=== PATIENT | male | born 1980 | race Caucasian/White ===

== ENCOUNTER 2023-08-03 20:28 | Emergency (ER) | payer BC, SELFPAY ==
[2023-08-03 20:50] VITALS: BP 156/89; PULSE 93; O2SAT 100; BMI 28.9
--- NOTE | 2023-08-03 21:02 | XR_ITS ---
The [address] [address] Patient Name: ALISA SPENCER MRN: [id number] date: 1980 Sex: M Assigned Patient Location: ER Current Patient Location: ER Accession/Order Number: [id number] Exam Date: 08/03/2023 21:54 Report Date: 08/03/2023 22:09 At the request of: CRISTHIAN PRICE Procedure: XR chest 1V EXAM: XR chest 1V HISTORY: Dizzy, palpitations COMPARISON: None. TECHNIQUE: Chest x-ray portable FINDINGS: Clear lungs bilaterally. No acute consolidation. Cardiac shadow within normal. Normal hilar shadows. No pleural effusions. XR/XR chest 1V IMPRESSION: No evidence of acute cardiopulmonary process. Electronically authenticated by: LAURO RESENDIZ Date: 08/03/2023 22:09
--- NOTE | 2023-08-03 21:02 | CT_ITS ---
The [address] [address] Patient Name: ALISA SPENCER MRN: [id number] date: 1980 Sex: M Assigned Patient Location: ER Current Patient Location: ED.MAIN Accession/Order Number: [id number] Exam Date: 08/03/2023 21:55 Report Date: 08/03/2023 22:16 At the request of: CRISTHIAN PRICE Procedure: CT head/brain wo con EXAM: CT head/brain wo con HISTORY: dizzy, headache COMPARISON: None. TECHNIQUE: Unenhanced axial CT of the head was performed with coronal and sagittal reformats provided. FINDINGS: No hydrocephalus, midline shift, extra-axial fluid collection or intracranial hemorrhage. Simpson-white matter differentiation is preserved. Mastoids and middle ears are clear. Paranasal sinuses are clear. Visualized orbits are intact. The calvarium, skull base and osseous structures of the imaged face are intact. Scalp soft tissues are preserved. CT/CT head/brain wo con IMPRESSION: No acute intracranial process. Electronically authenticated by: DIRK LOWERY Date: 08/03/2023 22:16
--- NOTE | 2023-08-03 21:02 | ECG_ITS ---
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
--- NOTE | 2023-08-03 21:02 | ED.GENADUL1 ---
Documented by User: ZARA Aparicio 08/03/23 22:18 HPI HPI - General Adult General Chief complaint: Arrhythmia/Palpitations Stated complaint: thinks he is in a fib Time Seen by Provider: 08/03/23 20:43 Source: patient Mode of arrival: walk-in Limitations: no limitations History of Present Illness HPI narrative: Patient is a 43-year-old male who presents to the emergency department with concern that he is in A-fib. He has never had A-fib previously. He states he has felt off all day and has been dizzy, had headaches without visual changes, some chest tightness without shortness of breath. He has had mild cough. No fevers or vomiting. He has not had any hemoptysis, leg swelling. He had hernia surgery 5 weeks ago without complication. He states earlier today his smart watch told him that he was in A-fib and his felt as though his pulse was irregular. He has no palpitations at this time. He is noted to be in normal sinus rhythm with stable vital signs at initial interview. He takes blood pressure medication and has had a previous fused bicuspid aortic valve that is monitored with [facility], he does not take anticoagulation for this. Related Data Home Medications ?Medication ?Instructions ?Recorded ?Confirmed diltiazem HCl 240 mg capsule,24 240 mg PO Q24H 08/03/23 08/03/23 hr,extended release hydrochlorothiazide 25 mg tablet 25 mg PO QAM 08/03/23 08/03/23 lisinopril 20 mg tablet 20 mg PO QDAY 08/03/23 08/03/23 omeprazole 20 mg capsule,delayed 20 mg PO QDAY 08/03/23 08/03/23 release tadalafil 5 mg tablet 5 mg PO QDAY 08/03/23 08/03/23 Allergies Allergy/AdvReac Type Severity Reaction Status Date / Time levaquin Allergy Rash Uncoded 08/03/23 20:50 Opioid HPI Opioid Management Most Recent Opioid Data: No Data to Display Review of Systems ROS Constitutional Denies: fever or chills Eyes Denies: change in vision Ears, nose, mouth, and throat Denies: throat pain or nasal congestion Cardiovascular Reports: chest pain and palpitations Respiratory Reports: cough; Denies: shortness of breath, change in phlegm color or coughing up blood Gastrointestinal Denies: nausea, vomiting or diarrhea Musculoskeletal Denies: back pain Integumentary/Breast Denies: rash Neurological Reports: headache and dizziness; Denies: numbness in extremities or weakness in extremities Hematologic/Lymphatic Denies: easy bruising or easy bleeding Exam Narrative Exam Narrative: Gen.: Awake, alert, in no distress Head: Normocephalic, atraumatic ENT: Moist mucous membranes Respiratory: No respiratory distress, lungs clear bilaterally Cardio: Regular rate and rhythm Extremities: Moves extremities equally, no pedal edema or leg swelling noted Psych: Normal mood and affect Neuro: No focal neuro deficit Skin: Warm, dry, intact Constitutional Vital Signs, click to edit/add: Last Vital Signs Pulse 85 08/03/23 22:45 Resp 17 08/03/23 20:50 BP 119/83 08/03/23 22:45 Pulse Ox 95 08/03/23 22:45 O2 Del Method Room Air 08/03/23 20:50 Course Vital Signs Vital signs: Vital Signs Pulse Rate 93 H 08/03/23 20:50 Respiratory Rate 17 08/03/23 20:50 Blood Pressure 156/89 H 08/03/23 20:50 Pulse Oximetry 100 08/03/23 20:50 Oxygen Delivery Method Room Air 08/03/23 20:50 Pulse Rate 85 08/03/23 22:45 Respiratory Rate 17 08/03/23 20:50 Blood Pressure 119/83 08/03/23 22:45 Pulse Oximetry 95 08/03/23 22:45 Oxygen Delivery Method Room Air 08/03/23 20:50 Medical Decision Making MDM Narrative Medical decision making narrative: Patient with a PERC score of 0, stable vital signs, no hemoptysis, no history of DVT or PE, surgery greater than 4 weeks ago and no unilateral leg swelling. 2215: Labs show elevated TSH, imaging is pending at this time and case turned over to attending physician. The remainder of the workup is unremarkable at this point. Medical Records Medical records reviewed: Yes I reviewed the patient's medical records Lab Data Lab results reviewed: Yes I reviewed the patient's lab results Labs: Lab Results 08/03/23 08/03/23 08/03/23 Range/Units 21:00 21:07 21:12 WBC 5.7 (4.0-11.0) 10^3/uL RBC 4.80 (4.70-6.10) 10^6/uL Hgb 14.3 (14.0-18.0) g/dL Hct 42.8 (42.0-54.0) % MCV 89.2 (80.0-94.0) fL MCH 29.8 (25.9-34.0) pg MCHC 33.4 (29.9-35.2) g/dL RDW 12.1 (11.0-15.0) % Plt Count 229 (150-450) 10^3/uL MPV 11.0 (9.5-13.5) fL Neut % (Auto) 62.1 (43.0-75.0) % Lymph % (Auto) 18.7 L (20.5-60.0) % [place] % (Auto) 16.4 H (1.7-12.0) % Eos % (Auto) 1.6 (0.9-7.0) % Baso % (Auto) 0.7 (0.2-2.0) % Neut # (Auto) 3.5 (1.4-6.5) 10^3/uL Lymph # (Auto) 1.1 L (1.2-3.8) 10^3/uL [place] # (Auto) 0.9 H (0.3-0.8) 10^3/uL Eos # (Auto) 0.1 (0.0-0.7) 10^3/uL Baso # (Auto) 0.0 (0.0-0.1) 10^3/uL Abs Immat Gran (auto) 0.03 (0.00-0.03) 10^3/uL Imm/Tot Granulo (auto) 0.5 (0.0-0.5) % PT 10.0 (9.0-11.6) sec INR 0.94 APTT 26.7 (22.3-36.2) sec Sodium 138 (136-145) mmol/L Potassium 3.4 L (3.5-5.1) mmol/L Chloride 100 (98-107) mmol/L Carbon Dioxide 27.4 (21.0-32.0) mmol/L Anion Gap 14.0 BUN 6.0 L (7.0-18.0) mg/dL Creatinine 0.92 (0.70-1.30) mg/dL Est GFR ( Amer) >60 (>=60) Est GFR (Non-Af Amer) >60 (>=60) BUN/Creatinine Ratio 6.5 Glucose 88 (74-106) mg/dL Calcium 9.2 (8.5-10.1) mg/dL Total Bilirubin 0.3 (0.2-1.0) mg/dL AST 11 L (15-37) U/L ALT 26 (16-63) U/L Alkaline Phosphatase 67 (46-116) U/L Troponin I High Sens <4.0 L (4.0-76.1) pg/mL NT-Pro-B Natriuret Pep 35.0 (<=450.0) pg/mL Total Protein 7.7 (6.4-8.2) g/dL Albumin 4.1 (3.4-5.0) g/dL Globulin 3.6 g/dL Albumin/Globulin Ratio 1.1 TSH 8.744 H (0.358-3.740) uIU/mL Free T4 0.94 (0.76-1.46) ng/dL Free T3 3.29 (2.18-3.98) pg/mL Influenza Type A Ag Negative Influenza Type B Ag Negative SARS-CoV-2 Ag (CV2AG) Negative (NEGATIVE) Imaging Data Chest x-ray: Attestation: I have reviewed the pertinent imaging results. Radiologist's impression: ITS Impressions Chest X-Ray 08/03/23 21:02 IMPRESSION: No evidence of acute cardiopulmonary process. Electronically authenticated by: LAURO RESENDIZ Date: 08/03/2023 22:[address] 08/03/23 21:02 IMPRESSION: No acute intracranial process. Electronically authenticated by: DIRK LOWERY Date: 08/03/2023 22:16 ECG Data Attestation: I personally reviewed and interpreted this ECG as follows: (Normal sinus rhythm at a rate of 95, no acute ST elevation or ectopy. EKG reviewed by attending physician) Discharge Plan Discharge Stand Alone Forms: Portal Instructions Chief Complaint: Arrhythmia/Palpitations Clinical Impression: Palpitations, Dizziness Patient Disposition: Home, Self-Care Time of Disposition Decision: 23:27 Prescriptions / Home Meds: No Action diltiazem HCl 240 mg capsule,extended release 24 hr 240 mg PO Q24H hydrochlorothiazide 25 mg tablet 25 mg PO QAM lisinopril 20 mg tablet 20 mg PO QDAY omeprazole 20 mg capsule,delayed release(DR/EC) 20 mg PO QDAY tadalafil 5 mg tablet 5 mg PO QDAY Print Language: Martiniquais Instructions: Heart Palpitations (ED), Dizziness (ED) Referrals: Celena Chung MD [Primary Care Provider] - 1 week Documented by User: Abhay Diego 08/03/23 23:27 HPI HPI - General Adult General Chief complaint: Arrhythmia/Palpitations Stated complaint: thinks he is in a fib Time Seen by Provider: 08/03/23 20:43 History of Present Illness HPI narrative: Patient is a 43-year-old male who presents to the emergency department with concern that he is in A-fib. He has never had A-fib previously. He states he has felt off all day and has been dizzy, had headaches without visual changes, some chest tightness without shortness of breath. He has had mild cough. No fevers or vomiting. He has not had any hemoptysis, leg swelling. He had hernia surgery 5 weeks ago without complication. He states earlier today his smart watch told him that he was in A-fib and his felt as though his pulse was irregular. He has no palpitations at this time. He is noted to be in normal sinus rhythm with stable vital signs at initial interview. He takes blood pressure medication and has had a previous fused bicuspid aortic valve that is monitored with [facility], he does not take anticoagulation for this. Related Data Home Medications ?Medication ?Instructions ?Recorded ?Confirmed diltiazem HCl 240 mg capsule,24 240 mg PO Q24H 08/03/23 08/03/23 hr,extended release hydrochlorothiazide 25 mg tablet 25 mg PO QAM 08/03/23 08/03/23 lisinopril 20 mg tablet 20 mg PO QDAY 08/03/23 08/03/23 omeprazole 20 mg capsule,delayed 20 mg PO QDAY 08/03/23 08/03/23 release tadalafil 5 mg tablet 5 mg PO QDAY 08/03/23 08/03/23 Allergies Allergy/AdvReac Type Severity Reaction Status Date / Time levaquin Allergy Rash Uncoded 08/03/23 20:50 Opioid HPI Opioid Management Most Recent Opioid Data: No Data to Display Exam Constitutional Vital Signs, click to edit/add: Last Vital Signs Pulse 85 08/03/23 22:45 Resp 17 08/03/23 20:50 BP 119/83 08/03/23 22:45 Pulse Ox 95 08/03/23 22:45 O2 Del Method Room Air 08/03/23 20:50 Course Vital Signs Vital signs: Vital Signs Pulse Rate 93 H 08/03/23 20:50 Respiratory Rate 17 08/03/23 20:50 Blood Pressure 156/89 H 08/03/23 20:50 Pulse Oximetry 100 08/03/23 20:50 Oxygen Delivery Method Room Air 08/03/23 20:50 Pulse Rate 85 08/03/23 22:45 Respiratory Rate 17 08/03/23 20:50 Blood Pressure 119/83 08/03/23 22:45 Pulse Oximetry 95 08/03/23 22:45 Oxygen Delivery Method Room Air 08/03/23 20:50 Medical Decision Making MDM Narrative Medical decision making narrative: Patient with a PERC score of 0, stable vital signs, no hemoptysis, no history of DVT or PE, surgery greater than 4 weeks ago and no unilateral leg swelling. 2215: Labs show elevated TSH, imaging is pending at this time and case turned over to attending physician. The remainder of the workup is unremarkable at this point. For this patient encounter I reviewed the mid-level provider?s documentation, medical decision-making and treatment plan, and I personally spent time with this patient. Shared APC visit, physician attestation: [id number]: This visit was performed by both a physician and an APC. I personally evaluated and examined the patient. I performed all aspects of MDM as documented. I saw and examined the patient. His Apple Watch told him that he was in atrial fibrillation. He has never had this previously. He did admit to having dizziness along with some chest tightness earlier in the day. As Mari noted above, the patient has history of fused Bicuspid aortic valve that is monitored by [facility]. The workup today was unremarkable. CBC was negative his potassium was minimally decreased at 3.4 but that is not low enough to account for the patient's symptoms. He was also sent for head CT due to the dizziness and that was negative. Troponin and BNP are negative as is the chest x-ray. TSH was elevated at 8.744, but T3 and T4 were negative. This will need additional outpatient evaluation. He was given reassurance and informed of results. He will be discharged home to follow-up with his primary care provider for further evaluation and treatment as well as cardiology as needed. Holter monitor may be necessary to further evaluate this if he continues to have symptoms. - DO Agustín Lab Data Labs: Lab Results 08/03/23 08/03/23 08/03/23 Range/Units 21:00 21:07 21:12 WBC 5.7 (4.0-11.0) 10^3/uL RBC 4.80 (4.70-6.10) 10^6/uL Hgb 14.3 (14.0-18.0) g/dL Hct 42.8 (42.0-54.0) % MCV 89.2 (80.0-94.0) fL MCH 29.8 (25.9-34.0) pg MCHC 33.4 (29.9-35.2) g/dL RDW 12.1 (11.0-15.0) % Plt Count 229 (150-450) 10^3/uL MPV 11.0 (9.5-13.5) fL Neut % (Auto) 62.1 (43.0-75.0) % Lymph % (Auto) 18.7 L (20.5-60.0) % [place] % (Auto) 16.4 H (1.7-12.0) % Eos % (Auto) 1.6 (0.9-7.0) % Baso % (Auto) 0.7 (0.2-2.0) % Neut # (Auto) 3.5 (1.4-6.5) 10^3/uL Lymph # (Auto) 1.1 L (1.2-3.8) 10^3/uL [place] # (Auto) 0.9 H (0.3-0.8) 10^3/uL Eos # (Auto) 0.1 (0.0-0.7) 10^3/uL Baso # (Auto) 0.0 (0.0-0.1) 10^3/uL Abs Immat Gran (auto) 0.03 (0.00-0.03) 10^3/uL Imm/Tot Granulo (auto) 0.5 (0.0-0.5) % PT 10.0 (9.0-11.6) sec INR 0.94 APTT 26.7 (22.3-36.2) sec Sodium 138 (136-145) mmol/L Potassium 3.4 L (3.5-5.1) mmol/L Chloride 100 (98-107) mmol/L Carbon Dioxide 27.4 (21.0-32.0) mmol/L Anion Gap 14.0 BUN 6.0 L (7.0-18.0) mg/dL Creatinine 0.92 (0.70-1.30) mg/dL Est GFR ( Amer) >60 (>=60) Est GFR (Non-Af Amer) >60 (>=60) BUN/Creatinine Ratio 6.5 Glucose 88 (74-106) mg/dL Calcium 9.2 (8.5-10.1) mg/dL Total Bilirubin 0.3 (0.2-1.0) mg/dL AST 11 L (15-37) U/L ALT 26 (16-63) U/L Alkaline Phosphatase 67 (46-116) U/L Troponin I High Sens <4.0 L (4.0-76.1) pg/mL NT-Pro-B Natriuret Pep 35.0 (<=450.0) pg/mL Total Protein 7.7 (6.4-8.2) g/dL Albumin 4.1 (3.4-5.0) g/dL Globulin 3.6 g/dL Albumin/Globulin Ratio 1.1 TSH 8.744 H (0.358-3.740) uIU/mL Free T4 0.94 (0.76-1.46) ng/dL Free T3 3.29 (2.18-3.98) pg/mL Influenza Type A Ag Negative Influenza Type B Ag Negative SARS-CoV-2 Ag (CV2AG) Negative (NEGATIVE) Imaging Data Chest x-ray: Radiologist's impression: ITS Impressions Chest X-Ray 08/03/23 21:02 IMPRESSION: No evidence of acute cardiopulmonary process. Electronically authenticated by: LAURO RESENDIZ Date: 08/03/2023 22:[address] 08/03/23 21:02 IMPRESSION: No acute intracranial process. Electronically authenticated by: DIRK LOWERY Date: 08/03/2023 22:16 Discharge Plan Discharge Stand Alone Forms: Portal Instructions Chief Complaint: Arrhythmia/Palpitations Clinical Impression: Palpitations, Dizziness Patient Disposition: Home, Self-Care Time of Disposition Decision: 23:27 Prescriptions / Home Meds: No Action diltiazem HCl 240 mg capsule,extended release 24 hr 240 mg PO Q24H hydrochlorothiazide 25 mg tablet 25 mg PO QAM lisinopril 20 mg tablet 20 mg PO QDAY omeprazole 20 mg capsule,delayed release(DR/EC) 20 mg PO QDAY tadalafil 5 mg tablet 5 mg PO QDAY Print Language: Martiniquais Instructions: Heart Palpitations (ED), Dizziness (ED) Referrals: Celena Chung MD [Primary Care Provider] - 1 week
[2023-08-03 21:12] LABS: Basophils Percent Auto 0.7 % (0.2-2.0); Eosinophils Absolute Auto 0.1 10^3/uL (0.0-0.7); Eosinophils Percent Auto 1.6 % (0.9-7.0); Hematocrit 42.8 % (42.0-54.0); Hemoglobin 14.3 g/dL (14.0-18.0); Immature Granulocytes Abs Auto 0.03 10^3/uL (0.00-0.03); Immature Granulocytes Pct Auto 0.5 % (0.0-0.5); Lymphocytes Absolute Auto 1.1 10^3/uL (1.2-3.8); Lymphocytes Percent Auto 18.7 % (20.5-60.0); Mean Corpuscular HGB Conc 33.4 g/dL (29.9-35.2); Mean Corpuscular Hemoglobin 29.8 pg (25.9-34.0); Mean Corpuscular Volume 89.2 fL (80.0-94.0); Monocytes Absolute Auto 0.9 10^3/uL (0.3-0.8); Monocytes Percent Auto 16.4 % (1.7-12.0); Neutrophils Absolute Auto 3.5 10^3/uL (1.4-6.5); Neutrophils Percent Auto 62.1 % (43.0-75.0); Platelet Count 229 10^3/uL (150-450); Red Cell Distribution Width 12.1 % (11.0-15.0); White Blood Count 5.7 10^3/uL (4.0-11.0)
[2023-08-03 21:27] LABS: Alanine Aminotransferase 26 U/L (16-63); Albumin Globulin Ratio 1.1; Albumin Level 4.1 g/dL (3.4-5.0); Alkaline Phosphatase 67 U/L (46-116); Aspartate Amino Transferase 11 U/L (15-37); BUN Creatinine Ratio 6.5; Bilirubin Total 0.3 mg/dL (0.2-1.0); Calcium 9.2 mg/dL (8.5-10.1); Carbon Dioxide 27.4 mmol/L (21.0-32.0); Chloride 100 mmol/L (98-107); Estimated GFR (African America >60 (>=60); Estimated GFR (Non-African Ame >60 (>=60); Globulin 3.6 g/dL; Glucose 88 mg/dL (74-106); Potassium 3.4 mmol/L (3.5-5.1); Sodium 138 mmol/L (136-145); Total Protein 7.7 g/dL (6.4-8.2)
[2023-08-03 21:28] LABS: INR 0.94; Partial Thromboplastin Time 26.7 sec (22.3-36.2)
[2023-08-03 21:36] LABS: Thyroid Stimulating Hormone 8.744 uIU/mL (0.358-3.740); Troponin I High Sensitivity <4.0 pg/mL (4.0-76.1)
[2023-08-03 21:47] LABS: Influenza Virus A Antigen Negative; Influenza Virus B Antigen Negative; Internal Control Within Normal Limits; SARS-CoV-2 Ag NEGATIVE (NEGATIVE)
[2023-08-03 22:07] LABS: Free T4 0.94 ng/dL (0.76-1.46)
[2023-08-03 22:13] LABS: Free T3 3.29 pg/mL (2.18-3.98)
[2023-08-03 22:45] VITALS: BP 119/83; PULSE 85; O2SAT 95
[2023-08-03 23:34] VITALS: BP 136/93; PULSE 87; O2SAT 97
== END 2023-08-03 23:39 | disposition home or self-care (01) ==
PROVIDERS: Physician Assistant; Emergency Provider Emergency Medicine; PCP Family Medicine
DX: R42 Dizziness and giddiness (principal); R00.2 Palpitations; Z79.899 Other long term (current) drug therapy; Z98.890 Other specified postprocedural states; R07.89 Other chest pain; R51.9 Headache, unspecified
CPT/HCPCS: 36415; 70450; 71045; 80053; 83880; 84439; 84443; 84481; 84484; 85025; 85610; 85730; 87804; 87811; 93005; 99285

== ENCOUNTER 2023-09-26 07:21 | Outpatient (OUT) | payer BC, SELFPAY ==
--- NOTE | 2023-09-26 07:30 | CA_ITS ---
Patient Name: ALISA SPENCER MR#: [id number] : 1980 Exam Date: 09/26/2023 Ordering Doctor: MAGNO OLIVEIRA CNP ECHOCARDIOGRAM REPORT PROCEDURE: CA ECHO DOPPLER COMPLETE INDICATIONS: Bicuspid aortic valve, aortic insufficiency, hypertension COMPARISON: None. DESCRIPTION: COMPLETE ECHOCARDIOGRAM Real-time transthoracic echocardiography with 2D, M-mode, spectral and color flow Doppler performed. QUALITY: Technical quality was good. 74 , 225#, BP 112/62 LEFT VENTRICLE: Normal chamber size. Normal left ventricular wall thickness. Normal systolic function. LV EF: Normal left ventricular ejection fraction, (>55%). DIASTOLIC: Diastolic function is normal. ATRIAL SEPTUM: Visually appears intact. LEFT ATRIUM: Mild dilatation. RIGHT ATRIUM: Mild dilatation. RIGHT VENTRICLE: Mild dilatation. Normal right ventricular systolic function. TRICUSPID VALVE: Normal mobility and thickness. No stenosis with trivial regurgitation. MITRAL VALVE: Mildly thickened with normal mobility. Mild mitral annular calcification. Trivial mitral regurgitation. AORTIC VALVE: The aortic valve is bicuspid, Eliu type I [fusion of right and left cusps]. No evidence of aortic valve stenosis. Mild to moderate aortic regurgitation. AORTIC ROOT: The aortic root is at the upper limits of normal in size, measuring 3.7 cm. Ascending aorta is normal in size. PULMONIC VALVE: Normal thickness and mobility. No stenosis. No regurgitation. PERICARDIUM: No evidence of pericardial effusion. IVC: Collapses with inspirations. IVC is normal in size. PLEURA: CONCLUSION: 1. Normal left ventricular size and systolic function. Estimated LVEF is 55 to 60%. 2. Normal diastolic function. 3. Mildly dilated right ventricle with normal systolic function. 4. Mild biatrial dilatation. 5. Bicuspid aortic valve with mild to moderate regurgitation and no stenosis. Adult Echocardiography Procedure Report Left Ventricle LVEDD (3.7 - 5.6 cm): 5.75 cm LVESD (2.2 - 4.0 cm): 4.16 cm LVIVS thickness (0.6 - 1.2 cm): 1.04 cm LVPW thickness (0.5 - 1.0 cm): 0.91 cm e': 0.16 m/s E - e': 5.62 LVOT Max Gradient: 6.24 mm[Hg] LVOT Area (cm2): 1.25 m/s Peak Velocity (LVOT): 1.25 m/s Mean Velocity (LVOT): 0.86 m/s LVOT Diameter 2.64 cm Left Atrium LA Volume Index (2D A2C): 36.88 ml/m2 Left Atrium Systolic Dimension: 3.72 cm Mitral Valve MV E to A Ratio: 1.55 Mitral Valve A-Wave Peak Velocity: 0.58 m/s Mitral Valve E-Wave Peak Velocity: 0.90 m/s Right Ventricle Aorta AO Root Diam: 3.66 cm Ascending Ao Diam: 3.04 cm Aortic Valve AoV Area ([place]): 3.98 cm2, 3.98 cm2 AoV Area (VTI): 3.77 cm2, 3.77 cm2 Deceleration [place]: 1.78 m/s2, 2.85 m/s2 Pressure Half-Time: 740.70 ms, 449.54 ms Peak Velocity(Antegrade Flow): 1.72 m/s, 1.68 m/s Peak Gradient(Antegrade Flow): 11.79 mm[Hg], 11.25 mm[Hg] Mean Velocity(Antegrade Flow): 1.21 m/s, 1.20 m/s Mean Gradient(Antegrade Flow): 6.73 mm[Hg], 6.50 mm[Hg] Velocity Time Integral: 41.10 cm, 40.32 cm Tricuspid Valve Pulmonic Valve Peak Gradient: 5.92 mm[Hg], 5.27 mm[Hg] Right Atrium Right Atrium Systolic Pressure: 79.25 ml, 79.25 ml Dictated by: Sheldon Mcguire M.D. on 09/26/2023 at 18:57 Approved by: Sheldon Mcguire M.D. on 09/26/2023 at 19:03
== END 2023-09-26 07:22 | disposition home or self-care (01) ==
LOC: CARD 07:22
PROVIDERS: PCP Family Medicine; Visit Provider Nurse Practitioner Family
DX: Q23.1 Congenital insufficiency of aortic valve (principal)
CPT/HCPCS: 93306

== ENCOUNTER 2024-02-02 07:03 | Outpatient (OUT) | payer BC, SELFPAY ==
--- OUTSIDE RECORDS SUMMARY | 2024-02-02 07:07 | XMS_ITS | CCD ---
Author Organization [facility] Care Team Providers Care Emergency Medicine Medical Director Name Role Phone ROSE MARY TIMMONS Primary Care Unavailable PELON TIM Admitting Unavailable PELON TIM Attending Unavailable Rose Mary Timmons Primary Care Provider [phone] ROSE MARY TIMMONS Referring Unavailable ROSE MARY TIMMONS Primary Care Unavailable UNKNOWN, PROVIDER Attending Unavailable UNKNOWN, PROVIDER Admitting Unavailable Guanaco Wolf Unavailable Mando Forde Unavailable Lanie Robledo Unavailable Woodrow Rashid Unavailable Leyla Bolanos Unavailable MD Rose Mary Timmons Primary Care Provider [phone] MD Woodrow Rashid Attending Provider Rose Mary Timmons Unavailable MD Rose Mary Timmons Primary Care Provider MD Guanaco Wolf Attending Provider MD Rose Mary Timmons Primary Care Provider MD Guanaco Wolf Attending Provider [phone] MD Woodrow Rashid Attending Provider [phone] MAGNO OLIVEIRA Consulting Unavailable MAGNO OLIVEIRA Attending Unavailable MAGNO OLIVEIRA Admitting Unavailable DR ROSE MARY TIMMONS Primary Care Unavailable MAGNO OLIVEIRA Admitting Unavailable MAGNO OLIVEIRA Consulting Unavailable MAGNO OLIVEIRA Attending Unavailable DR ROSE MARY TIMMONS Primary Care Unavailable DR ROSE MARY TIMMONS Attending Unavailable DR ROSE MARY TIMMONS Admitting Unavailable DR ROSE MARY TIMMONS Primary Care Unavailable DR ROSE MARY TIMMONS Consulting Unavailable MAGNO OLIVEIRA Admitting Unavailable MAGNO OLIVEIRA Attending Unavailable DR ROSE MARY TIMMONS Primary Care Unavailable MD Rose Mary Timmons Primary Care Provider MD Guanaco Wolf Attending Provider [phone] Rose Mary Timmons MD Primary Care Provider [phone] MD Rose Mary Timmons Primary Care Provider DO Jonathan Shipman Attending Provider [phone] MD Rose Mary Timmons Primary Care Provider DO Jonathan Shipman Attending Provider [phone] Rose Mary Timmons Primary Care Unavailable Woodrow Rashid Admitting Unavailable Woodrow Rashid Attending Unavailable Rose Mary Timmons Primary Care Unavailable Guanaco Wolf Admitting Unavailable Guanaco Wolf Attending Unavailable Jonathan Shipman Attending Unavailable Rose Mary Timmons Primary Care Unavailable Jonathan Shipman Admitting Unavailable Rose Mary Timmons Primary Care Unavailable Woodrow Rashid Admitting Unavailable Woodrow Rashid Attending Unavailable Rose Mary Timmons Primary Care Unavailable Jonathan Shipman Admitting Unavailable Jonathan Shipman Attending Unavailable JONATHAN SHIPMAN Attending Unavailable ROSE MARY TIMMONS Unavailable JONATHAN SHIPMAN Attending Unavailable JONATHAN SHIPMAN Attending Unavailable ZACHARY WILLIAM Attending Unavailable JONATHAN SHIPMAN Attending Unavailable TAVO MENDOZA Attending Unavailable Allergies Allergy Classification Reported Allergen(s) Allergy Type Date of Onset Reaction(s) Facility (9 sources) levoFLOXacin; Translations: [LEVOFLOXACIN] Drug Allergy 8 [facility], [place] (20 sources) levoFLOXacin Drug Allergy TSB Other (1 source) levoFLOXacin Drug Allergy 4 [facility] Repository Medications Current Medications Medication Drug Class(es) Dates Sig (Normalized) Sig (Original) acetaminophen 325 mg oral tablet (1 source) Start: 05-17-2020 650 mg, Oral, EVERY 4 HOURS PRN, Pain Mild (1-3), Pain Mild (1-3) or Fever greater than 100.5 F (38 C), Starting 05/17/20 at 2251 Maximum dose of acetaminophen is 4000 mg from all sources in 24 hours. acetaminophen 325 mg / oxyCODONE hydrochloride 5 mg oral tablet (1 source) Opioid Agonist Start: 05-18-2020 End: 06-01-2020 take 1 tablet by mouth every six hours as needed for pain, then take 1 tablet by mouth as needed for pain oxyCODONE-acetamin ophen (PERCOCET) 5-325 MG per tablet Indications: Postoperative pain Take 1 tablet by mouth every 6 hours as needed for Pain for up to 14 days. Intended supply: 7 days. Take lowest dose possible to manage pain 40 tablet 0 05/18/2020 06/01/2020 Active calcium chloride 0.0014 meq/ml / potassium chloride 0.004 meq/ml / sodium chloride 0.103 meq/ml / sodium lactate 0.028 meq/ml injectable solution (1 source) Start: 05-18-2020 lactated ringers infusion cephalexin 500 mg oral capsule (1 source) Cephalosporin Antibacterial Start: 05-18-2020 End: 05-25-2020 take 1 capsule by mouth three times daily cephALEXin (KEFLEX) 500 MG capsule Take 1 capsule by mouth 3 times daily for 7 days 21 capsule 0 05/18/2020 05/25/2020 Active Compression stockings, 30-40mmHg, thigh 30-40mmHg (6 sources) Start: 09-19-2022 Compression stockings, 30-40mmHg, thigh 30-40mmHg externally daily as directed for 90 days August, Active dilTIAZem malate 240 mg oral tablet (20 sources) Calcium Channel Edie Start: 08-02-2023 take 240 mg by mouth once daily Diltiazem Hcl Active 240 MG PO Daily August 02, 2023 12:00am Start: 01-04-2023 End: 08-01-2023 take 240 mg by mouth once daily in the morning Diltiazem Hcl Discontinued 240 MG PO Every morning January 04, 2023 12:00am August 01, 2023 9:54am take 1 capsule by [facility] every twenty-four hours in the morning dilTIAZem ER (Tiazac) 240 MG 24 hr capsule Take 240 mg by mouth in the morning. 0 Active gabapentin 300 mg oral capsule (1 source) Anti-epileptic Agent Start: 05-08-2020 End: 06-07-2020 take 1 capsule by mouth three times daily gabapentin (NEURONTIN) 300 MG capsule Take 1 capsule by mouth 3 times daily for 30 days. 90 capsule 0 05/08/2020 06/07/2020 Active hydroCHLOROthiazide 25 mg oral tablet (20 sources) Thiazide Diuretic Start: 01-04-2023 End: 04-11-2024 take 25 mg by mouth once daily Hydrochlorothiazide Active 25 MG PO Daily August 02, 2023 12:00am HYDROmorphone (DILAUDID) injection 0.25 mg (1 source) Start: 05-17-2020 HYDROmorphone (DILAUDID) injection 0.25 mg lisinopril 20 mg oral tablet (20 sources) Angiotensin Converting Enzyme Inhibitor Start: 01-04-2023 End: 08-01-2023 take 20 mg by mouth once daily Lisinopril Active 20 MG PO Daily August 02, 2023 12:00am lisinopril (PRIN IVIL;ZESTRIL) 20 MG tablet Take 30 mg by mouth daily 0 Active methylPREDNISolone 4 mg oral tablet (20 sources) Corticosteroid Start: 05-15-2020 End: 05-21-2020 methylPREDNISolone (MEDROL DOSEPACK) 4 MG tablet Take by mouth. 1 kit 0 05/15/2020 05/21/2020 Active Start: 04-12-2020 Depo-Medrol 40 mg Mar, 40 mg 24 hr metoprolol succinate 50 mg extended release oral tablet (1 source) beta-Adrenergic Edie Start: 06-19-2017 take 50 mg by mouth once daily Metoprolol Succinate Active 50 MG PO Daily June 19, 2017 1:00am Multivitamin (Daily Multi-Vitamin) tablet (2 sources) Start: 06-16-2023 take 1 tablet by mouth once daily in the morning Multivitamin (Daily Multi-Vitamin) tablet Active 1 TAB PO Every morning June 16, 2023 1:00am Start: 06-16-2023 take 1 tablet by frances th once daily in the morning Multivitamin (Daily Multi-Vitamin) tablet Active 1 TAB PO Every morning June 16, 2023 12:00am olmesartan medoxomil 20 mg oral tablet (1 source) Angiotensin 2 Receptor Edie take 1 tablet by mouth once daily olmesartan (BENICAR) 20 MG tablet Take 20 mg by mouth daily 0 Active omeprazole 20 mg delayed release oral capsule (20 sources) Proton Pump Inhibitor Start: take 1 capsule by mouth once daily Omeprazole Active 0 .ROUTE .COMPLEX 90 July 03, 2023 1:13pm TAKE 1 CAPSULE BY MOUTH ONCE DAILY Start: 01-04-2023 End: 07-03-2023 take 20 mg by mouth once daily in the morning Omeprazole Discontinued 20 MG PO Every morning January 04, 2023 12:00am July 03, 2023 1:13pm take 1 capsule by [facility] once daily Omeprazole 10 MG 1 capsule 30 minutes before morning meal Orally Once a day Active predniSONE 20 mg oral tablet (15 sources) Start: 09-27-2022 take 2 tablets by mouth every twenty-four hours predniSONE 20 MG 2 tablets Orally Once a day for 5 days August, Active Start: 03-23-2021 predniSONE 10 MG 3 tablets a day for 3 days, 2 tablets a day for 3 days, 1 tablets a day for 3 days Orally Once a day for 9 day(s) Mar, Not-Taking sennosides, nursing home 8.6 mg oral tablet (1 source) Start: 05-18-2020 End: 06-01-2020 take 2 tablets by mouth twice daily senna (SENOKOT) 8.6 MG tablet Take 2 tablets by mouth 2 times daily for 14 days 56 tablet 0 05/18/2020 06/01/2020 Active 3 ml sodium chloride 9 mg/ml injection (3 sources) Start: 05-17-2020 10 mL, Intrave nous, EVERY 12 HOURS SCHEDULED (2 times per day), First dose on 05/17/20 at 2315 Start: 05-17-2020 take 10 mL intraveno us route once as needed 10 mL, Intravenous, PRN, Line Care, After every IV line use, Starting 05/17/20 at 2251 Start: 05-17-2020 End: 05-17-2020 0.9 % sodium chloride bolus tadalafil 5 mg oral tablet (20 sources) Phosphodiesterase 5 Inhibitor Start: 01-04-2023 take 5 mg by mouth once daily Tadalafil Active 5 MG PO Daily January 04, 2023 12:00am Completed/Discontinued Medications Medication Drug Class(es) Dates Sig (Normalized) Sig (Original) acetaminophen 325 mg / HYDROcodone bitartrate 5 mg oral tablet (7 sources) Opioid Agonist Start: 01-12-2022 End: 01-04-2023 take 1 tablet by mouth every eight hours Hydrocodone-Acetami nophen Discontinued 1 TAB PO Q8H 11 09January 12, 2022 January 04, 2023 6:34am Start: 06-19-2017 take 1 tablet by frances th every six hours Hydrocodone-Acetaminophen ([place]) 5-325 mg tablet Active 1 TAB PO Q6H June 19, 2017 cefTRIAXone (ROCEPHIN) 1 g IVPB in 50 mL D5W minibag (1 source) Start: 05-17-2020 End: 05-17-2020 cefTRIAXone (ROCEPHIN) 1 g IVPB in 50 mL D5W minibag diclofenac sodium 75 mg delayed release oral tablet (20 sources) Nonsteroidal Anti-inflammatory Drug Start: 04-19-2021 take 1 tablet by mouth every twelve hours Diclofenac Sodium 75 MG 1 tablet as needed Orally Twice a day for 30 day(s) Mar, Not-Taking gadoteridol (PROHANCE) injection 15 mL (1 source) Start: 05-17-2020 End: 05-17-2020 gadoteridol (PROHANCE) injection 15 mL 1 ml HYDROmorphone hydrochloride 1 mg/ml cartridge (3 sources) Opioid Agonist Start: 05-17-2020 End: 05-17-2020 HYDROmorphone (DILAUDID) injection 1 mg Start: 05-17-2020 End: 05-18-2020 HYDROmorphone (DILAUDID) inj ection 0.5 mg ketamine 10 mg/ml injectable solution (1 source) General Anesthetic Start: 05-17-2020 End: 05-17-2020 ketamine (KETALAR) injection 53.3 mg Ketorolac (20 sources) Nonsteroidal Anti-inflammatory Drug, Cyclooxygenase Inhibitor Start: 04-12-2020 Toradol per 15 mg Mar, 30 mg Start: 11-14-2015 Toradol per 15 mg Oct, 60 mg 1 ml meperidine hydrochloride 25 mg/ml cartridge (1 source) Opioid Agonist Start: 05-18-2020 End: 05-18-2020 meperidine (DEMEROL) injection 12.5 mg 2 ml ondansetron 2 mg/ml injection (1 source) Serotonin-3 Receptor Antagonist Start: 05-17-2020 End: 05-17-2020 ondansetron (ZOFRAN) injection 4 mg traMADol hydrochloride 50 mg oral tablet (1 source) Opioid Agonist Start: 06-26-2023 End: 08-02-2023 take 50 mg by mouth every six hours Tramadol Discontinued 50 MG PO Q6H 30 7 June 26, 2023 1:00am August 02, 2023 11:08am zolpidem tartrate 12.5 mg extended release oral tablet (14 sources) gamma-Aminobutyri c Acid-ergic Agonist Start: 03-08-2023 take 1 tablet by mouth at bedtime as needed Zolpidem Tartrate ER 12.5 mg TAKE 1 TABLET BY MOUTH AT BEDTIME NEEDED for 30 Mar, Not-Taking/PRN Start: 09-30-2022 take 1 tablet by frances th at bedtime as needed Zolpidem Tartrate ER 12.5 mg TAKE 1 TABLET BY MOUTH AT BEDTIME NEEDED for 30 Last name is Johanna. Sep, Active Start: 06-23-2022 take 1 tablet by frances th every twenty-four hours Ambien CR 12.5 MG 1 tablet at bedtime as needed Orally Once a day for 30 days Jun, Active Problems Active Problems Problem Classification Problem Date Documented Da te Episodic/Chronic Abdominal hernia (4 sources) Left inguinal hernia ; Translations: [Unilateral inguinal hernia, without obstruction or gangrene, not specified as recurrent] Onset: 06-13-2023 06-13-2023 Episodic Abdominal pain (3 sources) Left lower quadrant pain; Translations: [Left lower quadrant pain] Onset: 06-13-2023 Episodic Anxiety disorders (5 sources) Anxiety disorder; Translations: [Other specified anxiety disorders] Chronic Cardiac and circulatory congenital anomalies (2 sources) Congenital insufficiency of aortic valve; Translations: [Congenital insufficiency of aortic valve] Onset: 09-14-2022 Chronic Cardiac dysrhythmias (7 sources) Tachycardia; Translations: [Tachycardia, unspecified] Onset: 11-21-2017 Episodic Esophageal disorders (3 sources) Gastro-esophageal reflux disease with esophagitis; Translations: [Gastro-esophageal reflux disease with esophagitis, without bleeding] Chronic Esophageal disorders (2 sources) Esophageal disorders; Translations: [Gastro-esophageal reflux disease with esophagitis, without bleeding] Essential hypertension (9 sources) Essential hypertension; Translations: [Essential (primary) hypertension] Onset: 09-14-2022 08-01-2023 Chronic Heart valve disorders (6 sources) Nonrheumatic aortic (valve) insufficiency; Translations: [NONRHEUMATIC AORTIC INSUFFICIENCY] Onset: 08-22-2022 Chronic Other bone disease and musculoskeletal deformities (5 sources) Other specified disorders of bone, shoulder; Translations: [Other specified disorders of bone, shoulder] Episodic Other connective tissue disease (20 sources) Supraspinatus syndrome; Translations: [Unspecified rotator cuff tear or rupture of left shoulder, not specified as traumatic] Episodic Other diseases of veins and lymphatics (20 sources) Peripheral venous insufficiency; Translations: [Venous insufficiency (chronic) (peripheral)] 08-01-2023 Episodic Other diseases of veins and lymphatics (9 sources) Vascular insufficiency; Translations: [Venous insufficiency (chronic) (peripheral)] 08-01-2023 Episodic Other ear and sense organ disorders (1 source) Bilateral tinnitus; Translations: [Tinnitus, bilateral] 08-02-2023 Episodic Other ear and sense organ disorders (1 source) Tinnitus, bilateral; Translations: [Tinnitus, unspecified] 08-02-2023 Episodic Other male genital disorders (2 sources) Impotence of organic origin; Translations: [Male erectile dysfunction, unspecified] Chronic Other male genital disorders (4 sources) Male erectile dysfunction, unspecified; Translations: [Erectile dysfunction (disorder)] 08-01-2023 Chronic Other nervous system disorders (20 sources) Chronic pain; Translations: [Other chronic pain] 08-01-2023 Chronic Other nervous system disorders (7 sources) Other chronic pain Onset: 04-19-2021 Resolved: 07-12-2021 Chronic Other nervous system disorders (1 source) Postoperative pain ; Translations: [Postoperative pain] Episodic Other non-traumatic joint disorders (20 sources) Derangement of left shoulder joint; Translations: [Other specific joint derangements of left shoulder, not elsewhere classified] Chronic Other non-traumatic joint disorders (1 source) Other specific joint derangements of left shoulder, not elsewhere classified Onset: 06-01-2021 Resolved: 06-01-2021 Chronic Other non-traumatic joint disorders (3 sources) Pain in left shoulder; Translations: [Left shoulder pain] Onset: 06-10-2021 Resolved: 07-01-2021 Episodic Other non-traumatic joint disorders (5 sources) Shoulder joint pain; Translations: [Pain in left shoulder] Episodic Other upper respiratory disease (20 sources) Seasonal allergic rhinitis; Translations: [Other seasonal allergic rhinitis] Chronic Residual codes; unclassified (14 sources) Insomnia; Translations: [Other insomnia] Chronic Residual codes; unclassified (2 sources) Other insomnia Chronic Residual codes; unclassified (6 sources) Patient encounter status; Translations: [Encounter for procedure for purposes other than remedying health state, unspecified] 01-12-2022 Episodic Spondylosis; intervertebral disc disorders; other back problems (20 sources) Prolapsed lumbar intervertebral disc; Translations: [Degeneration of lumbar intervertebral disc] Onset: 05-17-2020 Resolved: 08-27-2021 05-17-2020 Chronic Sprains and strains (20 sources) Supraspinatus tear; Translations: [Unspecified rotator cuff tear or rupture of left shoulder, not specified as traumatic] Episodic Unclassified (1 source) Encounter for preprocedural laboratory examination; Translations: [Encounter for preprocedural laboratory examination] Onset: 06-16-2023 Unclassified (1 source) Varicose veins of bilateral lower extremities with pain; Translations: [Varicose veins of bilateral lower extremities with pain] Onset: 01-04-2023 Unclassified (1 source) Varicose veins of left lower extremity with pain; Translations: [Varicose veins of left lower extremity with pain] Onset: 09-01-2022 Varicose veins of lower extremity (20 sources) Varicose veins of lower extremity; Translations: [Varicose veins of bilateral lower extremities with other complications] Onset: 09-21-2021 Resolved: 12-21-2021 Episodic Past or Other Problems Problem Classification Problem Date Documented Date Episodic/Chronic Other connective tissue disease (1 source) Unspecified rotator cuff tear or rupture of left shoulder, not specified as traumatic Onset: 07-01-2021 Resolved: 07-01-2021 Episodic Other diseases of veins and lymphatics (1 source) Venous insufficiency (chronic) (peripheral) Onset: 08-23-2022 Resolved: 12-21-2021 Episodic Other upper respiratory infections (2 sources) Acute pharyngitis, unspecified Onset: 09-06-2021 Resolved: 09-06-2021 Episodic Residual codes; unclassified (1 source) Other specified postprocedural states Onset: 06-01-2021 Resolved: 06-01-2021 Episodic Spondylosis; intervertebral disc disorders; other back problems (20 sources) Sciatica; Translations: [Sciatica, left side] Onset: 01-12-2018 Resolved: 07-12-2021 Episodic Sprains and strains (1 source) Strain of other muscles, fascia and tendons at shoulder and upper arm level, left arm, initial encounter Onset: 06-10-2021 Resolved: 06-10-2021 Episodic Superficial injury; contusion (3 sources) Contusion of left shoulder, subsequent encounter; Translations: [Contusion of left shoulder, initial encounter] Onset: 06-01-2021 Resolved: 07-01-2021 Episodic Results Test Name Value Interpretation Reference Range Facility Office Visiton 12-22-2023 Follow-up visit [id number] ANSHUL Spencer 1980 M Date Provider Department Center 12/22/2023 TAVO TERRY CARD [facility] Family History Problem Relation Age of Onset Hypertension Father Hypertension Maternal Grandfather Family Status - Relation Status Age at Father Maternal Grandfather Level of Service:56785 [place] OFFICE/OUTPATIENT ESTABLISHED MOD MDM 30 MIN Normal [facility] Amphetamine Screen Ql (U)Ord ered By: Sai Conway on 06-26-2023 Amphetamines Ql (U) Negative Negative [facility] Barbiturates [Presence] in U rine by Screen methodOrdered By: Sai Conway on 06-26-2023 Barbiturates Screen Ql (U) Negative Negative [facility] Benzodiazepines Screen Ql (U )Ordered By: Sai Conway on 06-26-2023 Benzodiazepines Ql (U) Negative Negative [facility] Benzoylecgonine [Presence] i n Urine by Screen methodOrdered By: Sai Conway on 06-26-2023 Benzoylecgonine Screen Ql (U) Negative Negative [facility] Cannabinoids [Presence] in U rine by Screen methodOrdered By: Sai Conway on 06-26-2023 Cannabinoids Screen Ql (U) Positive Negative [facility] Comment on above: These are unconfirme d results and should not be used for legal purposes. Drug Cut-Off Concentration: AMPH 1000 ng/mL MEE 200 ng/mL ROC 200 ng/mL COCM 300 ng/mL OP 300 ng/mL PCP 25 ng/mL THC 20 ng/mL Drug Screen,Urineon 06-26-19 Amphetamine Screen,Urine Negative Normal Negative [facility] Comment on above: Performed By: #### U RDS #### [address] Barbiturate Screen,Urine Negative Normal Negative [facility] Comment on above: Performed By: #### U RDS #### [address] Benzodiazepines Screen,Urine Negative Normal Negative [facility] Comment on above: Performed By: #### U RDS #### [address] Cannabinoid Screen,Urine Positive High Negative [facility] Comment on above: Result Comment: Thes e are unconfirmed results and should not be used for legal purposes. Drug Cut-Off Concentration: AMPH 1000 ng/mL MEE 200 ng/mL ROC 200 ng/mL COCM 300 ng/mL OP 300 ng/mL PCP 25 ng/mL THC 20 ng/mL PERFORMED BY: [place] [address] PATHOLOGIST ESCAPEMENT MAKER LUCIO DENT M.D. Performed By: #### U RDS #### [place] [address] [place] Cocaine Screen,Urine Negative Normal Negative [facility] Comment on above: Performed By: #### U RDS #### [place] [address] [place] Opiate Screen,Urine Negative Normal Negative [facility] Comment on above: Performed By: #### U RDS #### [place] [address] [place] Phencyclidine Screen,Urine Negative Normal Negative [facility] Comment on above: Performed By: #### U RDS #### [facility] [address] Hair 06-26-2023 L Specimen: [id number] Received: 06/27/23 Status: LAURENCE Padilla Num: [id number] Spec Type: Surgical Subm Dr: Jonathan Shipman DO Tissues: A Hernia Sac (HERNIA SAC/CORD LIPOMA) Procedures: HE, Gross/Micro L2 Age/ Patient Sex Location Account Attending Physician Anshul Spencer S 43/M [place] [id number] Jonathan Shipman DO SPEC NUM: [id number] RECD: 06/27/23 STATUS: LAURENCE APDILLA NUM: [id number] REBECCA: 06/26/[address] [facility] [address]: Jonathan Shipman DO ENTERED: 06/27/23 [facility] DR: SPEC TYPE: Surgical DEPT: S ORDERED: HE, Gross/Micro L2 ORDERED: HE, Gross/Micro L2 Pathological Diagnosis Hernia Sac, Left Inguinal, Resection: Features Consistent With Hernia Sac (and Contents). Clinical Information Left inguinal hernia Gross Description Received in formalin labeled with the patient's name, date of and hernia sac, cord lipoma with the requisition further specifying left inguinal are 2 fragments of soft yellow lobulated adipose tissue each approximately 5.2 x 2.7 x 1.8 cm. Both fragments demonstrate overlying membranous pink-chapa tissue, potentially representing hernia sac wall. Sectioning demonstrates soft yellow lobules of adipose tissue with no firm or suspicious foci. A bilingual inside sales representative section of each fragment with overlying membranous tissue is submitted. Clothes Ironer sections are submitted in one cassette labeled A1. CPT Codes 03456 Specimen: [id number] Received: 06/27/23 Status: LAURENCE Pdailla Num: [id number] Spec Type: Surgical Subm Dr: Jonathan Shipman DO Tissues: A Hernia Sac (HERNIA SAC/CORD LIPOMA) Procedures: KEIRA, Yefri/Kendra L2 Patient: Anshul Spencer [id number] (Continued) Signed (signatur e on file) Estephania Womack MD 07/01/23 1104 Normal [facility] Opiates [Presence] in Urine by Screen methodOrdered By: Sai Conway on 06-26-2023 Opiates Screen Ql (U) Negative Negative [facility] Phencyclidine Screen Ql (U)O rdered By: aSi Conway on 06-26-2023 Phencyclidine Ql (U) Negative Negative [facility] Basic Metabolic Panelon 06-01 Anion gap [Moles/Vol] 10.6 mmol/L Normal 6.0-15.0 e [facility] Comment on above: Performed By: #### B MP #### [address] Calcium [Mass/Vol] 9.3 mg/dL Normal 8.6-10.3 [facility] Comment on above: Result Comment: PERF ORMED BY: [place] [address] PATHOLOGIST ESCAPEMENT MAKER LUCIO DENT M.D. Performed By: #### B MP #### [place] [address] [place] Chloride [Moles/Vol] 102 mmol/L Normal 98-107 [facility] Comment on above: Performed By: #### B MP #### [place] [address] [place] CO2 [Moles/Vol] 29.7 mmol/L Normal 21.0-31.0 [facility] Comment on above: Performed By: #### B MP #### [address] Creatinine [Mass/Vol] 0.87 mg/dL Normal 0.70-1.30 [facility] Comment on above: Performed By: #### B MP #### [place] [address] [place] GFR/1.73 sq M.predicted MDRD (S/P/Bld) [Vol rate/Area] mL/min/{1.73_m2} Normal [facility] Comment on above: Performed By: #### B MP #### [place] [address] [place] Glucose [Mass/Vol] 81 mg/dL Normal 70-100 The [facility] Comment on above: Result Comment: [place] Glucose Reference Range is dependent on time and content of last meal. Glucose of more than 200 mg/dL in a nonstressed, ambulatory subject supports the diagnosis of Diabetes Mellitus. ADA recommended reference range Performed By: #### B MP #### [place] [address] [place] Potassium [Moles/Vol] 4.3 mmol/L Normal 3.5-5.1 [facility] Comment on above: Performed By: #### B MP #### [facility] [address] Sodium [Moles/Vol] 138 mmol/L Normal 136-145 [facility] Comment on above: Performed By: #### B MP #### [facility] [address] Urea nitrogen [Mass/Vol] 12 mg/dL Normal 7-25 [facility] Comment on above: Performed By: #### B MP #### [facility] [address] Basophils Auto (Bld) [#/Vol] Ordered By: Jonathan Shipman on 06-16-2023 Basophils (Bld) [#/Vol] 0.0 10*3/uL 0.0-0.2 [facility] Basophils/100 WBC Auto (Bld) Ordered By: Jonathan Shipman on 06-16-2023 Basophils/100 WBC (Bld) 0.9 % . F [facility] Calcium [Mass/volume] in Ser um or PlasmaOrdered By: Jonathan Shipman on 06-16-2023 Calcium [Mass/Vol] 9.3 mg/dL 8.6-10.3 [facility] Carbon dioxide, total [Moles /volume] in Serum or PlasmaOrdered By: Jonathan Shipman on 06-16-2023 CO2 [Moles/Vol] 29.7 mmol/L 21.0-31.0 [facility] Chloride [Moles/volume] in S annemarie or PlasmaOrdered By: Jonathan Shipman on 06-16-2023 Chloride [Moles/Vol] 102 mmol/L 98-107 [facility] Complete Blood Count Auto Di ffon 06-16-2023 Basophils (Bld) [#/Vol] 0.0 10*3/uL Normal 0.0-0.2 [facility] Comment on above: Result Comment: PERF ORMED BY: [address] [place] [address] PATHOLOGIST ESCAPEMENT MAKER LUCIO DENT M.D. Performed By: #### C BC #### [place] [address] [place] Basophils/100 WBC (Bld) 0.9 % Normal . T he [facility] Comment on above: Performed By: #### C BC #### [address] Eosinophils (Bld) [#/Vol] 0.1 10*3/uL Normal 0.0-0.45 [facility] Comment on above: Performed By: #### C BC #### [address] Eosinophils/100 WBC (Bld) 2.8 % Normal . [facility] Comment on above: Performed By: #### C BC #### [address] Erythrocyte distribution width (RBC) [Ratio] 13.0 % Normal 12.0-14.8 [facility] Comment on above: Performed By: #### C BC #### [address] Hematocrit (Bld) [Volume fraction] 41.5 % Normal 38.8-50.0 [facility] Comment on above: Performed By: #### C BC #### [address] Hemoglobin (Bld) [Mass/Vol] 14.2 g/dL Normal 13.0-17.0 [facility] Comment on above: Performed By: #### C BC #### [place] [address] [place] Lymphocytes (Bld) [#/Vol] 1.4 10*3/uL Normal 1.00-4.8 [facility] Comment on above: Performed By: #### C BC #### [place] [address] [place] Lymphocytes/100 WBC (Bld) 33.7 % Normal . [facility] Comment on above: Performed By: #### C BC #### [address] [place] [address] [place] MCH (RBC) [Entitic mass] 30.6 pg Normal 27.5-35.2 [facility] Comment on above: Performed By: #### C BC #### [address] MCV (RBC) [Entitic vol] 89.4 fL Normal 83.5-101 [facility] Comment on above: Performed By: #### C BC #### [address] Mean Corpuscular HGB Conc 34.2 g/dL Normal 32.5-35.6 [facility] Comment on above: Performed By: #### C BC #### [address] Monocytes (Bld) [#/Vol] 0.5 10*3/uL Normal 0.0-0.8 [facility] Comment on above: Performed By: #### C BC #### [address] Monocytes/100 WBC (Bld) 10.6 % Normal . [facility] Comment on above: Performed By: #### C BC #### [address] Neutrophils (Bld) [#/Vol] 2.2 10*3/uL Normal 1.8-7.7 [facility] Comment on above: Performed By: #### C BC #### [address] Neutrophils/100 WBC (Bld) 52.0 % Normal . [facility] Comment on above: Performed By: #### C BC #### [address] NRBC% 0.0 /100{WBC} Normal 0-0.5 [facility] Comment on above: Performed By: #### C BC #### [address] Platelet mean volume (Bld) [Entitic vol] 9.1 fL Normal 6.6-10.1 The [facility] Comment on above: Performed By: #### C BC #### [facility] [address] [place] [id number] [place] Platelets (Bld) [#/Vol] 232 10*3/uL Normal 150-450 [facility] Comment on above: Performed By: #### C BC #### [facility] [address] [place] [id number] [place] RBC (Bld) [#/Vol] 4.64 10*6/uL Normal 3.90-5.60 The [facility] Comment on above: Performed By: #### C BC #### [facility] [address] [place] [id number] [facility] WBC (Bld) [#/Vol] 4.3 10*3/uL Normal 4.1-10.5 [facility] Comment on above: Performed By: #### C BC #### [facility] [address] [place] [id number] [facility] Creatinine [Mass/volume] in Serum or PlasmaOrdered By: Jonathan Shipman on 06-16-2023 Creatinine [Mass/Vol] 0.87 mg/dL 0.70-1.30 [facility] Eosinophils Auto (Bld) [#/Vo l]Ordered By: Jonathan Shipman on 06-16-2023 Eosinophils (Bld) [#/Vol] 0.1 10*3/uL 0.0-0.45 [facility] Eosinophils/100 WBC Auto (Bl d)Ordered By: Jonathan Shipman on 06-16-2023 Eosinophils/100 WBC (Bld) 2.8 % . [facility] Erythrocyte distribution wid th Auto (RBC) [Ratio]Ordered By: Jonathan Shipman on 06-16-2023 Erythrocyte distribution width (RBC) [Ratio] 13.0 % 12.0-14.8 [facility] Glucose [Mass/volume] in Ser um or PlasmaOrdered By: Jonathan Shipman on 06-16-2023 Glucose [Mass/Vol] 81 mg/dL 70-100 [facility] Comment on above: ADA recommended refe rence rangeRandom Glucose Reference Range is dependent on time and content of last meal. Glucose of more than 200 mg/dL in a nonstressed, ambulatory subject supports the diagnosis of Diabetes Mellitus. Hematocrit Auto (Bld) [Volum e fraction]Ordered By: Jonathan Shipman on 06-16-2023 Hematocrit (Bld) [Volume fraction] 41.5 % 38.8-50.0 [facility] Hemoglobin [Mass/volume] in BloodOrdered By: Jonathan Shipman on 06-16-2023 Hemoglobin (Bld) [Mass/Vol] 14.2 g/dL 13.0-17.0 [facility] Leukocytes [#/volume] correc julio for nucleated erythrocytes in Blood by Automated counOrdered By: Jonathan Shipman on 06-16-2023 WBC corrected for nucl RBC Auto (Bld) [#/Vol] 4.3 10*3/uL 4.1-10.5 [facility] Lymphocytes Auto (Bld) [#/Vo l]Ordered By: Jonathan Shipman on 06-16-2023 Lymphocytes (Bld) [#/Vol] 1.4 10*3/uL 1.00-4.8 [facility] Lymphocytes/100 WBC Auto (Bl d)Ordered By: Jonathan Shipman on 06-16-2023 Lymphocytes/100 WBC (Bld) 33.7 % . [facility] MCH Auto (RBC) [Entitic mass ]Ordered By: Jonathan Shipman on 06-16-2023 MCH (RBC) [Entitic mass] 30.6 pg 27.5-35.2 [facility] MCHC Auto (RBC) [Mass/Vol]Or dered By: Jonathan Shipman on 06-16-2023 MCHC (RBC) [Mass/Vol] 34.2 g/dL 32.5-35.6 [facility] MCV Auto (RBC) [Entitic vol] Ordered By: Jonathan Shipman on 06-16-2023 MCV (RBC) [Entitic vol] 89.4 fL 83.5-101 F [facility] Monocytes Auto (Bld) [#/Vol] Ordered By: Jonathan Shipman on 06-16-2023 Monocytes (Bld) [#/Vol] 0.5 10*3/uL 0.0-0.8 [facility] Monocytes/100 WBC Auto (Bld) Ordered By: Jonathan Shipman on 06-16-2023 Monocytes/100 WBC (Bld) 10.6 % . F [facility] Neutrophils Auto (Bld) [#/Vo l]Ordered By: Jonathan Shipman on 06-16-2023 Neutrophils (Bld) [#/Vol] 2.2 10*3/uL 1.8-7.7 [facility] Neutrophils/100 WBC Auto (Bl d)Ordered By: Jonathan Shipman on 06-16-2023 Neutrophils/100 WBC (Bld) 52.0 % . [facility] No Panel InformationOrdered By: Jonathan Shipman on 06-16-2023 Estimated GFR (CKD-EPI) > 60.0 mL/Min [facility] Creatinine Clearance (Chem N/A [facility] Nucleated erythrocytes [Pres ence] in Blood by Automated countOrdered By: Jonathan Shipman on 06-16-2023 Nucleated RBC Auto Ql (Bld) 0.0 /100{WBC} 0-0.5 [facility] Platelet mean volume Auto (B ld) [Entitic vol]Ordered By: Jonathan Shipman on 06-16-2023 Platelet mean volume (Bld) [Entitic vol] 9.1 fL 6.6-10.1 [facility] Platelets Auto (Bld) [#/Vol] Ordered By: Jonathan Shipman on 06-16-2023 Platelets (Bld) [#/Vol] 232 10*3/uL 150-450 [facility] Potassium [Moles/volume] in Serum or PlasmaOrdered By: Jonathan Shipman on 06-16-2023 Potassium [Moles/Vol] 4.3 mmol/L 3.5-5.1 [facility] RBC Auto (Bld) [#/Vol]Ordere d By: Jonathan Shipman on 06-16-2023 RBC (Bld) [#/Vol] 4.64 10*6/uL 3.90-5.60 [facility] Serum or plasma anion gap de terminationOrdered By: Jonathan Shipman on 06-16-2023 Anion gap [Moles/Vol] 10.6 mmol/L 6.0-15.0 [facility] Sodium [Moles/volume] in Ser um or PlasmaOrdered By: Jonathan Shipman on 06-16-2023 Sodium [Moles/Vol] 138 mmol/L 136-145 [facility] Urea nitrogen [Mass/volume] in Serum or PlasmaOrdered By: Jonathan Shipman on 06-16-2023 Urea nitrogen [Mass/Vol] 12 mg/dL 7-25 [facility] WBC Auto (Bld) [#/Vol]Ordere d By: Jonathan Shipman on 06-16-2023 WBC (Bld) [#/Vol] 4.3 10*3/uL 4.1-10.5 [facility] Basic Metabolic Panelon 09-0 Anion gap [Moles/Vol] Not performed Normal 6.0-15.0 [facility] Comment on above: Performed By: #### B MP #### [facility] [address] Calcium [Mass/Vol] 9.0 mg/dL Normal 8.6-10.3 [facility] Comment on above: Performed By: #### B MP #### [facility] [address] Chloride [Moles/Vol] 102 mmol/L Normal 98-107 [facility] Comment on above: Performed By: #### B MP #### [facility] [address] CO2 [Moles/Vol] 27.3 mmol/L Normal 21.0-31.0 [facility] Comment on above: Performed By: #### B MP #### [facility] [address] [place] [address] [place] Creatinine [Mass/Vol] 0.77 mg/dL Normal 0.70-1.30 [facility] Comment on above: Performed By: #### B MP #### [facility] [address] [place] [address] [place] Creatinine Clr Calc Pharmacy 160.97 Normal [facility] Comment on above: Result Comment: PERF ORMED BY: [place] [address] PATHOLOGIST ESCAPEMENT MAKER LUCIO DENT M.D. Performed By: #### B MP #### [place] [address] [place] GFR/1.73 sq M.predicted MDRD (S/P/Bld) [Vol rate/Area] mL/min/{1.73_m2} Normal [facility] Comment on above: Performed By: #### B MP #### [address] Glucose [Mass/Vol] 96 mg/dL Normal 70-100 [facility] Comment on above: Result Comment: [facility] Glucose Reference Range is dependent on time and content of last meal. Glucose of more than 200 mg/dL in a nonstressed, ambulatory subject supports the diagnosis of Diabetes Mellitus. ADA recommended reference range Performed By: #### B MP #### [address] Potassium Normal 3.5-5.1 [facility] Comment on above: Result Comment: Spec imen hemolyzed, redraw requested Performed By: #### B MP #### [place] [address] [place] Sodium [Moles/Vol] 140 mmol/L Normal 136-145 [facility] Comment on above: Performed By: #### B MP #### [address] Urea nitrogen [Mass/Vol] 11 mg/dL Normal 7-25 [facility] Comment on above: Performed By: #### B MP #### [address] ECG 12 lead ECGon 01-04-2023 ECG 12 lead ECG [facility] [place] [address] [place] [address] Electrocardiograph Report Signed Patient: Anshul Spencer MR#: [id number] : 1980 Acct:[id number] Age/Sex: 42 / M ADM Date: 01/04/23 Loc: [place] Room: Type: [facility] Attending Dr: Woodrow Rashid MD Ordering Provider: Tito Boss MD Date of Service: 01/04/2310/21/621 ECG/ECG 12 lead ECG: pre op Copies to: Test Reason : Blood Pressure : / mmHG Vent. Rate : 067 BPM Atrial Rate : 067 BPM P-R Int : 146 ms QRS Dur : 096 ms QT Int : 406 ms P-R-T Axes : 035 -04 013 degrees QTc Int : 429 ms Normal sinus rhythm Minimal voltage criteria for LVH, may be normal variant Borderline ECG When compared with ECG of 12-JAN-2022 07:02, No significant change was found Confirmed by DILLAN PEDRAZA MD ([id number]) on 01/04/2023 10:50:17 AM Referred By: Electronically Signed By:DILLAN PEDRAZA MD Transcribed By: MUS Signed By Dillan Pedraza MD 0 01/04/23 1050 Normal [facility] Hair 01-04-2023 L Specimen: [id number] Received: 01/04/23 Status: TANAKhang Valerie Num: [id number] Spec Type: Surgical Subm Dr: Woodrow Rashid MD Tissues: A Varicose Vein (VARICOSE VEIN PRINCE LEGS) Procedures: KEIRA, Yefri/Kendra L3 Age/ Patient Sex Location Account Attending Physician Anshul Spencer 42/M [place] [id number] Woodrow Rashid MD SPEC NUM: [id number] RECD: 01/04/23 STATUS: LAURENCE OBREGONNabor NUM: [id number] REBECCA: 01/04/[address] [facility] [address]: Woodrow Rashid MD ENTERED: 01/04/23 [facility] DR: NATASHA TYPE: Surgical DEPT: S ORDERED: HE, Gross/Micro L3 ORDERED: HE, Gross/Micro L3 Pathological Diagnosis Varicose veins, bilateral legs, microphlebectomy: - Multiple segments of elongated vascular structures, often demonstrating irregular thickening of the vascular huang, and irregular dilatations of the vascular lumens, compatible with high-grade engorged and likely dysfunctional and symptomatic varicose veins of both legs Clinical Information Symptomatic varicose vein Gross Description Received in formalin labeled with the patient's name, date of and varicose vein is a 5.0 x 3.5 x 2.0 cm aggregate of a chapa-pink tubular tissues with patent lumen on cut section. Clothes Ironer sections are submitted in one cassette labeled A1. Microscopic Description One H E slide reviewed. The microscopic examination confirms the diagnosis. Specimen: [id number] Received: 01/04/23 Status: LAURENCE Padilla Num: [id number] Spec Type: Surgical Subm Dr: Woodrow Rashid MD Tissues: A Varicose Vein (VARICOSE VEIN PRINCE LEGS) Procedures: Yefri CROCKETT/Kendra L3 Patient: Anshul Spencer [id number] (Continued) Specimen: [id number] Received: 01/04/23 (Continued) Signed (signatur e on file) Deep Mckeon MD 01/06/23 1640 Specimen: [id number] Received: 01/04/23 Status: LAURENCE Padilla Num: [id number] Spec Type: Surgical Subm Dr: Woodrow Rashid MD Tissues: A Varicose Vein (VARICOSE VEIN PRINCE LEGS) Procedures: Yefri CROCKETT/Kendra L3 Patient: Anshul Spencer [id number] (Continued) Specimen: [id number] Received: 01/04/23 (Continued) CPT Codes 82813 Specimen: [id number] Received: 01/04/23 Status: LAURENCE Padilla Num: [id number] Spec Type: Surgical Subm Dr: Woodrow Rashid MD Tissues: A Varicose Vein (VARICOSE VEIN PRINCE LEGS) Procedures: HE, Gross/Micro L3 Patient: Anshul Spencer [id number] (Continued) Signed (signatur e on file) Issa-Dameon Mckeon MD 01/06/23 1640 Normal [facility] Redraw Potassiumon 3 Potassium [Moles/Vol] 4.2 mmol/L Normal 3.5-5.1 [facility] Comment on above: Result Comment: PERF ORMED BY: [place] [address] PATHOLOGIST ESCAPEMENT MAKER LUCIO DENT M.D. Performed By: #### R ANA Jacobs #### [address] MR lumbar spine wo/w conon 0 01-03-2023 MR lumbar spine wo/w con [facility] [place] [address] [place] [address] MRI Report Signed Patient: Anshul Spencer MR#: [id number] : 1980 Acct:[id number] Age/Sex: 42 / M ADM Date: 01/03/23 Loc: MR Room: Type: [facility] Attending Dr: Guanaco Wolf MD Copies to: Guanaco Wolf MD Ordering Provider: Guanaco Wolf MD Date of Service: 01/03/23 MR/MR lumbar spine wo/w con: Lumbar radiculopathy MRI Lumbar Spine with and withoutcontrast TECHNIQUE: Multiplanar T1 and T2-weighted imaging of lumbar spine obtained without contrast.20 cc of ProHance HISTORY: History of lumbar spine surgery in May 2020. Numbness and tingling in the legs. COMPARISON: 06/14/2021 The last fully segmented vertebral pair is operationally defined as L5/S1. POST SURGERY CHANGES: L4-5 left hemilaminectomy. BONE MARROW INFILTRATION: None BONE MARROW EDEMA: None BONY ALIGNMENT: Adequate bony alignment identified. SPINAL CANAL: No significant central canal narrowing. LUMBAR FRACTURE: None BONY LESIONS: None KIDNEYS: No hydronephrosis is identified. AORTA: No aortic aneurysm is seen. CONUS MEDULLARIS : The distal spinal cord is in adequate position without abnormality. Additional findings CONJOINED NERVE ROOT: None Lower thoracic level: Unremarkable L1-2 :Unremarkable L2-3: Unremarkable L3-4: Unremarkable L4-5: Moderate spondylosis. Left hemilaminectomy defect. Similar epidural fibrotic changes identified. Continued mild disc bulge. Mild to moderate neural foraminal narrowing greater on the right redemonstrated. This unchanged. L5-S1: MR/MR lumbar spine wo/w con IMPRESSION: Stable findings of left L4-5 paracentral disc protrusion resection. Continued residual discovertebral degenerative changes at the L4-5 level with similar foraminal encroachment. Pre-MRI plain film assessment: None Impression dictated by: Woodrow Colunga M.D.01/03/2023 12:38 PM Dictation Location: [place] [address] Transcribed By: [facility] 01/03/23 1238 Dictated By: Woodrow Colunga DO 01/03/23 1228 Signed By: 01/03/23 1238 Normal [facility] US venous duplex [facility] US venous duplex [place] [address] Ultrasound Report Signed Patient: Anshul Spencer MR#: [id number] : 1980 Acct:[id number] Age/Sex: 42 / M ADM Date: 09/01/22 Loc: [facility] Room: Type: [facility] Attending Dr: Woodrow Rashid MD Ordering Provider: Woodrow Rashid MD Date of Service: 09/01/22 US/US venous duplex LE LT: FULL FUNCTION S/P VARITHENA Copies to: Woodrow Rashid MD LEFT LOWER EXTREMITY VENOUS DUPLEX INDICATION: Surveillance after venous intervention. Unilateral left lower extremity venous duplex Doppler study was obtained utilizing B-mode, color- flow and spectral Doppler. FINDINGS: The left common femoral, femoral, and popliteal veins showed adequate compressibility, color-flow and augmentation. The left posterior tibial and peroneal veins were compressible. US/US venous duplex LE LT IMPRESSION: NO EVIDENCE OF DEEP VENOUS THROMBOSIS IN THE LEFT LOWER EXTREMITY. Impression dictated by: Santiago Mantilla MD10/06/2022 10:41 AM Dictation Location: [place] [address] Tech: Lucia Lockwood Transcribed By: [facility] 10/06/22 1041 Dictated By: Santiago Mantilla MD 10/06/22 1040 Signed By: 10/06/22 1041 Normal [facility] LIPID PROFILEon 09-14-2022 CHOL-HDL RATIO NORM SEE BELOW Normal [facility] Comment on above: Result Comment: 3.3 - 4.4 LOW RISK 4.4 - 7.1 AVERAGE RISK 7.1 - 11.0 MODERATE RISK >11.0 HIGH RISK Performed By: #### L IPID, CMP #### [facility] [address] [place] [address] [address] Owen Mckeon Cholesterol [Mass/Vol] 192 mg/dL Normal <=200 Th [facility] Comment on above: Performed By: #### L IPID, CMP #### [facility] [address] [place] [address] [address] Owen Mckeon Cholesterol in HDL [Mass/Vol] 47 mg/dL Normal 40-60 [facility] Comment on above: Performed By: #### L IPID, CMP #### [facility] [address] [place] [address] [address] Owen Mckeon Cholesterol in LDL [Mass/Vol] 120.4 mg/dL Normal [facility] Comment on above: Performed By: #### L IPID, CMP #### [facility] [address] [address] [address] Owen Mckeon Cholesterol.total/Courtney sterol in HDL [Mass ratio] 4.1 {ratio} Normal [facility] Comment on above: Performed By: #### L IPID, CMP #### [facility] [address] [address] [address] Owen Mckeon HDL NORMAL > or = 60 mg/dl - LOW CARDIOVASCULAR RISK <40 mg/dl - HIGH CARDIOVASCULAR RISK Normal [facility] Comment on above: Performed By: #### L IPID, CMP #### [facility] [address] [address] [address] Owen Mckeon LDL CALC NORMAL SEE BELOW Normal [facility] Comment on above: Result Comment: <100 mg/dl OPTIMAL 100 - 129 mg/dl NEAR OR ABOVE OPTIMAL 130 - 159 mg/dl BORDERLINE HIGH 160 - 189 mg/dl HIGH >190 mg/dl VERY HIGH Performed By: #### L IPID, CMP #### [facility] [address] [address] [address] Owen Mckeon Triglyceride [Mass/Vol] 123 mg/dL Normal <=[address] [facility] Comment on above: Performed By: #### L IPID, CMP #### [facility] [address] [address] [address] Owen Mckeon VLDL CALC 24.6 mg/dL Normal [facility] Comment on above: Performed By: #### L IPID, CMP #### [facility] [address] [address] [address] Owen Mckeon PROF 14(COMP METB)on 023 Albumin [Mass/Vol] 4.2 g/dL Normal 3.4-5.0 [facility] Comment on above: Performed By: #### L IPID, CMP #### [facility] [address] [address] [address] Owen Mckeno Albumin/Globulin [Mass ratio] 1.0 {ratio} Normal [facility] Comment on above: Performed By: #### L IPID, CMP #### [facility] [address] [place] [address] [address] Owen Mckeon ALP [Catalytic activity/Vol] 59 U/L Normal 46-116 [facility] Comment on above: Performed By: #### L IPID, CMP #### [facility] [address] [address] [address] Owen Mckeon ALT [Catalytic activity/Vol] 36 U/L Normal 16-63 [facility] Comment on above: Performed By: #### L IPID, CMP #### [facility] [address] [address] [address] Owen Mckeon Anion gap [Moles/Vol] 12.0 mmol/L Normal [facility] Comment on above: Performed By: #### L IPID, CMP #### [facility] [address] [address] [address] Owen Mckeon AST [Catalytic activity/Vol] 12 U/L Critically low 15-37 [facility] Comment on above: Performed By: #### L IPID, CMP #### [facility] [address] [address] [address] Owen Mckeon Bilirubin [Mass/Vol] 0.6 mg/dL Normal 0.2-1.0 [facility] Comment on above: Performed By: #### L IPID, CMP #### [facility] [address] [address] [address] Owen Mckeon Calcium [Mass/Vol] 9.2 mg/dL Normal 8.5-10.1 [facility] Comment on above: Performed By: #### L IPID, CMP #### [facility] [address] [address] [address] Owen Mckeon Chloride [Moles/Vol] 102 mmol/L Normal 98-107 [facility] Comment on above: Performed By: #### L IPID, CMP #### [facility] [address] [address] [address] Owen Mckeon CO2 [Moles/Vol] 30.0 mmol/L Normal 21.0-32.0 [facility] Comment on above: Performed By: #### L IPID, CMP #### [facility] [address] [address] [address] Owen Mckeon Creatinine [Mass/Vol] 0.97 mg/dL Normal 0.70-1.30 [facility] Comment on above: Performed By: #### L IPID, CMP #### [facility] [address] [address] [address] Owen Mckeon EGFR-AF MONEGASQUE >60 Normal >=60 [facility] Comment on above: Performed By: #### L IPID, CMP #### [facility] [address] [address] [address] Owen Mckeon EGFR-NON AF MONEGASQUE >60 Normal >=60 [facility] Comment on above: Performed By: #### L IPID, CMP #### [facility] [address] [place] [address] Dr. Owen Mckeon Globulin (S) [Mass/Vol] 4.0 g/dL Normal [facility] Comment on above: Performed By: #### L IPID, CMP #### [facility] [address] [address] [address] Owen Mckeon Glucose [Mass/Vol] 102 mg/dL Normal 74-106 [facility] Comment on above: Performed By: #### L IPID, CMP #### [facility] [address] [address] [address] Owen Mckeon Potassium [Moles/Vol] 4.0 mmol/L Normal 3.5-5.1 [facility] Comment on above: Performed By: #### L IPID, CMP #### [facility] [address] [address] [address] Owen Mckeon Protein [Mass/Vol] 8.2 g/dL Normal 6.4-8.2 [facility] Comment on above: Performed By: #### L IPID, CMP #### [facility] [address] [address] [address] Owen Mckeon Sodium [Moles/Vol] 140 mmol/L Normal 136-145 [facility] Comment on above: Performed By: #### L IPID, CMP #### [facility] [address] [address] [address] Owen Mckeon Urea nitrogen [Mass/Vol] 6.0 mg/dL Critically low 7.0-18.0 [facility] Comment on above: Performed By: #### L IPID, CMP #### [facility] [id number] Owen Mckeon Urea nitrogen/Creatinine [Mass ratio] 6.2 mg/mg Normal [facility] Comment on above: Performed By: #### L IPID, CMP #### [facility] [address] [place] [address] Dr. Owen Mckeon ECHOCARDIO M/2D COMPLETEon 0 09-02-2022 ECHOCARDIO M/2D COMPLETE Patient: ANSHUL SPENCER Exam Date: 09/02/2022 : 1980 Gender:M [facility]ing : [facility] Admission #: [id number] Family : DR ROSE MARY TIMMONS M.D. Order #: [id number] CLICK HERE TO VIEW EXAM ECHOCARDIOGRAM REPORT PROCEDURE: CARDIO PULMONARY ECHOCARDIO M/2D COMP INDICATIONS: Aortic valve regurgitation, hypertension COMPARISON: None. DESCRIPTION: COMPLETE ECHOCARDIOGRAM Real-time transthoracic echocardiography with 2D, M-mode, spectral and color flow Doppler performed. QUALITY: Technical quality was good. LEFT VENTRICLE: Normal chamber size. Borderline left ventricular hypertrophy. LV EF: Normal left ventricular ejection fraction, (>55%). DIASTOLIC: Normal diastolic function. ATRIAL SEPTUM: Visually appears intact. LEFT ATRIUM: Normal chamber size. RIGHT ATRIUM: Normal chamber size. RIGHT VENTRICLE: Normal chamber size. Normal right ventricular systolic function. TRICUSPID VALVE: Normal mobility and thickness. No stenosis with trivial regurgitation. MITRAL VALVE: Normal mobility and thickness. No evidence of mitral valve stenosis. There is no mitral annular calcification. Trivial mitral regurgitation. AORTIC VALVE: A bicuspid valve cannot be excluded. Mild to moderate aortic regurgitation. AORTIC ROOT: Normal diameter and appearance. PULMONIC VALVE: Normal thickness and mobility. No stenosis. Trivial regurgitation. PERICARDIUM: No evidence of pericardial effusion. IVC: Collapses with inspirations. CONCLUSION: Global left ventricular systolic function is normal; visually estimated ejection fraction is 55 to 60%. No wall motion abnormalities. Borderline left ventricular hypertrophy. Mild to moderate aortic regurgitation. A bicuspid valve cannot be excluded. Adult Echocardiography Procedure Report Left Ventricle LVEDD (3.7 - 5.6 cm): 5.35 cm LVESD (2.2 - 4.0 cm): 3.59 cm LVIVS thickness (0.6 - 1.2 cm): 1.15 cm LVPW thickness (0.5 - 1.0 cm): 1.18 cm e': 0.19 m/s E - e': 4.02 LVOT Max Gradient: 5.28 mm[Hg] Peak Velocity (LVOT): 1.15 m/s Mean Velocity (LVOT): 0.82 m/s LVOT Diameter 2.59 cm Left Ventricular Ejection Fraction: 60.79 %, 60.79 % Left Atrium LA Volume Index (2D A2C): 65.26 ml, 65.26 ml Left Atrium Systolic Dimension: 3.80 cm Mitral Valve MV E to A Ratio: 1.23 Mitral Valve A-Wave Peak Velocity: 0.61 m/s Mitral Valve E-Wave Peak Velocity: 0.75 m/s Right Ventricle Aorta AO Root Diam: 3.30 cm Ascending Ao Diam: 3.50 cm Aortic Valve AoV Area (Peak Lawrence): 3.81 cm2, 3.81 cm2 AoV Area (VTI): 4.08 cm2, 4.08 cm2 Peak Velocity(Antegrade Flow): 1.59 m/s Peak Gradient(Antegrade Flow): 10.15 mm[Hg] Mean Velocity(Antegrade Flow): 1.03 m/s Mean Gradient(Antegrade Flow): 5.04 mm[Hg] Velocity Time Integral: 32.88 cm Tricuspid Valve Peak Velocity (Regurgitant Flow): 4.16 m/s, 2.63 m/s Peak Velocity: 0.61 m/s Pulmonic Valve Peak Velocity: 1.15 m/s, 1.11 m/s Peak Gradient: 5.31 mm[Hg], 4.92 mm[Hg] Right Atrium Right Atrium Systolic Pressure: 49.02 ml, 49.02 ml Dictated by: Neyda Romo M.D. on 09/02/2022 at 09:42 Approved by: Neyda Romo M.D. on 09/02/2022 at 09:47 Normal [facility] Creatinine and Glomerular fi ltration rate.predicted panel (S/P/Bld)Ordered By: John Padron on 01-12-2022 Creatinine [Mass/Vol] 0.92 mg/dL 0.64-1.27 [facility] Estimated glomerular filtrat ion rate (GFR) non- AmericanOrdered By: John Padron on 01-12-2022 GFR/1.73 sq M.predicted among non-blacks MDRD (S/P/Bld) [Vol rate/Area] > 60 mL/Min [facility] No Panel InformationOrdered By: John Padron on 01-12-2022 Estimated GFR () > 60 mL/Min [facility] Comment on above: GFR estimated refere nce range: According to KDOQI guidelines, <60 ml/min/1.73m2 is sufficient to diagnose a patient with chronic kidney disease. Pharmacy Creatinine Clearance (Chem 136.09 [facility] Serum or plasma anion gap de terminationOrdered By: John Padron on 01-12-2022 Anion gap [Moles/Vol] 14.1 mmol/L 6.0-15.0 [facility] Serum or plasma calcium ben urement (mass/volume)Ordered By: John Padron on 01-12-2022 Calcium [Mass/Vol] 9.3 mg/dL 8.2-10.2 [facility] Serum or plasma chloride emi surement (moles/volume)Ordered By: John Padron on 01-12-2022 Chloride [Moles/Vol] 98 mmol/L 95-114 [facility] Serum or plasma glucose ben urement (mass/volume)Ordered By: John Padron on 01-12-2022 Glucose [Mass/Vol] 100 mg/dL 70-100 [facility] Comment on above: ADA recommended refe rence range Random Glucose Reference Range is dependent on time and content of last meal. Glucose of more than 200 mg/dL in a nonstressed, ambulatory subject supports the diagnosis of Diabetes Mellitus. Serum or plasma potassium me asurement (moles/volume)Ordered By: John Padron on 01-12-2022 Potassium [Moles/Vol] 3.9 mmol/L 3.5-5.1 [facility] Serum or plasma sodium measu rement (moles/volume)Ordered By: John Padron on 01-12-2022 Sodium [Moles/Vol] 136 mmol/L 136-146 [facility] Serum or plasma total carbon dioxide measurement (moles/volume)Ordered By: John Padron on 01-12-2022 CO2 [Moles/Vol] 27.8 mmol/L 22.0-30.0 [facility] Serum or plasma urea nitroge n measurement (mass/volume)Ordered By: John Padron on 01-12-2022 Urea nitrogen [Mass/Vol] 10 mg/dL 9- [facility] COVID-19 Positive/NegativeOr dered By: Woodrow Rashid on 01-10-2022 SARS-CoV-2 (COVID-19) N gene GAYE+probe Ql (Resp) Negative Negative [facility] Comment on above: Testing for SARS-CoV -2 by RT-PCR This test was developed and its performance characteristics determined by [employer] and validated at the [facility]. This test has not been FDA cleared or approved. This test has been authorized by FDA under an Emergency Use Authorization (EUA). This test has been validated in accordance with the FDA's Guidance Document (Policy for Diagnostics Testing in Laboratories Certified to Perform High Complexity Testing under CLIA prior to Emergency Use Authorization for Coronavirus Disease-2019 during the Public Health Emergency) issued on August 01, 2019. This test is only authorized for the duration of time the declaration that circumstances exist justifying the authorization of the emergency use of in vitro diagnostic tests for detection of SARS-CoV-2 virus and/or diagnosis of COVID-19 infection under section 564(b)(1) of the Act, 21 U.S.C. 360bbb-3(b)(1), unless the authorization is terminated or revoked sooner. LIPID PROFILEon 01-10-2022 CHOL-HDL RATIO NORM SEE BELOW Normal [facility] Comment on above: Result Comment: 3.3 - 4.4 LOW RISK 4.4 - 7.1 AVERAGE RISK 7.1 - 11.0 MODERATE RISK >11.0 HIGH RISK Performed By: #### L IPID, BMP #### [facility] [address] [place] [address] Dr. Owen Mckeon Cholesterol [Mass/Vol] 202 mg/dL Critically high <=200 [facility] Comment on above: Performed By: #### L IPID, BMP #### [facility] [address] [place] [address] Dr. Owen Mckeon Cholesterol in HDL [Mass/Vol] 41 mg/dL Normal 40-60 [facility] Comment on above: Performed By: #### L IPID, BMP #### [facility] [address] [place] [address] Dr. Owen Mckeon Cholesterol in LDL [Mass/Vol] 136.8 mg/dL Normal [facility] Comment on above: Performed By: #### L IPID, BMP #### [facility] [address] [place] [address] Dr. Owen Mckeon Cholesterol.total/Courtney sterol in HDL [Mass ratio] 4.9 {ratio} Normal [facility] Comment on above: Performed By: #### L IPID, BMP #### [facility] [address] [place] [address] Dr. Owen Mckeon HDL NORMAL > or = 60 mg/dl - LOW CARDIOVASCULAR RISK <40 mg/dl - HIGH CARDIOVASCULAR RISK Normal [facility] Comment on above: Performed By: #### L IPID, BMP #### [facility] [address] [place] [address] Dr. Owen Mckeon LDL CALC NORMAL SEE BELOW Normal [facility] Comment on above: Result Comment: <100 mg/dl OPTIMAL 100 - 129 mg/dl NEAR OR ABOVE OPTIMAL 130 - 159 mg/dl BORDERLINE HIGH 160 - 189 mg/dl HIGH >190 mg/dl VERY HIGH Performed By: #### L IPID, BMP #### [facility] [address] [place] [address] Dr. Owen Mckeon Triglyceride [Mass/Vol] 121 mg/dL Normal <=150 [facility] Comment on above: Performed By: #### L IPID, BMP #### [facility] [address] [place] [address] Dr. Owen Mckeon VLDL CALC 24.2 mg/dL Normal [facility] Comment on above: Performed By: #### L IPID, BMP #### [facility] [address] [place] [address] Dr. Owen Mckeon PROF CHEM 8 (BAS METB)on Anion gap [Moles/Vol] 14.5 mmol/L Normal [facility] Comment on above: Performed By: #### L IPID, BMP #### [facility] [address] [place] [address] Dr. Owen Mckeon Calcium [Mass/Vol] 8.8 mg/dL Normal 8.5-10.1 [facility] Comment on above: Performed By: #### L IPID, BMP #### [facility] [address] [place] [address] Dr. Owen Mckeon Chloride [Moles/Vol] 99 mmol/L Normal 98-107 [facility] Comment on above: Performed By: #### L IPID, BMP #### [facility] [address] [place] [address] Dr. Owen Mckeon CO2 [Moles/Vol] 28.9 mmol/L Normal 21.0-32.0 [facility] Comment on above: Performed By: #### L IPID, BMP #### [facility] [address] [place] [address] Dr. Owen Mckeon Creatinine [Mass/Vol] 0.85 mg/dL Normal 0.70-1.30 [facility] Comment on above: Performed By: #### L IPID, BMP #### [facility] [address] [place] [address] Dr. Owen Mckeon EGFR-AF MONEGASQUE >60 Normal >=60 [facility] Comment on above: Performed By: #### L IPID, BMP #### [facility] [address] [place] [address] Dr. Owen Mckeon EGFR-NON AF MONEGASQUE >60 Normal >=60 [facility] Comment on above: Performed By: #### L IPID, BMP #### [facility] [address] [address] [address] Owen Mckeon Glucose [Mass/Vol] 87 mg/dL Normal 74-106 [facility] Comment on above: Performed By: #### L IPID, BMP #### [facility] [address] [address] [address] Owen Mckeon Potassium [Moles/Vol] 3.4 mmol/L Critically low 3.5-5.1 [facility] Comment on above: Performed By: #### L IPID, BMP #### [facility] [address] [address] [address] Owen Mckeon Sodium [Moles/Vol] 139 mmol/L Normal 136-145 [facility] Comment on above: Performed By: #### L IPID, BMP #### [facility] [address] [address] [address] Owen Mckeon Urea nitrogen [Mass/Vol] 10.0 mg/dL Normal 7.0-18.0 [facility] Comment on above: Performed By: #### L IPID, BMP #### [facility] [address] [address] [address] Owen Mckeon Urea nitrogen/Creatinine [Mass ratio] 11.8 mg/mg Normal [facility] Comment on above: Performed By: #### L IPID, BMP #### [facility] [address] [address] [address] Owen Mckeon Quick Strepon 09-06-2021 S. pyogenes Org specific cx Ql (Throat) Negative [employer] Other Quick Strep Q-Layer Other CREATININE BLOODon 1 Creatinine [Mass/Vol] 0.91 mg/dL Normal 0.70-1.30 [facility] Comment on above: Performed By: #### 2 [id number] #### [facility] [address] [place] [address], [facility] GFR/1.73 sq M.predicted among blacks MDRD (S/P/Bld) [Vol rate/Area] mL/min/{1.73_m2} Normal >60 [facility] Comment on above: Performed By: #### 2 5656 #### [facility] [address] GFR/1.73 sq M.predicted among non-blacks MDRD (S/P/Bld) [Vol rate/Area] mL/min/{1.73_m2} Normal >60 [facility] Comment on above: Performed By: #### 2 5656 #### [facility] [address] CTA CHESTon 10-22-2020 CTA CHEST [facility] Department of Radiology [address] [place], [place] [id number] Patient Name: JENNA SPENCER : 1980 Sex: M Age: Race: White Pt. Location: Patient Status: D Ordered Date: 09/21/2020 4:55:00 PM Completed Date: 10/22/2020 05:49 PM Requesting Provider: TAVO MENDOZA V Attending Provider: TAVO MENDOZA V Report Copy To: ROSE MARY TIMMONS Signs & Symptoms: I35.1 Nonrheumatic aortic (valve) insufficiency I10 History: [place] patient will need labs anthem auth [id number] valid 09/23/2020-10/22/2020 per aim [id number] *kw med nec passed Comments: with contrast , (NOT a tavr per office) Exam: CTA CHEST CTA CHEST 10/22/2020 5:49 PM CLINICAL INDICATIONS: I35.1 Nonrheumatic aortic (valve) insufficiency I10 TECHNOLOGIST COMMENTS: Nonrheumatic aortic (valve) insufficiency Bicuspid aortic valve with abnormal ECHO QUESTION FOR THE RADIOLOGIST: with contrast , (NOT a tavr per office) PROTOCOL: Axial CT angiography images were obtained with IV contrast. CONTRAST: Contrast: OMNIPAQUE 350 (LOCM), 100 milliliter, Intravenous TECHNIQUE: Multidetector CT angiography axial slices of the chest were obtained with IV contrast. Multiplanar reformats, MIP, and volume rendered 3-D images were generated on a separate workstation and reviewed to further define anatomy and possible pathology. COMPARISON: None. FINDINGS: The thyroid and thoracic inlet appear unremarkable. The central airways are patent. Left coronary, right coronary and noncoronary cusps to the aortic valve are identified. The ascending aorta appears prominent measuring 3.9 cm in diameter. Normal origins to the great vessels are noted. No aortic dissection. Minimal atherosclerotic calcification near the arch and descending aorta junction. No mediastinal adenopathy. No coronary artery calcification, cardiomegaly or pericardial effusion. No pneumothorax or pleural effusion. No pulmonary nodularity or consolidation. The chest wall appears unremarkable. The study continued into the upper abdomen appears unremarkable. The study viewed at bone window is unremarkable. IMPRESSION: Three aortic valve cusps identified. Prominent ascending aorta measuring 3.[address] scans at this facility use dose modulation, iterative reconstruction, and/or weight based dosing when appropriate to reduce radiation dose to as low as reasonably achievable Electronically signed: Bo Damico. Transcribed by: [email or web address], User Resident: Electronically Signed by: BO DAMICO @ 10/23/2020 12:41 PM Normal [facility] Comment on above: Order Comment: wit h contrast , (NOT a tavr per office) EKG 12 Leadon 05-18-2020 Atrial Rate 79 BPM [place], [place] P [place] 44 degrees [facility] [place] P-R Interval 146 ms [place], [place] Q-T Interval 380 ms [facility], [place] QRS Duration 94 ms [place], [place] QTc Calculation (Bazett) 435 ms [place], [place] R [place] -[address] [facility], [place] T [place] 4 degrees [place], [place] Ventricular Rate 79 BPM [place], [place], [place] Incoming Results From [facility] - 05/18/2020 9:08 AM EST Normal sinus rhythm Minimal voltage criteria for LVH, may be normal variant Borderline ECG No previous ECGs available Confirmed by Salty Reyes ([id number]) on 05/18/2020 9:08:09 AM [place] Normal sinus rhythm Minimal voltage criteria for LVH, may be normal variant Borderline ECG No previous ECGs available Confirmed by Salty Reyes () on 05/18/2020 9:08:09 AM [place] FLUORO FOR SURGICAL PROCEDUR ESon 05-18-2020 FLUORO FOR SURGICAL PROCEDURES Exam: FLUORO FOR SURGICAL PROCEDURES History:M51.26 Herniation of left side of L4-L5 intervertebral disc ICD10 pain Findings: Fluoroscopy exposure was 0.64 mGy. A total of 1 fluoroscopic images were obtained by Dr. Tim during the Operative procedure. IMPRESSION: Impression: Post-operative appearance as shown. Interpreted by: Rom Cunningham MD Signed by: Rom Cunningham MD 05/19/20 Final result Normal [facility] MRI LUMBAR SPINE W WO CONTRA STon 05-18-2020 [place], [place] Incoming Radiant Results From [facility] - 05/18/2020 8:48 AM EST Examination: MRI LUMBAR SPINE W WO CONTRAST History: Back pain. Leg pain. Technique: Multiplanar multisequence MRI of the lumbar spine was obtained without and with intravenous contrast. Comparison: None available Findings: The conus medullaris ends normally. The alignment of the lumbar spine is anatomic. The vertebral body heights are well maintained. There is no aggressive bone marrow signal abnormality. No enhancing bone lesion. No abnormal epidural fluid collection. Disc desiccation at L4-L5, where there is mild intervertebral disc height loss. L1-L2: No significant disc bulge, spinal canal or neuroforaminal stenosis. L2-L3: No significant disc bulge, spinal canal or neuroforaminal stenosis. L3-L4: No significant disc bulge, spinal canal or neuroforaminal stenosis. L4-L5: Small disc bulge with superimposed moderate left paracentral disc protrusion. Mild edema/enhancement adjacent to the disc protrusion. The disc protrusion compresses the the left L5 nerve against the anterior aspect of the left facet joint prior to its entry into the neural foramen. Abutment and posterior displacement of the left S1 nerve within the spinal canal. Mild facet arthropathy. Mild bilateral neuroforaminal stenosis. Moderate spinal canal stenosis. L5-S1: No significant disc bulge. Mild facet arthropathy. No neuroforaminal or spinal canal stenosis. Visualized paravertebral soft tissues are grossly unremarkable. IMPRESSION: Left paracentral disc protrusion results in compression of the left L5 nerve against the anterior aspect of the left facet joint and posterior displacement of the left S1 nerve within the spinal canal. Moderate spinal canal stenosis at the L4-[address] [facility], [place] Examination: MRI LUMBAR SPINE W WO CONTRAST History: Back pain. Leg pain. Technique: Multiplanar multisequence MRI of the lumbar spine was obtained without and with intravenous contrast. Comparison: None available Findings: The conus medullaris ends normally. The alignment of the lumbar spine is anatomic. The vertebral body heights are well maintained. There is no aggressive bone marrow signal abnormality. No enhancing bone lesion. No abnormal epidural fluid collection. Disc desiccation at L4-L5, where there is mild intervertebral disc height loss. L1-L2: No significant disc bulge, spinal canal or neuroforaminal stenosis. L2-L3: No significant disc bulge, spinal canal or neuroforaminal stenosis. L3-L4: No significant disc bulge, spinal canal or neuroforaminal stenosis. L4-L5: Small disc bulge with superimposed moderate left paracentral disc protrusion. Mild edema/enhancement adjacent to the disc protrusion. The disc protrusion compresses the the left L5 nerve against the anterior aspect of the left facet joint prior to its entry into the neural foramen. Abutment and posterior displacement of the left S1 nerve within the spinal canal. Mild facet arthropathy. Mild bilateral neuroforaminal stenosis. Moderate spinal canal stenosis. L5-S1: No significant disc bulge. Mild facet arthropathy. No neuroforaminal or spinal canal stenosis. Visualized paravertebral soft tissues are grossly unremarkable. [facility], [place] Left paracentral disc protrusion results in compression of the left L5 nerve against the anterior aspect of the left facet joint and posterior displacement of the left S1 nerve within the spinal canal. Moderate spinal canal stenosis at the L4-5 level. [place], [place] Surgical Specimenon 05-18-19 Surgical Specimen [facility] [address] [place] [address] [id number] FINAL SURGICAL PATHOLOGY REPORT Patient Name: ANSHUL SPENCER Accession No: [id number] Age Sex: 1980 Location: DIS [id number] Account No: [id number] Collected: 05/18/2020 Med Rec No: [id number] Received: 05/19/2020 Attend Phys: PELON TIM Completed: 05/21/2020 Perform Phys: PELON TIM FINAL DIAGNOSIS: DISC, BETWEEN L4 AND L5: FIBROCARTILAGE AND DEGENERATING INTERVERTEBRAL DISC MATERIAL. PSW/PSW CLINICAL INFORMATION: Procedure: L4-5 left discectomy. Preop diagnosis: Herniated disc between L4 and L5. SPECIMEN: Disc GROSS DESCRIPTION: Received is one container labeled with the patient's name and designated spine . The specimen consists of three portions of rubbery white tissue and possible bone, 1.5 x 2 x 0.5 cm in aggregate. The specimen is submitted in toto in one cassette following decalcification. MINA/MINA CPT: 83548 X1 92130 X1 CORTEZ VENEGAS M.D. 05/21/2020 Electronically signed out by Page 1 of 1 [facility] Comment on above: Performed By: #### S UR #### [place] [id number] TYPE AND SCREENon 05-18-2020 ABO/Rh Positive [place] Type and Screen Capture 3 sc rn cellon 05-18-2020 Type and Screen Capture 3 scrn cell PATIENT: JOHANNA Sanchez LOC: LC2W,, BILL# : [id number] : 1980 SEX: M ORDERED BY: GLENROY SANDHU ORDERED : 05/17/2020 23:05 COLLECTED: 05/17/2020 23:23 ORDER : [id number] RECEIVED : 05/17/2020 23:26 -- TEST NAME RESULT UNITS RANGES ABN FL ST ABORH Capture A POS F Antibody 3 Cell Scrn Captu NEG F - Normal [facility] Comment on above: Performed By: #### T S3C #### [facility] [address] [place] [address] XR CHEST (SINGLE VIEW FRONTA L)on 05-18-2020 INR Coag (Bld) [Relative time] GANESH [place] EXAMINATION: Portable Chest INDICATIONS: Preop back surgery. Dyspnea COMPARISONS: None available. FINDINGS: Heart and mediastinum within normal limits. Pulmonary vasculature unremarkable. Lung villareal clear. Bones and soft tissues intact. [place] Wiliam, Chpo Incoming Radiant Results From [employer] - 05/18/2020 8:01 AM EST EXAMINATION: Portable Chest INDICATIONS: Preop back surgery. Dyspnea COMPARISONS: None available. FINDINGS: Heart and mediastinum within normal limits. Pulmonary vasculature unremarkable. Lung villareal clear. Bones and soft tissues intact. IMPRESSION: NAD [place] C-Reactive Proteinon 021 CRP [Mass/Vol] 4.0 mg/L Normal 0.0-5.0 [facility] Comment on above: Performed By: #### C RP #### [facility] [address] [place] [address] CRP [Mass/Vol] 4 mg/L 0 - 5 mg/L [place], [place] CBC Auto Differentialon 05-01 Basophils (Bld) [#/Vol] 0.1 10*3/uL 0 - 0.2 K/u L [place] Basophils/100 WBC (Bld) 0.7 % [place] Eosinophils (Bld) [#/Vol] 0.1 10*3/uL 0 - 0.7 K/uL [place] Eosinophils/100 WBC (Bld) 1.8 % [place] Erythrocyte distribution width (RBC) [Ratio] 13.7 % 11.5 - 14.5 % [place] Hematocrit (Bld) [Volume fraction] 44.8 % 42 - 52 % [place] Hemoglobin (Bld) [Mass/Vol] 15.0 g/dL 14 - 18 g/dL [place] Lymphocytes (Bld) [#/Vol] 2.3 10*3/uL 1 - 4.8 K/uL [place] Lymphocytes/100 WBC (Bld) 34.1 % [place] MCH (RBC) [Entitic mass] 30.2 pg 27 - 31.3 pg [place] MCHC (RBC) [Mass/Vol] 33.6 % 33 - 37 % [place] MCV (RBC) [Entitic vol] 90.1 fL 80 - 100 fL [place] Monocytes (Bld) [#/Vol] 0.5 10*3/uL 0.2 - 0.8 K/uL [place] Monocytes/100 WBC (Bld) 7.8 % [place] Neutrophils Absolute 3.8 K/uL 1.4 - 6 .5 K/uL [place] Neutrophils/100 WBC (Bld) 55.6 % [place] Platelets (Bld) [#/Vol] 243 10*3/uL 130 - 400 K/uL [place] RBC (Bld) [#/Vol] 4.97 10*6/uL [place] WBC (Bld) [#/Vol] 6.8 10*3/uL 4.8 - 10.8 K/uL [facility] [place], [place] CBC With Platelet and Differ entialon 05-17-2020 Basophils (Bld) [#/Vol] 0.1 10*3/uL Normal 0.0-0.2 [facility] Comment on above: Performed By: #### C BCWD #### [facility] [address] [place] [address] Basophils/100 WBC (Bld) 0.7 % Normal [facility] Comment on above: Performed By: #### C BCWD #### [facility] [address] [place] [address] Eosinophils (Bld) [#/Vol] 0.1 10*3/uL Normal 0.0-0.7 [facility] Comment on above: Performed By: #### C BCWD #### [facility] [address] [place] [address] Eosinophils/100 WBC (Bld) 1.8 % Normal [facility] Comment on above: Performed By: #### C BCWD #### [facility] [address] [place] [address] Erythrocyte distribution width (RBC) [Ratio] 13.7 % Normal 11.5-14.5 [facility] Comment on above: Performed By: #### C BCWD #### [facility] [address] [place] [address] Hematocrit (Bld) [Volume fraction] 44.8 % Normal 42.0-52.0 [facility] Comment on above: Performed By: #### C BCWD #### [facility] [address] [place] [address] Hemoglobin (Bld) [Mass/Vol] 15.0 g/dL Normal 14.0-18.0 [facility] Comment on above: Performed By: #### C BCWD #### [facility] [address] [place] [address] Lymphocytes (Bld) [#/Vol] 2.3 10*3/uL Normal 1.0-4.8 [facility] Comment on above: Performed By: #### C BCWD #### [facility] [address] [place] [address] Lymphocytes/100 WBC (Bld) 34.1 % Normal [facility] Comment on above: Performed By: #### C BCWD #### [facility] [address] [place] [address] MCH (RBC) [Entitic mass] 30.2 pg Normal 27.0-31.3 [facility] Comment on above: Performed By: #### C BCWD #### [facility] [address] [place] [address] MCHC (RBC) [Mass/Vol] 33.6 % Normal 33.0-37.0 [facility] Comment on above: Performed By: #### C BCWD #### [facility] [address] [place] [address] MCV (RBC) [Entitic vol] 90.1 fL Normal 80.0-100.0 [facility] Comment on above: Performed By: #### C BCWD #### [facility] [address] [place] [address] Monocytes (Bld) [#/Vol] 0.5 10*3/uL Normal 0.2-0.8 [facility] Comment on above: Performed By: #### C BCWD #### [facility] [address] [place] [address] Monocytes/100 WBC (Bld) 7.8 % Normal [facility] Comment on above: Performed By: #### C BCWD #### [facility] [address] [place] [address] Neutrophils (Bld) [#/Vol] 3.8 10*3/uL Normal 1.4-6.5 [facility] Comment on above: Performed By: #### C BCWD #### [facility] [address] [place] [address] Neutrophils/100 WBC (Bld) 55.6 % Normal [facility] Comment on above: Performed By: #### C BCWD #### [facility] [address] [facility] [address] Platelets (Bld) [#/Vol] 243 10*3/uL Normal 130-400 [facility] Comment on above: Performed By: #### C BCWD #### [facility] [address] [facility] [address] RBC (Bld) [#/Vol] 4.97 10*6/uL Normal 4.70-6.10 [facility] Comment on above: Performed By: #### C BCWD #### [facility] [address] [facility] [address] WBC (Bld) [#/Vol] 6.8 10*3/uL Normal 4.8-10.8 [facility] Comment on above: Performed By: #### C BCWD #### [facility] [address] [facility] [place] [address] COVID-19on 05-17-2020 COVID-19, NAAT Not Detected Normal Not Detect [facility] Comment on above: Result Comment: Kareni dominic NAAT: Negative results should be treated as presumptive and, if inconsistent with clinical signs and symptoms or necessary for patient management, should be tested with an alternative molecular assay. Negative results do not preclude SARS-CoV-2 infection and should not be used as the sole basis for patient management decisions. This test has been authorized by the FDA under an Emergency Use Authorization (EUA) for use by authorized laboratories. Fact sheet for Healthcare Providers: https://www.fda.gov/media/518752/download Fact sheet for Patients: https://www.fda.gov/media/858449/download METHODOLOGY: Isothermal Nucleic Acid Amplification Performed By: #### C OVPC #### [facility] [address] [facility] [place] [address] SARS-CoV-2, NAAT Not Detected Not Detected [place], [place] Comment on above: Rapid NAAT: Negative results should be treated as presumptive and, if inconsistent with clinical signs and symptoms or necessary for patient management, should be tested with an alternative molecular assay. Negative results do not preclude SARS-CoV-2 infection and should not be used as the sole basis for patient management decisions. This test has been authorized by the FDA under an Emergency Use Authorization (EUA) for use by authorized laboratories. Fact sheet for Healthcare Providers: https://www.fda.gov/media/393676/download Fact sheet for Patients: https://www.fda.gov/media/285026/download METHODOLOGY: Isothermal Nucleic Acid Amplification Comprehensive Metabolic Pane hair 05-17-2020 Albumin [Mass/Vol] 4.7 g/dL Critically high 3.5-4.6 [facility] Comment on above: Performed By: #### C MP #### [facility] [address] [place] [address] ALP [Catalytic activity/Vol] 60 U/L Normal 35-104 [facility] Comment on above: Performed By: #### C MP #### [facility] [address] [place] [address] ALT [Catalytic activity/Vol] 32 U/L Normal 0-41 [facility] Comment on above: Performed By: #### C MP #### [facility] [address] [place] [address] Anion gap [Moles/Vol] 12 mmol/L Normal 9-15 [facility] Comment on above: Performed By: #### C MP #### [facility] [address] [place] [address] AST [Catalytic activity/Vol] 21 U/L Normal 0-40 [facility] Comment on above: Performed By: #### C MP #### [facility] [address] [place] [address] Bilirubin [Mass/Vol] mg/dL Normal 0.2-0.7 [facility] Comment on above: Performed By: #### C MP #### [facility] [address] [place] [address] Calcium [Mass/Vol] 9.3 mg/dL Normal 8.5-9.9 [facility] Comment on above: Performed By: #### C MP #### [facility] [address] [place] [address] Chloride [Moles/Vol] 99 mmol/L Normal 95-107 [facility] Comment on above: Performed By: #### C MP #### [facility] [address] [place] [address] CO2 [Moles/Vol] 26 mmol/L Normal 20-31 [facility] Comment on above: Performed By: #### C MP #### [facility] [address] [place] [address] Creatinine [Mass/Vol] 0.80 mg/dL Normal 0.70-1.20 [facility] Comment on above: Performed By: #### C MP #### [facility] [address] [place] [address] GFR/1.73 sq M predicted among blacks MDRD (S/P/Bld) [Vol rate/Area] mL/min/{1.73_m2} Normal >60 [facility] Comment on above: Result Comment: >60 mL/min/1.73m2 EGFR, calc. for ages 18 and older using the MDRD formula (not corrected for weight), is valid for stable renal function. Performed By: #### C MP #### [facility] [address] [place] [address] GFR/1.73 sq M.predicted MDRD (S/P/Bld) [Vol rate/Area] mL/min/{1.73_m2} Normal >60 [facility] Comment on above: Result Comment: >60 mL/min/1.73m2 EGFR, calc. for ages 18 and older using the MDRD formula (not corrected for weight), is valid for stable renal function. Performed By: #### C MP #### [facility] [address] [place] [address] Globulin (S) [Mass/Vol] 2.9 g/dL Normal 2.3-3.5 M [facility] Comment on above: Performed By: #### C MP #### [facility] [address] [place] [address] Glucose [Mass/Vol] 96 mg/dL Normal 70-99 [facility] Comment on above: Performed By: #### C MP #### [facility] [address] [place] [address] Potassium [Moles/Vol] 4.0 mmol/L Normal 3.4-4.9 [facility] Comment on above: Performed By: #### C MP #### [facility] [address] [place] [address] Protein [Mass/Vol] 7.6 g/dL Normal 6.3-8.0 [facility] Comment on above: Performed By: #### C MP #### [facility] [address] [place] [address] Sodium [Moles/Vol] 137 mmol/L Normal 135-144 [facility] Comment on above: Performed By: #### C MP #### [facility] [address] [place] [address] Urea nitrogen [Mass/Vol] 11 mg/dL Normal 6-20 [facility] Comment on above: Performed By: #### C MP #### [facility] [address] [place] [address] Albumin [Mass/Vol] 4.7 g/dL High 3.5 - 4.6 g/dL [place] ALP [Catalytic activity/Vol] 60 U/L 35 - 104 U/L [place] ALT [Catalytic activity/Vol] 32 U/L 0 - 41 U/L [place] Anion gap [Moles/Vol] 12 mmol/L [place] AST [Catalytic activity/Vol] 21 U/L 0 - 40 U/L [place] Bilirubin Ql (U) <0.2 0.2 - 0.7 mg/dL [place] Calcium [Mass/Vol] 9.3 mg/dL 8.5 - 9.9 mg/dL [place] Chloride [Moles/Vol] 99 mmol/L [place] CO2 [Moles/Vol] 26 mmol/L [facility] [place] Creatinine [Mass/Vol] 0.8 mg/dL 0.7 - 1.2 mg/dL [place] GFR >60.0 >60 [place] Comment on above: >60 mL/min/1.73m2 EG FR, calc. for ages 18 and older using the MDRD formula (not corrected for weight), is valid for stable renal function. GFR Non- >60.0 >60 [place] Comment on above: >60 mL/min/1.73m2 EG FR, calc. for ages 18 and older using the MDRD formula (not corrected for weight), is valid for stable renal function. Globulin (S) [Mass/Vol] 2.9 g/dL 2.3 - 3.5 g/dL [place] Glucose [Mass/Vol] 96 mg/dL 70 - 99 mg/dL [place] Interpretation and review of laboratory results Abnormal [place] Potassium [Moles/Vol] 4.0 mmol/L [place] Protein [Mass/Vol] 7.6 g/dL 6.3 - 8 g/dL [place] Sodium [Moles/Vol] 137 mmol/L [place] Urea nitrogen [Mass/Vol] 11 mg/dL 6 - 20 mg/dL [place] MRI LUMBAR SPINE W WO CONTRA STon 05-17-2020 MRI LUMBAR SPINE W WO CONTRAST Examination: MRI LUMBAR SPINE W WO CONTRAST History: Back pain. Leg pain. Technique: Multiplanar multisequence MRI of the lumbar spine was obtained without and with intravenous contrast. Comparison: None available Findings: The conus medullaris ends normally. The alignment of the lumbar spine is anatomic. The vertebral body heights are well maintained. There is no aggressive bone marrow signal abnormality. No enhancing bone lesion. No abnormal epidural fluid collection. Disc desiccation at L4-L5, where there is mild intervertebral disc height loss. L1-L2: No significant disc bulge, spinal canal or neuroforaminal stenosis. L2-L3: No significant disc bulge, spinal canal or neuroforaminal stenosis. L3-L4: No significant disc bulge, spinal canal or neuroforaminal stenosis. L4-L5: Small disc bulge with superimposed moderate left paracentral disc protrusion. Mild edema/enhancement adjacent to the disc protrusion. The disc protrusion compresses the the left L5 nerve against the anterior aspect of the left facet joint prior to its entry into the neural foramen. Abutment and posterior displacement of the left S1 nerve within the spinal canal. Mild facet arthropathy. Mild bilateral neuroforaminal stenosis. Moderate spinal canal stenosis. L5-S1: No significant disc bulge. Mild facet arthropathy. No neuroforaminal or spinal canal stenosis. Visualized paravertebral soft tissues are grossly unremarkable. IMPRESSION: Left paracentral disc protrusion results in compression of the left L5 nerve against the anterior aspect of the left facet joint and posterior displacement of the left S1 nerve within the spinal canal. Moderate spinal canal stenosis at the L4-5 level. Interpreted by: Bo Kendrick DO Signed by: Bo Kendrick DO 05/18/20 Final result Normal [facility] Microscopic Urinalysison Bacteria, UA MANY Abnormal Negative /HPF [place] Epithelial Cells, UA 20-50 [place] Hyaline Casts, UA 5-10 [place] Interpretation and review of laboratory results Abnormal [place] RBC (U) [#/Vol] 0-2 [place] WBC, UA >100 High [place] Sedimentation Rateon 021 Sedimentation Rate 9 mm Normal 0-10 [facility] Comment on above: Performed By: #### E SR #### [facility] [address] [place] [address] Sed Rate 9 mm 0 - 10 mm [place] Urinalysison 05-17-2020 Bilirubin Urine Negative Negative [place] Blood, Urine LARGE Abnormal Negative [place], [place] Clarity, UA TURBID Abnormal Clear [place] Color, UA Yellow Straw/Yellow [place] Glucose, Ur Negative Negative mg/dL [place] Interpretation and review of laboratory results Abnormal [place] Ketones Ql (U) TRACE Abnormal Negative mg/dL [place] Leukocyte esterase Test strip Ql (U) LARGE Abnormal Negative [place] Nitrite, Urine Positive Abnormal Negative [place], [place] pH, UA 5.5 [place] Protein (U) [Mass/Vol] 100 mg/dL Abnormal Negative [place], [place] Specific [place], UA 1.023 [place] Urobilinogen, Urine 0.2 <2.0 E.U./dL [place] Urinalysis, reflex to micros copicon 05-17-2020 Bilirubin Ql (U) Negative Normal Negative [facility] Comment on above: Performed By: #### T S3C #### [facility] [address] [place] [address] Clarity (U) TURBID Abnormal Clear [facility] Comment on above: Performed By: #### T S3C #### [facility] [address] [place] [address] Color (U) Yellow Normal Straw/[place] [facility] Comment on above: Performed By: #### T S3C #### [facility] [address] [place] [address] Glucose Ql (U) Negative Normal Negative [facility] Comment on above: Performed By: #### T S3C #### [facility] [address] [place] [address] Hemoglobin Ql (U) LARGE Abnormal Negative [facility] Comment on above: Performed By: #### T S3C #### [facility] [address] [place] [address] Ketones Ql (U) TRACE Abnormal Negative [facility] Comment on above: Performed By: #### T S3C #### [facility] [address] [place] [address] Leukocyte esterase Test strip Ql (U) LARGE Abnormal Negative [facility] Comment on above: Performed By: #### T S3C #### [facility] [address] [place] [address] Nitrite Ql (U) Positive Abnormal Negative [facility] Comment on above: Performed By: #### T S3C #### [facility] [address] [place] [address] pH (U) 5.5 [pH] Normal 5.0-9.0 [facility] Comment on above: Performed By: #### T S3C #### [facility] [address] [place] [address] Protein Ql (U) 100 mg/dL Abnormal Negative [facility] Comment on above: Performed By: #### T S3C #### [facility] [address] [place] [address] Specific gravity (U) [Rel density] 1.023 Normal 1.005-1.03 [facility] Comment on above: Performed By: #### T S3C #### [facility] [address] [place] [address] Urobilinogen Qn (U) 0.2 {Justine'U}/dL Normal < 2.0 [facility] Comment on above: Performed By: #### T S3C #### [facility] [address] [place] [address] Urine Microscopicon 05-17-19 21 RBC (U) [#/Vol] 0-2 Normal 0-2 [facility] Comment on above: Performed By: #### U DEVANG #### [facility] [address] [place] [address] Bacteria LM.HPF (Urine sed) [#/Area] MANY Abnormal Negative [facility] Comment on above: Performed By: #### U DEVANG #### [facility] [address] [place] [address] Urine Epithelial Cells Auto 20-50 Normal 0-5 [facility] Comment on above: Performed By: #### U DEVANG #### [facility] [address] [place] [address] Urine Hyaline Casts Auto 5-10 Normal 0-5 [facility] Comment on above: Performed By: #### U DEVANG #### [facility] [address] [place] [address] Urine WBC Auto >100 Critically high 0-5 [facility] Comment on above: Performed By: #### U DEVANG #### [facility] [address] [place] [address] XR CHEST (SINGLE VIEW FRONTA L)on 05-17-2020 XR CHEST (SINGLE VIEW FRONTAL) EXAMINATION: Portable Chest INDICATIONS: Preop back surgery. Dyspnea COMPARISONS: None available. FINDINGS: Heart and mediastinum within normal limits. Pulmonary vasculature unremarkable. Lung villareal clear. Bones and soft tissues intact. IMPRESSION: NAD Interpreted by: Levar Melvin MD Signed by: Levar Melvin MD 05/18/20 Final result Normal [facility] Dermatopathologyon 0 Dermatopathology [facility] D[facility]at[facility] [address] [place] [id number] DERMATOPATHOLOGY REPORT Name:ANSHUL SPENCER [facility]. Rec #. [id number] Location: [facility] Date of Procedure: 02/27/2020 Race: Date Received: 03/02/2020 /Sex: 1980 (Age: 39) / M Date Reported: 03/03/2020 Other: Submitting Physician:DALY DOHERTY MD FINAL DIAGNOSIS SKIN, L FOREARM, BIOPSY: ACUTE SPONGIOTIC DERMATITIS, SEE NOTE. Note: Microscopic examination reveals a specimen that extends into the deep reticular dermis. There is orthokeratosis with focal spongiosis and a mild superficial perivascular lymphocytic infiltrate. These findings represent acute spongiotic dermatitis. The differential diagnosis includes atopic dermatitis, nummular dermatitis, allergic contact dermatitis, id reaction, and eczematous drug reaction. Electronically Signed Out by JASMIN BROUSSARD M.D. Electronically Signed Out By JASMIN BROUSSARD MD/BRANDON By the signature on this report, the individual or group listed as making the Final Interpretation/Diag nosis certifies that they have reviewed this case. Clinical History: Atopic dermatitis vs. drug eruption 2/2 HCTZ. Biopsy. Specimens Submitted As: A: SKIN, L FOREARM Gross Description: Received in formalin is a chapa, cylindrical piece of skin measuring [id number]. The specimen is inked and embedded in toto. ink/03/02/2020 Normal [facility] Comment on above: Performed By: #### D #### Dermatopathology Vital Signs Date Time Vital Sign Value Performing Clinician Facility 08-02-2023 11:01-0400 Body height 187.96 cm MD Rose Mary Timmons Work Phone: [facility] 08-02-2023 11:01-0400 Body mass index (BMI) [Ratio] 30.2 kg/m2 MD Rose Mary Timmons Work Phone: [facility] 08-02-2023 11:01-0400 Body weight 106.65 kg MD Rose Mary Timmons Work Phone: [facility] 08-02-2023 11:01-0400 Diastolic blood pressure 80 mm[Hg] MD Rose Mary Timmons Work Phone: [facility] 08-02-2023 11:01-0400 Heart rate 93 /min MD Rose Mary Timmons Work Phone: [facility] 08-02-2023 11:01-0400 Systolic blood pressure 120 mm[Hg] MD Rose Mary Timmons Work Phone: [facility] 06-26-2023 16:37-0500 Diastolic blood pressure 80 mm[Hg] MD Rose Mary Timmons Work Phone: [facility] 06-26-2023 16:37-0500 Heart rate 71 /min MD Rose Mary Timmons Work Phone: [facility] 06-26-2023 16:37-0500 Respiratory rate 16 /min MD Rose Mary Timmons Work Phone: [facility] 06-26-2023 16:37-0500 SaO2% (BldA) [Mass fraction] 96 % MD Rose Mary Timmons Work Phone: [facility] 06-26-2023 16:37-0500 Systolic blood pressure 125 mm[Hg] MD Rose Mary Timmons Work Phone: [facility] 06-26-2023 15:28-0500 Body temperature 98.4 [degF] MD Rose Mary Timmons Work Phone: [facility] 06-26-2023 14:12-0500 Body mass index (BMI) [Ratio] 28.8 kg/m2 MD Rose Mary Timmons Work Phone: [facility] 06-26-2023 13:49-0500 Body height 187.96 cm MD Rose Mary Timmons Work Phone: [facility] 06-26-2023 13:49-0500 Body weight 102.05 kg MD Rose Mary Timmons Work Phone: [facility] 06-13-2023 14:51-0500 Body height 188 cm Jonathan Shipman DO Work Phone: [facility] 06-13-2023 14:51-0500 Body mass index (BMI) [Ratio] 30.56 kg/m2 Jonathan Shipman DO Work Phone: [facility] 06-13-2023 14:51-0500 Body weight 107.96 kg Jonathan Shipman DO Work Phone: [facility] 06-07-2023 09:00-0500 Body height 185.42 cm Rose Mary Timmons Other [employer] Other 06-07-2023 09:00-0500 Body mass index (BMI) [Ratio] 30.72 kg/m2 Rose Mary Timmons Other [employer] Other 06-07-2023 09:00-0500 Body weight 105.64 kg Rose Mary Timmons Other [employer] Other 06-07-2023 09:00-0500 Diastolic blood pressure 76 mm[Hg] Rose Mary Timmons Other [employer] Other 06-07-2023 09:00-0500 Systolic blood pressure 110 mm[Hg] Rose Mary Timmons Other [employer] Other 01-30-2023 09:45-0400 Body height 185.42 cm Woodrow Rashid Other [employer] Other 01-30-2023 09:45-0400 Body mass index (BMI) [Ratio] 29.68 kg/m2 Woodrow Melgarrelinda Other [employer] Other 01-30-2023 09:45-0400 Body temperature 97.8 [degF] Woodrow Rashid Other [employer] Other 01-30-2023 09:45-0400 Body weight 102.06 kg Woodrow Melgarrelinda Other [employer] Other 01-30-2023 09:45-0400 Diastolic blood pressure 62 mm[Hg] Woodrow Melgarrer Other [employer] Other 01-30-2023 09:45-0400 SaO2% (BldA) [Mass fraction] 98 % Woodrow Melgarrer Other [employer] Other 01-30-2023 09:45-0400 Systolic blood pressure 114 mm[Hg] Woodrow Pisanoehrer Other [employer] Other 01-17-2023 08:45-0400 Body height 185.42 cm Guanaco Wolf Other [employer] Other 01-17-2023 08:45-0400 Body mass index (BMI) [Ratio] 30.9 kg/m2 Guanaco Wolf Other [employer] Other 01-17-2023 08:45-0400 Body weight 106.23 kg Guanaco Wolf Other [employer] Other 01-17-2023 08:45-0400 Diastolic blood pressure 72 mm[Hg] Guanaco Wolf Other [employer] Other 01-17-2023 08:45-0400 SaO2% (BldA) [Mass fraction] 98 % Guanaco Wolf Other [employer] Other 01-17-2023 08:45-0400 Systolic blood pressure 118 mm[Hg] Guanaco Wolf Other [employer] Other 01-03-2023 08:30-0400 Body height 185.42 cm Rose Mary Timmons Other [employer] Other 01-03-2023 08:30-0400 Body mass index (BMI) [Ratio] 30.76 kg/m2 Rose Mary Timmons Other [employer] Other 01-03-2023 08:30-0400 Body weight 105.78 kg Rose Mary Timmons Other [employer] Other 01-03-2023 08:30-0400 Diastolic blood pressure 74 mm[Hg] Rose Mary Timmons Other [employer] Other 01-03-2023 08:30-0400 Systolic blood pressure 113 mm[Hg] Rose Mary Timmons Other [employer] Other 01-03-2023 06:57-0400 Body height 187.96 cm MD Rose Mary Timmons Work Phone: [facility] 01-03-2023 06:57-0400 Body weight 102.05 kg MD Rose Mary Timmons Work Phone: [facility] 10-24-2022 09:15-0400 Body height 185.42 cm Guanaco Maryann Other [employer] Other 10-24-2022 09:15-0400 Diastolic blood pressure 70 mm[Hg] Guanacoaida Wolf Other [employer] Other 10-24-2022 09:15-0400 SaO2% (BldA) [Mass fraction] 98 % Guanacoaida Wolf Other [employer] Other 10-24-2022 09:15-0400 Systolic blood pressure 110 mm[Hg] Guanaco Maryann Other [employer] Other 07-15-2022 10:45-0400 Body height 185.42 cm Guanacoaida Wolf Other [employer] Other 07-15-2022 10:45-0400 Body mass index (BMI) [Ratio] 30.61 kg/m2 Guanacoaida Wolf Other [employer] Other 07-15-2022 10:45-0400 Body weight 105.24 kg Guanaco Wolf Other [employer] Other 07-15-2022 10:45-0400 Diastolic blood pressure 78 mm[Hg] Guanaco Wolf Other [employer] Other 07-15-2022 10:45-0400 SaO2% (BldA) [Mass fraction] 97 % Guanaco Wolf Other [employer] Other 07-15-2022 10:45-0400 Systolic blood pressure 120 mm[Hg] Guanaco Wolf Other [employer] Other 06-24-2022 09:30-0500 Body height 185.42 cm Guanaco Wolf Other [employer] Other 06-24-2022 09:30-0500 Body mass index (BMI) [Ratio] 30.84 kg/m2 Guanaco Wolf Other [employer] Other 06-24-2022 09:30-0500 Body weight 106.05 kg Guanaco Wolf Other [employer] Other 06-24-2022 09:30-0500 Diastolic blood pressure 86 mm[Hg] Guanaco Wolf Other [employer] Other 06-24-2022 09:30-0500 SaO2% (BldA) [Mass fraction] 97 % Guanaco Wolf Other [employer] Other 06-24-2022 09:30-0500 Systolic blood pressure 124 mm[Hg] Guanaco Wolf Other [employer] Other 06-23-2022 08:30-0500 Body height 185.42 cm Rose Mary Timmons Other [employer] Other 06-23-2022 08:30-0500 Body mass index (BMI) [Ratio] 31 kg/m2 Rose Mary Timmons Other [employer] Other 06-23-2022 08:30-0500 Body weight 106.6 kg Rose Mary Timmons Other [employer] Other 06-23-2022 08:30-0500 Diastolic blood pressure 74 mm[Hg] Rose Mary Timmons Other [employer] Other 06-23-2022 08:30-0500 SaO2% (BldA) [Mass fraction] 97 % Rose Mary Timmons Other [employer] Other 06-23-2022 08:30-0500 Systolic blood pressure 112 mm[Hg] Rose Mary Timmons Other [employer] Other 05-12-2022 09:30-0500 Body height 185.42 cm Rose Mary Timmons Other [employer] Other 05-12-2022 09:30-0500 Body mass index (BMI) [Ratio] 30.74 kg/m2 Rose Mary Timmons Other [employer] Other 05-12-2022 09:30-0500 Body weight 105.69 kg Rose Mary Timmons Other [employer] Other 05-12-2022 09:30-0500 Diastolic blood pressure 80 mm[Hg] Rose Mary Timmons Other [employer] Other 05-12-2022 09:30-0500 SaO2% (BldA) [Mass fraction] 97 % Rose Mary Timmons Other [employer] Other 05-12-2022 09:30-0500 Systolic blood pressure 110 mm[Hg] Rose Mary Timmons Other [employer] Other 01-31-2022 10:30-0400 Body height 187.96 cm Leyla Bolanos Other [employer] Other 01-31-2022 10:30-0400 Body mass index (BMI) [Ratio] 28.89 kg/m2 Leyla Bolanos Other [employer] Other 01-31-2022 10:30-0400 Body temperature 97 [degF] Leyla Bolanos Other [employer] Other 01-31-2022 10:30-0400 Body weight 102.06 kg Leyla Bolanos Other [employer] Other 01-31-2022 10:30-0400 Diastolic blood pressure 78 mm[Hg] Leyla Bolanos Other [employer] Other 01-31-2022 10:30-0400 SaO2% (BldA) [Mass fraction] 98 % Leyla Bolanos Other [employer] Other 01-31-2022 10:30-0400 Systolic blood pressure 118 mm[Hg] Leyla Bolanos Other [employer] Other 01-12-2022 11:01-0400 Diastolic blood pressure 79 mm[Hg] MD Rose Mary Timmons Work Phone: [facility] 01-12-2022 11:01-0400 Heart rate 80 /min MD Rose Mary Timmons Work Phone: [facility] 01-12-2022 11:01-0400 Respiratory rate 16 /min MD Rose Mary Timmons Work Phone: [facility] 01-12-2022 11:01-0400 SaO2% (BldA) [Mass fraction] 96 % MD Rose Mary Timmons Work Phone: [facility] 01-12-2022 11:01-0400 Systolic blood pressure 125 mm[Hg] MD Rose Mary Timmons Work Phone: [facility] 01-12-2022 07:41-0400 Body height 187.96 cm MD Rose Mary Timmons Work Phone: [facility] 01-12-2022 07:41-0400 Body mass index (BMI) [Ratio] 28.8 kg/m2 MD Rose Mary Timmons Work Phone: [facility] 01-12-2022 07:41-0400 Body weight 102.05 kg MD Rose Mary Timmons Work Phone: [facility] 01-12-2022 07:22-0400 Body temperature 97.9 [degF] MD Rose Mary Timmons Work Phone: [facility] 12-21-2021 11:00-0400 Body height 187.96 cm Leyla Cici Other [facility] [employer] Other 12-21-2021 11:00-0400 Body mass index (BMI) [Ratio] 28.89 kg/m2 Leyla Bournemary carmen Other [employer] Other 12-21-2021 11:00-0400 Body temperature 98.3 [degF] Leyla Rutmary carmen Other [employer] Other 12-21-2021 11:00-0400 Body weight 102.06 kg Leyla Bournemary carmen Other [employer] Other 12-21-2021 11:00-0400 Diastolic blood pressure 68 mm[Hg] Leyla Cici Other [employer] Other 12-21-2021 11:00-0400 SaO2% (BldA) [Mass fraction] 97 % Leyla Bolanos Other [employer] Other 12-21-2021 11:00-0400 Systolic blood pressure 110 mm[Hg] Leyla Bolanos Other [employer] Other 09-21-2021 11:15-0400 Body height 187.96 cm Woodrow Buehrer Other [employer] Other 09-21-2021 11:15-0400 Body mass index (BMI) [Ratio] 28.89 kg/m2 Woodrow Buehrer Other [employer] Other 09-21-2021 11:15-0400 Body temperature 97.9 [degF] Woodrow Pisanoehrer Other [employer] Other 09-21-2021 11:15-0400 Body weight 102.06 kg Woodrow Buehrer Other [employer] Other 09-21-2021 11:15-0400 Diastolic blood pressure 74 mm[Hg] Woodrow Buehrer Other [employer] Other 09-21-2021 11:15-0400 SaO2% (BldA) [Mass fraction] 98 % Woodrow Buehrer Other [employer] Other 09-21-2021 11:15-0400 Systolic blood pressure 116 mm[Hg] Woodrow Buehrer Other [employer] Other 09-06-2021 17:00-0400 Body height 187.96 cm Lanie Robledo Other [employer] Other 09-06-2021 17:00-0400 Body mass index (BMI) [Ratio] 28.89 kg/m2 Lanie Robledo Other [employer] Other 09-06-2021 17:00-0400 Body temperature 97.7 [degF] Lanie Robledo Other [employer] Other 09-06-2021 17:00-0400 Body weight 102.06 kg Lanie Robledo Other [employer] Other 09-06-2021 17:00-0400 SaO2% (BldA) [Mass fraction] 95 % Lanie Robledo Other [employer] Other 07-12-2021 10:30-0400 Body height 187.96 cm Guanaco Gironky Other [employer] Other 07-12-2021 10:30-0400 Body mass index (BMI) [Ratio] 29.71 kg/m2 Guanacoaida Wolf Other [employer] Other 07-12-2021 10:30-0400 Body weight 104.96 kg Guanaco Wolf Other [employer] Other 07-12-2021 10:30-0400 Diastolic blood pressure 70 mm[Hg] Guanaco Wolf Other [employer] Other 07-12-2021 10:30-0400 SaO2% (BldA) [Mass fraction] 98 % Guanaco Wolf Other [employer] Other 07-12-2021 10:30-0400 Systolic blood pressure 110 mm[Hg] Guanaco Wolf Other [employer] Other 06-10-2021 10:45-0500 Body height 187.96 cm Mando Olexa Other [employer] Other 06-10-2021 10:45-0500 Body mass index (BMI) [Ratio] 29.4 kg/m2 Mando Olexa Other [employer] Other 06-10-2021 10:45-0500 Body weight 103.87 kg Mando Olexa Other [employer] Other 06-01-2021 14:45-0500 Body height 187.96 cm Mando Olexa Other [employer] Other 06-01-2021 14:45-0500 Body mass index (BMI) [Ratio] 29.48 kg/m2 Mando Olexa Other [employer] Other 06-01-2021 14:45-0500 Body weight 104.15 kg Mando Olexa Other [employer] Other 06-01-2021 09:30-0500 Body height 187.96 cm Guanaco Wolf Other [employer] Other 06-01-2021 09:30-0500 Body mass index (BMI) [Ratio] 29.42 kg/m2 Guanaco Wolf Other [employer] Other 06-01-2021 09:30-0500 Body weight 103.97 kg Guanaco Wolf Other [employer] Other 06-01-2021 09:30-0500 Diastolic blood pressure 66 mm[Hg] Guanaco Wolf Other [employer] Other 06-01-2021 09:30-0500 Respiratory rate 18 /min Guanaco Wolf Other [employer] Other 06-01-2021 09:30-0500 SaO2% (BldA) [Mass fraction] 96 % Guanaco Wolf Other [employer] Other 06-01-2021 09:30-0500 Systolic blood pressure 118 mm[Hg] Guanaco Wolf Other [employer] Other 04-19-2021 10:00-0500 Body height 187.96 cm Guanaco Wolf Other [employer] Other 04-19-2021 10:00-0500 Body mass index (BMI) [Ratio] 28.91 kg/m2 Guanaco Wolf Other [employer] Other 04-19-2021 10:00-0500 Body weight 102.15 kg Guanaco Wolf Other [employer] Other 04-19-2021 10:00-0500 Diastolic blood pressure 76 mm[Hg] Guanaco Wolf Other [employer] Other 04-19-2021 10:00-0500 SaO2% (BldA) [Mass fraction] 95 % Guanaco Wolf Other [employer] Other 04-19-2021 10:00-0500 Systolic blood pressure 122 mm[Hg] Guanaco Wolf Other [employer] Other 05-18-2020 14:00-0500 BP Diastolic 73 mm[Hg] Tamika [facility] , [place] 05-18-2020 14:00-0500 BP Systolic 122 mm[Hg] Tamika [facility] [place] 05-18-2020 14:00-0500 Pulse (Heart Rate) 89 /min [facility] [place] 05-18-2020 14:00-0500 Pulse Oximetry 92 % Tamika [facility] , [place] 05-18-2020 14:00-0500 Respiratory Rate 17 /min [facility], [place] 05-18-2020 13:25-0500 Body Temperature 99 [degF] Tamika [facility], [place] 05-17-2020 15:01-0500 BMI (Body Mass Index) 30.17 kg/m2 Tamika [facility], [place] 05-17-2020 15:01-0500 Body weight 106.59 kg Tamika [facility] [place] 05-17-2020 15:01-0500 Height 188 cm [place], [place] Encounters Encounter Date Encounter Type Care Provider Facility Start: 12-22-2023 End: 12-22-2023 ambulatory [facility] Start: 08-08-2023 End: 08-08-2023 ambulatory JONATHAN SHIPMAN Not Available Start: 08-02-2023 End: 08-02-2023 ambulatory ZACHARY WILLIAM Not Available Start: 08-02-2023 End: 08-02-2023 ambulatory MD Rose Mary Timmons Work Phone: [facility] Work Phone: Start: 08-02-2023 End: 08-02-2023 Patient encounter procedure MD Rose Mary Timmons Work Phone: [facility] Work Phone: Start: 07-27-2023 End: 07-27-2023 ambulatory JONATHAN SHIPMAN Not Available Start: 07-04-2023 End: 07-04-2023 ambulatory JONATHAN SHIPMAN Not Available Start: 06-26-2023 End: 06-26-2023 ambulatory Rose Mary Timmons Facility:[facility] Start: 06-26-2023 End: 06-26-2023 Admission to same day surgery center MD Rose Mary Timmons Work Phone: [facility] [place] Start: 06-16-2023 End: 06-16-2023 ambulatory Jonathan Shipman Facility:[facility] Start: 06-16-2023 End: 06-16-2023 ambulatory MD Rose Mary Timmons Work Phone: [facility] Work Phone: Start: 06-16-2023 End: 06-16-2023 Patient encounter procedure MD Rose Mary Timmons Work Phone: [facility]-Pre-Surgical Testing Work Phone: Start: 06-13-2023 End: 06-13-2023 ambulatory JONATHAN SHIPMAN Not Available Start: 06-13-2023 End: 06-13-2023 Office outpatient new 45 minutes Jonathan Shipman DO Work Phone: [employer] Comment on above: Left inguinal hernia (Primary Dx); Left lower quadrant pain Start: 06-13-2023 Telephone encounter Jonathan smith DO Work Phone: [facility] Start: 06-12-2023 End: 06-12-2023 ambulatory Rose Mary Timmons Other [employer] Other Start: 06-12-2023 Telephone encounter Rose Mary Timmons [facility] Start: 06-07-2023 End: 06-07-2023 ambulatory Rose Mary Timmons Other [employer] Other Start: 06-07-2023 Office outpatient vi sit 15 minutes Rose Mary Timmons [facility] Start: 01-30-2023 End: 01-30-2023 ambulatory Woodrow Rashid Other [employer] Other Start: 01-30-2023 Postop follow up vis it related to original px Woodrow Pisanomarita [facility] V[facility] Surgery Start: 01-17-2023 End: 01-17-2023 ambulatory Guanaco Wolf Other [employer] Other Start: 01-17-2023 Office outpatient vi sit 15 minutes Guanaco Wolf [facility] Pain Management Start: 01-04-2023 End: 01-04-2023 ambulatory Rose Mary Timmons Facility:[facility] Start: 01-03-2023 Encounter for genera l adult medical examination without abnormal findings Rose Mary Timmons [facility] Start: 01-03-2023 Periodic preventive med est patient 40-64yrs Rose Mary Timmons [facility] Start: 01-03-2023 End: 01-03-2023 ambulatory MD Rose Mary Timmons Work Phone: [employer] Other Start: 01-03-2023 End: 01-03-2023 Patient encounter procedure MD Rose Mary Timmons Work Phone: [facility]MRI [facility] [place] Work Phone: Start: 10-24-2022 End: 10-24-2022 ambulatory Guanaco Wolf Other [employer] Other Start: 10-24-2022 Office outpatient vi sit 25 minutes Guanaco Wolf [facility] Start: 09-27-2022 End: 09-27-2022 ambulatory Rose Mary Timmons Other [employer] Other Start: 09-27-2022 Telephone encounter Rose Mary Timmons [facility] Start: 09-14-2022 End: 09-15-2022 ambulatory MAGNO OLIVEIRA Facility:[facility] Start: 09-02-2022 End: 09-03-2022 ambulatory MAGNO OLIVEIRA Facility:[facility] Start: 09-01-2022 End: 09-01-2022 ambulatory Rose Mary Timmons Facility:[facility] Start: 09-01-2022 End: 09-01-2022 ambulatory MD Rose Mary Timmons Work Phone: [facility] Work Phone: Start: 09-01-2022 End: 09-01-2022 Patient encounter procedure MD Rose Mary Timmons Work Phone: [facility]Ul[facility] Start: 08-26-2022 (Varithena1) Varithena Woodrow Pisanojose alejandro er [facility] Start: 08-26-2022 End: 08-26-2022 ambulatory Woodrow Rashid Other [employer] Other Start: 07-15-2022 End: 07-15-2022 ambulatory Rose Mary Timmons Other [employer] Other Start: 07-15-2022 Office outpatient vi sit 15 minutes Guanaco Wolf [facility] Start: 07-15-2022 Telephone encounter Rose Mary Timmons [facility] Start: 07-01-2022 End: 07-01-2022 ambulatory MD Rose Mary Timmons Work Phone: [facility] Work Phone: Start: 07-01-2022 End: 07-01-2022 Patient encounter procedure MD Rose Mary Timmons Work Phone: [facility] Work Phone: Start: 06-24-2022 End: 06-24-2022 ambulatory Guanaco Wolf Other [employer] Other Start: 06-24-2022 Office outpatient vi sit 25 minutes Guanaco Wolf [facility] [place] Start: 06-23-2022 End: 06-23-2022 ambulatory Rose Mary Timmons Other [employer] Other Start: 06-23-2022 Office outpatient vi sit 15 minutes Rose Mary Timmons [facility] Start: 05-12-2022 End: 05-12-2022 ambulatory Rose Mary Timmons Other [employer] Other Start: 05-12-2022 Office outpatient vi sit 15 minutes Rose Mary Timmons [facility] Start: 05-10-2022 End: 05-10-2022 ambulatory Woodrow Melgarnikunj Other [employer] Other Start: 05-10-2022 Telephone encounter Woodrow Pisanomarita [facility] Vascular Surgery Start: 03-07-2022 End: 03-07-2022 ambulatory Woodrow Melgarjvlinda Other [employer] Other Start: 03-07-2022 Telephone encounter Woodrow Melgarnikunj [facility] Vascular Surgery Start: 01-31-2022 End: 01-31-2022 ambulatory Leyla Cici Other [employer] Other Start: 01-31-2022 Follow-up encounter Leyla Carcamo [facility] Start: 01-15-2022 Encounter for genera l adult medical examination without abnormal findings DR ROSE MARY TIMMONS [facility] Start: 01-12-2022 End: 01-12-2022 Admission to same day surgery center MD Rose Mary Timmons Work Phone: [facility] [place] Start: 01-10-2022 End: 01-11-[address] ROSE MARY TIMMONS Facility:[facility] Start: 01-10-2022 End: 01-11-2022 Encounter for general adult medical examination without abnormal findings DR ROSE MARY TIMMONS Facility:[facility] Start: 01-10-2022 End: 01-10-2022 Patient encounter procedure MD Rose Mary Timmons Work Phone: [facility]-Pre-Surgical Testing Start: 12-21-2021 End: 12-21-2021 ambulatory Leyla Bolanos Other [employer] Other Start: 12-21-2021 Encounter for other preprocedural examination Leyla Bolanos [facility] Vascular Surgery Start: 12-21-2021 Follow-up encounter Leyla Carcamo [facility] Start: 12-21-2021 End: 12-21-2021 Patient encounter procedure MD Rose Mary Timmons Work Phone: [facility] Start: 09-23-2021 ambulatory MAGNO OLIVEIRA Facility :[facility] Start: 09-21-2021 End: 09-21-2021 ambulatory Woodrow Rachid Other [employer] Other Start: 09-21-2021 Office outpatient vi sit 15 minutes Woodrow Rashid [facility] Start: 09-06-2021 End: 09-06-2021 ambulatory Lanie Robledo Other [employer] Other Start: 09-06-2021 Office outpatient vi sit 15 minutes Lanie Meena [facility] Start: 08-27-2021 End: 08-27-2021 ambulatory Guanaco Wolf Other [employer] Other Start: 08-27-2021 Telephone encounter Guanaco Wolf [facility] Start: 07-12-2021 End: 07-12-2021 ambulatory Guanaco Wolf Other [employer] Other Start: 07-12-2021 Office outpatient vi sit 15 minutes Guanaco Wolf [facility] Start: 07-01-2021 (Procedure) Short Guanaco Wolf [facility] Start: 07-01-2021 End: 07-01-2021 ambulatory Mando Olexa Other [employer] Other Start: 07-01-2021 Office outpatient vi sit 15 minutes Mando Olexa [facility] Start: 06-10-2021 End: 06-10-2021 ambulatory Mando Olexa Other [employer] Other Start: 06-10-2021 Office outpatient vi sit 25 minutes Mando Olexa [facility] Start: 06-01-2021 End: 06-01-2021 ambulatory Guanaco Wolf Other [employer] Other Start: 06-01-2021 Office outpatient ne w 45 minutes Mando Olexa [facility] Start: 06-01-2021 Office outpatient vi sit 25 minutes Guanaco Wolf [facility] Start: 04-20-2021 End: 04-20-2021 ambulatory Guanaco Wolf Other [employer] Other Start: 04-20-2021 Telephone encounter Guanaco Wolf [facility] [employer] Start: 04-19-2021 End: 04-19-2021 ambulatory Guanaco Wolf Other [employer] Other Start: 04-19-2021 Office outpatient vi sit 25 minutes Guanaco Wolf [facility] Start: 10-22-2020 End: 10-23-2020 ambulatory ROSE MARY TIMMONS Facility:[facility] Start: 05-17-2020 End: 05-18-2020 Evaluation and management of inpatient ROSE MARY TIMMONS [facility] Start: 05-17-2020 End: 05-18-2020 Evaluation and management of inpatient Tamika Matthews Work Phone: [facility] Comment on above: Herniation of interv ertebral disc between L4 and L5 (Primary Dx); Postoperative pain Procedures Date Procedure Procedure Detail Performing Clinician Start: 06-26-2023 Laparoscopic repair of inguinal hernia MD Rose Mary Timmons Work Phone: Start: 01-03-2023 MRI of lumbar spine with contrast MD Rose Mary Timmons Work Phone: Start: 07-01-2022 X-ray of lumbar spin e, four views MD Rose Mary Timmons Work Phone: Start: 01-12-2022 Ligation and strippi ng of varicose vein of lower limb MD Rose Mary Timmons Work Phone: Start: 12-21-2021 Duplex scan of lower limb veins MD Rose Mary Timmons Work Phone: Start: 05-18-2020 Antibody screen Tamika Matthews Start: 05-17-2020 Blood typing serologic abo Pelon [facility]. [facility] Work Phone: Start: 05-17-2020 COVID-19 Tamika Quiñonez [facility] Work Phone: Start: 05-17-2020 Radiologic exam ches t single view Tamika Matthews Work Phone: Start: 05-17-2020 Ecg routine ecg w/le ast 12 lds w/i&r Tamika Matthews Work Phone: Start: 05-17-2020 Mri spinal canal lum bar w/o & w/contr matrl Tamika Matthews Work Phone: Start: 05-17-2020 Sedimentation rate r bc automated Tamika Matthews Work Phone: Start: 05-17-2020 Blood count complete auto&auto difrntl wbc Tamika Matthews Work Phone: Start: 05-17-2020 C-reactive protein Ryan rivera Matthews Work Phone: Start: 05-17-2020 Comprehensive metabo lic panel Tamika Matthews Work Phone: Start: 05-17-2020 Urinalysis microscopic only Tamika Matthews Work Phone: Start: 05-17-2020 Urnls dip stick/tabl et rgnt auto w/o microscopy Tamika Matthews Work Phone: Plan of Treatment Date Care Activity Detail Author Start: 08-02-2023 Patient referral [facility] Work Phone: Start: 07-04-2023 End: 07-04-2023 Patient encounter procedure 07/04/2023 11:15 AM EST Office Visit [facility] [address] [place] [address] Jonathan Shipman DO [address] [place] [address] [facility] [address] [facility] Start: 06-26-2023 End: 06-26-2023 [facility] [facility] Start: 06-26-2023 End: 06-26-2023 Patient encounter procedure 06/26/2023 1:30 PM EST Procedure Visit [facility] Jonathan Shipman, DO [address] [place] [address] [facility] Start: 09-01-2022 Duplex scan of lower limb veins US venous duplex LE LT [facility] Start: 09-01-2022 US Lower extremity v ein - left [facility] Start: 01-12-2022 [facility] Work Phone: Start: 01-12-2022 [facility] Work Phone: Start: 05-17-2021 Creatinine measurement Creatinine mo nitoring [place] Start: 05-17-2021 Potassium monitoring Potassium monit [place]ing [place] Start: 06-12-2020 End: 06-12-2020 Office Visit 06/12/2020 Office Visit Neurosurgery Pelon Tim MD [address] [facility], [address] [place] [address] [employer] Start: 12-31-2019 Influenza vaccination Flu vaccine (# 1) [place] Start: 2000 DTaP/Tdap/Td vaccine (1 - Tdap) DTaP/Tdap/Td vaccine (1 - Tdap) [place] Start: 1996 HIV screening HIV screen [facility] [place], [place] Start: 1982 Varicella vaccine (1 of 2 - 2-dose childhood series) Varicella vaccine (1 of 2 - 2-dose childhood series) [place] Start: 1981 Hepatitis C screening Hepatitis C sc reen [place] End: 05-18-2020 Fluoroscopy during operation FLUORO FOR SURGICAL PROCEDURES Imaging Routine Once for 1 Occurrences starting 05/18/2020 until 05/18/2020 [place] Comment on above: Once for 1 Occurrenc es starting 05/18/2020 until 05/18/2020 Fluoroscopy during operation FLUORO FOR SURGICAL PROCEDURES Imaging Routine 05/18/2020 12:44 PM EST [place] Patient Education Varicose Veins (DC) [facility] Work Phone: Patient referral [facility] Work Phone: Surgical Pathology Surgical Path ology Lab Routine Release Upon Ordering for 1 Occurrences starting 05/18/2020 [place] Comment on above: Release Upon Orderin g for 1 Occurrences starting 05/18/2020 Immunizations Immunization Date Immunization Notes Care Provider Fa [facility] 03-01-2023 influenza, injectabl e, quadrivalent, preservative free Jonathan Laffay DO Work Phone: [facility] 02-08-2022 Seasonal, quadrivalent, recombinant, injectable influenza vaccine, preservative free Jonathan Laffay DO Work Phone: [facility] 02-10-2021 influenza, injectabl e, quadrivalent, preservative free Jonathan Laffay DO Work Phone: [facility] 08-07-2020 COVID-19 mRNA Comirnaty (Pfizer) MD Rose Mary Timmons Work Phone: [facility] 07-19-2020 COVID-19 mRNA Comirnatbriana (Pfizer) MD Rose Mary Timmons Work Phone: [facility] 01-14-2020 influenza virus vaccine, split virus (incl. purified surface antigen) Rose Mary Timmons Other [employer] Other 01-14-2020 influenza virus vaccine, unspecified formulation MD Rose Mary Timmons Work Phone: [facility] 01-14-2020 influenza, injectabl e, quadrivalent, preservative free Jonathan Laffay DO Work Phone: [facility] 12-31-2019 influenza, seasonal, injectable Jonathan Shipman DO Work Phone: [facility] 02-12-2019 influenza, injectabl e, quadrivalent, preservative free Jonathan Shipman DO Work Phone: [facility] 12-12-2018 tetanus and diphther ia toxoids, adsorbed, preservative free, for adult use (2 Lf of tetanus toxoid and 2 Lf of diphtheria toxoid) Jonathan Shipman DO Work Phone: [facility] 12-12-2018 tetanus and diphther ia toxoids, adsorbed, preservative free, for adult use (5 Lf of tetanus toxoid and 2 Lf of diphtheria toxoid) MD Rose Mary Timmons Work Phone: [facility] 12-12-2018 tetanus toxoid, reduced diphtheria toxoid, and acellular pertussis vaccine, adsorbed Rose Mary Timmons Other [employer] Other Payers Date Payer Category Payer Self-pay [id number] 2021 Unknown BCBS BCBS [id number] 2021-Present [phone] [address] [place] [address] [id number] 2009 Unknown [id number] 1981 Unknown [id number] [id number] 82 1981 Unknown [id number] [id number] 47 1981 Unknown [id number] [id number] 93 1981 Unknown [id number] 2.16.840.1.544374.3.579.2.5 93 1981 Unknown [id number] 2.16.840.1.315468.3.579.2.5 93 1981 Unknown [id number] 2.16.840.1.172515.3.579.2.5 93 1981 Unknown [id number] 2.16.840.1.869905.3.579.2.1 259 1981 Unknown [id number] 2.16.840.1.505460.3.579.2.1 259 1981 Unknown [id number] 2.16.840.1.496705.3.579.2.1 259 1981 Unknown [id number] 2.16.840.1.249622.3.579.2.1 259 1981 Unknown [id number] 2.16.840.1.544266.3.579.2.1 259 1959 [facility] Blue Shield [id number] [id number] 1959 Self-pay [id number] Unknown [id number] 2.16.840.1.148667.3.579.2.5 31 Unknown [id number] 2.16.840.1.635047.3.579.2.5 31 Unknown [id number] 2.16.840.1.015744.3.579.2.5 31 Unknown [id number] 2.16.840.1.994965.3.579.2.5 31 Unknown [id number] 31 Social History Date Type Detail Facility Start: 05-18-2020 Tobacco smoking status NHIS Unknown if ever smoked [place] Start: 05-18-2020 Tobacco use and exposure Never used [place] Start: 1980 Sex Assigned At Not on file [place] Exposure to SARS-CoV-2 (event) Not sure [place] Start: 06-13-2023 Sex Assigned At [facility] [employer] Other Start: 1980 Sex Assigned At Male F [facility] Start: 06-13-2023 End: 06-26-2023 Tobacco smoking status NHIS Never smoked tobacco [facility] Start: 06-13-2023 Tobacco use and exposure Former smokeless tobacco user [facility] End: 05-01-2011 History of tobacco use Snuff User [facility] Start: 06-13-2023 Alcohol intake Ex-drinker (finding) [facility] Start: 06-13-2023 History of Social function [facility] Medical Equipment Procedure Code Equipment Code Equipment Origin al Text Equipment Identifier Dates Repair, hernia, inguinal, laparoscopic Abdominal hernia surgical mesh, synthetic polymer, non-bioabsorbable ([id number] FDA Start: 06-26-2023 Goals Date Patient Goal Desired Activity /State Clinical Notes 06-27-2020 to 12-22-2023 Telephone Encounter - Sarah Allred - 06/13/2023 3:26 PM ESTTelephone Encounter - Sarah Allred - 06/13/2023 3:26 PM Whit Shipman, DO - 06/13/2023 3:00 PM EST Note Date & Type Note Facility 12-22-2023 Note [place] [facility] Subjective ANSHUL Spencer is a 43 y.o. year old male patient being seen for 1 year follow up aortic valve disorder, hypertension, and hyperlipidemia. Had routine echo in August 2023. He was seen in the ED in July for palpitations because he thought he was in afib. Denies chest pain, SOB, and recurrent palpitations. C/o lightheadedness, which he states is not new. Denies syncope. Patient Active Problem List Diagnosis Aortic valve regurgitation Primary hypertension Mixed hyperlipidemia Bicuspid aortic valve Herniation of left side of L4-L5 intervertebral disc Left inguinal hernia Left lower quadrant pain Family History Problem Relation Name Age of Onset Hypertension Father Hypertension Maternal Grandfather Social History Tobacco Use Smoking status: Never Smokeless tobacco: Never Substance Use Topics Alcohol use: Yes HPI He is seen in follow-up. He is a 43-year-old man with history of bicuspid aortic valve and aortic regurgitation and hypertension. He reports that he has been doing well except in July 2023 when he presented to the emergency room after his Apple Watch said he was having irregular heartbeats and he was feeling palpitations. His EKG in the emergency room and evaluation was negative. He was discharged home. Today he reports that he has been doing reasonably well. He denies symptoms of angina and heart failure. He has not felt palpitations as before. He has good exercise tolerance. Review of Systems HENT: Positive for tinnitus. Cardiovascular: Positive for leg swelling. Left leg Respiratory: Positive for sleep disturbances due to breathing. Musculoskeletal: Positive for arthritis and back pain. Neurological: Positive for dizziness. All other systems reviewed and are negative. Objective Visit Vitals BP 116/80 (BP Location: Left arm, Patient Position: Sitting) Pulse 82 Ht 1.88 m (6' 2 ) Wt 106 kg (233 lb) SpO2 98% BMI 29.92 kg/m??? Smoking Status Never BSA 2.35 m??? Physical Exam Constitutional: Appearance: He is well-developed. He is not ill-appearing. HENT: Head: Normocephalic and atraumatic. Nose: Nose normal. Eyes: General: No scleral icterus. Pupils: Pupils are equal, round, and reactive to light. Neck: Thyroid: No thyromegaly. Vascular: No JVD. Cardiovascular: Rate and Rhythm: Normal rate and regular rhythm. Pulses: Radial pulses are 2+ on the right side and 2+ on the left side. Heart sounds: Normal heart sounds. No murmur heard. No friction rub. No gallop. Pulmonary: Effort: Pulmonary effort is normal. No respiratory distress. Breath sounds: Normal breath sounds. No wheezing or rales. Chest: Chest wall: No tenderness. Abdominal: General: Bowel sounds are normal. There is no distension. Palpations: Abdomen is soft. Tenderness: There is no abdominal tenderness. Musculoskeletal: General: No swelling. Cervical back: Neck supple. Skin: General: Skin is warm and dry. Neurological: General: No focal deficit present. Mental Status: He is alert and oriented to person, place, and time. Psychiatric: Mood and Affect: Mood normal. Behavior: Behavior is cooperative. Judgment: Judgment normal. Allergies Allergies Allergen Reactions Levofloxacin Medications Current Outpatient Medications: dilTIAZem ER (Tiazac) 240 mg 24 hr capsule, Take 1 capsule (240 mg) by mouth once daily as directed., Disp: 90 capsule, Rfl: 3 hydroCHLOROthiazide (HYDRODiuril) 25 mg tablet, Take 1 tablet (25 mg) by mouth in the morning., Disp: 90 tablet, Rfl: 3 lisinopril 20 mg tablet, Take 1 tablet (20 mg) by mouth once daily as directed., Disp: 90 tablet, Rfl: 3 omeprazole (PriLOSEC) [address] capsule, Take 1 capsule every day by oral route for 90 days., Disp: , Rfl: Recent Labs No visits with results within 6 Month(s) from this visit. Latest known visit with results is: [facility] Encounter on 10/22/2020 Component Date Value Creatinine 10/22/2020 0.91 eGFR - Non- Ameri* 10/22/2020 >60 eGFR - 10/22/2020 >60 Blood for cortisol, epi and norepinephrine, and dopamine on 06/04/2018 were normal. Blood testing 06/22/2020: Normal BMP and TSH. Blood testing 09/14/2022: Triglycerides 123, LDL 120, HDL 47, cholesterol 192. Blood testing 08/03/2023: Hemoglobin 14.3, hematocrit 43, platelets 229, potassium 3.4, BUN 6, creatinine 0.92, LFTs normal. NT proBNP 35. Troponin negative. Imaging and other tests ECG 08/03/2023: Sinus rhythm, minimal voltage criteria for LVH may be normal variant. Echocardiogram 09/26/2023: CONCLUSION: 1. Normal left ventricular size and systolic function. Estimated LVEF is 55 to 60%. 2. Normal diastolic function. 3. Mildly dilated right ventricle with normal systolic function. 4. Mild biatrial dilatation. 5. Bicuspid aortic valve with mild to moderate regurgitation and no stenosis. Prior testing: EKG 05/29/2020: No (more content not included)... [facility] 06-13-2023 Telephone encounter Note excuse [facility] 06-13-2023 Miscellaneous Notes excuse documented in this encounter [facility] 06-13-2023 History of Presen t illness Narrative Images from the original note were not included. Anshul Spencer 1980 Anshul Spencer is a 43 y.o. male presents with chief complaint of Consult (Inguinal hernia, Left) HPI: HPI Patient is self referred thinking that he may have an inguinal hernia on the left side. He noticed a small bulge that was firm at his left groin. He said he gets a feeling in his groin and in his abdomen as if he was kicked in the nuts he says when this acts up. He has not having pain in the testicle he more gets that sick uncomfortable feeling in his abdomen and groin. He has not having any pain or issues on the right side. He does not get pain or issues if he is lifting, he feels this more if he is bending or sitting. He is on his feet a lot at work and possibly it feels worse at the end of the day. Does not bother him if he coughs. The right side is okay. 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 SUBJECTIVE: MEDICATIONS: ALLERGIES Current Outpatient Medications Medication Instructions dilTIAZem ER (TIAZAC) 240 mg, Oral, Daily hydroCHLOROthiazide (HYDRODIURIL) 25 mg, Oral, Daily RT lisinopril 20 mg, Oral, Daily omeprazole (PRILOSEC) 20 mg, Oral, Daily tadalafil (CIALIS) 5 mg, Oral, Daily Allergies Allergen Reactions Levofloxacin Rash PAST MEDICAL HISTORY: SOCIAL HISTORY SURGICAL HISTORY: Past Medical History: Diagnosis Date Appendicitis COVID-19 History of chicken pox Hypertension ([facility]) Social History Tobacco Use Smoking status: Never Smokeless tobacco: Former Types: Snuff Quit date: 05/01/2011 Substance Use Topics Alcohol use: Not Currently Drug use: Yes Types: Marijuana Past Surgical History: Procedure Laterality Date APPENDECTOMY BACK SURGERY CT ANGIOGRAM HEART CORONARY 10/23/2020 CT ANGIOGRAM TAVR PROSTATE SURGERY 1998 VASECTOMY VEIN SURGERY REVIEW OF SYMPTOMS: Review of Systems Constitutional: Negative for appetite change and fatigue. HENT: Negative for trouble swallowing. Respiratory: Negative for cough and shortness of breath. Cardiovascular: Negative for chest pain. Gastrointestinal: Positive for abdominal pain. Genitourinary: Negative for hematuria. Musculoskeletal: Negative for arthralgias. Neurological: Negative for seizures. Hematological: Negative for adenopathy. OBJECTIVE: Visit Vitals Ht 6' 2 Wt 238 lb BMI 30.56 kg/m Smoking Status Never BSA 2.37 m Physical Exam Constitutional: Appearance: Normal appearance. He is not ill-appearing. HENT: Head: Atraumatic. Eyes: General: No scleral icterus. Cardiovascular: Rate and Rhythm: Regular rhythm. Heart sounds: Normal heart sounds. Pulmonary: Breath sounds: No wheezing. Abdominal: General: There is no distension. Tenderness: There is no abdominal tenderness. Genitourinary: Comments: Slightly increased protrusion on left groin compared to right. Normal testicles bilaterally. There is no right inguinal hernia. There is a reducible obvious left-sided inguinal hernia on exam. That is reproducing his discomfort. Musculoskeletal: Right lower leg: No edema. Left lower leg: No edema. Neurological: Mental Status: He is alert. ASSESSMENT AND PLAN: Assessment/Plan Diagnoses and all orders for this visit: Left inguinal hernia Left lower quadrant pain - Ambulatory referral to General Surgery I discussed with patient inguinal hernia. We discussed his diagnosis and options, surgical repair with open versus laparoscopic repair. After considering options and the risks and benefits he would like to proceed with laparoscopic repair. We discussed laparoscopic inguinal hernia repair with mesh, possible open. We discussed the surgery, the risks and the benefits and the potential complications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 (101F) 12) If you have any concerns or questions, please call OFFICE. The 24- hour phone is [phone] 13) If you are unable to contact your surgeon, in an emergency situation, go to the nearest hospital emergency room. 14) shower on Monday 15) no driving documented in this encounter History of Present Illness * Joana Rangel RN - 05/18/2020 4:23 AM EST Assumed care of pt at 0400. Pain controlled at this time. Ice pack given. Currently in bed resting.No signs of distress noted. Per previous RN plan for possible surgery in the AM. Remains NPO. No concerns at this time. Will continue to monitor. documented in this encounter Assessments Diagnosis Herniation of intervertebral disc between L4 and L5- Primary Displacement of lumbar intervertebral disc without myelopathy Postoperative pain Other acute postoperative pain Herniation of left side of L4-L5 intervertebral disc Chief Complaint and Reason for Visit Chief Complaint I83.813 Varicose Veins Chief Complaint I83.813 Varicose Veins Varicose Veins Chief Complaint m54.16 g89.29 m47.81 7 m51.36 Chief Complaint m54.16 g89.29 m47.81 7 m51.36 I83.812 s/p varithena Chief Complaint M54.16 Chief Complaint Hernia Reason for Referral Reason * 06/14 [facility] - likely inguinal hernia (L) Diagnosis 1 Left inguinal pain ( R10.32) Referral Organization [facility] elan Referring Provider First Name Rose Mary Referring Provider Last Name Juliet Referring Provider Specialty [facility] Referred Organization [facility] Referred Provider Jonathan Shipman Referred Address ,[place], [place],[address] Referred Provider Specialty Surgery Referral Priority Routine General Notes Loli Stovall 06:18:29 PM >received today, notes locked, ins attached, referral faxed Additional Source Comments (unrecognized sect ion and content) No Status Records FoundNo Status Records FoundNo Status Records FoundNo Status Records FoundNo Status Records FoundNo Status Records FoundNo Status Records FoundNo Status Records Found INFORMATION SOURCE (unrecogn ized section and content) DATE CREATED AUTHOR 03/03/2020 [facility] [place] DATE CREATED AUTHOR AUTHOR'S ORGANIZ ATION 05/22/2020 [facility] DATE CREATED AUTHOR AUTHOR'S ORGANIZ ATION 12/18/2020 [facility] DATE CREATED AUTHOR AUTHOR'S ORGANIZ ATION 06/08/2021 [facility] DATE CREATED AUTHOR AUTHOR'S ORGANIZ ATION 09/15/2022 [facility] DATE CREATED AUTHOR AUTHOR'S ORGANIZ ATION 08/09/2023 [facility] DATE CREATED AUTHOR AUTHOR'S ORGANIZ ATION 08/09/2023 [facility] DATE CREATED AUTHOR AUTHOR'S ORGANIZ ATION 12/24/2023 [facility] Reason for Visit (unrecogniz ed section and content) Reason Comments Back Pain Seen by Dr Tim 05/08, told to come to the ER if pain gets worse Status Reason Specialty Diagnoses / Procedures Re ferred By Contact Referred To Contact Diagnoses Herniation of left side of L4-L5 intervertebral disc Pelon Tim MD [address] [place] [address] [facility] Reason Comments Consult Inguinal hernia, Lef t Specialty Diagnoses / Procedures Referred By Contac t Referred To Contact General Surgery Diagnoses Left lower quadrant pain Procedures [place] OFFICE/OUTPATIENT [facility] 60 MINUTES Rose Mary Timmons MD [address] [place] [address] [facility] [address] [place] [address] Referral ID Status Reason Start Date Expiration Date V isits Requested Visits Authorized [id number] Closed Specialty Services Required 06/08/2023 12/05/2023 1 1 Ordered Prescriptions (unrec ognized section and content) Prescription Sig Dispensed Refills Start Date End Da te senna (SENOKOT) 8.6 MG tablet Take 2 tablets by mouth 2 times daily for 14 days 56 tablet 0 05/18/2020 06/01/2020 cephALEXin (KEFLEX) 500 MG capsule Take 1 capsule by mouth 3 times daily for 7 days 21 capsule 0 05/18/2020 05/25/2020 oxyCODONE-acetaminophen (PERCOCET) 5-325 MG per tabletIndications:Posto perative pain Take 1 tablet by mouth every 6 hours as needed for Pain for up to 14 days. Intended supply: 7 days. Take lowest dose possible to manage pain 40 tablet 0 05/18/2020 06/01/2020 Care Teams (unrecognized sec tion and content) Team Status: Inactive Member Role Status Dates Rose Mary Timmons MD Primary Care Provider Active Woodrow Rashid MD Attending Provider Active Team Status: Active Member Role Status Dates Rose Mary Timmons MD Primary Care Provider Active Team Status: Inactive Member Role Status Dates Rose Mary Timmons MD Primary Care Provider Active Guanaco Wolf MD Attending Provider Active Emergency Medicine Medical Director Relationship Specialty Start Date End Date Rose Mary Timmons MD [address] [place] [address] PCP - [facility] 06/12/23 Emergency Medicine Medical Director Relationship Specialty Start Date End Date Rose Mary Timmons MD [address] [place] [address] PCP - [facility] 06/12/23 Team Status: Inactive Member Role Status Dates Rose Mary Timmons MD Primary Care Provider Active Start: June 16, 2023 End: June 16, 2023 Jonathan Shipman DO Attending Provider Active Start : June 16, 2023 End: June 16, 2023 Team Status: Inactive Member Role Status Dates Rose Mary Timmons MD Primary Care Provider Active Start: June 26, 2023 End: June 26, 2023 Jonathan Shipman DO Attending Provider Active Start : June 26, 2023 End: June 26, 2023 Team Status: Inactive Member Role Status Dates Rose Mary Timmons MD Primary Care Provide r, Attending Provider Active Start: August 02, 2023 End: August 02, 2023 Goals (unrecognized section and content) Goals may be documented in a n alternate section FOR RECORDS PERTAINING TO PATIENTS WHO ARE OR HAVE BEEN ENROLLED IN A CHEMICAL DEPENDENCY/SUBSTANCEABUSE PROGRAM, SOME INFORMATION MAY BE OMITTED. This clinical summary was aggregated from multiple sources. Caution should be exercised in using it in the provision of clinical care. This summary normalizes information from multiple sources, and as a consequence, information in this document may materially change the coding, format and clinical context of patient data. In addition, data may be omitted in some cases. CLINICAL DECISIONS SHOULD BE BASED ON THE PRIMARY CLINICAL RECORDS. [facility]. provides no warranty or guarantee of the accuracy or completeness of information in this document.
[2024-02-02 07:14] LABS: Basophils Percent Auto 0.7 % (0.2-2.0); Eosinophils Absolute Auto 0.3 10^3/uL (0.0-0.7); Eosinophils Percent Auto 4.7 % (0.9-7.0); Hematocrit 40.1 % (42.0-54.0); Hemoglobin 13.7 g/dL (14.0-18.0); Immature Granulocytes Abs Auto 0.03 10^3/uL (0.00-0.03); Immature Granulocytes Pct Auto 0.5 % (0.0-0.5); Lymphocytes Absolute Auto 1.8 10^3/uL (1.2-3.8); Lymphocytes Percent Auto 33.5 % (20.5-60.0); Mean Corpuscular HGB Conc 34.2 g/dL (29.9-35.2); Mean Corpuscular Hemoglobin 30.9 pg (25.9-34.0); Mean Corpuscular Volume 90.5 fL (80.0-94.0); Mean Platelet Volume 10.6 fL (9.5-13.5); Monocytes Absolute Auto 0.5 10^3/uL (0.3-0.8); Monocytes Percent Auto 9.5 % (1.7-12.0); Neutrophils Absolute Auto 2.8 10^3/uL (1.4-6.5); Neutrophils Percent Auto 51.1 % (43.0-75.0); Platelet Count 226 10^3/uL (150-450); Red Blood Count 4.43 10^6/uL (4.70-6.10); Red Cell Distribution Width 12.9 % (11.0-15.0); White Blood Count 5.5 10^3/uL (4.0-11.0)
[2024-02-02 07:48] LABS: Alanine Aminotransferase 43 U/L (16-63); Albumin Globulin Ratio 1.1; Albumin Level 3.6 g/dL (3.4-5.0); Alkaline Phosphatase 51 U/L (46-116); Aspartate Amino Transferase 21 U/L (15-37); BUN Creatinine Ratio 7.5; Bilirubin Total 0.7 mg/dL (0.2-1.0); Calcium 8.7 mg/dL (8.5-10.1); Chloride 101 mmol/L (98-107); Chol HDL Ratio 3.5; Cholesterol 183 mg/dL (<=200); Estimated GFR (African America >60 (>=60 mL/min/1.73m^2); Estimated GFR (Non-African Ame >60 (>=60 mL/min/1.73m^2); Globulin 3.2 g/dL; Glucose 96 mg/dL (74-106); HDL Cholesterol 52 mg/dL (40-60); LDL Cholesterol Calculated 106.8 mg/dL; Potassium 3.9 mmol/L (3.5-5.1); Sodium 137 mmol/L (136-145); Thyroid Stimulating Hormone 2.881 uIU/mL (0.358-3.740); Total Protein 6.8 g/dL (6.4-8.2); Triglycerides 121 mg/dL (<=150); VLDL CHOLESTEROL 24.2 mg/dL
[2024-02-02 08:07] LABS: Anion Gap 10.3; Carbon Dioxide 29.6 mmol/L (21.0-32.0)
[2024-02-03 08:13] LABS: Testosterone 334 ng/dL (264-916)
== END 2024-02-02 07:04 | disposition home or self-care (01) ==
LOC: LAB 07:03
PROVIDERS: PCP Family Medicine; Visit Provider Family Medicine
DX: Z00.00 Encounter for general adult medical examination without abnormal findings (principal); R53.83 Other fatigue
CPT/HCPCS: 36415; 80053; 80061; 84403; 84443; 85025

== ENCOUNTER 2024-04-16 07:28 | Outpatient (OUT) | payer BC, SELFPAY ==
--- OUTSIDE RECORDS SUMMARY | 2024-04-16 07:32 | XMS_ITS | CCD ---
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 Name Role Phone ROSE MARY TIMMONS Primary Care Unavailable PELON ITM Admitting Unavailable PELON TIM HCindi Attending Unavailable Rose Mary Timmons Primary Care Provider [phone] ROSE MARY TIMMONS Referring Unavailable ROSE MARY TIMMONS Primary Care Unavailable UNKNOWN, PROVIDER Attending Unavailable UNKNOWN, PROVIDER Admitting Unavailable Guanaco Wolf Unavailable Mando Forde Unavailable Lanie Robledo Unavailable Woodrow Rashid Unavailable Leyla Bolanos Unavailable MD Rose Mary iTmmons Primary Care Provider MD Woodrow Rashid Attending Provider Rose Mary Timmons Unavailable MD Rose Mary Timmons Primary Care Provider MD Guanaco Wolf Attending Provider [phone] MD Rose Mary Timmons Primary Care Provider MD Guanaco Wolf Attending Provider [phone] MD Woodrow Rashid Attending Provider MAGNO OLIVEIRA Consulting Unavailable MAGNO OLIVEIRA Attending [...] Care Provider MD Guanaco Wolf Attending Provider Rose Mary Timmons MD Primary Care Provider MD Rose Mary Timmons Primary Care Provider DO Jonathan Shipman Attending Provider [phone] MD Rose Mary Timmons Primary Care Provider DO Jonathan Shipman Attending Provider [phone] Rose Mary Timmons Primary Care Unavailable Woodrow Rashid Admitting Unavailable Woodrow Rashid Attending Unavailable Rose Mary Timmons Primary Care Unavailable Guanaco Wolf Admitting Unavailable Guanaoc Wolf Attending Unavailable Jonathan Shipman Attending Unavailable Rose Mary Timmons Primary Care Unavailable Jonathan Shipman Admitting Unavailable Rose Mary Timmons Primary Care Unavailable Woodrow Rashid Admitting Unavailable Woodrow Rashid Attending Unavailable Rose Mary Timmons Primary Care Unavailable Jonathan Shipman Admitting Unavailable Jonathan Shipman Attending Unavailable TAVO MENDOZA Attending Unavailable JONATHAN SHIPMAN Attending Unavailable ROSE MARY TIMMONS Unavailable JONATHAN SHIPMAN Attending Unavailable JONATHAN SHIPMAN Attending Unavailable ZACHARY WILLIAM Attending Unavailable JONATHAN SHIPMAN Attending Unavailable JONATHAN SHIPMAN Attending Unavailable Allergies Allergy Classification Reported Allergen(s) Allergy Type Date of Onset Reaction(s) Facility (11 sources) levoFLOXacin; Translations: [LEVOFLOXACIN] Drug Allergy 8 [place], [place] (20 sources) levoFLOXacin Drug Allergy rash [facility] Other (1 source) levoFLOXacin Drug Allergy 4 [facility] Repository Medications Current Medications Medication Drug Class(es) [...] 01, 2023 9:54am take 1 capsule by [facility] every twenty-four hours in the morning dilTIAZem ER (Tiazac) 240 MG 24 hr capsule Take 240 mg by mouth in the morning. Active [id number] 0.3 ml EPINEPHrine 1 mg/ml auto-injector (3 sources) alpha-Adrenergic Agonist, beta-Adrenergic Agonist, Catecholamine Start: 02-01-2024 EPINEPHrine (Epipen) 0.3 MG/0.3ML injection syringe Once 02/01/2024 Active Start: 02-01-2024 inject 1 mL by intra muscular injection once Epinephrine Active 0.3 ML IM Once February 01, 2024 12:00am gabapentin 300 mg oral capsule (1 source) Anti-epileptic Agent Start: 05-08-2020 End: 06-07-2020 take 1 capsule by mouth three times daily gabapentin (NEURONTIN) 300 MG capsule Take 1 capsule by mouth 3 times daily for 30 days. 90 capsule 0 05/08/2020 06/07/2020 Active hydroCHLOROthiazide 25 mg oral tablet (20 sources) Thiazide Diuretic Start: 01-04-2023 End: 04-11-2024 take 1 tablet by mouth in the morning hydroCHLOROthiazide (HYDRODiuril) 25 MG tablet Take 25 mg by mouth in the morning. 01/04/2023 04/11/2024 Active HYDROmorphone (DILAUDID) injection 0.25 mg (1 source) [...] 19, 2017 1:00am Multivitamin (Daily Multi-Vitamin) tablet (3 sources) Start: 06-16-2023 take 1 tablet by mouth once daily in the morning Multivitamin (Daily Multi-Vitamin) tablet Active 1 TAB PO Every morning June 16, 2023 1:00am Start: 06-16-2023 take 1 tablet by frances th once daily in the morning Multivitamin (Daily Multi-Vitamin) tablet Active 1 TAB PO Every morning June 16, 2023 12:00am multivitamin with minerals (Centrum) 9-200 mg-mcg tablet split tablet (2 sources) Start: 06-16-2023 multivitamin w ith minerals (Centrum) 9-200 mg-mcg tablet split tablet 1 tablet 06/16/2023 Active olmesartan medoxomil 20 mg oral tablet (1 source) Angiotensin 2 Receptor Edie take 1 tablet by mouth once daily olmesartan (BENICAR) 20 MG tablet Take 20 mg by mouth daily 0 Active omeprazole 20 mg delayed release oral capsule (20 sources) Proton Pump Inhibitor Start: 07-03-2023 take 1 capsule by mouth once daily Omeprazole Active 0 .ROUTE .COMPLEX 90 July 03, 2023 1:13pm TAKE 1 CAPSULE BY MOUTH ONCE DAILY Start: 01-04-2023 End: 07-03-2023 take 20 mg by mouth once daily in the morning Omeprazole Discontinued 20 MG PO Every morning January 04, 2023 12:00am July 03, 2023 1:13pm take 1 capsule by mo [facility] once daily Omeprazole 10 MG 1 capsule 30 minutes before morning meal Orally Once a day Active sennosides, mcfp 8.6 mg oral tablet (1 source) Start: [...] (20 sources) Phosphodiesterase 5 Inhibitor Start: 01-04-2023 End: 01-18-2024 take 5 mg by mouth once daily Tadalafil Active 5 MG PO Daily January 18, 2024 1:28pm triamcinolone acetonide 5 mg/ml topical cream (1 source) Corticosteroid Start: 02-01-2024 Triamcinolone Acetonide Active 1 APPLIC TOPICAL Twice daily February 01, 2024 12:00am Completed/Discontinued Medications Medication Drug Class(es) Dates Sig (Normalized) Sig (Original) acetaminophen 325 mg / HYDROcodone bitartrate 5 mg oral tablet (8 sources) Opioid Agonist Start: 01-12-2022 End: 01-04-2023 take 1 tablet by mouth every eight hours Hydrocodone-Acetami nophen Discontinued 1 TAB PO Q8H 11 09January 12, 2022 January 04, 2023 6:34am Start: 06-19-2017 take 1 tablet by frances th every six hours Hydrocodone-Acetaminophen ([place]) 5-325 mg tablet Active 1 TAB PO Q6H June 19, 2017 amoxicillin 500 mg oral tablet (1 source) Penicillin-class Antibacterial Start: 01-16-2024 End: 02-01-2024 take 500 mg by mouth three times daily Amoxicillin Discontinued 500 MG PO Three times daily January 16, 2024 12:00am February 01, 2024 2:41pm cefTRIAXone (ROCEPHIN) 1 g IVPB in 50 [...] End: 05-17-2020 ondansetron (ZOFRAN) injection 4 mg predniSONE 10 mg oral tablet (16 sources) Start: 12-13-2023 End: 02-01-2024 Prednisone Discontinued 10 MG PO As Directed December 13, 2023 12:00am February 01, 2024 2:41pm see taper instructions: 4 x 3 days, 2 x 3 days, 1 x 3 days. Start: 09-27-2022 take 2 tablets by mo [facility] every twenty-four hours predniSONE 20 MG 2 tablets Orally Once a day for 5 days August, Active Start: 03-23-2021 predniSONE 10 MG 3 tablets a day for 3 days, 2 tablets a day for 3 days, 1 tablets a day for 3 days Orally Once a day for 9 day(s) Mar, Not-Taking traMADol hydrochloride 50 mg oral tablet (2 sources) Opioid Agonist Start: 06-26-2023 End: 08-02-2023 take 50 mg by mouth every six hours Tramadol Discontinued 50 MG PO Q6H 30 June 26, 2023 1:00am August 02, 2023 11:08am zolpidem tartrate 12.5 mg extended release oral tablet (14 sources) gamma-Aminobut yric Acid-ergic Agonist Start: 03-08-2023 take 1 tablet by mouth at bedtime as needed Zolpidem Tartrate ER 12.5 mg TAKE 1 TABLET BY MOUTH AT BEDTIME NEEDED for 30 Mar, Not-Taking/PRN Start: 09-30-2022 take 1 tablet by frances th at bedtime as needed Zolpidem Tartrate ER 12.5 mg TAKE 1 TABLET BY MOUTH AT BEDTIME NEEDED for 30 Last name is Sep, Active Start: 06-23-2022 take 1 tablet by frances th every twenty-four hours Ambien CR 12.5 MG 1 tablet at bedtime as needed Orally Once a day for 30 days Jun, Active Problems Active Problems Problem Classification Problem Date Documented Da te Episodic/Chronic Abdominal pain (7 sources) Left lower quadrant pain; Translations: [Left [...] disease with esophagitis, without bleeding] Essential hypertension (11 sources) Essential hypertension; Translations: [Essential (primary) hypertension] Onset: 09-14-2022 08-01-2023 Chronic Heart valve disorders (6 sources) Nonrheumatic aortic (valve) insufficiency; Translations: [NONRHEUMATIC AORTIC INSUFFICIENCY] Onset: 08-22-2022 Chronic Malaise and fatigue (2 sources) Fatigue; Translations: [Other fatigue] 02-01-2024 Episodic Other bone disease and musculoskeletal deformities (5 [...] Episodic Other diseases of veins and lymphatics (10 sources) Vascular insufficiency; Translations: [Venous insufficiency (chronic) (peripheral)] 08-01-2023 Episodic Other ear and sense organ disorders (2 sources) Bilateral tinnitus; Translations: [Tinnitus, bilateral] 08-02-2023 Episodic Other ear and sense organ disorders (1 source) Tinnitus, bilateral; Translations: [Tinnitus, unspecified] 08-02-2023 Episodic Other male genital disorders (2 sources) Impotence of organic origin; Translations: [Male erectile dysfunction, unspecified] Chronic Other male genital disorders (5 sources) Male erectile dysfunction, unspecified; Translations: [Erectile [...] Resolved: 06-01-2021 Chronic Other non-traumatic joint disorders (4 sources) Pain in left shoulder; Translations: [Left [...] sources) Other insomnia Chronic Residual codes; unclassified (7 sources) Patient encounter status; Translations: [Encounter for procedure for purposes other than remedying health state, unspecified] 01-12-2022 Episodic Spondylosis; intervertebral disc disorders; other back problems (20 sources) Prolapsed lumbar intervertebral disc; Translations: [Degeneration of lumbar intervertebral disc] Onset: 05-17-2020 Resolved: 08-27-2021 05-17-2020 Chronic Spondylosis; intervertebral disc disorders; other back problems (20 sources) Sciatica; Translations: [Sciatica, left side] Onset: 01-12-2018 Resolved: 07-12-2021 Episodic Sprains and strains (20 sources) Supraspinatus tear; [...] Problem Classification Problem Date Documented Date Episodic/Chronic Abdominal hernia (7 sources) Left inguinal hernia ; Translations: [Unilateral inguinal hernia, without obstruction or gangrene, not specified as recurrent] Onset: 06-13-2023 06-13-2023 Episodic Other connective tissue disease (1 source) Unspecified rotator cuff tear or rupture of left shoulder, not specified as traumatic Onset: 07-01-2021 Resolved: 07-01-2021 Episodic Other diseases of veins and lymphatics (1 source) Venous insufficiency (chronic) (peripheral) Onset: 12-21-2021 Resolved: 12-21-2021 Episodic Other upper respiratory infections (2 sources) Acute pharyngitis, unspecified Onset: 09-06-2021 Resolved: 09-06-2021 Episodic Residual codes; unclassified (1 source) Other specified postprocedural states Onset: 06-01-2021 Resolved: 06-01-2021 Episodic Sprains and strains (1 source) Strain [...] Range Facility Office Visiton 12-22-2023 Follow-up visit [id number] JohannaTEJASANJUM Sanchez 1980 M Date Provider Department Center 12/22/2023 TAVO TERRY CARD [facility] Family History Problem Relation Age of Onset Hypertension Father Hypertension Maternal Grandfather Family Status - Relation Status Age at Father Maternal Grandfather Level of Service:12946 [place] OFFICE/OUTPATIENT ESTABLISHED MOD MDM 30 MIN Normal [facility] Amphetamine Screen Ql (U)Ord ered By: Sai Conway on 06-26-2023 Amphetamines Ql (U) Negative Negative [facility] Barbiturates [Presence] in U rine by Screen methodOrdered By: Sai Conway on 06-26-2023 Barbiturates Screen Ql (U) Negative Negative [facility] Benzodiazepines Screen Ql (U )Ordered By: Sai Conway on 06-26-2023 Benzodiazepines Ql (U) Negative Negative [facility] Benzoylecgonine [Presence] i n Urine by Screen methodOrdered By: Sai Conway on 06-26-2023 Benzoylecgonine Screen Ql (U) Negative Negative [facility] Cannabinoids [Presence] in U rine by Screen methodOrdered By: Sai Conway on 06-26-2023 Cannabinoids Screen Ql (U) Positive Negative [facility] Comment on above: These are unconfirme d results and should not be used for legal purposes. Drug Cut-Off Concentration: AMPH 1000 ng/mL MEE 200 ng/mL RCO 200 ng/mL COCM 300 ng/mL OP 300 ng/mL PCP 25 ng/mL THC 20 ng/mL Drug Screen,Urineon 06-26-19 24 Amphetamine Screen,Urine Negative Normal Negative [facility] Comment on above: Performed By: #### U RDS #### [address] Barbiturate Screen,Urine Negative Normal Negative [facility] Comment on above: Performed By: #### U RDS #### [address] Benzodiazepines Screen,Urine Negative Normal Negative [facility] Comment on above: Performed By: #### U RDS #### [address] Cannabinoid Screen,Urine Positive High Negative [facility] Comment on above: Result Comment: Thes e are unconfirmed results and should not be used for legal purposes. Drug Cut-Off Concentration: AMPH 1000 ng/mL MEE 200 ng/mL ROC 200 ng/mL COCM 300 ng/mL OP 300 ng/mL PCP 25 ng/mL THC 20 ng/mL PERFORMED BY: [place] [address] PATHOLOGIST [employer] SORTER LUCIO DENT M.D. Performed By: #### U RDS #### [address] Cocaine Screen,Urine Negative Normal Negative [facility] Comment on above: Performed By: #### U RDS #### [address] Opiate Screen,Urine Negative Normal Negative [facility] Comment on above: Performed By: #### U RDS #### [address] Phencyclidine Screen,Urine Negative Normal Negative [facility] Comment on above: Performed By: #### U RDS #### [address] Hair 06-26-2023 L Specimen: [id number] Received: 06/27/23 Status: LAURENCE Padilla Num: [id number] Spec Type: Surgical Subm Dr: Jonathan Shipman,DO Tissues: A Hernia Sac (HERNIA SAC/CORD LIPOMA) Procedures: HE, Gross/Micro L2 Age/ Patient Sex Location Account Attending Physician Anshul Spencer 43/M [place] [id number] Jonathan Shipman DO SPEC NUM: [id number] RECD: 06/27/23 STATUS: LAURENCE SILVIO NUM: [id number] REBECCA: 06/26/[address]: Jonathan Shipman DO ENTERED: 06/27/[address] [facility] [address]: SPEC TYPE: Surgical DEPT: S ORDERED: [...] with no firm or suspicious foci. A in home sales representative section of each fragment with overlying membranous tissue is submitted. Oncology Rep Specialist sections are submitted in one cassette labeled A1. CPT Codes 99858 Specimen: [id number] Received: 06/27/23 Status: TANAKhang Padilla Num: [id number] Spec Type: Surgical Subm Dr: Jonathan Shipman DO Tissues: A Hernia Sac (HERNIA SAC/CORD LIPOMA) Procedures: HE, Gross/Micro L2 Patient: Anshul Spencer [id number] (Continued) Signed (signatur e on file) Estephania Womack MD 07/01/23 1104 Normal [facility] Opiates [Presence] in Urine by Screen methodOrdered By: Sai Conway on 06-26-2023 Opiates Screen Ql (U) Negative Negative [facility] Phencyclidine Screen Ql (U)O rdered By: Sai Conway on 06-26-2023 Phencyclidine Ql (U) Negative Negative [facility] Basic Metabolic Panelon 06-01 Anion gap [Moles/Vol] 10.6 mmol/L Normal 6.0-15.0 e [facility] Comment on above: Performed By: #### B MP #### [address] Calcium [Mass/Vol] 9.3 mg/dL Normal 8.6-10.3 [facility] Comment on above: Result Comment: PERF ORMED BY: [facility] [address] [place] [address] PATHOLOGIST [employer] SORTER LUCIO DENT M.D. Performed By: #### B MP #### [address] Chloride [Moles/Vol] 102 mmol/L Normal 98-107 [facility] Comment on above: Performed By: #### B MP #### [place] [address] [place] CO2 [Moles/Vol] 29.7 mmol/L Normal 21.0-31.0 [facility] Comment on above: Performed By: #### B MP #### [address] Creatinine [Mass/Vol] 0.87 mg/dL Normal 0.70-1.30 [facility] Comment on above: Performed By: #### B MP #### [place] [address] [place] GFR/1.73 sq M.predicted MDRD (S/P/Bld) [Vol rate/Area] mL/min/{1.73_m2} Normal [facility] Comment on above: Performed By: #### B MP #### [address] Glucose [Mass/Vol] 81 mg/dL Normal 70-100 [facility] Comment on above: Result Comment: [place] Glucose Reference Range is dependent on time and content of last meal. Glucose of more than 200 mg/dL in a nonstressed, ambulatory subject supports the diagnosis of Diabetes Mellitus. ADA recommended reference range Performed By: #### B MP #### [address] Potassium [Moles/Vol] 4.3 mmol/L Normal 3.5-5.1 [facility] Comment on above: Performed By: #### B MP #### [place] [address] [place] Sodium [Moles/Vol] 138 mmol/L Normal 136-145 [facility] Comment on above: Performed By: #### B MP #### [address] Urea nitrogen [Mass/Vol] 12 mg/dL Normal 7-25 [facility] Comment on above: Performed By: #### B MP #### [facility] [address] [place] [address] [place] Basophils Auto (Bld) [#/Vol] Ordered By: Jonathan Shipman on 06-16-2023 Basophils (Bld) [#/Vol] 0.0 10*3/uL 0.0-0.2 [facility] Basophils/100 WBC Auto (Bld) Ordered By: Jonathan Shipman on 06-16-2023 Basophils/100 WBC (Bld) 0.9 % . [facility] Calcium [Mass/volume] in Ser um or PlasmaOrdered By: Jonathan Shipmna on 06-16-2023 Calcium [Mass/Vol] 9.3 mg/dL 8.6-10.3 [facility] Carbon dioxide, total [Moles /volume] in Serum or PlasmaOrdered By: Jonathan Shipman on 06-16-2023 CO2 [Moles/Vol] 29.7 mmol/L 21.0-31.0 [facility] Chloride [Moles/volume] in S annemarie or PlasmaOrdered By: Jonathan Shipman on 06-16-2023 Chloride [Moles/Vol] 102 mmol/L 98-107 [facility] Complete Blood Count Auto Di ffon 06-16-2023 Basophils (Bld) [#/Vol] 0.0 10*3/uL Normal 0.0-0.2 [facility] Comment on above: Result Comment: PERF ORMED BY: [place] [address] PATHOLOGIST [employer] SORTER LUCIO DENT M.D. Performed By: #### C BC #### [facility] [address] [place] [address] [place] Basophils/100 WBC (Bld) 0.9 % Normal . T [facility] Comment on above: Performed By: #### C BC #### [facility] [address] [place] [address] [place] Eosinophils (Bld) [#/Vol] 0.1 10*3/uL Normal 0.0-0.45 [facility] Comment on above: Performed By: #### C BC #### [address] Eosinophils/100 WBC (Bld) 2.8 % Normal . [facility] Comment on above: Performed By: #### C BC #### [address] Erythrocyte distribution width (RBC) [Ratio] 13.0 % Normal 12.0-14.8 [facility] Comment on above: Performed By: #### C BC #### [address] Hematocrit (Bld) [Volume fraction] 41.5 % Normal 38.8-50.0 [facility] Comment on above: Performed By: #### C BC #### [address] Hemoglobin (Bld) [Mass/Vol] 14.2 g/dL Normal 13.0-17.0 [facility] Comment on above: Performed By: #### C BC #### [address] Lymphocytes (Bld) [#/Vol] 1.4 10*3/uL Normal 1.00-4.8 [facility] Comment on above: Performed By: #### C BC #### [address] Lymphocytes/100 WBC (Bld) 33.7 % Normal . [facility] Comment on above: Performed By: #### C BC #### [address] MCH (RBC) [Entitic mass] 30.6 pg Normal 27.5-35.2 [facility] Comment on above: Performed By: #### C BC #### [address] MCV (RBC) [Entitic vol] 89.4 fL Normal 83.5-101 T [facility] Comment on above: Performed By: #### C BC #### [address] Mean Corpuscular HGB Conc 34.2 g/dL Normal 32.5-35.6 [facility] Comment on above: Performed By: #### C BC #### [address] Monocytes (Bld) [#/Vol] 0.5 10*3/uL Normal 0.0-0.8 [facility] Comment on above: Performed By: #### C BC #### [address] Monocytes/100 WBC (Bld) 10.6 % Normal . [facility] Comment on above: Performed By: #### C BC #### [address] Neutrophils (Bld) [#/Vol] 2.2 10*3/uL Normal 1.8-7.7 [facility] Comment on above: Performed By: #### C BC #### [address] Neutrophils/100 WBC (Bld) 52.0 % Normal . [facility] Comment on above: Performed By: #### C BC #### [address] NRBC% 0.0 /100{WBC} Normal 0-0.5 [facility] Comment on above: Performed By: #### C BC #### [address] Platelet mean volume (Bld) [Entitic vol] 9.1 fL Normal 6.6-10.1 [facility] Comment on above: Performed By: #### C BC #### [place] [address] [place] Platelets (Bld) [#/Vol] 232 10*3/uL Normal 150-450 [facility] Comment on above: Performed By: #### C BC #### [place] [address] [place] RBC (Bld) [#/Vol] 4.64 10*6/uL Normal 3.90-5.60 [facility] Comment on above: Performed By: #### C BC #### [facility] [address] WBC (Bld) [#/Vol] 4.3 10*3/uL Normal 4.1-10.5 [facility] Comment on above: Performed By: #### C BC #### [facility] [address] Creatinine [Mass/volume] in Serum or PlasmaOrdered By: Jonathan Shipman on 06-16-2023 Creatinine [Mass/Vol] 0.87 mg/dL 0.70-1.30 [facility] Eosinophils Auto (Bld) [#/Vo l]Ordered By: Jonathan Shipman on 06-16-2023 Eosinophils (Bld) [#/Vol] 0.1 10*3/uL 0.0-0.45 [facility] Eosinophils/100 WBC Auto (Bl d)Ordered By: Jonathan Shipman on 06-16-2023 Eosinophils/100 WBC (Bld) 2.8 % . [facility] Erythrocyte distribution wid th Auto (RBC) [Ratio]Ordered By: Jonathan Shipman on 06-16-2023 Erythrocyte distribution width (RBC) [Ratio] 13.0 % 12.0-14.8 [facility] Glucose [Mass/volume] in Ser um or PlasmaOrdered By: Jonathan Shipman on 06-16-2023 Glucose [Mass/Vol] 81 mg/dL 70-100 [facility] Comment on above: ADA recommended refe rence rangeRandom Glucose Reference Range is dependent on time and content of last meal. Glucose of more than 200 mg/dL in a nonstressed, ambulatory subject supports the diagnosis of Diabetes Mellitus. Hematocrit Auto (Bld) [Volum e fraction]Ordered By: Jonathan Shipman on 06-16-2023 Hematocrit (Bld) [Volume fraction] 41.5 % 38.8-50.0 [facility] Hemoglobin [Mass/volume] in BloodOrdered By: Jonathan Shipman on 06-16-2023 Hemoglobin (Bld) [Mass/Vol] 14.2 g/dL 13.0-17.0 [facility] Leukocytes [#/volume] correc julio for nucleated erythrocytes in Blood by Automated counOrdered By: Jonathan Shipman on 06-16-2023 WBC corrected for nucl RBC Auto (Bld) [#/Vol] 4.3 10*3/uL 4.1-10.5 [facility] Lymphocytes Auto (Bld) [#/Vo l]Ordered By: Jonathan Shipman on 06-16-2023 Lymphocytes (Bld) [#/Vol] 1.4 10*3/uL 1.00-4.8 [facility] Lymphocytes/100 WBC Auto (Bl d)Ordered By: Jonathan Shipman on 06-16-2023 Lymphocytes/100 WBC (Bld) 33.7 % . [facility] MCH Auto (RBC) [Entitic mass ]Ordered By: Jonathan Shipman on 06-16-2023 MCH (RBC) [Entitic mass] 30.6 pg 27.5-35.2 [facility] MCHC Auto (RBC) [Mass/Vol]Or dered By: Jonathan Shipman on 06-16-2023 MCHC (RBC) [Mass/Vol] 34.2 g/dL 32.5-35.[address] [facility] MCV Auto (RBC) [Entitic vol] Ordered By: Jonathan Shipman on 06-16-2023 MCV (RBC) [Entitic vol] 89.4 fL 83.5-101 [facility] Monocytes Auto (Bld) [#/Vol] Ordered By: Jonathan Shipman on 06-16-2023 Monocytes (Bld) [#/Vol] 0.5 10*3/uL 0.0-0.8 [facility] Monocytes/100 WBC Auto (Bld) Ordered By: Jonathan Shipman on 06-16-2023 Monocytes/100 WBC (Bld) 10.6 % . [facility] Neutrophils Auto (Bld) [#/Vo l]Ordered By: Jonathan Shipman on 06-16-2023 Neutrophils (Bld) [#/Vol] 2.2 10*3/uL 1.8-7.7 [facility] Neutrophils/100 WBC Auto (Bl d)Ordered By: Jonathan Shipman on 06-16-2023 Neutrophils/100 WBC (Bld) 52.0 % . [facility] No Panel InformationOrdered By: Jonathan Shipman on 06-16-2023 Estimated GFR (CKD-EPI) > 60.0 mL/Min [facility] Creatinine Clearance (Chem N/A [facility] Nucleated erythrocytes [Pres ence] in Blood by Automated countOrdered By: Jonathan Shipman on 06-16-2023 Nucleated RBC Auto Ql (Bld) 0.0 /100{WBC} 0-0.5 [facility] Platelet mean volume Auto (B ld) [Entitic vol]Ordered By: Jonathan Shipman on 06-16-2023 Platelet mean volume (Bld) [Entitic vol] 9.1 fL 6.6-10.1 [facility] Platelets Auto (Bld) [#/Vol] Ordered By: Jonathan Shipman on 06-16-2023 Platelets (Bld) [#/Vol] 232 10*3/uL 150-450 [facility] Potassium [Moles/volume] in Serum or PlasmaOrdered By: Jonathan Shipman on 06-16-2023 Potassium [Moles/Vol] 4.3 mmol/L 3.5-5.1 [facility] RBC Auto (Bld) [#/Vol]Ordere d By: Jonathan Shipman on 06-16-2023 RBC (Bld) [#/Vol] 4.64 10*6/uL 3.90-5.60 [facility] Serum or plasma anion gap de terminationOrdered By: Jonathan Shipman on 06-16-2023 Anion gap [Moles/Vol] 10.6 mmol/L 6.0-15.0 [facility] Sodium [Moles/volume] in Ser um or PlasmaOrdered By: Jonathan Shipman on 06-16-2023 Sodium [Moles/Vol] 138 mmol/L 136-145 [facility] Urea nitrogen [Mass/volume] in Serum or PlasmaOrdered By: Jonathan Shipman on 06-16-2023 Urea nitrogen [Mass/Vol] 12 mg/dL 7-25 [facility] WBC Auto (Bld) [#/Vol]Ordere d By: Jonathan Shipman on 06-16-2023 WBC (Bld) [#/Vol] 4.3 10*3/uL 4.1-10.5 [facility] Basic Metabolic Panelon 09-0 Anion gap [Moles/Vol] Not performed Normal 6.0-15.0 [facility] Comment on above: Performed By: #### B MP #### [address] Calcium [Mass/Vol] 9.0 mg/dL Normal 8.6-10.3 [facility] Comment on above: Performed By: #### B MP #### [address] Chloride [Moles/Vol] 102 mmol/L Normal 98-107 [facility] Comment on above: Performed By: #### B MP #### [address] CO2 [Moles/Vol] 27.3 mmol/L Normal 21.0-31.0 [facility] Comment on above: Performed By: #### B MP #### [address] Creatinine [Mass/Vol] 0.77 mg/dL Normal 0.70-1.30 [facility] Comment on above: Performed By: #### B MP #### [address] Creatinine Clr Calc Pharmacy 160.97 Normal [facility] Comment on above: Result Comment: PERF ORMED BY: [place] [address] PATHOLOGIST [employer] S[employer]TER LUCIO DENT M.D. Performed By: #### B MP #### [place] [address] [place] GFR/1.73 sq M.predicted MDRD (S/P/Bld) [Vol rate/Area] mL/min/{1.73_m2} Normal [facility] Comment on above: Performed By: #### B MP #### [facility] [address] Glucose [Mass/Vol] 96 mg/dL Normal 70-100 [facility] Comment on above: Result Comment: [place] Glucose Reference Range is dependent on time and content of last meal. Glucose of more than 200 mg/dL in a nonstressed, ambulatory subject supports the diagnosis of Diabetes Mellitus. ADA recommended reference range Performed By: #### B MP #### [facility] [address] Potassium Normal 3.5-5.1 [facility] Comment on above: Result Comment: Spec imen hemolyzed, redraw requested Performed By: #### B MP #### [facility] [address] Sodium [Moles/Vol] 140 mmol/L Normal 136-145 [facility] Comment on above: Performed By: #### B MP #### [address] Urea nitrogen [Mass/Vol] 11 mg/dL Normal 7-25 [facility] Comment on above: Performed By: #### B MP #### [address] ECG 12 lead ECGon 01-04-2023 ECG 12 lead ECG [facility] Main [place] [address] [place] [address] Electrocardiograph Report Signed Patient: Anshul Spencer MR#: [id number] : 1980 Acct:[id number] Age/Sex: 42 / M ADM Date: 01/04/23 Loc: [place] Room: Type: [facility] Attending Dr: Woodrow Rashid MD Ordering Provider: [...] Dillan Pedraza MD 0 01/04/23 1050 Normal [facility] Hair 01-04-2023 L Specimen: [id number] Received: 01/04/23 Status: LAURENCE Silvio Num: [id number] Spec Type: Surgical Subm Dr: Woodrow Rashid MD Tissues: A Varicose Vein (VARICOSE VEIN PRINCE LEGS) Procedures: Yefri CROCKETT/Kendra L3 Age/ Patient Sex Location Account Attending Physician Anshul Spencer 42/M [place] [id number] Woodrow Rashid MD SPEC NUM: [id number] RECD: 01/04/23 STATUS: LAURENCE SILVIO NUM: [id number] REBECCA: 01/04/[address] [facility] DR: Woodrow Rashid MD ENTERED: 01/04/[address] [facility] [address]: SPEC TYPE: Surgical DEPT: S ORDERED: KEIRA, Gross/Micro L3 ORDERED: KEIRA, Gross/Micro L3 Pathological Diagnosis Varicose veins, bilateral [...] tissues with patent lumen on cut section. Oncology Rep Specialist sections are submitted in one cassette labeled A1. Microscopic Description One H E slide reviewed. The microscopic examination confirms the diagnosis. Specimen: [id number] Received: 01/04/23 Status: LAURENCE Padilla Num: [id number] Spec Type: Surgical Subm Dr: Woodrow Rashid MD Tissues: A Varicose Vein (VARICOSE VEIN PRINCE LEGS) Procedures: KEIRA, Gross/Micro L3 Patient: HollistravisAnshul Daniel [id number] (Continued) Specimen: [id number] Received: 01/04/23 (Continued) Signed (signatur e on file) Deep Mckeon MD 01/06/23 1640 Specimen: [id number] Received: 01/04/23 Status: LAURENCE Padilla Num: [id number] Spec Type: Surgical Subm Dr: Woodrow Rashid MD Tissues: A Varicose Vein (VARICOSE VEIN PRINCE LEGS) Procedures: Yefri CROCKETT/Kendra L3 Patient: JohannaAnshul [id number] (Continued) Specimen: [id number] Received: 01/04/23 (Continued) CPT Codes 30515 Specimen: [id number] Received: 01/04/23 Status: LAURENCE Padilla Num: [id number] Spec Type: Surgical Subm Dr: Woodrow Rashid MD Tissues: A Varicose Vein (VARICOSE VEIN PRINCE LEGS) Procedures: KEIRA, Gross/Kendra L3 Patient: Anshul Spencer [id number] (Continued) Signed (signatur e on file) Deep Mckeon MD 01/06/23 1640 Normal [facility] Redraw Potassiumon 3 Potassium [Moles/Vol] 4.2 mmol/L Normal 3.5-5.1 [facility] Comment on above: Result Comment: PERF ORMED BY: [place] [address] PATHOLOGIST [employer] LUCIO DENT M.D. Performed By: #### R EDRAW K #### [address] MR lumbar spine wo/w conon 0 01-03-2023 MR lumbar spine wo/w con [facility] [address] MRI Report Signed Patient: Anshul Spencer MR#: [id number] : 1980 Acct:[id number] Age/Sex: 42 / M ADM Date: 01/03/23 Loc: Room: Type: [facility] Attending Dr: Guanaco Wolf MD Copies to: [...] Woodrow Colunga M.D.01/03/2023 12:38 PM Dictation Location: [place] [address] Transcribed By: [facility] 01/03/23 1238 Dictated By: Woodrow Colunga DO 01/03/23 1228 Signed By: 01/03/23 1238 Normal [facility] US venous duplex [facility] US venous duplex [facility] [place] [address] Ultrasound Report Signed Patient: Anshul Spencer MR#: [id number] : 1980 Acct:[id number] Age/Sex: 42 / M ADM Date: 09/01/22 Loc: [facility] Room: Type: [facility] Attending Dr: Woodrow Rashid MD Ordering Provider: Woodrow Rashid MD Date of Service: 09/01/22 US/US venous duplex [facility]: FULL FUNCTION S/P VARITHENA Copies to: Woodrow [...] Santiago Mantilla MD10/06/2022 10:41 AM Dictation Location: [place] [address] Tech: Lucia Lockwood Transcribed By: [facility] 10/06/22 1041 Dictated By: Santiago Mantilla MD 10/06/22 1040 Signed By: 10/06/22 104 Normal [facility] LIPID PROFILEon 09-14-2022 CHOL-HDL RATIO NORM SEE BELOW Normal [facility] Comment on above: Result Comment: 3.3 - 4.4 LOW RISK 4.4 - 7.1 AVERAGE RISK 7.1 - 11.0 MODERATE RISK >11.0 HIGH RISK Performed By: #### L IPID, CMP #### [facility] [address] [address] [address] Owen Mckeon Cholesterol [Mass/Vol] 192 mg/dL Normal <=200 [facility] Comment on above: Performed By: #### L IPID, CMP #### [facility] [address] [address] [address] Owen Mckeon Cholesterol in HDL [Mass/Vol] 47 mg/dL Normal 40-60 [facility] Comment on above: Performed By: #### L IPID, CMP #### [facility] [address] [place] [address] [address] Owen Mckeon Cholesterol in LDL [Mass/Vol] 120.4 mg/dL Normal [facility] Comment on above: Performed By: #### L IPID, CMP #### [facility] [address] [address] [address] Owen Mckeon Cholesterol.total/Courtney sterol in HDL [Mass ratio] 4.1 {ratio} Normal [facility] Comment on above: Performed By: #### L IPID, CMP #### [facility] [address] [place] [address] [address] Owen Mckeon HDL NORMAL > or = 60 mg/dl - LOW CARDIOVASCULAR RISK <40 mg/dl - HIGH CARDIOVASCULAR RISK Normal [facility] Comment on above: Performed By: #### L IPID, CMP #### [facility] [address] [place] [address] [address] Owen Mckeon LDL CALC NORMAL SEE BELOW Normal [facility] Comment on above: Result Comment: <100 mg/dl OPTIMAL 100 - 129 mg/dl NEAR OR ABOVE OPTIMAL 130 - 159 mg/dl BORDERLINE HIGH 160 - 189 mg/dl HIGH >190 mg/dl VERY HIGH Performed By: #### L IPID, CMP #### [facility] [address] [place] [address] Dr. Owen Mckeon Triglyceride [Mass/Vol] 123 mg/dL Normal <=150 T [facility] Comment on above: Performed By: #### L IPID, CMP #### [facility] [address] [place] [address] Dr. Owen Mckeon VLDL CALC 24.6 mg/dL Normal [facility] Comment on above: Performed By: #### L IPID, CMP #### [facility] [address] [place] [address] Dr. Owen Mckeon PROF 14(COMP METB)on 023 Albumin [Mass/Vol] 4.2 g/dL Normal 3.4-5.0 [facility] Comment on above: Performed By: #### L IPID, CMP #### [facility] [address] [place] [address] Dr. Owen Mckeon Albumin/Globulin [Mass ratio] 1.0 {ratio} Normal [facility] Comment on above: Performed By: #### L IPID, CMP #### [facility] [address] [place] [address] Dr. Owen Mckeon ALP [Catalytic activity/Vol] 59 U/L Normal 46-116 [facility] Comment on above: Performed By: #### L IPID, CMP #### [facility] [address] [place] [address] Dr. Owen Mckeon ALT [Catalytic activity/Vol] 36 U/L Normal 16-63 [facility] Comment on above: Performed By: #### L IPID, CMP #### [facility] [address] [place] [address] Dr. Owen Mckeon Anion gap [Moles/Vol] 12.0 mmol/L Normal Th [facility] Comment on above: Performed By: #### L IPID, CMP #### [facility] [address] [place] [address] Dr. Owen Mckeon AST [Catalytic activity/Vol] 12 U/L Critically low 15-37 [facility] Comment on above: Performed By: #### L IPID, CMP #### [facility] [address] [place] [address] Dr. Owen Mckeon Bilirubin [Mass/Vol] 0.6 mg/dL Normal 0.2-1.0 [facility] Comment on above: Performed By: #### L IPID, CMP #### [facility] [address] [place] [address] Dr. Owen Mckeon Calcium [Mass/Vol] 9.2 mg/dL Normal 8.5-10.1 [facility] Comment on above: Performed By: #### L IPID, CMP #### [facility] [address] [place] [address] Dr. Owen Mckeon Chloride [Moles/Vol] 102 mmol/L Normal 98-107 [facility] Comment on above: Performed By: #### L IPID, CMP #### [facility] [address] [place] [address] Dr. Owen Mckeon CO2 [Moles/Vol] 30.0 mmol/L Normal 21.0-32.0 [facility] Comment on above: Performed By: #### L IPID, CMP #### [facility] [address] [place] [address] Dr. Owen Mckeon Creatinine [Mass/Vol] 0.97 mg/dL Normal 0.70-1.30 [facility] Comment on above: Performed By: #### L IPID, CMP #### [facility] [address] [place] [address] Dr. Owen Mckeon EGFR-AF GUYANESE >60 Normal >=60 [facility] Comment on above: Performed By: #### L IPID, CMP #### [facility] [address] [place] [address] Dr. Owen Mckeon EGFR-NON AF GUYANESE >60 Normal >=60 [facility] Comment on above: Performed By: #### L IPID, CMP #### [facility] [address] [address] [address] Owen Mckeon Globulin (S) [Mass/Vol] 4.0 g/dL Normal T [facility] Comment on above: Performed By: #### L IPID, CMP #### [facility] [address] [place] [address] Dr. Owen Mckeon Glucose [Mass/Vol] 102 mg/dL Normal 74-106 [facility] Comment on above: Performed By: #### L IPID, CMP #### [facility] [address] [place] [address] Dr. Owen Mckeon Potassium [Moles/Vol] 4.0 mmol/L Normal 3.5-5.1 [facility] Comment on above: Performed By: #### L IPID, CMP #### [facility] [address] [place] [address] Dr. Owen Mckeon Protein [Mass/Vol] 8.2 g/dL Normal 6.4-8.2 [facility] Comment on above: Performed By: #### L IPID, CMP #### [facility] [address] [address] [address] Owen Mckeon Sodium [Moles/Vol] 140 mmol/L Normal 136-145 [facility] Comment on above: Performed By: #### L IPID, CMP #### [facility] [address] [address] [address] Owen Mckeon Urea nitrogen [Mass/Vol] 6.0 mg/dL Critically low 7.0-18.0 [facility] Comment on above: Performed By: #### L IPID, CMP #### [facility] [address] [place] [address] Dr. Owen Mckeon Urea nitrogen/Creatinine [Mass ratio] 6.2 mg/mg Normal [facility] Comment on above: Performed By: #### L IPID, CMP #### [facility] [address] [address] [address] Owen Mckeon ECHOCARDIO M/2D COMPLETEon 0 09-02-2022 ECHOCARDIO M/2D COMPLETE Patient: ANSHUL SPENCER Exam Date: 09/02/2022 : 1980 Gender:M Ordering : MAG[facility]IRA [facility] Admission #: [id number] Family : DR ROSE MARY TIMMONS M.D. Order #: [id number] CLICK HERE TO VIEW EXAM ECHOCARDIOGRAM REPORT [...] Romo M.D. on 09/02/2022 at 09:47 Normal [facility] Creatinine and Glomerular fi ltration rate.predicted panel (S/P/Bld)Ordered By: John Padron on 01-12-2022 Creatinine [Mass/Vol] 0.92 mg/dL 0.64-1.27 [facility] Estimated glomerular filtrat ion rate (GFR) non- AmericanOrdered By: John Padron on 01-12-2022 GFR/1.73 sq M.predicted among non-blacks MDRD (S/P/Bld) [Vol rate/Area] > 60 mL/Min [facility] No Panel InformationOrdered By: John Padron on 01-12-2022 Estimated GFR () > 60 mL/Min [facility] Comment on above: GFR estimated refere nce range: According to KDOQI guidelines, <60 ml/min/1.73m2 is sufficient to diagnose a patient with chronic kidney disease. Pharmacy Creatinine Clearance (Chem 136.09 [facility] Serum or plasma anion gap de terminationOrdered By: John Padron on 01-12-2022 Anion gap [Moles/Vol] 14.1 mmol/L 6.0-15.0 [facility] Serum or plasma calcium ben urement (mass/volume)Ordered By: John Padron on 01-12-2022 Calcium [Mass/Vol] 9.3 mg/dL 8.2-10.2 [facility] Serum or plasma chloride emi surement (moles/volume)Ordered By: John Padron on 01-12-2022 Chloride [Moles/Vol] 98 mmol/L 95-114 [facility] Serum or plasma glucose ben urement (mass/volume)Ordered By: John Padron on 01-12-2022 Glucose [Mass/Vol] 100 mg/dL 70-100 [facility] Comment on above: ADA recommended refe rence range Random Glucose Reference Range is dependent on time and content of last meal. Glucose of more than 200 mg/dL in a nonstressed, ambulatory subject supports the diagnosis of Diabetes Mellitus. Serum or plasma potassium me asurement (moles/volume)Ordered By: John Padron on 01-12-2022 Potassium [Moles/Vol] 3.9 mmol/L 3.5-5.1 [facility] Serum or plasma sodium measu rement (moles/volume)Ordered By: John Padron on 01-12-2022 Sodium [Moles/Vol] 136 mmol/L 136-146 [facility] Serum or plasma total carbon dioxide measurement (moles/volume)Ordered By: John Padron on 01-12-2022 CO2 [Moles/Vol] 27.8 mmol/L 22.0-30.0 [facility] Serum or plasma urea nitroge n measurement (mass/volume)Ordered By: John Padron on 01-12-2022 Urea nitrogen [Mass/Vol] 10 mg/dL 9- [facility] COVID-19 Positive/NegativeOr dered By: Woodrow Rashid on 01-10-2022 SARS-CoV-2 (COVID-19) N gene GAYE+probe Ql (Resp) Negative Negative [facility] Comment on above: Testing for SARS-CoV -2 by RT-PCR This test was developed and its performance characteristics determined by [employer] and validated at the [facility]. This test has not been FDA cleared [...] CHOL-HDL RATIO NORM SEE BELOW Normal [facility] Comment on above: Result Comment: 3.3 - 4.4 LOW RISK 4.4 - 7.1 AVERAGE RISK 7.1 - 11.0 MODERATE RISK >11.0 HIGH RISK Performed By: #### L WILBUR MARINO #### [facility] [address] [place] [address] Dr. Owen Mckeon Cholesterol [Mass/Vol] 202 mg/dL Critically high <=200 [facility] Comment on above: Performed By: #### L NED BMP #### [facility] [address] [address] [address] Owen Mckeon Cholesterol in HDL [Mass/Vol] 41 mg/dL Normal 40-60 [facility] Comment on above: Performed By: #### L IPID, BMP #### [facility] [address] [place] [address] Dr. Owen Mckeon Cholesterol in LDL [Mass/Vol] 136.8 mg/dL Normal [facility] Comment on above: Performed By: #### L IPID, BMP #### [facility] [address] [place] [address] Dr. Owen Mckeon Cholesterol.total/Courtney sterol in HDL [Mass ratio] 4.9 {ratio} Normal [facility] Comment on above: Performed By: #### L IPID, BMP #### [facility] [address] [place] [address] Dr. Owen Mckeon HDL NORMAL > or = 60 mg/dl - LOW CARDIOVASCULAR RISK <40 mg/dl - HIGH CARDIOVASCULAR RISK Normal [facility] Comment on above: Performed By: #### L IPID, BMP #### [facility] [address] [place] [address] Dr. Owen Mckeon LDL CALC NORMAL SEE BELOW Normal [facility] Comment on above: Result Comment: <100 mg/dl OPTIMAL 100 - 129 mg/dl NEAR OR ABOVE OPTIMAL 130 - 159 mg/dl BORDERLINE HIGH 160 - 189 mg/dl HIGH >190 mg/dl VERY HIGH Performed By: #### L IPID, BMP #### [facility] [address] [place] [address] Dr. Owen Mckeon Triglyceride [Mass/Vol] 121 mg/dL Normal <=150 T [facility] Comment on above: Performed By: #### L IPID, BMP #### [facility] [address] [place] [address] Dr. Owen Mckeon VLDL CALC 24.2 mg/dL Normal [facility] Comment on above: Performed By: #### L IPID, BMP #### [facility] [address] [place] [address] Dr. Owen Mckeon PROF CHEM 8 (BAS METB)on Anion gap [Moles/Vol] 14.5 mmol/L Normal e [facility] Comment on above: Performed By: #### L IPID, BMP #### [facility] [address] [address] [address] Owen Mckeon Calcium [Mass/Vol] 8.8 mg/dL Normal 8.5-10.1 [facility] Comment on above: Performed By: #### L IPID, BMP #### [facility] [address] [place] [address] Dr. Owen Mckeon Chloride [Moles/Vol] 99 mmol/L Normal 98-107 [facility] Comment on above: Performed By: #### L IPID, BMP #### [facility] [address] [place] [address] Dr. Owen Mckeon CO2 [Moles/Vol] 28.9 mmol/L Normal 21.0-32.0 [facility] Comment on above: Performed By: #### L IPID, BMP #### [facility] [address] [place] [address] Dr. Owen Mckeon Creatinine [Mass/Vol] 0.85 mg/dL Normal 0.70-1.30 [facility] Comment on above: Performed By: #### L IPID, BMP #### [facility] [address] [place] [address] Dr. Owen Mckeon EGFR-AF GUYANESE >60 Normal >=60 [facility] Comment on above: Performed By: #### L IPID, BMP #### [facility] [address] [place] [address] Dr. Owen Mckeon EGFR-NON AF GUYANESE >60 Normal >=60 [facility] Comment on above: Performed By: #### L IPID, BMP #### [facility] [address] [place] [address] Dr. Owen Mckeon Glucose [Mass/Vol] 87 mg/dL Normal 74-106 [facility] Comment on above: Performed By: #### L IPID, BMP #### [facility] [address] [place] [address] Dr. Owen Mckeon Potassium [Moles/Vol] 3.4 mmol/L Critically low 3.5-5.1 [facility] Comment on above: Performed By: #### L IPID, BMP #### [facility] [address] [address] [address] Owen Mckeon Sodium [Moles/Vol] 139 mmol/L Normal 136-145 [facility] Comment on above: Performed By: #### L IPID, BMP #### [facility] [address] [place] [address] Dr. Owen Mckeon Urea nitrogen [Mass/Vol] 10.0 mg/dL Normal 7.0-18.0 [facility] Comment on above: Performed By: #### L IPID, BMP #### [facility] [address] [place] [address] Dr. Owen Mckeon Urea nitrogen/Creatinine [Mass ratio] 11.8 mg/mg Normal [facility] Comment on above: Performed By: #### L IPID, BMP #### [facility] [address] [place] [address] Dr. Owen Mckeon Quick Strepon 09-06-2021 S. pyogenes Org specific cx Ql (Throat) Negative [employer] Other Quick Strep [employer] Other CREATININE BLOODon 1 Creatinine [Mass/Vol] 0.91 mg/dL Normal 0.70-1.30 [facility] Comment on above: Performed By: #### 2 5656 #### [facility] [address] [place] [address], [facility] GFR/1.73 sq M.predicted among blacks MDRD (S/P/Bld) [Vol rate/Area] mL/min/{1.73_m2} Normal >60 [facility] Comment on above: Performed By: #### 2 5656 #### [facility] [address] [place] [address], [facility] GFR/1.73 sq M.predicted among non-blacks MDRD (S/P/Bld) [Vol rate/Area] mL/min/{1.73_m2} Normal >60 [facility] Comment on above: Performed By: #### 2 5656 #### [address] CTA CHESTon 10-22-2020 CTA CHEST [facility] Department of Radiology [address] [place] [id number] Patient Name: JENNA SPENCER : 1980 Sex: M Age: Race: White Pt. Location: 30 Patient Status: D Ordered Date: 09/21/2020 4:55:00 PM Completed Date: 10/22/2020 05:49 PM Requesting Provider: TAVO MENDOZA V Attending Provider: TAVO MENDOZA V Report Copy To: ROSE MARY TIMMONS Signs & Symptoms: I35.1 Nonrheumatic aortic (valve) insufficiency I10 History: Kaycee patient will need labs anthem auth [id number] valid 09/23/2020-10/22/2020 per aim [id number] *kw med nec passed Comments: with contrast [...] achievable Electronically signed: Bo Damico. Transcribed by: [email or web address], User Resident: Electronically Signed by: BO DAMICO @ 10/23/2020 12:41 PM Normal [facility] Comment on above: Order Comment: wit h contrast , (NOT a tavr per office) EKG 12 Leadon 05-18-2020 Atrial Rate [address] [facility] [place] P [place] [address] [facility] [place] P-R Interval [address] [facility] [place] Q-T Interval [address] [facility] [place] QRS Duration [address] [facility] [place] QTc Calculation (Bazett) [address] [facility] [place] R [place] -[address] [facility] [place] T [place] [address] [facility] [place] Ventricular Rate 79 BPM [facility] [place] W[place], Chpo Incoming Results From [place] 05/18/2020 9:08 AM EST Normal sinus rhythm Minimal voltage criteria for LVH, may be normal variant Borderline ECG No previous ECGs available Confirmed by Salty Reyes () on 05/18/2020 9:08:09 AM [place] Normal sinus rhythm Minimal voltage criteria for LVH, may be normal variant Borderline ECG No previous ECGs available Confirmed by Amy, Salty () on 05/18/2020 9:08:09 AM [place] FLUORO FOR SURGICAL PROCEDUR ESon 05-18-2020 [...] Rom Cunningham MD 05/19/20 Final result Normal [facility] MRI LUMBAR SPINE W WO CONTRA STon 05-18-2020 Wiliam, Chpo Incoming Radiant Results From [facility] - 05/18/2020 8:48 AM EST Examination: MRI [...] spinal canal stenosis at the L4-5 level. [place] Examination: MRI LUMBAR SPINE W WO CONTRAST [...] Visualized paravertebral soft tissues are grossly unremarkable. [place] Left paracentral disc protrusion results in compression of the left L5 nerve against the anterior aspect of the left facet joint and posterior displacement of the left S1 nerve within the spinal canal. Moderate spinal canal stenosis at the L4-5 level. [place] Surgical Specimenon 05-18-19 Surgical Specimen [facility] [address] [place], [place] [id number] FINAL SURGICAL PATHOLOGY REPORT Patient Name: ANSHUL SPENCER Accession No: [id number] Age Sex: 1980 Location: DIS [id number] Account No: [id number] Collected: 05/18/2020 [facility] Rec No: [id number] Received: 05/19/2020 Attend Phys: PELON TIM Completed: [...] in toto in one cassette following decalcification. JACMO/JACMO CPT: 63132 X1 [id number] X1 CORTEZ VENEGAS M.D. 05/21/2020 Electronically signed out by Page 1 of 1 [facility] Comment on above: Performed By: #### S UR #### [facility] [address] [facility] [address] TYPE AND SCREENon 05-18-2020 ABO/Rh Positive [facility] [place], [place] Type and Screen Capture 3 sc rn cellon 05-18-2020 Type and Screen Capture 3 scrn cell PATIENT: JOHANNA Sanchez LOC: [id number] BILL# : [id number] : 1980 SEX: M ORDERED BY: GLENROY SANDHU ORDERED : 05/17/2020 23:05 COLLECTED: 05/17/2020 23:23 ORDER : [id number] RECEIVED : 05/17/2020 23:26 -- TEST NAME RESULT UNITS RANGES ABN FL ST ABORH Capture A POS F Antibody 3 Cell Scrn Captu NEG F - Normal [facility] Comment on above: Performed By: #### T S3C #### [facility] [address] [place] [address] XR CHEST (SINGLE VIEW FRONTA L)on 05-18-2020 INR Coag (Bld) [Relative time] NAD [place] EXAMINATION: Portable Chest INDICATIONS: Preop back surgery. Dyspnea COMPARISONS: None available. FINDINGS: Heart and mediastinum within normal limits. Pulmonary vasculature unremarkable. Lung villareal clear. Bones and soft tissues intact. [place], Ch[place] Incoming Radiant Results From [facility] - 05/18/2020 8:01 AM EST EXAMINATION: Portable Chest INDICATIONS: Preop back surgery. Dyspnea COMPARISONS: None available. FINDINGS: Heart and mediastinum within normal limits. Pulmonary vasculature unremarkable. Lung villareal clear. Bones and soft tissues intact. IMPRESSION: NAD [place] C-Reactive Proteinon CRP [Mass/Vol] 4.0 mg/L Normal 0.0-5.0 [facility] Comment on above: Performed By: #### C RP #### [facility] [address] [place] [address] CRP [Mass/Vol] 4 mg/L 0 - 5 mg/L [place] CBC Auto Differentialon 05-01 Basophils (Bld) [#/Vol] 0.1 10*3/uL 0 - 0.2 K/u L [place] Basophils/100 WBC (Bld) 0.7 % [place] Eosinophils (Bld) [#/Vol] 0.1 10*3/uL 0 - 0.7 K/uL [place] Eosinophils/100 WBC (Bld) 1.8 % [place] Erythrocyte distribution width (RBC) [Ratio] 13.7 % 11.5 - 14.5 % [place] Hematocrit (Bld) [Volume fraction] 44.8 % 42 - 52 % [place] Hemoglobin (Bld) [Mass/Vol] 15.0 g/dL 14 - 18 g/dL [place] Lymphocytes (Bld) [#/Vol] 2.3 10*3/uL 1 - 4.8 K/uL [place] Lymphocytes/100 WBC (Bld) 34.1 % [place] MCH (RBC) [Entitic mass] 30.2 pg 27 - 31.3 pg [place] MCHC (RBC) [Mass/Vol] 33.6 % 33 - 37 % [place] MCV (RBC) [Entitic vol] 90.1 fL 80 - 100 fL [place] Monocytes (Bld) [#/Vol] 0.5 10*3/uL 0.2 - 0.8 K/uL [place] Monocytes/100 WBC (Bld) 7.8 % [place] Neutrophils Absolute 3.8 K/uL 1.4 - 6 .5 K/uL [place] Neutrophils/100 WBC (Bld) 55.6 % [place] Platelets (Bld) [#/Vol] 243 10*3/uL 130 - 400 K/uL [place] RBC (Bld) [#/Vol] 4.97 10*6/uL [place] WBC (Bld) [#/Vol] 6.8 10*3/uL 4.8 - 10.8 K/uL [place] CBC With Platelet and Differ entialon 05-17-2020 Basophils (Bld) [#/Vol] 0.1 10*3/uL Normal 0.0-0.2 [facility] Comment on above: Performed By: #### C BCWD #### [facility] [address] [place] [address] Basophils/100 WBC (Bld) 0.7 % Normal [facility] Comment on above: Performed By: #### C BCWD #### [facility] [address] [place] [address] Eosinophils (Bld) [#/Vol] 0.1 10*3/uL Normal 0.0-0.7 [facility] Comment on above: Performed By: #### C BCWD #### [facility] [address] [place] [address] Eosinophils/100 WBC (Bld) 1.8 % Normal [facility] Comment on above: Performed By: #### C BCWD #### [facility] [address] [place] [address] Erythrocyte distribution width (RBC) [Ratio] 13.7 % Normal 11.5-14.5 [facility] Comment on above: Performed By: #### C BCWD #### [facility] [address] [place] [address] Hematocrit (Bld) [Volume fraction] 44.8 % Normal 42.0-52.0 [facility] Comment on above: Performed By: #### C BCWD #### [facility] [address] [place] [address] Hemoglobin (Bld) [Mass/Vol] 15.0 g/dL Normal 14.0-18.0 [facility] Comment on above: Performed By: #### C BCWD #### [facility] [address] [place] [address] Lymphocytes (Bld) [#/Vol] 2.3 10*3/uL Normal 1.0-4.8 [facility] Comment on above: Performed By: #### C BCWD #### [facility] [address] [place] [address] Lymphocytes/100 WBC (Bld) 34.1 % Normal [facility] Comment on above: Performed By: #### C BCWD #### [facility] [address] [place] [address] MCH (RBC) [Entitic mass] 30.2 pg Normal 27.0-31.3 [facility] Comment on above: Performed By: #### C BCWD #### [facility] [address] [place] [address] MCHC (RBC) [Mass/Vol] 33.6 % Normal 33.0-37.0 [facility] Comment on above: Performed By: #### C BCWD #### [facility] [address] [place] [address] MCV (RBC) [Entitic vol] 90.1 fL Normal 80.0-100.0 [facility] Comment on above: Performed By: #### C BCWD #### [facility] [address] [place] [address] Monocytes (Bld) [#/Vol] 0.5 10*3/uL Normal 0.2-0.8 [facility] Comment on above: Performed By: #### C BCWD #### [facility] [address] [place] [address] Monocytes/100 WBC (Bld) 7.8 % Normal [facility] Comment on above: Performed By: #### C BCWD #### [facility] [address] [place] [address] Neutrophils (Bld) [#/Vol] 3.8 10*3/uL Normal 1.4-6.5 [facility] Comment on above: Performed By: #### C BCWD #### [facility] [address] [place] [address] Neutrophils/100 WBC (Bld) 55.6 % Normal [facility] Comment on above: Performed By: #### C BCWD #### [facility] [address] [place] [address] Platelets (Bld) [#/Vol] 243 10*3/uL Normal 130-400 [facility] Comment on above: Performed By: #### C BCWD #### [facility] [address] [place] [address] RBC (Bld) [#/Vol] 4.97 10*6/uL Normal 4.70-6.10 [facility] Comment on above: Performed By: #### C BCWD #### [facility] [address] [place] [address] WBC (Bld) [#/Vol] 6.8 10*3/uL Normal 4.8-10.8 [facility] Comment on above: Performed By: #### C BCWD #### [facility] [address] [facility] [address] COVID-19on 05-17-2020 COVID-19, NAAT Not Detected Normal Not Detect [facility] Comment on above: Result Comment: Malik alfaro NAAT: Negative results should be treated as [...] authorized laboratories. Fact sheet for Healthcare Providers: https://www.fda.gov/media/680730/download Fact sheet for Patients: https://www.fda.gov/media/484382/download METHODOLOGY: Isothermal Nucleic Acid Amplification Performed By: #### C OVPC #### [facility] [address] [facility] [address] SARS-CoV-2, NAAT Not Detected Not Detected [place] Comment on above: Rapid NAAT: Negative [...] authorized laboratories. Fact sheet for Healthcare Providers: https://www.fda.gov/media/816581/download Fact sheet for Patients: https://www.fda.gov/media/226224/download METHODOLOGY: Isothermal Nucleic Acid Amplification Comprehensive Metabolic Pane hair 05-17-2020 Albumin [Mass/Vol] 4.7 g/dL Critically high 3.5-4.6 M [facility] Comment on above: Performed By: #### C MP #### [facility] [address] [place] [address] ALP [Catalytic activity/Vol] 60 U/L Normal 35-104 [facility] Comment on above: Performed By: #### C MP #### [facility] [address] [place] [address] ALT [Catalytic activity/Vol] 32 U/L Normal 0-41 [facility] Comment on above: Performed By: #### C MP #### [facility] [address] [place] [address] Anion gap [Moles/Vol] 12 mmol/L Normal 9-15 [facility] Comment on above: Performed By: #### C MP #### [facility] [address] [place] [address] AST [Catalytic activity/Vol] 21 U/L Normal 0-40 [facility] Comment on above: Performed By: #### C MP #### [facility] [address] [place] [address] Bilirubin [Mass/Vol] mg/dL Normal 0.2-0.7 [facility] Comment on above: Performed By: #### C MP #### [facility] [address] [place] [address] Calcium [Mass/Vol] 9.3 mg/dL Normal 8.5-9.9 [facility] Comment on above: Performed By: #### C MP #### [facility] [address] [place] [address] Chloride [Moles/Vol] 99 mmol/L Normal 95-107 [facility] Comment on above: Performed By: #### C MP #### [facility] [address] [place] [address] CO2 [Moles/Vol] 26 mmol/L Normal 20-31 [facility] Comment on above: Performed By: #### C MP #### [facility] [address] [place] [address] Creatinine [Mass/Vol] 0.80 mg/dL Normal 0.70-1.20 [facility] Comment on above: Performed By: #### C MP #### [facility] [address] [place] [address] GFR/1.73 sq M predicted among blacks MDRD (S/P/Bld) [Vol rate/Area] mL/min/{1.73_m2} Normal >60 [facility] Comment on above: Result Comment: >60 mL/min/1.73m2 EGFR, calc. for ages 18 and older using the MDRD formula (not corrected for weight), is valid for stable renal function. Performed By: #### C MP #### [facility] [address] [place] [address] GFR/1.73 sq M.predicted MDRD (S/P/Bld) [Vol rate/Area] mL/min/{1.73_m2} Normal >60 [facility] Comment on above: Result Comment: >60 mL/min/1.73m2 EGFR, calc. for ages 18 and older using the MDRD formula (not corrected for weight), is valid for stable renal function. Performed By: #### C MP #### [facility] [address] [place] [address] Globulin (S) [Mass/Vol] 2.9 g/dL Normal 2.3-3.5 M [facility] Comment on above: Performed By: #### C MP #### [facility] [address] [place] [address] Glucose [Mass/Vol] 96 mg/dL Normal 70-99 [facility] Comment on above: Performed By: #### C MP #### [facility] [address] [place] [address] Potassium [Moles/Vol] 4.0 mmol/L Normal 3.4-4.[address] [facility] Comment on above: Performed By: #### C MP #### [facility] [address] [place] [address] Protein [Mass/Vol] 7.6 g/dL Normal 6.3-8.0 [facility] Comment on above: Performed By: #### C MP #### [facility] [address] [place] [address] Sodium [Moles/Vol] 137 mmol/L Normal 135-144 [facility] Comment on above: Performed By: #### C MP #### [facility] [address] [place] [address] Urea nitrogen [Mass/Vol] 11 mg/dL Normal 6-20 [facility] Comment on above: Performed By: #### C MP #### [facility] [address] [place] [address] Albumin [Mass/Vol] 4.7 g/dL High 3.5 - 4.6 g/dL [place] ALP [Catalytic activity/Vol] 60 U/L 35 - 104 U/L [place] ALT [Catalytic activity/Vol] 32 U/L 0 - 41 U/L [place] Anion gap [Moles/Vol] 12 mmol/L [place], [place] AST [Catalytic activity/Vol] 21 U/L 0 - 40 U/L [place] Bilirubin Ql (U) <0.2 0.2 - 0.7 mg/dL [place] Calcium [Mass/Vol] 9.3 mg/dL 8.5 - 9.9 mg/dL [place] Chloride [Moles/Vol] 99 mmol/L [place] CO2 [Moles/Vol] 26 mmol/L [facility] [place] [place] Creatinine [Mass/Vol] 0.8 mg/dL 0.7 - 1.2 mg/dL [place] GFR >60.0 >60 [place] Comment on above: >60 mL/min/1.73m2 EG FR, calc. for ages 18 and older using the MDRD formula (not corrected for weight), is valid for stable renal function. GFR Non- >60.0 >60 [place] Comment on above: >60 mL/min/1.73m2 EG FR, calc. for ages 18 and older using the MDRD formula (not corrected for weight), is valid for stable renal function. Globulin (S) [Mass/Vol] 2.9 g/dL 2.3 - 3.5 g/dL [place] Glucose [Mass/Vol] 96 mg/dL 70 - 99 mg/dL [place] Interpretation and review of laboratory results Abnormal [place] Potassium [Moles/Vol] 4.0 mmol/L [place] Protein [Mass/Vol] 7.6 g/dL 6.3 - 8 g/dL [place] Sodium [Moles/Vol] 137 mmol/L [place] Urea nitrogen [Mass/Vol] 11 mg/dL 6 - 20 mg/dL [place] MRI LUMBAR SPINE W WO CONTRA [...] Bo Kendrick DO 05/18/20 Final result Normal [facility] Microscopic Urinalysison Bacteria, UA MANY Abnormal Negative /HPF [place] Epithelial Cells, UA 20-50 [place] Hyaline Casts, UA 5-10 [place], [place] Interpretation and review of laboratory results Abnormal [place] RBC (U) [#/Vol] 0-2 [place], [place] WBC, UA >100 High [place] Sedimentation Rateon 021 Sedimentation Rate 9 mm Normal 0-10 [facility] Comment on above: Performed By: #### E SR #### [facility] [address] [place] [address] Sed Rate 9 mm 0 - 10 mm [place] Urinalysison 05-17-2020 Bilirubin Urine Negative Negative [place], [place] Blood, Urine LARGE Abnormal Negative [place], [place] Clarity, UA TURBID Abnormal Clear [place] Color, UA Yellow Straw/Yellow [place] Glucose, Ur Negative Negative mg/dL [place] Interpretation and review of laboratory results Abnormal [place] Ketones Ql (U) TRACE Abnormal Negative mg/dL [place] Leukocyte esterase Test strip Ql (U) LARGE Abnormal Negative [place] Nitrite, Urine Positive Abnormal Negative [place], [place] pH, UA 5.5 [place] Protein (U) [Mass/Vol] 100 mg/dL Abnormal Negative [place], [place] Specific [place], UA 1.023 [place], [place] Urobilinogen, Urine 0.2 <2.0 E.U./dL [place] Urinalysis, reflex to micros copicon 05-17-2020 Bilirubin Ql (U) Negative Normal Negative [facility] Comment on above: Performed By: #### T S3C #### [facility] [address] [place] [address] Clarity (U) TURBID Abnormal Clear [facility] Comment on above: Performed By: #### T S3C #### [facility] [address] [place] [address] Color (U) Yellow Normal Straw/Pettis [facility] Comment on above: Performed By: #### T S3C #### [facility] [address] [place] [address] Glucose Ql (U) Negative Normal Negative [facility] Comment on above: Performed By: #### T S3C #### [facility] [address] [place] [address] Hemoglobin Ql (U) LARGE Abnormal Negative [facility] Comment on above: Performed By: #### T S3C #### [facility] [address] [place] [address] Ketones Ql (U) TRACE Abnormal Negative [facility] Comment on above: Performed By: #### T S3C #### [facility] [address] [place] [address] Leukocyte esterase Test strip Ql (U) LARGE Abnormal Negative [facility] Comment on above: Performed By: #### T S3C #### [facility] [address] [place] [address] Nitrite Ql (U) Positive Abnormal Negative [facility] Comment on above: Performed By: #### T S3C #### [facility] [address] [place] [address] pH (U) 5.5 [pH] Normal 5.0-9.0 [facility] Comment on above: Performed By: #### T S3C #### [facility] [address] [place] [address] Protein Ql (U) 100 mg/dL Abnormal Negative [facility] Comment on above: Performed By: #### T S3C #### [facility] [address] [place] [address] Specific gravity (U) [Rel density] 1.023 Normal 1.005-1.03 [facility] Comment on above: Performed By: #### T S3C #### [facility] [address] [place] [address] Urobilinogen Qn (U) 0.2 {Justine'U}/dL Normal < 2.0 [facility] Comment on above: Performed By: #### T S3C #### [facility] [address] [place] [address] Urine Microscopicon 05-17-19 21 RBC (U) [#/Vol] 0-2 Normal 0-2 [facility] Comment on above: Performed By: #### U DEVANG #### [facility] [address] [place] [address] Bacteria LM.HPF (Urine sed) [#/Area] MANY Abnormal Negative [facility] Comment on above: Performed By: #### U DEVANG #### [facility] [address] [place] [address] Urine Epithelial Cells Auto 20-50 Normal 0-5 [facility] Comment on above: Performed By: #### U DEVANG #### [facility] [address] [place] [address] Urine Hyaline Casts Auto 5-10 Normal 0-5 [facility] Comment on above: Performed By: #### U DEVANG #### [facility] [address] [place] [address] Urine WBC Auto >100 Critically high 0-5 [facility] Comment on above: Performed By: #### U DEVANG #### [facility] [address] [place] [address] XR CHEST (SINGLE VIEW FRONTA L)on 05-17-2020 XR CHEST (SINGLE VIEW FRONTAL) EXAMINATION: Portable Chest INDICATIONS: Preop back surgery. Dyspnea COMPARISONS: None available. FINDINGS: Heart and mediastinum within normal limits. Pulmonary vasculature unremarkable. Lung villareal clear. Bones and soft tissues intact. IMPRESSION: NAD Interpreted by: Levar Melvin MD Signed by: Levar Melvin MD 05/18/20 Final result Normal [facility] Dermatopathologyon 0 Dermatopathology [facility] [address] [place] [id number] DERMATOPATHOLOGY REPORT Name:ANSHUL SPENCER [facility]. Rec #. [id number] Location: [facility] Date of Procedure: 02/27/2020 Race: Date Received: [...] M.D. Electronically Signed Out By JASMIN BROUSSARD MD/[facility] By the signature on this report, the individual or group listed as making the Final Interpretation/Diag nosis certifies that they have reviewed this case. Clinical History: Atopic dermatitis vs. drug eruption 2/2 HCTZ. Biopsy. Specimens Submitted As: A: SKIN, L FOREARM Gross Description: Received in formalin is a chapa, cylindrical piece of skin measuring [id number]. The specimen is inked and embedded in toto. ink/03/02/2020 Normal [facility] Comment on above: Performed By: #### D #### Dermatopathology Vital Signs Date Time Vital Sign Value Performing Clinician Facility 03-01-2024 11:55-0400 Body height 188 cm Jonathan Shipman DO Work Phone: [facility] 03-01-2024 11:55-0400 Body mass index (BMI) [Ratio] 28.89 kg/m2 Jonathan Shipman DO Work Phone: [facility] 03-01-2024 11:55-0400 Body weight 102.06 kg Jonathan Shipman DO Work Phone: [facility] 02-01-2024 14:44-0400 Body height 187.96 cm [facility] 02-01-2024 14:44-0400 Body mass index (BMI) [Ratio] 29.9 kg/m2 [facility] 02-01-2024 14:44-0400 Body weight 105.91 kg [facility] 02-01-2024 14:44-0400 Diastolic blood pressure 82 mm[Hg] [facility] 02-01-2024 14:44-0400 Heart rate 86 /min [facility] 02-01-2024 14:44-0400 Respiratory rate 18 /min [facility] 02-01-2024 14:44-0400 SaO2% (BldA) [Mass fraction] 98 % [facility] 02-01-2024 14:44-0400 Systolic blood pressure 122 mm[Hg] [facility] 08-02-2023 11:01-0400 Body height 187.96 cm MD Rose Mary Timmons Work Phone: [facility] 08-02-2023 11:01-0400 Body mass index (BMI) [Ratio] 30.2 kg/m2 MD Rose Mary Timmons Work Phone: [facility] 08-02-2023 11:01-0400 Body weight 106.65 kg MD Rose Mary Timmons Work Phone: [facility] 08-02-2023 11:01-0400 Diastolic blood pressure 80 mm[Hg] MD Rose Mary Timmons Work Phone: [facility] 08-02-2023 11:01-0400 Heart rate 93 /min MD Rose Mary Timmons Work Phone: [facility] 08-02-2023 11:01-0400 Systolic blood pressure 120 mm[Hg] MD Rose Mary Timmons Work Phone: [facility] 06-26-2023 16:37-0500 Diastolic blood pressure 80 mm[Hg] MD Rose Mary Timmons Work Phone: [facility] 06-26-2023 16:37-0500 Heart rate 71 /min MD Rose Mary Timmons Work Phone: [facility] 06-26-2023 16:37-0500 Respiratory rate 16 /min MD Rose Mary Timmons Work Phone: [facility] 06-26-2023 16:37-0500 SaO2% (BldA) [Mass fraction] 96 % MD Rose Mary Timmons Work Phone: [facility] 06-26-2023 16:37-0500 Systolic blood pressure 125 mm[Hg] MD Rose Mary Timmons Work Phone: [facility] 06-26-2023 15:28-0500 Body temperature 98.4 [degF] MD Rose Mary Timmons Work Phone: [facility] 06-26-2023 14:12-0500 Body mass index (BMI) [Ratio] 28.8 kg/m2 MD Rose Mary Timmons Work Phone: [facility] 06-26-2023 13:49-0500 Body height 187.96 cm MD Rose Mary Timmons Work Phone: [facility] 06-26-2023 13:49-0500 Body weight 102.05 kg MD Rose Mary Timmons Work Phone: [facility] 06-13-2023 14:51-0500 Body height 188 cm Jonathan Shipman DO Work Phone: [facility] 06-13-2023 14:51-0500 Body mass index (BMI) [Ratio] 30.56 kg/m2 Jonathan Shipman DO Work Phone: [facility] [employer] 06-13-2023 14:51-0500 Body weight 107.96 kg Jonathan Shipman DO Work Phone: [facility] 06-07-2023 09:00-0500 Body height 185.42 cm Rose Mary Timmons Other [employer] Other 06-07-2023 09:00-0500 Body mass index (BMI) [Ratio] 30.72 kg/m2 Rose Mary Timmons Other [employer] Other 06-07-2023 09:00-0500 Body weight 105.64 kg Rose Mary Timmons Other [facility] Other 06-07-2023 09:00-0500 Diastolic blood pressure 76 mm[Hg] Rose Mary Timmons Other [facility] Other 06-07-2023 09:00-0500 Systolic blood pressure 110 mm[Hg] Rose Mary Timmons Other [facility] Other 01-30-2023 09:45-0400 Body height 185.42 cm Woodrow Rashid Other [employer] Other 01-30-2023 09:45-0400 Body mass index (BMI) [Ratio] 29.68 kg/m2 Woodrow Rashid Other [facility] Other 01-30-2023 09:45-0400 Body temperature 97.8 [degF] Woodrow Rashid Other [facility] Other 01-30-2023 09:45-0400 Body weight 102.06 kg Woodrow Rashid Other [facility] Other 01-30-2023 09:45-0400 Diastolic blood pressure 62 mm[Hg] Woodrow Melgarnikunj Other [facility] Other 01-30-2023 09:45-0400 SaO2% (BldA) [Mass fraction] 98 % Woodrow Melgarnikunj Other [facility] Other 01-30-2023 09:45-0400 Systolic blood pressure 114 mm[Hg] Woodrow Melgarnikunj Other [facility] Other 01-17-2023 08:45-0400 Body height 185.42 cm Guanaco Wolf Other [facility] Other 01-17-2023 08:45-0400 Body mass index (BMI) [Ratio] 30.9 kg/m2 Guanaco Maryann Other [facility] Other 01-17-2023 08:45-0400 Body weight 106.23 kg Guanacoaida Wolf Other [facility] Other 01-17-2023 08:45-0400 Diastolic blood pressure 72 mm[Hg] Guanaco Wolf Other [facility] Other 01-17-2023 08:45-0400 SaO2% (BldA) [Mass fraction] 98 % Guanaco Wolf Other [facility] Other 01-17-2023 08:45-0400 Systolic blood pressure 118 mm[Hg] Guanaco Wolf Other [facility] Other 01-03-2023 08:30-0400 Body height 185.42 cm Rose Mary Timmons Other [facility] Other 01-03-2023 08:30-0400 Body mass index (BMI) [Ratio] 30.76 kg/m2 Rose Mary Timmons Other [facility] Other 01-03-2023 08:30-0400 Body weight 105.78 kg Rose Mary Timmons Other [facility] Other 01-03-2023 08:30-0400 Diastolic blood pressure 74 mm[Hg] Rose Mary Timmons Other [facility] [employer] Other 01-03-2023 08:30-0400 Systolic blood pressure 113 mm[Hg] Rose Mary Timmons Other [employer] [employer] Other 01-03-2023 06:57-0400 Body height 187.96 cm MD Rose Mary Timmons Work Phone: [facility] 01-03-2023 06:57-0400 Body weight 102.05 kg MD Rose Mary Timmons Work Phone: [facility] 10-24-2022 09:15-0400 Body height 185.42 cm Guanaco Wolf Other [facility] Other 10-24-2022 09:15-0400 Diastolic blood pressure 70 mm[Hg] Guanaco Wolf Other [facility] Other 10-24-2022 09:15-0400 SaO2% (BldA) [Mass fraction] 98 % Guanaco Wolf Other [facility] Other 10-24-2022 09:15-0400 Systolic blood pressure 110 mm[Hg] Guanaco Wolf Other [facility] Other 07-15-2022 10:45-0400 Body height 185.42 cm Guanaco Wolf Other [facility] Other 07-15-2022 10:45-0400 Body mass index (BMI) [Ratio] 30.61 kg/m2 Guanacoaida Wolf Other [facility] Other 07-15-2022 10:45-0400 Body weight 105.24 kg Guanaco Wolf Other [facility] Other 07-15-2022 10:45-0400 Diastolic blood pressure 78 mm[Hg] Guanaco Wolf Other [facility] Other 07-15-2022 10:45-0400 SaO2% (BldA) [Mass fraction] 97 % Guanaco Wolf Other [facility] Other 07-15-2022 10:45-0400 Systolic blood pressure 120 mm[Hg] Guanaco Maryann Other [facility] Other 06-24-2022 09:30-0500 Body height 185.42 cm Guanaco Wolf Other [facility] Other 06-24-2022 09:30-0500 Body mass index (BMI) [Ratio] 30.84 kg/m2 Guanaco Wolf Other [facility] Other 06-24-2022 09:30-0500 Body weight 106.05 kg Guanaco Wolf Other [facility] Other 06-24-2022 09:30-0500 Diastolic blood pressure 86 mm[Hg] Guanacoaida Wolf Other [facility] Other 06-24-2022 09:30-0500 SaO2% (BldA) [Mass fraction] 97 % Guanaco Wolf Other [facility] Other 06-24-2022 09:30-0500 Systolic blood pressure 124 mm[Hg] Guanaco Wolf Other [facility] Other 06-23-2022 08:30-0500 Body height 185.42 cm Rose Mary Timmons Other [facility] Other 06-23-2022 08:30-0500 Body mass index (BMI) [Ratio] 31 kg/m2 Rose Mary Timmons Other [facility] Other 06-23-2022 08:30-0500 Body weight 106.6 kg Rose Mary Timmons Other [facility] Other 06-23-2022 08:30-0500 Diastolic blood pressure 74 mm[Hg] Rose Mary Timmons Other [facility] Other 06-23-2022 08:30-0500 SaO2% (BldA) [Mass fraction] 97 % Rose Mary Timmons Other [facility] Other 06-23-2022 08:30-0500 Systolic blood pressure 112 mm[Hg] Rose Mary Timmons Other [facility] Other 05-12-2022 09:30-0500 Body height 185.42 cm Rose Mary Timmons Other [facility] Other 05-12-2022 09:30-0500 Body mass index (BMI) [Ratio] 30.74 kg/m2 Rose Mary Timmons Other [facility] Other 05-12-2022 09:30-0500 Body weight 105.69 kg Rose Mary Timmons Other [facility] Other 05-12-2022 09:30-0500 Diastolic blood pressure 80 mm[Hg] Rose Mary Timmons Other [facility] Other 05-12-2022 09:30-0500 SaO2% (BldA) [Mass fraction] 97 % Rose Marynirav Timmons Other [facility] Other 05-12-2022 09:30-0500 Systolic blood pressure 110 mm[Hg] Rose Mary Timmons Other [facility] Other 01-31-2022 10:30-0400 Body height 187.96 cm Leyla Bournemary carmen Other [facility] Other 01-31-2022 10:30-0400 Body mass index (BMI) [Ratio] 28.89 kg/m2 Leyla Bournemary carmen Other [facility] Other 01-31-2022 10:30-0400 Body temperature 97 [degF] Leyla Bournemary carmen Other [facility] Other 01-31-2022 10:30-0400 Body weight 102.06 kg Leyla Bournemary carmen Other [facility] Other 01-31-2022 10:30-0400 Diastolic blood pressure 78 mm[Hg] Leyla Bolanos Other [facility] Other 01-31-2022 10:30-0400 SaO2% (BldA) [Mass fraction] 98 % Leyla Bolanos Other [facility] [employer] Other 01-31-2022 10:30-0400 Systolic blood pressure 118 mm[Hg] Leyla Bournemary carmen Other [facility] [employer] Other 01-12-2022 11:01-0400 Diastolic blood pressure 79 mm[Hg] MD Rose Mary Timmons Work Phone: [facility] 01-12-2022 11:01-0400 Heart rate 80 /min MD Rose Mary Timmons Work Phone: [facility] 01-12-2022 11:01-0400 Respiratory rate 16 /min MD Rose Mary Timmons Work Phone: [facility] 01-12-2022 11:01-0400 SaO2% (BldA) [Mass fraction] 96 % MD Rose Mary Timmons Work Phone: [facility] 01-12-2022 11:01-0400 Systolic blood pressure 125 mm[Hg] MD Rose Mary Timmons Work Phone: [facility] 01-12-2022 07:41-0400 Body height 187.96 cm MD Rose Mary Timmons Work Phone: [facility] 01-12-2022 07:41-0400 Body mass index (BMI) [Ratio] 28.8 kg/m2 MD Rose Mary Timmons Work Phone: [facility] 01-12-2022 07:41-0400 Body weight 102.05 kg MD Rose Mary Timmons Work Phone: [facility] 01-12-2022 07:22-0400 Body temperature 97.9 [degF] MD Rose Mary Timmons Work Phone: [facility] 12-21-2021 11:00-0400 Body height 187.96 cm Leyla Bournemary carmen Other [facility] [employer] Other 12-21-2021 11:00-0400 Body mass index (BMI) [Ratio] 28.89 kg/m2 Leyla Bolanos Other [facility] Other 12-21-2021 11:00-0400 Body temperature 98.3 [degF] Leyla Bolanos Other [facility] Other 12-21-2021 11:00-0400 Body weight 102.06 kg Leyla Bolanos Other [facility] Other 12-21-2021 11:00-0400 Diastolic blood pressure 68 mm[Hg] Leyla Bolanos Other [facility] Other 12-21-2021 11:00-0400 SaO2% (BldA) [Mass fraction] 97 % Leyla Bolanos Other [facility] Other 12-21-2021 11:00-0400 Systolic blood pressure 110 mm[Hg] Leyla Bolanos Other [facility] Other 09-21-2021 11:15-0400 Body height 187.96 cm Woodrow Rashid Other [employer] Other 09-21-2021 11:15-0400 Body mass index (BMI) [Ratio] 28.89 kg/m2 Woodrow Rashid Other [facility] Other 09-21-2021 11:15-0400 Body temperature 97.9 [degF] Woodrow Rashid Other [employer] Other 09-21-2021 11:15-0400 Body weight 102.06 kg Woodrow Rashid Other [facility] Other 09-21-2021 11:15-0400 Diastolic blood pressure 74 mm[Hg] Woodrow Rashid Other [facility] Other 09-21-2021 11:15-0400 SaO2% (BldA) [Mass fraction] 98 % Woodrow Rashid Other [facility] Other 09-21-2021 11:15-0400 Systolic blood pressure 116 mm[Hg] Woodrow Rashid Other [facility] Other 09-06-2021 17:00-0400 Body height 187.96 cm Lanie Simonmond Other [facility] Other 09-06-2021 17:00-0400 Body mass index (BMI) [Ratio] 28.89 kg/m2 Lanie Simonmond Other [facility] Other 09-06-2021 17:00-0400 Body temperature 97.7 [degF] Lanie Simonmond Other [facility] Other 09-06-2021 17:00-0400 Body weight 102.06 kg Lanie Meena Other [facility] Other 09-06-2021 17:00-0400 SaO2% (BldA) [Mass fraction] 95 % Lanie Simonmond Other [facility] Other 07-12-2021 10:30-0400 Body height 187.96 cm Guanaco Wolf Other [facility] Other 07-12-2021 10:30-0400 Body mass index (BMI) [Ratio] 29.71 kg/m2 Guanaco Wolf Other [facility] Other 07-12-2021 10:30-0400 Body weight 104.96 kg Guanaco Wolf Other [facility] Other 07-12-2021 10:30-0400 Diastolic blood pressure 70 mm[Hg] Guanaco Wolf Other [facility] Other 07-12-2021 10:30-0400 SaO2% (BldA) [Mass fraction] 98 % Guanaco Wolf Other [facility] Other 07-12-2021 10:30-0400 Systolic blood pressure 110 mm[Hg] Guanaco Wolf Other [facility] Other 06-10-2021 10:45-0500 Body height 187.96 cm Mando Olexa Other [facility] Other 06-10-2021 10:45-0500 Body mass index (BMI) [Ratio] 29.4 kg/m2 Mando Olexa Other [facility] Other 06-10-2021 10:45-0500 Body weight 103.87 kg Mando Olexa Other [facility] Other 06-01-2021 14:45-0500 Body height 187.96 cm Mando Olexa Other [facility] Other 06-01-2021 14:45-0500 Body mass index (BMI) [Ratio] 29.48 kg/m2 Mando Olexa Other [facility] Other 06-01-2021 14:45-0500 Body weight 104.15 kg Mando Olexa Other [facility] Other 06-01-2021 09:30-0500 Body height 187.96 cm Guanaco Wolf Other [facility] Other 06-01-2021 09:30-0500 Body mass index (BMI) [Ratio] 29.42 kg/m2 Guanaco Wolf Other [facility] Other 06-01-2021 09:30-0500 Body weight 103.97 kg Guanaco Wolf Other [facility] Other 06-01-2021 09:30-0500 Diastolic blood pressure 66 mm[Hg] Guanaco Wolf Other [facility] Other 06-01-2021 09:30-0500 Respiratory rate 18 /min Guanaco Wolf Other [facility] Other 06-01-2021 09:30-0500 SaO2% (BldA) [Mass fraction] 96 % Guanaco Wolf Other [facility] Other 06-01-2021 09:30-0500 Systolic blood pressure 118 mm[Hg] Guanaco Wolf Other [facility] Other 04-19-2021 10:00-0500 Body height 187.96 cm Guanaco Wolf Other [facility] Other 04-19-2021 10:00-0500 Body mass index (BMI) [Ratio] 28.91 kg/m2 Guanaco Wolf Other [facility] Other 04-19-2021 10:00-0500 Body weight 102.15 kg Guanaco Wolf Other [facility] Other 04-19-2021 10:00-0500 Diastolic blood pressure 76 mm[Hg] Guanaco Wolf Other [facility] Other 04-19-2021 10:00-0500 SaO2% (BldA) [Mass fraction] 95 % Guanaco Wolf Other [facility] Other 04-19-2021 10:00-0500 Systolic blood pressure 122 mm[Hg] Guanaco Wolf Other [facility] Other 05-18-2020 14:00-0500 BP Diastolic 73 mm[Hg] [place], [place] 05-18-2020 14:00-0500 BP Systolic 122 mm[Hg] [place] 05-18-2020 14:00-0500 Pulse (Heart Rate) 89 /min [place], [place] 05-18-2020 14:00-0500 Pulse Oximetry 92 % [place] 05-18-2020 14:00-0500 Respiratory Rate 17 /min [place], [place] 05-18-2020 13:25-0500 Body Temperature 99 [degF] [place] 05-17-2020 15:01-0500 BMI (Body Mass Index) 30.17 kg/m2 [place] 05-17-2020 15:01-0500 Body weight 106.59 kg [place] 05-17-2020 15:01-0500 Height 188 cm [place] Encounters Encounter Date Encounter Type Care Provider Facility Start: 03-01-2024 End: 03-01-2024 Office outpatient visit 10 minutes Jonathan Shipman DO Work Phone: [facility] Comment on above: Left groin pain (Lanie javier Dx) Start: 03-01-2024 End: 03-01-2024 ambulatory JONATHAN SHIPMAN Not Available Start: 02-01-2024 Patient encounter status [facility] Start: 02-01-2024 End: 02-01-2024 ambulatory [facility] Work Phone: Start: 02-01-2024 End: 02-01-2024 Encounter for general adult medical examination without abnormal findings [facility] Start: 02-01-2024 End: 02-01-2024 Patient encounter procedure [facility] Phys[facility] Work Phone: Start: 12-22-2023 End: 12-22-2023 ambulatory [facility] Start: 08-08-2023 End: 08-08-2023 ambulatory JONATHAN SHIPMAN Not Available Start: 08-02-2023 End: 08-02-2023 ambulatory ZACHARY WILLIAM Not Available Start: 08-02-2023 End: 08-02-2023 ambulatory MD Rose Mary Timmons Work Phone: [facility] Work Phone: Start: 08-02-2023 End: 08-02-2023 Patient encounter procedure MD Rose Mary Timmons Work Phone: [facility] Work Phone: Start: 07-27-2023 End: 07-27-2023 ambulatory JONATHAN SHIPMAN Not Available Start: 07-04-2023 End: 07-04-2023 ambulatory JONATHAN SHIPMAN Not Available Start: 06-26-2023 End: 06-26-2023 ambulatory Rose Mary Timmons Facility:[facility] Start: 06-26-2023 End: 06-26-2023 Admission to same day surgery center MD Rose Mary Timmons Work Phone: [facility] [place] Start: 06-16-2023 End: 06-16-2023 ambulatory Jonathan Shipman Facility:[facility] Start: 06-16-2023 End: 06-16-2023 ambulatory MD Rose Mary Timmons Work Phone: [facility] Work Phone: Start: 06-16-2023 End: 06-16-2023 Patient encounter procedure MD Rose Mary Timmons Work Phone: [facility] Work Phone: Start: 06-13-2023 End: 06-13-2023 Office outpatient new 45 minutes Jonathan Shipman DO Work Phone: [facility] Comment on above: Left inguinal hernia (Primary Dx); Left lower quadrant pain Start: 06-13-2023 End: 06-13-2023 ambulatory JONATHAN SHIPMAN Not Available Start: 06-13-2023 Telephone encounter Jonathan smith DO Work Phone: [facility] Start: 06-12-2023 End: 06-12-2023 ambulatory Rose Mary Timmons Other [facility] Other Start: 06-12-2023 Telephone encounter Rose Mary Timmons [facility] Start: 06-07-2023 End: 06-07-2023 ambulatory Rose Mary Timmons Other [facility] Other Start: 06-07-2023 Office outpatient vi sit 15 minutes Rose Mary Timmons [facility] Start: 01-30-2023 End: 01-30-2023 ambulatory Woodrow Rashid Other [facility] Other Start: 01-30-2023 Postop follow up vis it related to original px Woodrow Rashid [facility] Vascular Surgery Start: 01-17-2023 End: 01-17-2023 ambulatory Guanaco Wolf Other [facility] Other Start: 01-17-2023 Office outpatient vi sit 15 minutes Guanaco Wolf [facility] Start: 01-04-2023 End: 01-04-2023 ambulatory Rose Mary Timmons Facility:[facility] Start: 01-03-2023 Encounter for genera l adult medical examination without abnormal findings Rose Mary Timmons [facility] Start: 01-03-2023 Periodic preventive med est patient 40-64yrs Rose Mary Timmons [facility] Start: 01-03-2023 End: 01-03-2023 ambulatory MD Rose Mary Timmons Work Phone: [employer] Other Start: 01-03-2023 End: 01-03-2023 Patient encounter procedure MD Rose Mary Timmons Work Phone: [facility] [place] Work Phone: Start: 10-24-2022 End: 10-24-2022 ambulatory Guanaco Maryann Other [facility] Other Start: 10-24-2022 Office outpatient vi sit 25 minutes Guanaco Wolf [facility] Pain Management Start: 09-27-2022 End: 09-27-2022 ambulatory Rose Mary Timmons Other [facility] Other Start: 09-27-2022 Telephone encounter Rose Mary Timmons [facility] Start: 09-14-2022 End: 09-15-2022 ambulatory MAGNO OLIVEIRA Facility:[facility] Start: 09-02-2022 End: 09-03-2022 ambulatory MAGNO OLIVEIRA Facility:[facility] Start: 09-01-2022 End: 09-01-2022 ambulatory Rose Mary Timmons Facility:[facility] Start: 09-01-2022 End: 09-01-2022 ambulatory MD Rose Mary Timmons Work Phone: [facility] Work Phone: Start: 09-01-2022 End: 09-01-2022 Patient encounter procedure MD Rose Mary Timmons Work Phone: [facility]Ul[facility] Start: 08-26-2022 (Varithena1) Jordan Mcdaniel er [facility] Start: 08-26-2022 End: 08-26-2022 ambulatory Woodrow Rashid Other [facility] Other Start: 07-15-2022 End: 07-15-2022 ambulatory Rose Mary Timmons Other [employer] Other Start: 07-15-2022 Office outpatient vi sit 15 minutes Guanaco Maryann [facility] Start: 07-15-2022 Telephone encounter Rose Mary Timmons [facility] Start: 07-01-2022 End: 07-01-2022 ambulatory MD Rose Mary Timmons Work Phone: [facility] Work Phone: Start: 07-01-2022 End: 07-01-2022 Patient encounter procedure MD Rose Mary Timmons Work Phone: [facility] Work Phone: Start: 06-24-2022 End: 06-24-2022 ambulatory Guanaco Maryann Other [employer] Other Start: 06-24-2022 Office outpatient vi sit 25 minutes Guanaco Maryann [facility] [place] Start: 06-23-2022 End: 06-23-2022 ambulatory Rose Mary Timmons Other [facility] Other Start: 06-23-2022 Office outpatient vi sit 15 minutes Rose Mary Timmons [facility] Start: 05-12-2022 End: 05-12-2022 ambulatory Rose Mary Timmons Other [employer] Other Start: 05-12-2022 Office outpatient vi sit 15 minutes Rose Mary Timmons [facility] Start: 05-10-2022 End: 05-10-2022 ambulatory Woodrow Rashid Other [employer] Other Start: 05-10-2022 Telephone encounter Woodrow Rachid [facility] Start: 03-07-2022 End: 03-07-2022 ambulatory Woodrow Pisanomarita Other [facility] Other Start: 03-07-2022 Telephone encounter Woodrow Rachid [facility] Start: 01-31-2022 End: 01-31-2022 ambulatory Leyla Bourneblairsai Other [employer] Other Start: 01-31-2022 Follow-up encounter Leyla Carcamo [facility] Start: 01-15-2022 Encounter for genera l adult medical examination without abnormal findings DR ROSE MARY TIMMONS [facility] Start: 01-12-2022 End: 01-12-2022 Admission to same day surgery center MD Rose Mary Timmons Work Phone: [facility] [place] Start: 01-10-2022 End: 01-11-[address] ROSE MARY TIMMONS Facility:[facility] Start: 01-10-2022 End: 01-11-2022 Encounter for general adult medical examination without abnormal findings DR ROSE MARY TIMMONS Facility:[facility] Start: 01-10-2022 End: 01-10-2022 Patient encounter procedure MD Rose Mary Timmons Work Phone: [facility] Start: 12-21-2021 End: 12-21-2021 ambulatory Leyla Cici Other [facility] Other Start: 12-21-2021 Encounter for other preprocedural examination Leyla Cici [facility] Start: 12-21-2021 Follow-up encounter Leyla Carcamo [facility] Start: 12-21-2021 End: 12-21-2021 Patient encounter procedure MD Rose Mary Timmons Work Phone: [facility] Start: 09-23-2021 ambulatory MAGNO OLIVEIRA Facility :[facility] Start: 09-21-2021 End: 09-21-2021 ambulatory Woodrow Rashid Other [facility] Other Start: 09-21-2021 Office outpatient vi sit 15 minutes Woodrow Rashid [facility] Start: 09-06-2021 End: 09-06-2021 ambulatory Lanie Simonmond Other [facility] Other Start: 09-06-2021 Office outpatient vi sit 15 minutes Lanie Meena [facility] Start: 08-27-2021 End: 08-27-2021 ambulatory Guanaco Maryann Other [facility] Other Start: 08-27-2021 Telephone encounter Guanaco Wolf [facility] Start: 07-12-2021 End: 07-12-2021 ambulatory Guanaco Wolf Other [facility] Other Start: 07-12-2021 Office outpatient vi sit 15 minutes Guanaco Wolf [facility] Start: 07-01-2021 (Procedure) Short Guanaco Wolf [facility] Start: 07-01-2021 End: 07-01-2021 ambulatory Mando Olexa Other [facility] Other Start: 07-01-2021 Office outpatient vi sit 15 minutes Mando Olexa [facility] Start: 06-10-2021 End: 06-10-2021 ambulatory Mando Olexa Other [facility] Other Start: 06-10-2021 Office outpatient vi sit 25 minutes Mando Olexa [facility] Start: 06-01-2021 End: 06-01-2021 ambulatory Guanaco Wolf Other [facility] Other Start: 06-01-2021 Office outpatient ne w 45 minutes Mando Olexa [facility] [place] Start: 06-01-2021 Office outpatient vi sit 25 minutes Guanaco Wolf [facility] Start: 04-20-2021 End: 04-20-2021 ambulatory Guanaco Wolf Other [facility] Other Start: 04-20-2021 Telephone encounter Guanaco Wolf [facility] Start: 04-19-2021 End: 04-19-2021 ambulatory Guanaco Wolf Other [facility] Other Start: 04-19-2021 Office outpatient vi sit 25 minutes Guancao oWlf [facility] Start: 10-22-2020 End: 10-23-2020 ambulatory ROSE MARY TIMMONS Facility:[facility] Start: 05-17-2020 End: 05-18-2020 Evaluation and management of inpatient ROSE MARY TIMMONS [facility] Start: 05-17-2020 End: 05-18-2020 Evaluation and management [...] vein of lower limb MD Rose Mary Timmosn Work Phone: Start: 12-21-2021 Duplex scan of lower limb veins MD Rose Mary Timmons Work Phone: Start: 05-18-2020 Antibody screen Tamika Matthews Start: 05-17-2020 Blood typing serologic abo Pelon H. Glenroy Work Phone: Start: 05-17-2020 COVID-19 Tamika hughes Work Phone: Start: 05-17-2020 Radiologic exam ches [...] Matthews Work Phone: Start: 05-17-2020 C-reactive protein Kim Jensen [employer] Work Phone: Start: 05-17-2020 Comprehensive metabo lic panel Tamika Matthews Work Phone: Start: 05-17-2020 Urinalysis microscopic only Tamika Matthews Work Phone: Start: 05-17-2020 Urnls dip stick/tabl et rgnt auto w/o microscopy Tamika Matthews Work Phone: Plan of Treatment Date Care Activity Detail Author Start: 12-31-2023 Influenza vaccination Influenza Vacc ine (#1) [facility] Start: 08-02-2023 Patient referral [facility] Work Phone: Start: 07-04-2023 End: 07-04-2023 Patient encounter procedure 07/04/2023 11:15 AM EST Office Visit [facility] [address] [facility] [address] [place] [address] Jonathan Shipman DO [address] [facility] [address] [place] [address] [facility] [address] [facility] Start: 06-26-2023 End: 06-26-2023 [facility] Start: 06-26-2023 End: 06-26-2023 Patient encounter procedure 06/26/2023 1:30 PM EST Procedure Visit [facility] Jonathan Shipman DO [address] [id number] [facility] Start: 09-01-2022 Duplex scan of lower limb veins US venous duplex LE LT [facility] Start: 09-01-2022 US Lower extremity v ein - left [facility] Start: 01-12-2022 [facility] Work Phone: Start: 01-12-2022 [facility] Work Phone: Start: 05-17-2021 Creatinine measurement Creatinine mo nitoring [place], [place] Start: 05-17-2021 Potassium monitoring Potassium monit oring [place], [place] Start: 06-12-2020 End: 06-12-2020 Office Visit 06/12/2020 Office Visit Neurosurgery Pelon Tim MD [address] [facility], [address] [place] [id number] [employer] Start: 12-31-2019 Influenza vaccination Flu vaccine (# 1) [place], [place] Start: 2000 DTaP/Tdap/Td vaccine (1 - Tdap) DTaP/Tdap/Td vaccine (1 - Tdap) [place], [place] Start: 1996 HIV screening HIV screen [place], [place] Start: 1982 Varicella vaccine (1 of 2 - 2-dose childhood series) Varicella vaccine (1 of 2 - 2-dose childhood series) [place], [place] Start: 1981 Hepatitis C screening Hepatitis C fl jet [place], [place] Comprehensive metabo lic 1999 panel - Serum or Plasma [facility] End: 05-18-2020 Fluoroscopy during operation FLUORO FOR SURGICAL PROCEDURES Imaging Routine Once for 1 Occurrences starting 05/18/2020 until 05/18/2020 [place] Comment on above: Once for 1 Occurrenc es starting 05/18/2020 until 05/18/2020 Fluoroscopy during operation FLUORO FOR SURGICAL PROCEDURES Imaging Routine 05/18/2020 12:44 PM EST [facility] [place] Patient Education Varicose Veins (DC) [facility] Work Phone: Patient referral [facility] Work Phone: Surgical Pathology Surgical Path ology Lab Routine Release Upon Ordering for 1 Occurrences starting 05/18/2020 [facility] [place] Comment on above: Release Upon Orderin g for 1 Occurrences starting 05/18/2020 [facility] Immunizations Immunization Date Immunization Notes Care Provider Fa ellity 03-01-2023 influenza, injectabl e, quadrivalent, preservative free Jonathan Laffay DO Work Phone: [facility] 03-01-2023 influenza virus vaccine, unspecified formulation Jonathan Laffay DO Work Phone: [facility] 02-08-2022 Seasonal, quadrivalent, recombinant, injectable influenza vaccine, preservative free Jonathan Laffay DO Work Phone: [facility] 02-10-2021 influenza, injectabl e, quadrivalent, preservative free Jonathan Laffay DO Work Phone: [facility] 08-07-2020 COVID-19 mRNA, Comirnaty (Pfizer) MD Rose Mary Timmons Work Phone: [facility] 07-19-2020 COVID-19 mRNA Comirnaty (Pfizer) MD Rose Mary Timmons Work Phone: [facility] 01-14-2020 influenza virus vaccine, split virus (incl. purified surface antigen) Rose Mary Timmons Other [facility] Other 01-14-2020 influenza virus vaccine, unspecified formulation MD Rose Mary Timmons Work Phone: [facility] 01-14-2020 influenza, injectabl e, quadrivalent, preservative free Jonathan Laffay DO Work Phone: [facility] 12-31-2019 influenza, seasonal, injectable Jonathan Shipman DO Work Phone: [facility] 02-12-2019 influenza, injectabl e, quadrivalent, preservative free Jonathan Shipman DO Work Phone: [facility] 12-12-2018 tetanus and diphther ia toxoids, adsorbed, preservative free, for adult use (2 Lf of tetanus toxoid and 2 Lf of diphtheria toxoid) Jonathan Shipman DO Work Phone: [facility] 12-12-2018 tetanus and diphther ia toxoids, adsorbed, preservative free, for adult use (5 Lf of tetanus toxoid and 2 Lf of diphtheria toxoid) MD Rose Mary Timmons Work Phone: [facility] 12-12-2018 tetanus toxoid, reduced diphtheria toxoid, and acellular pertussis vaccine, adsorbed Rose Mary Timmons Other [facility] Other Payers Date Payer Category Payer Self-pay [id number] 2021 [facility] Blue Shield BCBS [id number] 2021 Unknown BCBS BCBS [id number] 2021-Present [phone] [address] [place] [address] [id number] 2009 Unknown [id number] 1980 Unknown [id number] 2.16.840.1.004492.3.579.2 .182 1981 Unknown [id number] 2.16.840.1.762129.3.579.2 .647 1981 Unknown [id number] 2.16.840.1.962718.3.579.2 .593 1981 Unknown [id number] 2.16.840.1.959463.3.579.2 .593 1981 Unknown [id number] 2.16.840.1.341413.3.579.2 .593 1981 Unknown [id number] 2.16.840.1.328120.3.579.2 .593 1981 Unknown [id number] 2.16.840.1.559035.3.579.2 .1259 1981 Unknown [id number] 2.16.840.1.427115.3.579.2 .1259 1981 Unknown [id number] 2.16.840.1.651885.3.579.2 .1259 1981 Unknown [id number] 2.16.840.1.991607.3.579.2 .1259 1981 Unknown [id number] 2.16.840.1.543993.3.579.2 .1259 1981 Unknown [id number] 2.16.840.1.946307.3.579.2 .1259 1959 [facility] Blue [facility] M9PAN [id number] 2.16.840.1.987629.19 1959 Self-pay [id number] Unknown [id number] 2.16.840.1.936029.3.579.2 .531 Unknown [id number] 2.16.840.1.174843.3.579.2 .531 Unknown [id number] 2.16.840.1.607724.3.579.2 .531 Unknown [id number] 2.16.840.1.820537.3.579.2 .531 Unknown [id number] 2.16.840.1.981300.3.579.2 .531 Social History Date Type Detail Facility Start: 05-18-2020 Tobacco smoking stat us [facility] Unknown if ever smoked [place] Start: 05-18-2020 Tobacco use and exposure Never used [place] Start: 1980 Sex Assigned At Not on file M [place] Exposure to SARS-CoV -2 (event) Not sure [place] Start: 06-13-2023 End: 03-01-2024 [facility] Assigned At [facility] Start: 1980 Sex Assigned At Male [facility] Start: 06-13-2023 End: 06-26-2023 Tobacco smoking status NHIS Never smoked tobacco [facility] Start: 06-13-2023 Tobacco use and exposure Former smokeless tobacco user [facility] End: 05-01-2011 History of tobacco use Snuff User [facility] Start: 06-13-2023 Alcohol intake Ex-drinker (finding) [facility] Start: 06-13-2023 End: 03-01-2024 History of Social function [facility] Start: 03-01-2024 Alcoholic beverage intake Current drinker of alcohol (finding) [facility] How often to you hav e a drink containing alcohol? 2-3 time sa week [facility] How many standard drinks containing alcohol do you have on a typical day? 3 or 4 [facility] Frequency of Binge Drinking Not on file [facility] Start: 06-25-2023 Alcohol Comment caffeine: 3-4 cups per day [facility] Medical Equipment Procedure Code Equipment Code Equipment Origin al Text Equipment Identifier Dates Repair, hernia, inguinal, laparoscopic Abdominal hernia surgical mesh, synthetic polymer, non-bioabsorbable ([id number] [facility] Start: 06-26-2023 Goals Date Patient Goal Desired Activity /State Clinical Notes 06-27-2020 to 03-01-2024 Jonathan Shipman DO - 03/01/2024 12:00 PM EDTTelephone Encounter - Sarah Hernández 06/13/2023 3:26 PM ESTTelephone Encounter - Sarah Allred - 06/13/2023 3:26 PM EST Note Date & Type Note Facility 03-01-2024 History of Presen t illness Narrative Images from the original note were not included. Anshul Spencer 1980 Anshul Spencer is a 43 y.o. male presents for Follow-up (Left inguinal hernia) HPI: HPI Patient said that occasionally after surgery on the left side above where the hernia had been, he points to his lower abdominal crease well above the groin he gets some soreness or tugging. That would happen occasionally. It seems to have been a little bit more pronounced the last couple months. He was dragging a 200 lb deer out of the berg with his son and that was definitely noticeable yesterday. He does not have any pain with coughing or sneezing. He does not do strenuous things at work it has really not bothering him much at work might notice it a little bit. He has not having any swelling in the groin. He has not having any testicle pain. He has not having issues on the right side, perhaps vaguely in this same area. He has not having any burning pain. OBJECTIVE: Physical Exam Constitutional: Appearance: Normal appearance. He is not toxic-appearing. Cardiovascular: Rate and Rhythm: Regular rhythm. Pulmonary: Effort: No respiratory distress. Abdominal: General: There is no distension. Tenderness: There is no abdominal tenderness. Genitourinary: Comments: Bilateral examination of the groin is performed. There is no bulge. Normal testicle bilaterally. No hydrocele. Patient is slightly touchy about examination of either testicle. Examination of the right groin which patient is somewhat florian about but once relaxed can be thoroughly examined and there is no hernia whatsoever. Same on the left side, once patient gets over the touching is of advancing finger to the inguinal canal thorough exam is done with considerable Valsalva and there is no hernia noted. I am not triggering the site of his pain. He points to above which seems to be the aponeurosis of the rectus abdominis muscle as the site of pain. ASSESSMENT AND PLAN: Assessment/Plan Diagnoses and all orders for this visit: Left groin pain No evidence of any recurrent left inguinal hernia. Pain seems to be related of scar tissue interface at the aponeurosis of the rectus abdominis muscle. No recurrence nor symptoms consistent with neuropathic pain. I had a discussion with him regarding all findings. Thankfully does not appear to need any surgical intervention. Unfortunately As we had discussed prior to surgery tugging and pulling may be a chronic symptom. I discussed with him ibuprofen or other anti-inflammatories. Avoidance of things that seem to bother that. If he is having change in symptoms or bulging or sharp pain lower in the groin or with coughing or sneezing could re-evaluate. Would not expect imaging to be useful with these current symptoms. He understands. I am happy to see him again on an as-needed basis otherwise he is discharged from my care. No follow-ups on file. documented in this encounter [facility] 12-22-2023 Note [place] Cardiology - [facility] Subjective ANSHUL Spencer is a 43 [...] EKG 05/29/2020: No (more content not included)... [facility] 06-13-2023 Telephone encounter Note excuse [facility] 06-13-2023 Miscellaneous Notes excuse documented in this encounter [facility] 06-13-2023 History of Presen t illness Narrative [...] okay. 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 documented in this encounter [facility] 06-07-2023 Evaluation note Encounter Date Diagnosis Assessment Notes Jun, Left inguinal pain (ICD-10 - R10.32) Pt agrees to gen surgery referral. continue motrin in the meantime. [facility] 10-02-2023 Evaluation note* Encounter Date Diagnosis [...] see him back on an as-needed basis. [facility] 09-19-2023 Evaluation note* Encounter Date Diagnosis [...] call the office if his symptoms return [facility] 09-05-2023 Evaluation note* Encounter Date Diagnosis [...] patient is sent home pleased, without concerns. [facility] 06-26-2023 Evaluation note* Encounter Date Diagnosis [...] (ICD-10 - G89.29) Follow up after imaging [facility] 03-17-2023 Evaluation note* Encounter Date Diagnosis [...] Stable. Patient denies low back pain today [facility] 02-24-2023 Evaluation note* Encounter Date Diagnosis [...] - M51.36) Stable, proceed with treatment plan. [facility] Other 02-23-2023 Evaluation note* Encounter Date Diagnosis Assessment Notes Treatment Notes Treatment Clinical Notes Jun, Other insomnia (ICD-10 - G47.09) Increase dose - if not helpful, may need referral to Sleep Clinic. [facility] 01-12-2023 Evaluation note* Encounter Date Diagnosis Assessment Notes Treatment Notes Treatment Clinical Notes May, Other insomnia (ICD-10 - G47.09) Patient is advised to have a set bedtime routine. Do a quiet non stressful activity before bed. Patient to start with the above medication and we will continue to monitor. [facility] 10-03-2022 Evaluation note* Encounter Date Diagnosis [...] agrees with this plan, denies any questions. [facility] 08-23-2022 Evaluation note* Encounter Date Diagnosis [...] I83.893) left worse than the right, pain [facility] 05-24-2022 Evaluation note* Encounter Date Diagnosis [...] those options when we see his ultrasound. [facility] Other 05-09-2022 Evaluation note* Encounter Date Diagnosis Assessment Notes Treatment Notes Treatment Clinical Notes August, Sore throat (ICD-10 - J02.9) August, Viral pharyngitis (ICD-10 - J02.9) Drink plenty fluids, get plenty of rest. Take Tylenol Motrin for aches pains or fevers. Continue your home medications as prescribed. Follow-up with your family physician if no improvement in 2 to 3 days. [facility] Other 04-29-2022 Evaluation note* Encounter Date Diagnosis Assessment Notes Treatment Notes Treatment Clinical Notes Jul, Lumbar degenerative disc disease (ICD-10 - M51.36) [facility] 03-14-2022 Evaluation note* Encounter Date Diagnosis [...] (ICD-10 - G89.29) Continue medications as prescribed [facility] 03-03-2022 Evaluation note* Encounter Date Diagnosis [...] tear can worsen and enlarge with time [facility] 02-10-2022 Evaluation note* Encounter Date Diagnosis [...] pain of left shoulder (ICD-10 - M25.512) [facility] 02-01-2022 Evaluation note* Encounter Date Diagnosis [...] derangement of left shoulder (ICD-10 - M24.812) [facility] Other 02-01-2022 Evaluation note* Encounter Date Diagnosis [...] Status post spinal surgery (ICD-10 - Z98.890) [facility] Other 12-20-2021 Evaluation note* Encounter Date Diagnosis [...] negative findings were considered in medical decision-making. [facility] Other 02-27-2021 NotePatient Outreach (COVAMN) JENNA SPENCER ([id number]) 1980 M Date Time Provider Department 06/27/20 WEATHERS, ROBERT JAIMES During your visit today, we recorded the following information about you: Allergies As of Date: 06/27/2020 (No Known Allergies) Date Reviewed: 05/21/2018 Reviewed by: Jonna Lee) Gio - Fully Assessed Order(s):SARS-COVID VACCINE 1ST DOSE APPT [[id number]] Order #: [id number] FUTURE Prescriptions as of 06/27/2020 Sig: LISINOPRIL [...] Of Date: 06/27/2020 (None) Encounter Status:Closed by URIEL RUIZUSER on 06/30/20[facility] Chief complaint+Reason for visit Narrative* Chief Complaint Hernia Hernia REFERRAL FOR ENT Reason for Visit Bilateral tinnitus [facility] Work Phone: Evaluation noteNo InformationNort [facility] Other Evaluation noteNo assessment information available [facility] Work Phone: Evaluation note* Diagnosis Left inguinal hernia- Primary Inguinal hernia without mention of obstruction or gangrene, unilateral or unspecified, (not specified as recurrent) Left lower quadrant pain Abdominal pain, left lower quadrant [facility] Diagnosis Onset Date Resolution Status Bilateral tinnitus acute [facility] Work Phone: Evaluation note* Diagnosis Onset Date Resolution Status Fatigue acute Wellness examination acute [facility] Work Phone: Evaluation note* Diagnosis Left groin pain- Primary Abdominal pain, left lower quadrant documented [facility] this [facility] Narrative - Reported* Type Description Date [...] Hospitalization History see above surgical histo ry [facility] Other Hospital Discharge instructionsAmbulatory Orders* Referral to ENT Time Frame: 08/02/23, Location: None Selected [facility] Work Phone: Summary Purpose Family History No [...] Agents on File Name Relationship Healthcare Agent [facility] p Communication Florence Spencer Spouse [...] your physician 11) Call your doctor at [phone] for an appointment (or follow up as [...] call OFFICE. The 24- hour phone is [phone] 13) If you are unable to contact [...] varithena Chief Complaint M54.16 Chief Complaint Hernia Chief Complaint WELLNESS Reason for Visit Fatigue Wellness examination Reason for Referral Reason *FU 06/14 [place] office - likely inguinal hernia (L) Diagnosis 1 Left inguinal pain ( R10.32) Referral Organization [facility] Aurea ansari Referring Provider First Name Rose Mary Referring Provider Last Name Juliet Referring Provider Specialty [facility] Referred Organization [facility] Referred Provider Jonathan Shipman Referred Address ,[place], [place],[address] Referred Provider Specialty Surgery Referral Priority Routine [...] section and content) DATE CREATED AUTHOR 03/03/2020 [facility] DATE CREATED AUTHOR AUTHOR'S ORGANIZ ATION 05/22/2020 [facility] DATE CREATED AUTHOR AUTHOR'S ORGANIZ ATION 12/18/2020 [facility] DATE CREATED AUTHOR AUTHOR'S ORGANIZ ATION 06/08/2021 [facility] DATE CREATED AUTHOR AUTHOR'S ORGANIZ ATION 09/15/2022 [facility] DATE CREATED AUTHOR AUTHOR'S ORGANIZ ATION 08/09/2023 [facility] DATE CREATED AUTHOR AUTHOR'S ORGANIZ ATION 12/24/2023 [facility] DATE CREATED AUTHOR AUTHOR'S ORGANIZ ATION 03/03/2024 [facility] Reason for Visit (unrecogniz ed section and content) Reason Comments Back Pain Seen by Dr Tim 05/08, told to come to the ER if pain gets worse Status Reason Specialty Diagnoses / Procedures Re ferred By Contact Referred To Contact Diagnoses Herniation of left side of L4-L5 intervertebral disc Pelon Tim MD [address], [address] [place] [address] [facility] Reason Comments Consult Inguinal hernia, Lef t Specialty Diagnoses / Procedures Referred By Contac t Referred To Contact General Surgery Diagnoses Left lower quadrant pain Procedures [place] OFFICE/[facility] 60 MINUTES Rose Mary Timmons MD [address] [place] [address] [facility] 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 Relationship Specialty Start Date End Date Rose Mary Timmons MD [address] [place] [address] PCP - General Family Medicine 06/12/23 Team Status: Inactive Member Role [...] August 02, 2023 End: August 02, 2023 Team Status: Inactive Member Role Status Dates Rose Mary Timmons MD Primary Care Provide r, Attending Provider Active Start: February 01, 2024 End: February 01, 2024 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 [employer] provides no warranty or guarantee of the accuracy or completeness of information in this document.
[2024-04-16 07:59] LABS: Basophils Absolute Auto 0.1 10^3/uL (0.0-0.1); Eosinophils Absolute Auto 0.2 10^3/uL (0.0-0.7); Eosinophils Percent Auto 2.4 % (0.9-7.0); Hematocrit 41.8 % (42.0-54.0); Hemoglobin 13.9 g/dL (14.0-18.0); Immature Granulocytes Abs Auto 0.02 10^3/uL (0.00-0.03); Immature Granulocytes Pct Auto 0.3 % (0.0-0.5); Lymphocytes Absolute Auto 2.9 10^3/uL (1.2-3.8); Lymphocytes Percent Auto 46.4 % (20.5-60.0); Mean Corpuscular HGB Conc 33.3 g/dL (29.9-35.2); Mean Corpuscular Volume 90.3 fL (80.0-94.0); Monocytes Absolute Auto 0.6 10^3/uL (0.3-0.8); Monocytes Percent Auto 9.2 % (1.7-12.0); Neutrophils Absolute Auto 2.5 10^3/uL (1.4-6.5); Neutrophils Percent Auto 40.7 % (43.0-75.0); Platelet Count 247 10^3/uL (150-450); Red Blood Count 4.63 10^6/uL (4.70-6.10); Red Cell Distribution Width 11.9 % (11.0-15.0); White Blood Count 6.2 10^3/uL (4.0-11.0)
[2024-04-17 10:08] LABS: Vitamin B12 599 pg/mL (232-1245)
== END 2024-04-16 07:29 | disposition home or self-care (01) ==
LOC: LAB 07:29
PROVIDERS: PCP Family Medicine; Visit Provider Family Medicine
DX: D64.9 Anemia, unspecified (principal)
CPT/HCPCS: 36415; 82607; 82728; 85025

== ENCOUNTER 2024-08-06 11:17 | Outpatient (OUT) | payer BC, SELFPAY ==
--- OUTSIDE RECORDS SUMMARY | 2024-08-06 11:41 | XMS_ITS | CCD ---
Author Organization [facility] Care Team Providers Care 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 Name Role Phone ROSE MARY TIMMONS Primary Care Unavailable GLENROY, PELON HCindi Admitting Unavailable GLENROY, PELON H. Attending Unavailable Rose Mary Timmons Primary Care Provider [phone] ROSE MARY TIMMONS Referring Unavailable ROSE MARY TIMMONS Primary Care Unavailable UNKNOWN, PROVIDER Attending Unavailable UNKNOWN, PROVIDER Admitting Unavailable Guanaco Wolf Unavailable Mando Forde Unavailable Lanie Robledo Unavailable Woodrow Rashid Unavailable Leyla Bolanos Unavailable MD Rose Mary Timmons Primary Care Provider MD Woodrow Rashid Attending Provider Roes Mary Timmons Unavailable MD Rose Mary Timmons Primary Care Provider MD Guanaco Wolf Attending Provider MD Rose Mary Timmons Primary Care Provider MD Guanaco Wolf Attending Provider MD Woodrow Rashid Attending Provider [phone] MAGNO OLIVEIRA Consulting Unavailable MAGNO OLIVEIRA Attending Unavailable MAGNO OLIVEIRA Admitting Unavailable DR ROSE MARY TIMMONS Primary Care Unavailable MAGNO OLIVEIRA Admitting Unavailable MAGNO OLIVEIRA Consulting Unavailable MAGNO OLIVEIRA Attending Unavailable DR ROSE MARY TIMMONS Primary Care Unavailable SHANELLE, DR ROSE MARY Mooney Attending Unavailable DR ROSE MARY TIMMONS Admitting [...] Care Provider DO Jonathan Shipman Attending Provider MD Rose Mary Timmons Primary Care Provider DO Jonathan Shipman Attending Provider TAVO MENDOZA Attending Unavailable JONATHAN SHIPMAN Attending Unavailable ROSE MARY TIMMONS Unavailable JONATHAN SHIPMAN Attending Unavailable JONATHAN SHIPMAN Attending Unavailable ZACHARY WILLIAM Attending Unavailable JONATHAN SHIPMAN Attending Unavailable JONATHAN SHIPMAN Attending Unavailable Mando Forde MD Attending Provider Rose Mary Timmons MD Primary Care Provider Jonathan Shipman Attending Unavailable Rose Mary Timmons Primary Care Unavailable Jonathan Shipman Admitting Unavailable Mando Forde Admitting Unavailable Mando Forde Attending Unavailable Rose Mary Timmons Primary Care Unavailable Jonathan Shipman Admitting Unavailable Jonathan Shipman Attending Unavailable Rose Mary Timmons Primary Care Unavailable Allergies Allergy Classification Reported Allergen(s) Allergy Type Date of Onset Reaction(s) Facility (11 sources) levoFLOXacin; Translations: [LEVOFLOXACIN] Drug Allergy 8 [place], [place] (20 sources) levoFLOXacin Drug Allergy rash [place] Other (1 source) levoFLOXacin Drug Allergy 5 [facility] Repository Medications Current Medications Medication [...] 2023 12:00am Start: 01-04-2023 End: 08-01-2023 take 1 capsule by mouth once daily in the morning Diltiazem Hcl 240 mg capsule,extended release 24 hr Discontinued 240 MG PO Every morning January 03, 2023 11:00pm August 01, 2023 8:54am take 1 capsule by [facility] every twenty-four hours in the morning dilTIAZem ER (Tiazac) 240 MG 24 hr capsule Take 240 mg by mouth in the morning. Active Diltiazem Hcl 240 mg capsule,ext.rel 24h degradable (2 sources) Start: 08-02-2023 take 1 capsule by mouth once daily Diltiazem Hcl 240 mg capsule,ext.rel 24h degradable Active 240 MG PO Daily August 01, 2023 11:00pm [id number] 0.3 ml EPINEPHrine 1 mg/ml auto-injector (5 sources) alpha-Adrenergic Agonist, beta-Adrenergic Agonist, Catecholamine Start: 02-01-2024 EPINEPHrine (Epipen) 0.3 MG/0.3ML injection syringe Once 02/01/2024 Active Start: 02-01-2024 Epinephrine 0. 3 mg/0.3 mL auto-injector Active 0.3 ML IM Once January 31, 2024 11:00pm gabapentin 300 mg oral capsule (1 source) Anti-epileptic Agent Start: 05-08-2020 End: 06-07-2020 take 1 capsule by mouth three times daily gabapentin (NEURONTIN) 300 MG capsule Take 1 capsule by mouth 3 times daily for 30 days. 90 capsule 0 05/08/2020 06/07/2020 Active hydroCHLOROthiazide 25 mg oral tablet (20 sources) Thiazide Diuretic Start: 01-04-2023 End: 04-11-2024 take 1 tablet by mouth once daily Hydrochlorothiazide 25 mg tablet Active 25 MG PO Daily August 01, 2023 11:00pm HYDROmorphone (DILAUDID) injection 0.25 mg (1 source) Start: 05-17-2020 HYDROmorphone (DILAUDID) injection 0.25 mg lisinopril 20 mg oral tablet (20 sources) Angiotensin Converting Enzyme Inhibitor Start: 01-04-2023 End: 08-01-2023 take 1 tablet by mouth once daily Lisinopril 20 mg tablet Active 20 MG PO Daily August 01, 2023 11:00pm lisinopril (PRIN IVIL;ZESTRIL) 20 MG tablet Take [...] 19, 2017 1:00am Multivitamin (Daily Multi-Vitamin) tablet (5 sources) Start: 06-16-2023 take 1 tablet by mouth once daily in the morning Multivitamin (Daily Multi-Vitamin) tablet Active 1 TAB PO Every morning June 16, 2023 1:00am Start: 06-16-2023 [facility] Multivitamin (Daily [...] 1 capsule by mouth once daily Omeprazole 20 mg capsule,delayed release(DR/EC) Active 0 .ROUTE .COMPLEX 90 July 03, 2023 12:13pm TAKE 1 CAPSULE BY MOUTH ONCE DAILY Start: 01-04-2023 End: 07-03-2023 take 1 capsule by mouth once daily in the morning Omeprazole 20 mg capsule,delayed release(DR/EC) Discontinued 20 MG PO Every morning January 03, 2023 11:00pm July 03, 2023 12:13pm take 1 capsule by [facility] once daily Omeprazole 10 MG 1 capsule 30 minutes before morning meal Orally Once a day Active sennosides, group home 8.6 mg oral tablet (1 source) [...] 5 Inhibitor Start: 01-04-2023 End: 01-18-2024 take 1 tablet by mouth once daily as needed Tadalafil 5 mg tablet Active 5 MG PO Daily as needed for Erectile Dysfunction January 18, 2024 12:28pm triamcinolone acetonide 5 mg/ml topical cream (3 sources) Corticosteroid Start: 02-01-2024 Triamcinolone Acetonide 0.5 % cream Active 1 APPLIC TOPICAL Twice daily January 31, 2024 11:00pm Completed/Discontinued Medications Medication Drug Class(es) Dates Sig (Normalized) Sig (Original) acetaminophen 325 mg / HYDROcodone bitartrate 5 mg oral tablet (10 sources) Opioid Agonist Start: 01-12-2022 End: 01-04-2023 take 1 tablet by mouth every eight hours as needed for pain Hydrocodone-Acetami nophen 5-325 mg tablet Discontinued 1 TAB PO Q8H as needed for pain 11 09January 12, 2022 January 04, 2023 5:34am Start: 06-19-2017 take 1 tablet by frances th every six hours Hydrocodone-Acetaminophen ([place]) 5-325 mg tablet Active 1 TAB PO Q6H June 19, 2017 amoxicillin 500 mg oral tablet (3 sources) Penicillin-class Antibacterial Start: 01-16-2024 End: 02-01-2024 take 1 tablet by mouth three times daily Amoxicillin 500 mg tablet Discontinued 500 MG PO Three times daily January 15, 2024 11:00pm February 01, 2024 1:41pm cefTRIAXone (ROCEPHIN) 1 g IVPB in 50 [...] mg Start: 11-14-2015 Toradol per 15 mg 16 Oct, 2015 60 mg 1 ml meperidine hydrochloride 25 mg/ml cartridge (1 source) Opioid Agonist Start: 05-18-2020 End: 05-18-2020 meperidine (DEMEROL) injection 12.5 mg 2 ml ondansetron 2 mg/ml injection (1 source) Serotonin-3 Receptor Antagonist Start: 05-17-2020 End: 05-17-2020 ondansetron (ZOFRAN) injection 4 mg predniSONE 10 mg oral tablet (18 sources) Start: 12-13-2023 End: 02-01-2024 Prednisone 10 mg tablet Discontinued 10 MG PO As Directed December 12, 2023 11:00pm February 01, 2024 1:41pm see taper instructions: 4 x 3 days, 2 x 3 days, 1 x 3 days. Start: 09-27-2022 take 2 tablets by [facility] every twenty-four hours predniSONE 20 MG 2 tablets Orally Once a day for 5 days August, Active Start: 03-23-2021 predniSONE 10 MG 3 tablets a day for 3 days, 2 tablets a day for 3 days, 1 tablets a day for 3 days Orally Once a day for 9 day(s) Mar, Not-Taking traMADol hydrochloride 50 mg oral tablet (4 sources) Opioid Agonist Start: 06-26-2023 End: 08-02-2023 take 1 tablet by mouth every six hours as needed for pain Tramadol 50 mg tablet Discontinued 50 MG PO Q6H as needed for pain 30 June 26, 2023 12:00am August 02, 2023 10:08am zolpidem tartrate 12.5 mg extended release oral [...] Tachycardia; Translations: [Tachycardia, unspecified] Onset: 11-21-2017 Episodic Deficiency and other anemia (2 sources) Anemia; Translations: [Anemia, unspecified] 04-15-2024 Episodic Esophageal disorders (3 sources) Gastro-esophageal reflux disease with esophagitis; Translations: [Gastro-esophageal reflux disease with esophagitis, without bleeding] Chronic Esophageal disorders (2 sources) Esophageal disorders; Translations: [Gastro-esophageal reflux disease with esophagitis, without bleeding] Essential hypertension (15 sources) Essential hypertension; Translations: [Essential (primary) hypertension] Onset: 09-14-2022 08-01-2023 Chronic Heart valve disorders (6 sources) Nonrheumatic aortic (valve) insufficiency; Translations: [NONRHEUMATIC AORTIC INSUFFICIENCY] Onset: 08-22-2022 Chronic Malaise and fatigue (4 sources) Fatigue; Translations: [Other fatigue] 02-01-2024 Episodic Other bone disease and musculoskeletal deformities (5 sources) Other specified disorders of bone, shoulder; Translations: [Other specified disorders of bone, shoulder] Episodic Other connective tissue disease (20 sources) Supraspinatus syndrome; Translations: [Unspecified rotator cuff tear or rupture of left shoulder, not specified as traumatic] Episodic Other connective tissue disease (3 sources) Unspecified rotator cuff tear or rupture of left shoulder, not specified as traumatic; Translations: [Rotator cuff (capsule) sprain] Onset: 07-01-2021 Resolved: 07-01-2021 Episodic Other connective tissue disease (2 sources) Tear of left rotator cuff; Translations: [Unspecified rotator cuff tear or rupture of left shoulder, not specified as traumatic] 05-13-2024 Episodic Other connective tissue disease (2 sources) Subacromial impingement; Translations: [Impingement syndrome of left shoulder] 05-13-2024 Episodic Other connective tissue disease (2 sources) Impingement syndrome of left shoulder; Translations: [Other specified disorders of bursae and tendons in shoulder region] 05-13-2024 Episodic Other diseases of veins and lymphatics (20 sources) Peripheral venous insufficiency; Translations: [Venous insufficiency (chronic) (peripheral)] 08-01-2023 Episodic Other diseases of veins and lymphatics (12 sources) Vascular insufficiency; Translations: [Venous insufficiency (chronic) (peripheral)] 08-01-2023 Episodic Other ear and sense organ disorders (4 sources) Bilateral tinnitus; Translations: [Tinnitus, bilateral] 08-02-2023 Episodic Other ear and sense organ disorders (1 source) Tinnitus, bilateral; Translations: [Tinnitus, unspecified] 08-02-2023 Episodic Other male genital disorders (2 sources) Impotence of organic origin; Translations: [Male erectile dysfunction, unspecified] Chronic Other male genital disorders (7 sources) Male erectile dysfunction, unspecified; Translations: [Erectile [...] Resolved: 06-01-2021 Chronic Other non-traumatic joint disorders (9 sources) Pain in left shoulder; Translations: [Left [...] sources) Other insomnia Chronic Residual codes; unclassified (9 sources) Patient encounter status; Translations: [Encounter for procedure for purposes other than remedying health state, unspecified] 01-12-2022 Episodic Comment on above: Problem List clean-u p per request of Phys. EHR Cmte Spondylosis; intervertebral disc disorders; other back problems [...] left shoulder, not specified as traumatic] Episodic Sprains and strains (4 sources) Strain of other muscles, fascia and tendons at shoulder and upper arm level, left arm, initial encounter; Translations: [Traumatic rupture of supraspinatus tendon of left shoulder] Onset: 06-10-2021 Resolved: 02-10-2022 Episodic Unclassified (1 source) Encounter for preprocedural laboratory examination; Translations: [Encounter for preprocedural laboratory examination] Onset: 06-16-2023 Varicose veins of lower extremity (20 sources) Varicose veins of lower extremity; Translations: [Varicose veins of bilateral lower extremities with other complications] Onset: 09-21-2021 Resolved: 12-21-2021 Episodic Comment on above: Problem List clean-u p per request of Phys. EHR Cmte Past or Other Problems Problem Classification Problem Date Documented Date Episodic/Chronic Abdominal hernia (9 sources) Left inguinal hernia ; Translations: [Unilateral inguinal hernia, without obstruction or gangrene, not specified as recurrent] Onset: 06-13-2023 06-13-2023 Episodic Other diseases of veins and lymphatics (1 source) Venous insufficiency (chronic) (peripheral) Onset: 12-21-2021 Resolved: 12-21-2021 Episodic Other upper respiratory infections (2 sources) Acute pharyngitis, unspecified Onset: 09-06-2021 Resolved: 09-06-2021 Episodic Residual codes; unclassified (1 source) Other specified postprocedural states Onset: 06-01-2021 Resolved: 06-01-2021 Episodic Superficial injury; contusion (3 sources) Contusion of left shoulder, subsequent encounter; Translations: [Contusion of left shoulder, initial encounter] Onset: 06-01-2021 Resolved: 07-01-2021 Episodic Results Test Name Value Interpretation Reference Range Facility X-ray reportOrdered By: Logan Marshall on 05-13-2024 Study report [facility] [address] [place] [address] XRay Report Signed Patient: Anshul Spencer MR#: [id number] : 1980 Acct:[id number] Age/Sex: 44 / M ADM Date: 5 Loc: [facility] Room: Type: [facility] Attending Dr: Mando Forde MD Copies to: Mando Forde MD~ Ordering Provider: Mando Forde MD Date of Service: 05/13/24 XR/XR shoulder LT min 2V*: M25.512 - Pain in left shoulder LEFT SHOULDER - - 4 views CLINICAL HISTORY: Generalized shoulder pain with limited range of motion COMPARISON: Left shoulder 05/24/2021 FINDINGS: Before meals and glenohumeral joints demonstrate mild degenerative change. No acute bony process. XR/XR shoulder LT min 2V* IMPRESSION: MILD DEGENERATIVE CHANGES OF THE LEFT SHOULDER WITHOUT ACUTE BONY PROCESS. Impression dictated by: Cj Marshall Jr., D.O.05/13/2024 2:58 PM Dictation Location: RADIO-PC-19 Transcribed By: TYLER 05/13/241457 Dictated By: Cj Marshall Jr DO 05/13/241457 Signed By: 05/13/241457 [facility] XR shoulder LT min 2V*on XR shoulder LT min 2V* [facility] [address] [place] [address] XRay Report Signed Patient: Anshul Spencer MR#: [id number] : 1980 Acct:[id number] Age/Sex: 44 / M ADM Date: 05/13/24 Loc: [facility] Room: Type: [facility] Attending Dr: Mando Forde MD Copies to: Mando Forde MD Ordering Provider: Mando Forde MD Date of Service: 05/13/24 XR/XR shoulder LT min 2V*: M25.512 - Pain in left shoulder LEFT SHOULDER - - 4 views CLINICAL HISTORY: Generalized shoulder pain with limited range of motion COMPARISON: Left shoulder 05/24/2021 FINDINGS: Before meals and glenohumeral joints demonstrate mild degenerative change. No acute bony process. XR/XR shoulder LT min 2V* IMPRESSION: MILD DEGENERATIVE CHANGES OF THE LEFT SHOULDER WITHOUT ACUTE BONY PROCESS. Impression dictated by: Cj Marshall Jr., D.O.05/13/2024 2:58 PM Dictation Location: RADIO-PC-19 Transcribed By: TYLER 05/13/24 1458 Dictated By: Cj Marshall Jr, DO 05/13/241457 Signed By: 05/13/241457 Normal [facility] Basophils Auto (Bld) [#/Vol] on 04-16-2024 Basophils (Bld) [#/Vol] Automated basoph il count 0.0-0.1 [facility] Basophils/100 WBC Auto (Bld) on 04-16-2024 Basophils/100 WBC (Bld) Automated basoph il % 0.2-2.0 [facility] Eosinophils/100 WBC Auto (Bl d)on 04-16-2024 Eosinophils/100 WBC (Bld) Automated eosinophil % 0.9-7.0 [facility] Erythrocyte distribution wid th Auto (RBC) [Ratio]on 04-16-2024 Erythrocyte distribution width (RBC) [Ratio] Erythrocyte distribution width [Ratio] by Automated count 11.0-15.0 [facility] Hematocrit Auto (Bld) [Volum e fraction]on 04-16-2024 Hematocrit (Bld) [Volume fraction] Hematocrit [Volume Fraction] of Blood by Automated count Low 42.0-54.0 [facility] Hemoglobin [Mass/volume] in Bloodon 04-16-2024 Hemoglobin (Bld) [Mass/Vol] Hemoglobin [Mass/volume] in Blood Low 14.0-18.0 [facility] Laboratory - Chemistry and C hemistry - challengeon 04-16-2024 Cobalamin (Vitamin B12) [Mass/Vol] 599 pg/mL 232-1245 [facility] Comment on above: Performed at: [address] [id number] Director: Abiel Fleming PhD, Phone: [phone] Ferritin [Mass/Vol] 256.0 ng/mL 26.0-388.0 [facility] Laboratory - Hematology and Cell countson 04-16-2024 Immature granulocytes/100 WBC (Bld) 0.3 % 0.0-0.5 [facility] Leukocytes [#/volume] correc julio for nucleated erythrocytes in Blood by Automated counon 04-16-2024 WBC corrected for nucl RBC Auto (Bld) [#/Vol] Leukocytes [#/volume] corrected for nucleated erythrocytes in Blood by Automated coun 4.0-11.0 [facility] Lymphocytes Auto (Bld) [#/Vo l]on 04-16-2024 Lymphocytes (Bld) [#/Vol] Lymphocytes [#/volume] in Blood by Automated count 1.2-3.8 [facility] Lymphocytes/100 WBC Auto (Bl d)on 04-16-2024 Lymphocytes/100 WBC (Bld) Lymphocytes/100 leukocytes in Blood by Automated count 20.5-60.0 [facility] MCH Auto (RBC) [Entitic mass ]on 04-16-2024 MCH (RBC) [Entitic mass] MCH [Entitic mass] by Automated count 25.9-34.0 [facility] MCHC Auto (RBC) [Mass/Vol]on 04-16-2024 MCHC (RBC) [Mass/Vol] MCHC [Mass/volume] by Automated count 29.9-35.2 [facility] MCV Auto (RBC) [Entitic vol] on 04-16-2024 MCV (RBC) [Entitic vol] MCV [Entitic volume] by Automated count 80.0-94.0 [facility] Monocytes Auto (Bld) [#/Vol] on 04-16-2024 Monocytes (Bld) [#/Vol] Automated blood monocyte count 0.3-0.8 [facility] Monocytes/100 WBC Auto (Bld) on 04-16-2024 Monocytes/100 WBC (Bld) Automated monocy te % 1.7-12.0 [facility] Neutrophils Auto (Bld) [#/Vo l]on 04-16-2024 Neutrophils (Bld) [#/Vol] Neutrophils [#/volume] in Blood by Automated count 1.4-6.5 [facility] Neutrophils/100 WBC Auto (Bl d)on 04-16-2024 Neutrophils/100 WBC (Bld) Automated neutrophil % Low 43.0-75.0 [facility] No Panel Informationon 04-16 Eosinophils # (Auto) 0.2 10 3/uL 0.0-0.7 [facility] Immature Granulocyte # (Auto) 0.02 10 3/uL 0.00-0.03 [facility] Platelet mean volume Auto (B ld) [Entitic vol]on 04-16-2024 Platelet mean volume (Bld) [Entitic vol] Platelet mean volume [Entitic volume] in Blood by Automated count 9.5-13.5 [facility] Platelets Auto (Bld) [#/Vol] on 04-16-2024 Platelets (Bld) [#/Vol] Platelets [#/volume] in Blood by Automated count 150-450 [facility] RBC Auto (Bld) [#/Vol]on RBC (Bld) [#/Vol] Erythrocytes [#/volume] in Blood by Automated count Low 4.70-6.10 [facility] Office Visiton 12-22-2023 Follow-up visit [id number] ANSHUL Spencer 1980 M Date Provider Department Center 12/22/2023 TAVO TERRY CARD [facility] Family History Problem Relation Age of Onset Hypertension Father Hypertension Maternal Grandfather Family Status - Relation Status Age at Father Maternal Grandfather Level of Service:20922 UT OFFICE/OUTPATIENT ESTABLISHED MOD MDM 30 MIN Normal [facility] Amphetamine Screen Ql (U)Ord ered By: Sai Conway on 06-26-2023 Amphetamines Ql (U) Negative Negative [facility] Barbiturates [Presence] in U rine by Screen methodOrdered By: Sai Conway on 06-26-2023 Barbiturates Screen Ql (U) Negative Negative [facility] Benzodiazepines Screen Ql (U )Ordered By: Sai Conway on 06-26-2023 Benzodiazepines Ql (U) Negative Negative [facility] Benzoylecgonine [Presence] i n Urine by Screen methodOrdered By: Sai Conway on 06-26-2023 Benzoylecgonine Screen Ql (U) Negative Negative [facility] Cannabinoids [Presence] in U rine by Screen methodOrdered By: Sai Conway on 06-26-2023 Cannabinoids Screen Ql (U) Positive Negative [facility] Comment on above: These are unconfirme d results and should not be used for legal purposes. Drug Cut-Off Concentration: AMPH 1000 ng/mL MEE 200 ng/mL ROC 200 ng/mL COCM 300 ng/mL OP 300 ng/mL PCP 25 ng/mL THC 20 ng/mL Drug Screen,Urineon 06-26-19 24 Amphetamine Screen,Urine Negative Normal Negative [facility] Comment on above: Performed By: #### U RDS #### [address] Barbiturate Screen,Urine Negative Normal Negative [facility] Comment on above: Performed By: #### U RDS #### [address] Benzodiazepines Screen,Urine Negative Normal Negative [facility] Comment on above: Performed By: #### U RDS #### [address] Cannabinoid Screen,Urine Positive High Negative [facility] Comment on above: Result Comment: Thes e are unconfirmed results and should not be used for legal purposes. Drug Cut-Off Concentration: AMPH 1000 ng/mL MEE 200 ng/mL ROC 200 ng/mL COCM 300 ng/mL OP 300 ng/mL PCP 25 ng/mL THC 20 ng/mL PERFORMED BY: [place] [address] PATHOLOGIST CASINO SURVEILLANCE OFFICER LUCIO DENT M.D. Performed By: #### U RDS #### [address] Cocaine Screen,Urine Negative Normal Negative [facility] Comment on above: Performed By: #### U RDS #### [address] Opiate Screen,Urine Negative Normal Negative [facility] Comment on above: Performed By: #### U RDS #### [address] Phencyclidine Screen,Urine Negative Normal Negative [facility] Comment on above: Performed By: #### U RDS #### [address] Hair 06-26-2023 L Specimen: [id number] Received: 06/27/23 Status: LAURENCE Padilla Num: [id number] Spec Type: Surgical Subm Dr: Jonathan Shipman,DO Tissues: A Hernia Sac (HERNIA SAC/CORD LIPOMA) Procedures: HE, Gross/Micro L2 Age/ Patient Sex Location Account Attending Physician JohannaAnshul Sanchez 43/M [place] [id number] Jonathan Shipman DO SPEC NUM: [id number] RECD: 06/27/23 STATUS: LAURENCE SILVIO NUM: [id number] REBECCA: 06/26/[address]: Jonathan Shipman DO ENTERED: 06/27/[address] [facility] [address]: SPEC TYPE: Surgical DEPT: S [...] with no firm or suspicious foci. A outside sales representative section of each fragment with overlying membranous tissue is submitted. Director Economic sections are submitted in one cassette labeled A1. CPT Codes 49708 Specimen: [id number] Received: 06/27/23 Status: TANAKhang Padilla Num: [id number] Spec Type: Surgical Subm Dr: Jonathan Shipman DO Tissues: A Hernia Sac (HERNIA SAC/CORD LIPOMA) Procedures: HE, Yefri/Kendra L2 Patient: Anshul Spencer [id number] (Continued) Signed (signatur e on file) Estephania Womack MD 07/01/23 1104 Normal [facility] Opiates [Presence] in Urine by Screen methodOrdered By: Sai Conway on 06-26-2023 Opiates Screen Ql (U) Negative Negative [facility] Phencyclidine Screen Ql (U)O rdered By: Sai Conway on 06-26-2023 Phencyclidine Ql (U) Negative Negative [facility] Automated basophil %Ordered By: Jonathan Shipman on 06-16-2023 Basophils/100 WBC (Bld) 0.9 % Normal . F [facility] Comment on above: Performed By: #### C BC #### [facility] [address] Automated basophil countOrde red By: Jonathan Shipman on 06-16-2023 Basophils (Bld) [#/Vol] 0.0 10*3/uL Normal 0.0-0.2 [facility] Comment on above: Result Comment: PERF ORMED BY: [facility] [address] [place] [address] PATHOLOGIST [employer]INO SURVEILLANCE OFFICER LUCIO DENT M.D. Performed By: #### C BC #### [address] Automated blood monocyte cou ntOrdered By: Jonathan Shipman on 06-16-2023 Monocytes (Bld) [#/Vol] 0.5 10*3/uL Normal 0.0-0.8 [facility] Comment on above: Performed By: #### C BC #### [address] Automated eosinophil %Ordere d By: Jonathan Shipman on 06-16-2023 Eosinophils/100 WBC (Bld) 2.8 % Normal . [facility] Comment on above: Performed By: #### C BC #### [address] Automated eosinophil countOr dered By: Jonathan Shipman on 06-16-2023 Eosinophils (Bld) [#/Vol] 0.1 10*3/uL Normal 0.0-0.45 [facility] Comment on above: Performed By: #### C BC #### [address] Automated monocyte %Ordered By: Jonathan Shipmna on 06-16-2023 Monocytes/100 WBC (Bld) 10.6 % Normal . [facility] Comment on above: Performed By: #### C BC #### [address] Automated neutrophil %Ordere d By: Jonathan Shipman on 06-16-2023 Neutrophils/100 WBC (Bld) 52.0 % Normal . [facility] Comment on above: Performed By: #### C BC #### [address] Basic Metabolic Panelon 06-01 GFR/1.73 sq M.predicted MDRD (S/P/Bld) [Vol rate/Area] mL/min/{1.73_m2} Normal [facility] Comment on above: Performed By: #### B MP #### [address] Calcium [Mass/volume] in Ser um or PlasmaOrdered By: Jonathan Shipman on 06-16-2023 Calcium [Mass/Vol] 9.3 mg/dL Normal 8.6-10.3 [facility] Comment on above: Result Comment: PERF ORMED BY: [address] [place] [place] [address] PATHOLOGIST [employer]ICER LUCIO DENT M.D. Performed By: #### B MP #### [address] Carbon dioxide, total [Moles /volume] in Serum or PlasmaOrdered By: Jonathan Shipman on 06-16-2023 CO2 [Moles/Vol] 29.7 mmol/L Normal 21.0-31.0 [facility] Comment on above: Performed By: #### B MP #### [place] [address] [place] Chloride [Moles/volume] in S annemarie or PlasmaOrdered By: Jonathan Shipman on 06-16-2023 Chloride [Moles/Vol] 102 mmol/L Normal 98-107 [facility] Comment on above: Performed By: #### B MP #### [address] Complete Blood Count Auto Di ffon 06-16-2023 Mean Corpuscular HGB Conc 34.2 g/dL Normal 32.5-35.6 [facility] Comment on above: Performed By: #### C BC #### [address] NRBC% 0.0 /100{WBC} Normal 0-0.5 [facility] Comment on above: Performed By: #### C BC #### [address] Creatinine [Mass/volume] in Serum or PlasmaOrdered By: Jonathan Shipman on 06-16-2023 Creatinine [Mass/Vol] 0.87 mg/dL Normal 0.70-1.30 [facility] Comment on above: Performed By: #### B MP #### [facility] [address] [place] [address] [place] Erythrocyte distribution wid th [Ratio] by Automated countOrdered By: Jonathan Shipman on 06-16-2023 Erythrocyte distribution width (RBC) [Ratio] 13.0 % Normal 12.0-14.8 [facility] Comment on above: Performed By: #### C BC #### [facility] [address] [place] [address] [place] Erythrocytes [#/volume] in B lood by Automated countOrdered By: Jonathan Shipman on 06-16-2023 RBC (Bld) [#/Vol] 4.64 10*6/uL Normal 3.90-5.60 [facility] Comment on above: Performed By: #### C BC #### [address] Glucose [Mass/volume] in Ser um or PlasmaOrdered By: Jonathan Shipman on 06-16-2023 Glucose [Mass/Vol] 81 mg/dL Normal 70-100 [facility] Comment on above: ADA recommended refe rence rangeRandom Glucose Reference Range is dependent on time and content of last meal. Glucose of more than 200 mg/dL in a nonstressed, ambulatory subject supports the diagnosis of Diabetes Mellitus. Result Comment: [place] om Glucose Reference Range is dependent on time and content of last meal. Glucose of more than 200 mg/dL in a nonstressed, ambulatory subject supports the diagnosis of Diabetes Mellitus. ADA recommended reference range Performed By: #### B MP #### [facility] [address] [place] [id number] [place] Hematocrit [Volume Fraction] of Blood by Automated countOrdered By: Jonathan Shipman on 06-16-2023 Hematocrit (Bld) [Volume fraction] 41.5 % Normal 38.8-50.0 [facility] Comment on above: Performed By: #### C BC #### [place] [id number] [place] Hemoglobin [Mass/volume] in BloodOrdered By: Jonathan Shipman on 06-16-2023 Hemoglobin (Bld) [Mass/Vol] 14.2 g/dL Normal 13.0-17.0 [facility] Comment on above: Performed By: #### C BC #### [address] Leukocytes [#/volume] correc julio for nucleated erythrocytes in Blood by Automated counOrdered By: Jonathan Shipman on 06-16-2023 WBC corrected for nucl RBC Auto (Bld) [#/Vol] 4.3 10*3/uL 4.1-10.5 [facility] Leukocytes [#/volume] in Blo od by Automated countOrdered By: Jonathan Shipman on 06-16-2023 WBC (Bld) [#/Vol] 4.3 10*3/uL Normal 4.1-10.5 [facility] Comment on above: Performed By: #### C BC #### [address] Lymphocytes [#/volume] in Bl ood by Automated countOrdered By: Jonathan Shipman on 06-16-2023 Lymphocytes (Bld) [#/Vol] 1.4 10*3/uL Normal 1.00-4.8 [facility] Comment on above: Performed By: #### C BC #### [address] Lymphocytes/100 leukocytes i n Blood by Automated countOrdered By: Jonathan Shipman on 06-16-2023 Lymphocytes/100 WBC (Bld) 33.7 % Normal . [facility] Comment on above: Performed By: #### C BC #### [place] [address] [place] MCH [Entitic mass] by Automa julio countOrdered By: Jonathan Shipman on 06-16-2023 MCH (RBC) [Entitic mass] 30.6 pg Normal 27.5-35.2 [facility] Comment on above: Performed By: #### C BC #### [address] MCHC Auto (RBC) [Mass/Vol]Or dered By: Jonathan Shipman on 06-16-2023 MCHC (RBC) [Mass/Vol] 34.2 g/dL 32.5-35.6 [facility] MCV [Entitic volume] by Auto mated countOrdered By: Jonathan Shipman on 06-16-2023 MCV (RBC) [Entitic vol] 89.4 fL Normal 83.5-101 F [facility] Comment on above: Performed By: #### C BC #### [address] Neutrophils [#/volume] in Bl ood by Automated countOrdered By: Jonathan Shipman on 06-16-2023 Neutrophils (Bld) [#/Vol] 2.2 10*3/uL Normal 1.8-7.7 [facility] Comment on above: Performed By: #### C BC #### [address] No Panel InformationOrdered By: Jonathan Shipman on 06-16-2023 Estimated GFR (CKD-EPI) > 60.0 mL/Min [facility] Creatinine Clearance (Chem N/A [facility] Nucleated erythrocytes [Pres ence] in Blood by Automated countOrdered By: Jonathan Shipman on 06-16-2023 Nucleated RBC Auto Ql (Bld) 0.0 /100{WBC} 0-0.5 [facility] Platelet mean volume [Entiti c volume] in Blood by Automated countOrdered By: Jonathan Shipman on 06-16-2023 Platelet mean volume (Bld) [Entitic vol] 9.1 fL Normal 6.6-10.1 [facility] Comment on above: Performed By: #### C BC #### [place] [address] [place] Platelets [#/volume] in Bloo d by Automated countOrdered By: Jonathan Shipman on 06-16-2023 Platelets (Bld) [#/Vol] 232 10*3/uL Normal 150-450 [facility] Comment on above: Performed By: #### C BC #### [address] Potassium [Moles/volume] in Serum or PlasmaOrdered By: Jonathan Shipman on 06-16-2023 Potassium [Moles/Vol] 4.3 mmol/L Normal 3.5-5.1 [facility] Comment on above: Performed By: #### B MP #### [address] Serum or plasma anion gap de terminationOrdered By: Jonathan Shipman on 06-16-2023 Anion gap [Moles/Vol] 10.6 mmol/L Normal 6.0-15.[address] [facility] Comment on above: Performed By: #### B MP #### [address] Sodium [Moles/volume] in Ser um or PlasmaOrdered By: Jonathan Shipman on 06-16-2023 Sodium [Moles/Vol] 138 mmol/L Normal 136-145 [facility] Comment on above: Performed By: #### B MP #### [address] Urea nitrogen [Mass/volume] in Serum or PlasmaOrdered By: Jonathan Shipman on 06-16-2023 Urea nitrogen [Mass/Vol] 12 mg/dL Normal 7-25 [facility] Comment on above: Performed By: #### B MP #### [address] LIPID PROFILEon 09-14-2022 CHOL-HDL RATIO NORM SEE BELOW Normal [facility] Comment on above: Result Comment: 3.3 - 4.4 LOW RISK 4.4 - 7.1 AVERAGE RISK 7.1 - 11.0 MODERATE RISK >11.0 HIGH RISK Performed By: #### L IPID, CMP #### [facility] [address] [address] [address] Owen Mckeon Cholesterol [Mass/Vol] 192 mg/dL Normal <=200 [facility] Comment on above: Performed By: #### L IPID, CMP #### [facility] [address] [address] [address] Owen Mckeon Cholesterol in HDL [Mass/Vol] 47 mg/dL Normal 40-60 [facility] Comment on above: Performed By: #### L IPID, CMP #### [facility] [address] [address] [address] Owen Mckeon Cholesterol in LDL [Mass/Vol] 120.4 mg/dL Normal [facility] Comment on above: Performed By: #### L IPID, CMP #### [facility] [address] [place] [address] Dr. Owen Mckeon Cholesterol.total/Courtney sterol in HDL [Mass ratio] 4.1 {ratio} Normal [facility] Comment on above: Performed By: #### L IPID, CMP #### [facility] [address] [place] [address] Dr. Owen Mckeon HDL NORMAL > or = 60 mg/dl - LOW CARDIOVASCULAR RISK <40 mg/dl - HIGH CARDIOVASCULAR RISK Normal [facility] Comment on above: Performed By: #### L IPID, CMP #### [facility] [address] [place] [address] Dr. Owen Mckeon LDL CALC NORMAL SEE BELOW Normal [facility] Comment on above: Result Comment: <100 mg/dl OPTIMAL 100 - 129 mg/dl NEAR OR ABOVE OPTIMAL 130 - 159 mg/dl BORDERLINE HIGH 160 - 189 mg/dl HIGH >190 mg/dl VERY HIGH Performed By: #### L IPID, CMP #### [facility] [address] [place] [address] Dr. Owen Mckeon Triglyceride [Mass/Vol] 123 mg/dL Normal <=150 T [facility] Comment on above: Performed By: #### L IPID, CMP #### [facility] [address] [place] [address] Dr. Owen Mckeon VLDL CALC 24.6 mg/dL Normal [facility] Comment on above: Performed By: #### L IPID, CMP #### [facility] [address] [place] [address] Dr. Owen Mckeon PROF 14(COMP METB)on 023 Albumin [Mass/Vol] 4.2 g/dL Normal 3.4-5.0 [facility] Comment on above: Performed By: #### L IPID, CMP #### [facility] [address] [address] [address] Owen Mckeon Albumin/Globulin [Mass ratio] 1.0 {ratio} Normal [facility] Comment on above: Performed By: #### L IPID, CMP #### [facility] [address] [address] [address] Owen Mckeon ALP [Catalytic activity/Vol] 59 U/L Normal 46-116 [facility] Comment on above: Performed By: #### L IPID, CMP #### [facility] [address] [address] [address] Owen Mckeon ALT [Catalytic activity/Vol] 36 U/L Normal 16-63 [facility] Comment on above: Performed By: #### L IPID, CMP #### [facility] [address] [address] [address] Owen Mckeon Anion gap [Moles/Vol] 12.0 mmol/L Normal [facility] Comment on above: Performed By: #### L IPID, CMP #### [facility] [address] [address] [address] Owen Mckeon AST [Catalytic activity/Vol] 12 U/L Critically low 15-37 [facility] Comment on above: Performed By: #### L IPID, CMP #### [facility] [address] [address] [address] Owen Mckeon Bilirubin [Mass/Vol] 0.6 mg/dL Normal 0.2-1.0 [facility] Comment on above: Performed By: #### L IPID, CMP #### [facility] [address] [address] [address] Owen Mckeon Calcium [Mass/Vol] 9.2 mg/dL Normal 8.5-10.1 [facility] Comment on above: Performed By: #### L IPID, CMP #### [facility] [address] [address] [address] Owen Mckeon Chloride [Moles/Vol] 102 mmol/L Normal 98-107 [facility] Comment on above: Performed By: #### L IPID, CMP #### [facility] [address] [address] [address] Owen Mckeon CO2 [Moles/Vol] 30.0 mmol/L Normal 21.0-32.0 [facility] Comment on above: Performed By: #### L IPID, CMP #### [facility] [address] [address] [address] Owen Mckeon Creatinine [Mass/Vol] 0.97 mg/dL Normal 0.70-1.30 [facility] Comment on above: Performed By: #### L IPID, CMP #### [facility] [address] [address] [address] Owen Mckeon EGFR-AF BOLIVIAN >60 Normal >=60 [facility] Comment on above: Performed By: #### L IPID, CMP #### [facility] [address] [address] [address] Owen Mckeon EGFR-NON AF BOLIVIAN >60 Normal >=60 [facility] Comment on above: Performed By: #### L IPID, CMP #### [facility] [address] [address] [address] Owen Mckeon Globulin (S) [Mass/Vol] 4.0 g/dL Normal [facility] Comment on above: Performed By: #### L IPID, CMP #### [facility] [address] [address] [address] Owen Mckeon Glucose [Mass/Vol] 102 mg/dL Normal 74-106 [facility] Comment on above: Performed By: #### L IPID, CMP #### [facility] [address] [address] [address] Owen Mckeon Potassium [Moles/Vol] 4.0 mmol/L Normal 3.5-5.1 [facility] Comment on above: Performed By: #### L IPID, CMP #### [facility] [address] [address] [address] Owen Mckeon Protein [Mass/Vol] 8.2 g/dL Normal 6.4-8.2 [facility] Comment on above: Performed By: #### L IPID, CMP #### [facility] [address] [address] [address] Owen Mckeon Sodium [Moles/Vol] 140 mmol/L Normal 136-145 [facility] Comment on above: Performed By: #### L IPID, CMP #### [facility] [address] [address] [address] Owen Mckeon Urea nitrogen [Mass/Vol] 6.0 mg/dL Critically low 7.0-18.0 [facility] Comment on above: Performed By: #### L IPID, CMP #### [facility] [address] [address] [address] Owen Mckeon Urea nitrogen/Creatinine [Mass ratio] 6.2 mg/mg Normal [facility] Comment on above: Performed By: #### L IPID, CMP #### [facility] [address] [address] [address] Owen Mckeon ECHOCARDIO M/2D COMPLETEon 0 09-02-2022 ECHOCARDIO M/2D COMPLETE Patient: ANSHUL SPENCER Exam Date: 09/02/2022 : 1980 Gender:M [facility]ing : [facility] Admission #: [id number] Family : DR ROSE MARY TIMMONS M.D. Order #: [id number] CLICK HERE TO VIEW EXAM ECHOCARDIOGRAM REPORT [...] Romo M.D. on 09/02/2022 at 09:47 Normal [facility] Creatinine and Glomerular fi ltration rate.predicted panel (S/P/Bld)Ordered By: John Padron on 01-12-2022 Creatinine [Mass/Vol] 0.92 mg/dL 0.64-1.27 [facility] Estimated glomerular filtrat ion rate (GFR) non- AmericanOrdered By: John Padron on 01-12-2022 GFR/1.73 sq M.predicted among non-blacks MDRD (S/P/Bld) [Vol rate/Area] > 60 mL/Min [facility] No Panel InformationOrdered By: John Padron on 01-12-2022 Estimated GFR () > 60 mL/Min [facility] Comment on above: GFR estimated refere nce range: According to KDOQI guidelines, <60 ml/min/1.73m2 is sufficient to diagnose a patient with chronic kidney disease. Pharmacy Creatinine Clearance (Chem 136.09 [facility] Serum or plasma anion gap de terminationOrdered By: John Padron on 01-12-2022 Anion gap [Moles/Vol] 14.1 mmol/L 6.0-15.[address] [facility] Serum or plasma calcium ben urement (mass/volume)Ordered By: John Padron on 01-12-2022 Calcium [Mass/Vol] 9.3 mg/dL 8.2-10.2 [facility] Serum or plasma chloride emi surement (moles/volume)Ordered By: John Padron on 01-12-2022 Chloride [Moles/Vol] 98 mmol/L 95-114 [facility] Serum or plasma glucose ben urement (mass/volume)Ordered By: John Padron on 01-12-2022 Glucose [Mass/Vol] 100 mg/dL 70-100 [facility] Comment on above: ADA recommended refe rence range Random Glucose Reference Range is dependent on time and content of last meal. Glucose of more than 200 mg/dL in a nonstressed, ambulatory subject supports the diagnosis of Diabetes Mellitus. Serum or plasma potassium me asurement (moles/volume)Ordered By: John Padron on 01-12-2022 Potassium [Moles/Vol] 3.9 mmol/L 3.5-5.1 [facility] Serum or plasma sodium measu rement (moles/volume)Ordered By: John Padron on 01-12-2022 Sodium [Moles/Vol] 136 mmol/L 136-146 [facility] Serum or plasma total carbon dioxide measurement (moles/volume)Ordered By: John Padron on 01-12-2022 CO2 [Moles/Vol] 27.8 mmol/L 22.0-30.0 [facility] Serum or plasma urea nitroge n measurement (mass/volume)Ordered By: John Padron on 01-12-2022 Urea nitrogen [Mass/Vol] 10 mg/dL 9-23 [facility] COVID-19 Positive/NegativeOr dered By: Woodrow Rashid on 01-10-2022 SARS-CoV-2 (COVID-19) N gene GAYE+probe Ql (Resp) Negative Negative [facility] Comment on above: Testing for SARS-CoV -2 by RT-PCR This test was developed and its performance characteristics determined by [employer] and validated at the [facility]. This test has not been [...] 01-10-2022 CHOL-HDL RATIO NORM SEE BELOW Normal [facility] Comment on above: Result Comment: 3.3 - 4.4 LOW RISK 4.4 - 7.1 AVERAGE RISK 7.1 - 11.0 MODERATE RISK >11.0 HIGH RISK Performed By: #### L IPID, BMP #### [facility] [address] [address] [address] Owen Mckeon Cholesterol [Mass/Vol] 202 mg/dL Critically high <=200 [facility] Comment on above: Performed By: #### L IPID, BMP #### [facility] [address] [address] [address] Owen Mckeon Cholesterol in HDL [Mass/Vol] 41 mg/dL Normal 40-60 [facility] Comment on above: Performed By: #### L IPID, BMP #### [facility] [address] [address] [address] Owen Mckeon Cholesterol in LDL [Mass/Vol] 136.8 mg/dL Normal [facility] Comment on above: Performed By: #### L IPID, BMP #### [facility] [address] [address] [address] Owen Mckeon Cholesterol.total/Courtney sterol in HDL [Mass ratio] 4.9 {ratio} Normal [facility] Comment on above: Performed By: #### L IPID, BMP #### [facility] [address] [address] [address] Owen Mckeon HDL NORMAL > or = 60 mg/dl - LOW CARDIOVASCULAR RISK <40 mg/dl - HIGH CARDIOVASCULAR RISK Normal [facility] Comment on above: Performed By: #### L IPID, BMP #### [facility] [address] [address] [address] Owen Mckeon LDL CALC NORMAL SEE BELOW Normal [facility] Comment on above: Result Comment: <100 mg/dl OPTIMAL 100 - 129 mg/dl NEAR OR ABOVE OPTIMAL 130 - 159 mg/dl BORDERLINE HIGH 160 - 189 mg/dl HIGH >190 mg/dl VERY HIGH Performed By: #### L IPID, BMP #### [facility] [address] [place] [address] Dr. Owen Mckeon Triglyceride [Mass/Vol] 121 mg/dL Normal <=150 [facility] Comment on above: Performed By: #### L IPID, BMP #### [facility] [address] [place] [address] Dr. Owen Mckeon VLDL CALC 24.2 mg/dL Normal [facility] Comment on above: Performed By: #### L IPID, BMP #### [facility] [address] [place] [address] Dr. Owen Mckeon PROF CHEM 8 (BAS METB)on Anion gap [Moles/Vol] 14.5 mmol/L Normal [facility] Comment on above: Performed By: #### L IPID, BMP #### [facility] [address] [place] [address] Dr. Owen Mckeon Calcium [Mass/Vol] 8.8 mg/dL Normal 8.5-10.1 [facility] Comment on above: Performed By: #### L IPID, BMP #### [facility] [address] [place] [address] Dr. Owen Mckeon Chloride [Moles/Vol] 99 mmol/L Normal 98-107 [facility] Comment on above: Performed By: #### L IPID, BMP #### [facility] [address] [place] [address] Dr. Owen Mckeon CO2 [Moles/Vol] 28.9 mmol/L Normal 21.0-32.0 [facility] Comment on above: Performed By: #### L IPID, BMP #### [facility] [address] [place] [address] Dr. Owen Mckeon Creatinine [Mass/Vol] 0.85 mg/dL Normal 0.70-1.30 [facility] Comment on above: Performed By: #### L IPID, BMP #### [facility] [address] [place] [address] Dr. Owen Mckeon EGFR-AF BOLIVIAN >60 Normal >=60 [facility] Comment on above: Performed By: #### L IPID, BMP #### [facility] [address] [place] [address] Dr. Owen Mckeon EGFR-NON AF BOLIVIAN >60 Normal >=60 [facility] Comment on above: Performed By: #### L IPID, BMP #### [facility] [address] [address] [address] Owen Mckeon Glucose [Mass/Vol] 87 mg/dL Normal 74-106 [facility] Comment on above: Performed By: #### L IPID, BMP #### [facility] [address] [address] [address] Owen Mckeon Potassium [Moles/Vol] 3.4 mmol/L Critically low 3.5-5.1 [facility] Comment on above: Performed By: #### L IPID, BMP #### [facility] [address] [place] [address] Dr. Owen Mckeon Sodium [Moles/Vol] 139 mmol/L Normal 136-145 [facility] Comment on above: Performed By: #### L IPID, BMP #### [facility] [address] [address] [address] Owen Mckeon Urea nitrogen [Mass/Vol] 10.0 mg/dL Normal 7.0-18.0 [facility] Comment on above: Performed By: #### L IPID, BMP #### [facility] [address] [place] [address] Dr. Owen Mckeon Urea nitrogen/Creatinine [Mass ratio] 11.8 mg/mg Normal [facility] Comment on above: Performed By: #### L IPID, BMP #### [facility] [address] [place] [address] Dr. Owen Mckeon Quick Strepon 09-06-2021 S. pyogenes Org specific cx Ql (Throat) Negative [facility] Other Quick Strep [place] Other CREATININE BLOODon 1 Creatinine [Mass/Vol] 0.91 mg/dL Normal 0.70-1.30 [facility] Comment on above: Performed By: #### [id number] #### [facility] [address] [place] [address], [facility] GFR/1.73 sq M.predicted among blacks MDRD (S/P/Bld) [Vol rate/Area] mL/min/{1.73_m2} Normal >60 [facility] Comment on above: Performed By: #### 2 [id number] #### [facility] [address] [place] [address], [facility] GFR/1.73 sq M.predicted among non-blacks MDRD (S/P/Bld) [Vol rate/Area] mL/min/{1.73_m2} Normal >60 [facility] Comment on above: Performed By: #### 2 [id number] #### [facility] [address] [place] [address], [facility] CTA CHESTon 10-22-2020 CTA CHEST [facility] Department of Radiology [address] [place] [id number] Patient Name: JENNA SPENCER : 1980 Sex: M Age: Race: White Pt. Location: 30 Patient Status: D Ordered Date: 09/21/2020 4:55:00 PM Completed Date: 10/22/2020 05:49 PM Requesting Provider: TAVO MENDOZA V Attending Provider: TAVO MENDOZA V Report Copy To: ROSE MARY TIMMONS Signs & Symptoms: I35.1 Nonrheumatic aortic (valve) insufficiency I10 History: [place] patient will need labs anthem auth [id number] valid 09/23/2020-10/22/2020 per aim [id number] *kw med nec passed Comments: with contrast [...] achievable Electronically signed: Bo Damico. Transcribed by: [email or web address], User Resident: Electronically Signed by: BO DAMICO @ 10/23/2020 12:41 PM Normal [facility] Comment on above: Order Comment: wit h contrast , (NOT a tavr per office) EKG 12 Leadon 05-18-2020 Atrial Rate [address] [facility], [place] P [place] [address] [facility], [place] P-R Interval 146 ms [facility] Q-T Interval 380 ms [facility] QRS Duration 94 ms [facility] QTc Calculation (Bazett) [address] [facility] R [place] -19 degrees [facility] [place], [place] T [place] [address] [facility] Ventricular Rate 79 BPM [facility], [place], [place] Incoming Results From [place] - 05/18/2020 9:08 AM EST Normal sinus rhythm Minimal voltage criteria for LVH, may be normal variant Borderline ECG No previous ECGs available Confirmed by Salty Reyes ([id number]) on 05/18/2020 9:08:[address] [facility] Normal sinus rhythm Minimal voltage criteria for LVH, may be normal variant Borderline ECG No previous ECGs available Confirmed by Salty Reyes () on 05/18/2020 9:08:[address] [facility] FLUORO FOR SURGICAL PROCEDUR ESon 05-18-2020 FLUORO [...] Rom Cunningham MD 05/19/20 Final result Normal [facility] MRI LUMBAR SPINE W WO CONTRA STon 05-18-2020 [place], Chpo Incoming Radiant Results From [employer] - 05/18/2020 8:48 AM EST Examination: MRI [...] spinal canal stenosis at the L4-5 level. [place], [place] Examination: MRI LUMBAR SPINE W WO [...] Visualized paravertebral soft tissues are grossly unremarkable. 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 Moderate spinal canal stenosis at the L4-5 level. [place], [place] Surgical Specimenon 05-18-19 Surgical Specimen [facility] [address], [place] [id number] FINAL SURGICAL PATHOLOGY REPORT Patient Name: ANSHUL SPENCER Accession No: [id number] Age Sex: 1980 Location: [facility] Account No: [id number] Collected: 05/18/2020 [facility] Rec No: [id number] Received: 05/19/2020 Attend Phys: PELON TIM Completed: [...] in one cassette following decalcification. MINA/MINA CPT: 57752 X1 09262 X1 CORTEZ VENEGAS M.D. 05/21/2020 Electronically signed out by Page 1 of 1 [facility] Comment on above: Performed By: #### S UR #### [address] [address] TYPE AND SCREENon 05-18-2020 ABO/Rh Positive [place], [place] Type and Screen Capture 3 sc rn cellon 05-18-2020 Type and Screen Capture 3 scrn cell PATIENT: JOHANNA Sanchez LOC: [id number], BILL# : [id number] : 1980 SEX: M ORDERED BY: GLENROY SANDHU ORDERED : 05/17/2020 23:05 COLLECTED: 05/17/2020 23:23 ORDER : [id number] RECEIVED : 05/17/2020 23:26 -- TEST NAME RESULT UNITS RANGES ABN FL ST ABORH Capture A POS F Antibody 3 Cell Scrn Captu NEG F - Normal [facility] Comment on above: Performed By: #### T S3C #### [facility] [address] [facility] [address] XR CHEST (SINGLE VIEW FRONTA L)on 05-18-2020 INR Coag (Bld) [Relative time] GANESH [place], [place] EXAMINATION: Portable Chest INDICATIONS: Preop back surgery. Dyspnea COMPARISONS: None available. FINDINGS: Heart and mediastinum within normal limits. Pulmonary vasculature unremarkable. Lung villareal clear. Bones and soft tissues intact. [place], [place] Incoming Radiant Results From [employer] - 05/18/2020 8:01 AM EST EXAMINATION: Portable Chest INDICATIONS: Preop back surgery. Dyspnea COMPARISONS: None available. FINDINGS: Heart and mediastinum within normal limits. Pulmonary vasculature unremarkable. Lung villareal clear. Bones and soft tissues intact. IMPRESSION: GANESH [place], [place] C-Reactive Proteinon 021 CRP [Mass/Vol] 4.0 mg/L Normal 0.0-5.0 [facility] Comment on above: Performed By: #### C RP #### [facility] [address] [place] [address] CRP [Mass/Vol] 4 mg/L 0 - 5 mg/L [place], [place] CBC Auto Differentialon 05-01 Basophils (Bld) [#/Vol] 0.1 10*3/uL 0 - 0.2 K/u L [place], [place] Basophils/100 WBC (Bld) 0.7 % [place], [place] Eosinophils (Bld) [#/Vol] 0.1 10*3/uL 0 - 0.7 K/uL [place] Eosinophils/100 WBC (Bld) 1.8 % [place] Erythrocyte distribution width (RBC) [Ratio] 13.7 % 11.5 - 14.5 % [place] Hematocrit (Bld) [Volume fraction] 44.8 % 42 - 52 % [place] Hemoglobin (Bld) [Mass/Vol] 15.0 g/dL 14 - 18 g/dL [place] Lymphocytes (Bld) [#/Vol] 2.3 10*3/uL 1 - 4.8 K/uL [place] Lymphocytes/100 WBC (Bld) 34.1 % [place] MCH (RBC) [Entitic mass] 30.2 pg 27 - 31.3 pg [place] MCHC (RBC) [Mass/Vol] 33.6 % 33 - 37 % [place] MCV (RBC) [Entitic vol] 90.1 fL 80 - 100 fL [place], [place] Monocytes (Bld) [#/Vol] 0.5 10*3/uL 0.2 - 0.8 K/uL [place] Monocytes/100 WBC (Bld) 7.8 % [place], [place] Neutrophils Absolute 3.8 K/uL 1.4 - 6 .5 K/uL [place] Neutrophils/100 WBC (Bld) 55.6 % [place] Platelets (Bld) [#/Vol] 243 10*3/uL 130 - 400 K/uL [place] RBC (Bld) [#/Vol] 4.97 10*6/uL [place] WBC (Bld) [#/Vol] 6.8 10*3/uL 4.8 - 10.8 K/uL [place] CBC With Platelet and Differ entialon 05-17-2020 Basophils (Bld) [#/Vol] 0.1 10*3/uL Normal 0.0-0.2 [facility] Comment on above: Performed By: #### C BCWD #### [facility] [address] [place] [address] Basophils/100 WBC (Bld) 0.7 % Normal [facility] Comment on above: Performed By: #### C BCWD #### [facility] [address] [place] [address] Eosinophils (Bld) [#/Vol] 0.1 10*3/uL Normal 0.0-0.7 [facility] Comment on above: Performed By: #### C BCWD #### [facility] [address] [place] [address] Eosinophils/100 WBC (Bld) 1.8 % Normal [facility] Comment on above: Performed By: #### C BCWD #### [facility] [address] [place] [address] Erythrocyte distribution width (RBC) [Ratio] 13.7 % Normal 11.5-14.5 [facility] Comment on above: Performed By: #### C BCWD #### [facility] [address] [place] [address] Hematocrit (Bld) [Volume fraction] 44.8 % Normal 42.0-52.0 [facility] Comment on above: Performed By: #### C BCWD #### [facility] [address] [place] [address] Hemoglobin (Bld) [Mass/Vol] 15.0 g/dL Normal 14.0-18.0 [facility] Comment on above: Performed By: #### C BCWD #### [facility] [address] [place] [address] Lymphocytes (Bld) [#/Vol] 2.3 10*3/uL Normal 1.0-4.8 [facility] Comment on above: Performed By: #### C BCWD #### [facility] [address] [place] [address] Lymphocytes/100 WBC (Bld) 34.1 % Normal [facility] Comment on above: Performed By: #### C BCWD #### [facility] [address] [place] [address] MCH (RBC) [Entitic mass] 30.2 pg Normal 27.0-31.3 [facility] Comment on above: Performed By: #### C BCWD #### [facility] [address] [place] [address] MCHC (RBC) [Mass/Vol] 33.6 % Normal 33.0-37.0 [facility] Comment on above: Performed By: #### C BCWD #### [facility] [address] [place] [address] MCV (RBC) [Entitic vol] 90.1 fL Normal 80.0-100.0 [facility] Comment on above: Performed By: #### C BCWD #### [facility] [address] [place] [address] Monocytes (Bld) [#/Vol] 0.5 10*3/uL Normal 0.2-0.8 [facility] Comment on above: Performed By: #### C BCWD #### [facility] [address] [place] [address] Monocytes/100 WBC (Bld) 7.8 % Normal [facility] Comment on above: Performed By: #### C BCWD #### [facility] [address] [place] [address] Neutrophils (Bld) [#/Vol] 3.8 10*3/uL Normal 1.4-6.5 [facility] Comment on above: Performed By: #### C BCWD #### [facility] [address] [place] [address] Neutrophils/100 WBC (Bld) 55.6 % Normal [facility] Comment on above: Performed By: #### C BCWD #### [facility] [address] [place] [address] Platelets (Bld) [#/Vol] 243 10*3/uL Normal 130-400 [facility] Comment on above: Performed By: #### C BCWD #### [facility] [address] [place] [address] RBC (Bld) [#/Vol] 4.97 10*6/uL Normal 4.70-6.10 [facility] Comment on above: Performed By: #### C BCWD #### [facility] [address] [place] [address] WBC (Bld) [#/Vol] 6.8 10*3/uL Normal 4.8-10.8 [facility] Comment on above: Performed By: #### C BCWD #### [facility] [address] [place] [address] COVID-19on 05-17-2020 COVID-19, NAAT Not Detected Normal Not Detect [facility] Comment on above: Result Comment: Rapi d NAAT: Negative results should be treated as [...] authorized laboratories. Fact sheet for Healthcare Providers: https://www.fda.gov/media/661372/download Fact sheet for Patients: https://www.fda.gov/media/270888/download METHODOLOGY: Isothermal Nucleic Acid Amplification Performed By: #### C OVPC #### [facility] [address] [place] [address] SARS-CoV-2, NAAT Not Detected Not Detected [place], [place] Comment on above: Rapid NAAT: Negative [...] authorized laboratories. Fact sheet for Healthcare Providers: https://www.fda.gov/media/076354/download Fact sheet for Patients: https://www.fda.gov/media/657550/download METHODOLOGY: Isothermal Nucleic Acid Amplification Comprehensive Metabolic Pane hair 05-17-2020 Albumin [Mass/Vol] 4.7 g/dL Critically high 3.5-4.[address] [facility] Comment on above: Performed By: #### C MP #### [facility] [address] [place] [address] ALP [Catalytic activity/Vol] 60 U/L Normal 35-104 [facility] Comment on above: Performed By: #### C MP #### [facility] [address] [place] [address] ALT [Catalytic activity/Vol] 32 U/L Normal 0-41 [facility] Comment on above: Performed By: #### C MP #### [facility] [address] [place] [address] Anion gap [Moles/Vol] 12 mmol/L Normal 9-15 [facility] Comment on above: Performed By: #### C MP #### [facility] [address] [place] [address] AST [Catalytic activity/Vol] 21 U/L Normal 0-40 [facility] Comment on above: Performed By: #### C MP #### [facility] [address] [place] [address] Bilirubin [Mass/Vol] mg/dL Normal 0.2-0.7 [facility] Comment on above: Performed By: #### C MP #### [facility] [address] [place] [address] Calcium [Mass/Vol] 9.3 mg/dL Normal 8.5-9.9 [facility] Comment on above: Performed By: #### C MP #### [facility] [address] [place] [address] Chloride [Moles/Vol] 99 mmol/L Normal 95-107 [facility] Comment on above: Performed By: #### C MP #### [facility] [address] [place] [address] CO2 [Moles/Vol] 26 mmol/L Normal 20-31 [facility] Comment on above: Performed By: #### C MP #### [facility] [address] [place] [address] Creatinine [Mass/Vol] 0.80 mg/dL Normal 0.70-1.20 [facility] Comment on above: Performed By: #### C MP #### [facility] [address] [place] [address] GFR/1.73 sq M predicted among blacks MDRD (S/P/Bld) [Vol rate/Area] mL/min/{1.73_m2} Normal >60 [facility] Comment on above: Result Comment: >60 mL/min/1.73m2 EGFR, calc. for ages 18 and older using the MDRD formula (not corrected for weight), is valid for stable renal function. Performed By: #### C MP #### [facility] [address] [place] [address] GFR/1.73 sq M.predicted MDRD (S/P/Bld) [Vol rate/Area] mL/min/{1.73_m2} Normal >60 [facility] Comment on above: Result Comment: >60 mL/min/1.73m2 EGFR, calc. for ages 18 and older using the MDRD formula (not corrected for weight), is valid for stable renal function. Performed By: #### C MP #### [facility] [address] [place] [address] Globulin (S) [Mass/Vol] 2.9 g/dL Normal 2.3-3.[address] [facility] Comment on above: Performed By: #### C MP #### [facility] [address] [place] [address] Glucose [Mass/Vol] 96 mg/dL Normal 70-99 [facility] Comment on above: Performed By: #### C MP #### [facility] [address] [place] [address] Potassium [Moles/Vol] 4.0 mmol/L Normal 3.4-4.9 [facility] Comment on above: Performed By: #### C MP #### [facility] [address] [place] [address] Protein [Mass/Vol] 7.6 g/dL Normal 6.3-8.0 [facility] Comment on above: Performed By: #### C MP #### [facility] [address] [place] [address] Sodium [Moles/Vol] 137 mmol/L Normal 135-144 [facility] Comment on above: Performed By: #### C MP #### [facility] [address] [place] [address] Urea nitrogen [Mass/Vol] 11 mg/dL Normal 6-20 [facility] Comment on above: Performed By: #### C MP #### [facility] [address] [place] [address] Albumin [Mass/Vol] 4.7 g/dL High 3.5 - 4.6 g/dL [place] ALP [Catalytic activity/Vol] 60 U/L 35 - 104 U/L [place] ALT [Catalytic activity/Vol] 32 U/L 0 - 41 U/L [place] Anion gap [Moles/Vol] 12 mmol/L [place], [place] AST [Catalytic activity/Vol] 21 U/L 0 - 40 U/L [place] Bilirubin Ql (U) <0.2 0.2 - 0.7 mg/dL [place] Calcium [Mass/Vol] 9.3 mg/dL 8.5 - 9.9 mg/dL [place] Chloride [Moles/Vol] 99 mmol/L [place] CO2 [Moles/Vol] 26 mmol/L [place] Creatinine [Mass/Vol] 0.8 mg/dL 0.7 - 1.2 mg/dL [place] GFR >60.0 >60 [place] Comment on above: >60 mL/min/1.73m2 EG FR, calc. for ages 18 and older using the MDRD formula (not corrected for weight), is valid for stable renal function. GFR Non- >60.0 >60 [place] Comment on above: >60 mL/min/1.73m2 EG FR, calc. for ages 18 and older using the MDRD formula (not corrected for weight), is valid for stable renal function. Globulin (S) [Mass/Vol] 2.9 g/dL 2.3 - 3.5 g/dL [place] Glucose [Mass/Vol] 96 mg/dL 70 - 99 mg/dL [place] Interpretation and review of laboratory results Abnormal [place] Potassium [Moles/Vol] 4.0 mmol/L [place] Protein [Mass/Vol] 7.6 g/dL 6.3 - 8 g/dL [place] Sodium [Moles/Vol] 137 mmol/L [place] Urea nitrogen [Mass/Vol] 11 mg/dL 6 - 20 mg/dL [place] MRI LUMBAR SPINE W WO CONTRA [...] Bo Kendrick DO 05/18/20 Final result Normal [facility] Microscopic Urinalysison Bacteria, UA MANY Abnormal Negative /HPF [place], [place] Epithelial Cells, UA 20-50 [place] Hyaline Casts, UA 5-10 [place] Interpretation and review of laboratory results Abnormal [place] RBC (U) [#/Vol] 0-2 [place] WBC, UA >100 High [place], [place] Sedimentation Rateon 021 Sedimentation Rate 9 mm Normal 0-10 [facility] Comment on above: Performed By: #### E SR #### [facility] [address] [place] [address] Sed Rate 9 mm 0 - 10 mm [place] Urinalysison 05-17-2020 Bilirubin Urine Negative Negative [place] Blood, Urine LARGE Abnormal Negative [place], [place] Clarity, UA TURBID Abnormal Clear [place], [place] Color, UA Yellow Straw/Yellow [place], [place] Glucose, Ur Negative Negative mg/dL [place] Interpretation and review of laboratory results Abnormal [place] Ketones Ql (U) TRACE Abnormal Negative mg/dL [place] Leukocyte esterase Test strip Ql (U) LARGE Abnormal Negative [place] Nitrite, Urine Positive Abnormal Negative [place], [place] pH, UA 5.5 [place] Protein (U) [Mass/Vol] 100 mg/dL Abnormal Negative [place] Specific [place], UA 1.023 [place], [place] Urobilinogen, Urine 0.2 <2.0 E.U./dL [place] Urinalysis, reflex to micros copicon 05-17-2020 Bilirubin Ql (U) Negative Normal Negative [facility] Comment on above: Performed By: #### T S3C #### [facility] [address] [place] [address] Clarity (U) TURBID Abnormal Clear [facility] Comment on above: Performed By: #### T S3C #### [facility] [address] [place] [address] Color (U) Yellow Normal Straw/Trego [facility] Comment on above: Performed By: #### T S3C #### [facility] [address] [place] [address] Glucose Ql (U) Negative Normal Negative [facility] Comment on above: Performed By: #### T S3C #### [facility] [address] [place] [address] Hemoglobin Ql (U) LARGE Abnormal Negative [facility] Comment on above: Performed By: #### T S3C #### [facility] [address] [place] [address] Ketones Ql (U) TRACE Abnormal Negative [facility] Comment on above: Performed By: #### T S3C #### [facility] [address] [place] [address] Leukocyte esterase Test strip Ql (U) LARGE Abnormal Negative [facility] Comment on above: Performed By: #### T S3C #### [facility] [address] [place] [address] Nitrite Ql (U) Positive Abnormal Negative [facility] Comment on above: Performed By: #### T S3C #### [facility] [address] [place] [address] pH (U) 5.5 [pH] Normal 5.0-9.0 [facility] Comment on above: Performed By: #### T S3C #### [facility] [address] [place] [address] Protein Ql (U) 100 mg/dL Abnormal Negative [facility] Comment on above: Performed By: #### T S3C #### [facility] [address] [place] [address] Specific gravity (U) [Rel density] 1.023 Normal 1.005-1.03 [facility] Comment on above: Performed By: #### T S3C #### [facility] [address] [place] [address] Urobilinogen Qn (U) 0.2 {Justine'U}/dL Normal < 2.0 [facility] Comment on above: Performed By: #### T S3C #### [facility] [address] [place] [address] Urine Microscopicon 05-17-19 21 RBC (U) [#/Vol] 0-2 Normal 0-2 [facility] Comment on above: Performed By: #### U DEVANG #### [facility] [address] [place] [address] Bacteria LM.HPF (Urine sed) [#/Area] MANY Abnormal Negative [facility] Comment on above: Performed By: #### U DEVANG #### [facility] [address] [place] [address] Urine Epithelial Cells Auto 20-50 Normal 0-5 [facility] Comment on above: Performed By: #### U DEVANG #### [facility] [address] [place] [address] Urine Hyaline Casts Auto 5-10 Normal 0-5 [facility] Comment on above: Performed By: #### U DEVANG #### [facility] [address] [place] [address] Urine WBC Auto >100 Critically high 0-5 [facility] Comment on above: Performed By: #### U DEVANG #### [facility] [address] [place] [address] XR CHEST (SINGLE VIEW FRONTA L)on 05-17-2020 XR CHEST (SINGLE VIEW FRONTAL) EXAMINATION: Portable Chest INDICATIONS: Preop back surgery. Dyspnea COMPARISONS: None available. FINDINGS: Heart and mediastinum within normal limits. Pulmonary vasculature unremarkable. Lung villareal clear. Bones and soft tissues intact. IMPRESSION: NAD Interpreted by: Levar Melvin MD Signed by: Levar Melvin MD 05/18/20 Final result Normal [facility] Dermatopathologyon 0 Dermatopathology [facility] Dermatopathology Laboratory [address] [place] [id number] DERMATOPATHOLOGY REPORT Name:ANSHUL SPENCERCindi [facility] Rec #. [id number] Location: [facility] Date of Procedure: 02/27/2020 Race: Date Received: [...] M.D. Electronically Signed Out By JASMIN BROUSSARD MD/[facility] By the signature on this report, the individual or group listed as making the Final Interpretation/Diag nosis certifies that they have reviewed this case. Clinical History: Atopic dermatitis vs. drug eruption 2/2 HCTZ. Biopsy. Specimens Submitted As: A: SKIN, L FOREARM Gross Description: Received in formalin is a chapa, cylindrical piece of skin measuring [id number]. The specimen is inked and embedded in toto. ink/03/02/2020 Normal [facility] Comment on above: Performed By: #### D #### Dermatopathology Vital Signs Date Time Vital Sign Value Performing Clinician Facility 03-01-2024 11:55-0400 Body height 188 cm [email or web address] Work Phone: [facility] 03-01-2024 11:55-0400 Body mass index (BMI) [Ratio] 28.89 kg/m2 [email or web address] Work Phone: [facility] 03-01-2024 11:55-0400 [facility] [employer] 02-01-2024 14:44-0400 Body height 187.96 cm [facility] 02-01-2024 14:44-0400 Body mass index (BMI) [Ratio] 29.9 kg/m2 [facility] 02-01-2024 14:44-0400 Body weight 105.91 kg [facility] 02-01-2024 14:44-0400 Diastolic blood pressure 82 mm[Hg] [facility] 02-01-2024 14:44-0400 Heart rate 86 /min [facility] 02-01-2024 14:44-0400 Respiratory rate 18 /min [facility] 02-01-2024 14:44-0400 SaO2% (BldA) [Mass fraction] 98 % [facility] 02-01-2024 14:44-0400 Systolic blood pressure 122 mm[Hg] [facility] 08-02-2023 11:01-0400 Body height 187.96 cm MD Rose Mary Timmons Work Phone: [facility] 08-02-2023 11:01-0400 Body mass index (BMI) [Ratio] 30.2 kg/m2 MD Rose Mary Timmons Work Phone: [facility] 08-02-2023 11:01-0400 Body weight 106.65 kg MD Rose Mary Timmons Work Phone: [facility] 08-02-2023 11:01-0400 Diastolic blood pressure 80 mm[Hg] MD Rose Mary Timmons Work Phone: [facility] 08-02-2023 11:01-0400 Heart rate 93 /min MD Rose Mary Timmons Work Phone: [facility] 08-02-2023 11:01-0400 Systolic blood pressure 120 mm[Hg] MD Rose Mary Timmons Work Phone: [facility] 06-26-2023 16:37-0500 Diastolic blood pressure 80 mm[Hg] MD Rose Mary Timmons Work Phone: [facility] 06-26-2023 16:37-0500 Heart rate 71 /min MD Rose Mary Timmons Work Phone: [facility] 06-26-2023 16:37-0500 Respiratory rate 16 /min MD Rose Mary Timmons Work Phone: [facility] 06-26-2023 16:37-0500 SaO2% (BldA) [Mass fraction] 96 % MD Rose Mary Timmons Work Phone: [facility] 06-26-2023 16:37-0500 Systolic blood pressure 125 mm[Hg] MD Rose Mary Timmons Work Phone: [facility] 06-26-2023 15:28-0500 Body temperature 98.4 [degF] MD Rose Mary Timmons Work Phone: [facility] 06-26-2023 14:12-0500 Body mass index (BMI) [Ratio] 28.8 kg/m2 MD Rose Mary Timmons Work Phone: [facility] 06-26-2023 13:49-0500 Body height 187.96 cm MD Rose Mary Timmons Work Phone: [facility] 06-26-2023 13:49-0500 Body weight 102.05 kg MD Rose Mary Timmons Work Phone: [facility] 06-13-2023 14:51-0500 Body height 188 cm Jonathan Shipman DO Work Phone: [facility] [employer] 06-13-2023 14:51-0500 Body mass index (BMI) [Ratio] 30.56 kg/m2 Jonathan Shipman DO Work Phone: [facility] [employer] 06-13-2023 14:51-0500 Body weight 107.96 kg Jonathan Shipman DO Work Phone: [facility] [employer] 06-07-2023 09:00-0500 Body height 185.42 cm Rose Mary Timmons Other [facility] Other 06-07-2023 09:00-0500 Body mass index (BMI) [Ratio] 30.72 kg/m2 Rose Mary Timmons Other [facility] Other 06-07-2023 09:00-0500 Body weight 105.64 kg Rose Mary Timmons Other [facility] Other 06-07-2023 09:00-0500 Diastolic blood pressure 76 mm[Hg] Rose Mary Timmons Other [facility] Other 06-07-2023 09:00-0500 Systolic blood pressure 110 mm[Hg] Rose Mary Timmons Other [facility] Other 01-30-2023 09:45-0400 Body height 185.42 cm Woodrow Buehrer Other [facility] Other 01-30-2023 09:45-0400 Body mass index (BMI) [Ratio] 29.68 kg/m2 Woodrow Pisanoehrer Other [facility] Other 01-30-2023 09:45-0400 Body temperature 97.8 [degF] Woodrow Melgarrer Other [facility] Other 01-30-2023 09:45-0400 Body weight 102.06 kg Woodrow Melgarrer Other [facility] Other 01-30-2023 09:45-0400 Diastolic blood pressure 62 mm[Hg] Woodrow Taliarer Other [facility] Other 01-30-2023 09:45-0400 SaO2% (BldA) [Mass fraction] 98 % Woodrow Melgarrer Other [facility] Other 01-30-2023 09:45-0400 Systolic blood pressure 114 mm[Hg] Woodrow Pisanoehrer Other [facility] Other 01-17-2023 08:45-0400 Body height 185.42 cm Guanaco Wolf Other [facility] Other 01-17-2023 08:45-0400 Body mass index (BMI) [Ratio] 30.9 kg/m2 Guanaco Wolf Other [facility] Other 01-17-2023 08:45-0400 Body weight 106.23 kg Guanaco Wolf Other [facility] Other 01-17-2023 08:45-0400 Diastolic blood pressure 72 mm[Hg] Guanaco Wolf Other [facility] Other 01-17-2023 08:45-0400 SaO2% (BldA) [Mass fraction] 98 % Guanaco Wolf Other [facility] Other 01-17-2023 08:45-0400 Systolic blood pressure 118 mm[Hg] Guanaco Wolf Other [facility] Other 01-03-2023 08:30-0400 Body height 185.42 cm Rose Mary Timmons Other [facility] Other 01-03-2023 08:30-0400 Body mass index (BMI) [Ratio] 30.76 kg/m2 Rose Mary Timmons Other [facility] Other 01-03-2023 08:30-0400 Body weight 105.78 kg Rose Mary Timmons Other [facility] Other 01-03-2023 08:30-0400 Diastolic blood pressure 74 mm[Hg] Rose Mary Timmons Other [facility] Other 01-03-2023 08:30-0400 Systolic blood pressure 113 mm[Hg] Rose Mary Timmons Other [facility] Other 01-03-2023 06:57-0400 Body height 187.96 cm MD Rose Mary Timmons Work Phone: [facility] 01-03-2023 06:57-0400 Body weight 102.05 kg MD Rose Mary Timmons Work Phone: [facility] 10-24-2022 09:15-0400 Body height 185.42 cm Guanaco Wolf Other [facility] Other 10-24-2022 09:15-0400 Diastolic blood pressure 70 mm[Hg] Guanaco Wolf Other [facility] Other 10-24-2022 09:15-0400 SaO2% (BldA) [Mass fraction] 98 % Guanaco Wolf Other [facility] Other 10-24-2022 09:15-0400 Systolic blood pressure 110 mm[Hg] Guanaco Wolf Other [facility] Other 07-15-2022 10:45-0400 Body height 185.42 cm Guanaco Wolf Other [facility] Other 07-15-2022 10:45-0400 Body mass index (BMI) [Ratio] 30.61 kg/m2 Guanaco Wolf Other [facility] Other 07-15-2022 10:45-0400 Body weight 105.24 kg Guanaco Wolf Other [facility] Other 07-15-2022 10:45-0400 Diastolic blood pressure 78 mm[Hg] Guanaco Wolf Other [facility] Other 07-15-2022 10:45-0400 SaO2% (BldA) [Mass fraction] 97 % Guanaco Wolf Other [facility] Other 07-15-2022 10:45-0400 Systolic blood pressure 120 mm[Hg] Guanaco Wolf Other [facility] Other 06-24-2022 09:30-0500 Body height 185.42 cm Guanaco Wolf Other [facility] Other 06-24-2022 09:30-0500 Body mass index (BMI) [Ratio] 30.84 kg/m2 Guanaco Wolf Other [facility] Other 06-24-2022 09:30-0500 Body weight 106.05 kg Guanaco Wolf Other [facility] Other 06-24-2022 09:30-0500 Diastolic blood pressure 86 mm[Hg] Guanaco Wolf Other [facility] Other 06-24-2022 09:30-0500 SaO2% (BldA) [Mass fraction] 97 % Guanaco Wolf Other [facility] Other 06-24-2022 09:30-0500 Systolic blood pressure 124 mm[Hg] Guanaco Wolf Other [facility] Other 06-23-2022 08:30-0500 Body height 185.42 cm Rose Mary Timmons Other [facility] Other 06-23-2022 08:30-0500 Body mass index (BMI) [Ratio] 31 kg/m2 Rose Mary Timmons Other [facility] Other 06-23-2022 08:30-0500 Body weight 106.6 kg Rose Mary Timmons Other [facility] Other 06-23-2022 08:30-0500 Diastolic blood pressure 74 mm[Hg] Rose Mary Timmons Other [facility] Other 06-23-2022 08:30-0500 SaO2% (BldA) [Mass fraction] 97 % Rose Mary Timmons Other [facility] Other 06-23-2022 08:30-0500 Systolic blood pressure 112 mm[Hg] Rose Mary Timmons Other [facility] Other 05-12-2022 09:30-0500 Body height 185.42 cm Rose Mary Timmons Other [facility] Other 05-12-2022 09:30-0500 Body mass index (BMI) [Ratio] 30.74 kg/m2 Rose Mary Timmons Other [facility] Other 05-12-2022 09:30-0500 Body weight 105.69 kg Rose Mary Timmons Other [facility] Other 05-12-2022 09:30-0500 Diastolic blood pressure 80 mm[Hg] Rose Mary Timmons Other [facility] Other 05-12-2022 09:30-0500 SaO2% (BldA) [Mass fraction] 97 % Rose Mary Timmons Other [facility] Other 05-12-2022 09:30-0500 Systolic blood pressure 110 mm[Hg] Rose Mary Timmons Other [facility] Other 01-31-2022 10:30-0400 Body height 187.96 cm Leyla Bolanos Other [facility] Other 01-31-2022 10:30-0400 Body mass index (BMI) [Ratio] 28.89 kg/m2 Leyla Bolanos Other [facility] Other 01-31-2022 10:30-0400 Body temperature 97 [degF] Leyla Bolanos Other [facility] Other 01-31-2022 10:30-0400 Body weight 102.06 kg Leyla Bolanos Other [facility] Other 01-31-2022 10:30-0400 Diastolic blood pressure 78 mm[Hg] Leyla Bolanos Other [facility] Other 01-31-2022 10:30-0400 SaO2% (BldA) [Mass fraction] 98 % Leyla Bolanos Other [facility] Other 01-31-2022 10:30-0400 Systolic blood pressure 118 mm[Hg] Leyla Bolanos Other [employer] Other 01-12-2022 11:01-0400 Diastolic blood pressure 79 mm[Hg] MD Rose Mary Timmons Work Phone: [facility] 01-12-2022 11:01-0400 Heart rate 80 /min MD Rose Mary Timmons Work Phone: [facility] 01-12-2022 11:01-0400 Respiratory rate 16 /min MD Rose Mary Timmons Work Phone: [facility] 01-12-2022 11:01-0400 SaO2% (BldA) [Mass fraction] 96 % MD Rose Mary Timmons Work Phone: [facility] 01-12-2022 11:01-0400 Systolic blood pressure 125 mm[Hg] MD Rose Mary Timmons Work Phone: [facility] 01-12-2022 07:41-0400 Body height 187.96 cm MD Rose Mary Timmons Work Phone: [facility] 01-12-2022 07:41-0400 Body mass index (BMI) [Ratio] 28.8 kg/m2 MD Rose Mary Timmons Work Phone: [facility] 01-12-2022 07:41-0400 Body weight 102.05 kg MD Rose Mary Timmons Work Phone: [facility] 01-12-2022 07:22-0400 Body temperature 97.9 [degF] MD Rose Mary Timmons Work Phone: [facility] 12-21-2021 11:00-0400 Body height 187.96 cm Leyla Bolanos Other [facility] Other 12-21-2021 11:00-0400 Body mass index (BMI) [Ratio] 28.89 kg/m2 Leyla Bolanos Other [facility] Other 12-21-2021 11:00-0400 Body temperature 98.3 [degF] Leyla Bolanos Other [facility] Other 12-21-2021 11:00-0400 Body weight 102.06 kg Leyla Bolanos Other [facility] Other 12-21-2021 11:00-0400 Diastolic blood pressure 68 mm[Hg] Leyla Bolanos Other [facility] Other 12-21-2021 11:00-0400 SaO2% (BldA) [Mass fraction] 97 % Leyla Bolanos Other [facility] Other 12-21-2021 11:00-0400 Systolic blood pressure 110 mm[Hg] Leyla Bolanos Other [facility] Other 09-21-2021 11:15-0400 Body height 187.96 cm Woodrow Rashid Other [facility] Other 09-21-2021 11:15-0400 Body mass index (BMI) [Ratio] 28.89 kg/m2 Woodrow Melgarrer Other [facility] Other 09-21-2021 11:15-0400 Body temperature 97.9 [degF] Woodrow Melgarrer Other [facility] Other 09-21-2021 11:15-0400 Body weight 102.06 kg Woodrow Melgarrer Other [facility] Other 09-21-2021 11:15-0400 Diastolic blood pressure 74 mm[Hg] Woodrow Melgarrer Other [facility] Other 09-21-2021 11:15-0400 SaO2% (BldA) [Mass fraction] 98 % Woodrow Melgarrer Other [facility] Other 09-21-2021 11:15-0400 Systolic blood pressure 116 mm[Hg] Woodrow Melgarrer Other [facility] Other 09-06-2021 17:00-0400 Body height 187.96 cm Lanie Robledo Other [facility] Other 09-06-2021 17:00-0400 Body mass index (BMI) [Ratio] 28.89 kg/m2 Lanie Robledo Other [facility] Other 09-06-2021 17:00-0400 Body temperature 97.7 [degF] Lanie Robledo Other [facility] Other 09-06-2021 17:00-0400 Body weight 102.06 kg Lanie Robledo Other [facility] Other 09-06-2021 17:00-0400 SaO2% (BldA) [Mass fraction] 95 % Lanie Robledo Other [facility] Other 07-12-2021 10:30-0400 Body height 187.96 cm Guanaco Wolf Other [facility] Other 07-12-2021 10:30-0400 Body mass index (BMI) [Ratio] 29.71 kg/m2 Guanaco Maryann Other [facility] Other 07-12-2021 10:30-0400 Body weight 104.96 kg Guanaco Maryann Other [facility] Other 07-12-2021 10:30-0400 Diastolic blood pressure 70 mm[Hg] Guanaco Wolf Other [place] Other 07-12-2021 10:30-0400 SaO2% (BldA) [Mass fraction] 98 % Guanaco Wolf Other [facility] Other 07-12-2021 10:30-0400 Systolic blood pressure 110 mm[Hg] Guanaco Maryann Other [facility] Other 06-10-2021 10:45-0500 Body height 187.96 cm Mando Casillasxa Other [facility] Other 06-10-2021 10:45-0500 Body mass index (BMI) [Ratio] 29.4 kg/m2 Mando Olexa Other [place] Other 06-10-2021 10:45-0500 Body weight 103.87 kg Mando Olexa Other [facility] Other 06-01-2021 14:45-0500 Body height 187.96 cm Mando Olexa Other [facility] Other 06-01-2021 14:45-0500 Body mass index (BMI) [Ratio] 29.48 kg/m2 Mando Olexa Other [facility] Other 06-01-2021 14:45-0500 Body weight 104.15 kg Mando Olexa Other [facility] Other 06-01-2021 09:30-0500 Body height 187.96 cm Guanaco Wolf Other [facility] Other 06-01-2021 09:30-0500 Body mass index (BMI) [Ratio] 29.42 kg/m2 Guanaco Wolf Other [facility] Other 06-01-2021 09:30-0500 Body weight 103.97 kg Guanaco Wolf Other [place] Other 06-01-2021 09:30-0500 Diastolic blood pressure 66 mm[Hg] Guanaco Wolf Other [place] Other 06-01-2021 09:30-0500 Respiratory rate 18 /min Guanaco Wolf Other [place] Other 06-01-2021 09:30-0500 SaO2% (BldA) [Mass fraction] 96 % Guanaco Wolf Other [facility] Other 06-01-2021 09:30-0500 Systolic blood pressure 118 mm[Hg] Guanaco Gironky Other [facility] Other 04-19-2021 10:00-0500 Body height 187.96 cm Guanaco Gironky Other [facility] Other 04-19-2021 10:00-0500 Body mass index (BMI) [Ratio] 28.91 kg/m2 Guanaco Gironky Other [place] Other 04-19-2021 10:00-0500 Body weight 102.15 kg Guanaco Gironky Other [place] Other 04-19-2021 10:00-0500 Diastolic blood pressure 76 mm[Hg] Guanaco Maryann Other [place] Other 04-19-2021 10:00-0500 SaO2% (BldA) [Mass fraction] 95 % Guanaco Wolf Other [place] Other 04-19-2021 10:00-0500 Systolic blood pressure 122 mm[Hg] Guanaco Gironky Other [place] Other 05-18-2020 14:00-0500 BP Diastolic 73 mm[Hg] [facility] [place] 05-18-2020 14:00-0500 BP Systolic 122 mm[Hg[facility] [place] 05-18-2020 14:00-0500 Pulse (Heart Rate) 89 /min [facility] [place] 05-18-2020 14:00-0500 Pulse Oximetry 92 % [facility] [place] 05-18-2020 14:00-0500 Respiratory Rate 17 /min [facility], [place] 05-18-2020 13:25-0500 Body Temperature 99 [degF] [facility], [place] 05-17-2020 15:01-0500 BMI (Body Mass Index) 30.17 kg/m2 [place], [place] 05-17-2020 15:01-0500 Body weight 106.59 kg [place], [place] 05-17-2020 15:010500 Height 188 cm [place], [place] Encounters Encounter Date Encounter Type Care Provider Facility Start: 05-13-2024 End: 05-13-2024 ambulatory Rose Mary Timmons MD Work Phone: [facility] Work Phone: Start: 05-13-2024 End: 05-13-2024 Patient encounter procedure Rose Mary Timmons MD Work Phone: [facility] Work Phone: Start: 05-13-2024 End: 05-13-2024 Patient encounter procedure Rose Mary Timmons MD Work Phone: [facility] Start: 05-13-2024 End: 05-13-2024 ambulatory Rose Mary Timmons MD Work Phone: [facility] Work Phone: Start: 04-16-2024 Non-patient / Non-visit Rose Mary Timmons MD Work Phone: [facility] Work Phone: Start: 04-03-2024 End: 04-03-2024 Patient encounter procedure Rose Mary Timmons MD Work Phone: [facility] Work Phone: Start: 03-01-2024 End: 03-01-2024 Office outpatient visit 10 minutes Jonathan Shipman DO Work Phone: [facility] Comment on above: Left groin pain (Lanie javier Dx) Start: 03-01-2024 End: 03-01-2024 ambulatory JONATHAN MARTINY Not Available Start: 02-01-2024 Patient encounter status [facility] Start: 02-01-2024 End: 02-01-2024 ambulatory [facility] Work Phone: Start: 02-01-2024 End: 02-01-2024 Encounter for general adult medical examination without abnormal findings [facility] Start: 02-01-2024 End: 02-01-2024 Patient encounter procedure [facility] Work Phone: Start: 12-22-2023 End: 12-22-2023 ambulatory [facility] Start: 08-08-2023 End: 08-08-2023 ambulatory JONATHAN SHIPMAN Not Available Start: 08-02-2023 End: 08-02-2023 ambulatory ZACHARY WILLIAM Not Available Start: 08-02-2023 End: 08-02-2023 ambulatory MD Rose Mary Timmons Work Phone: [facility] Work Phone: Start: 08-02-2023 End: 08-02-2023 Patient encounter procedure MD Rose Mary Timmons Work Phone: [facility] Work Phone: Start: 07-27-2023 End: 07-27-2023 ambulatory JONATHAN CABRERAFAY Not Available Start: 07-04-2023 End: 07-04-2023 ambulatory JONATHAN C LAFFAY Not Available Start: 06-26-2023 End: 06-26-2023 Admission to same day surgery center MD Rose Mary Timmons Work Phone: [facility] [place] Start: 06-26-2023 End: 06-26-2023 ambulatory Jonathan Shipman Facility:[facility] Start: 06-16-2023 End: 06-16-2023 Patient encounter procedure MD Rose Mary Timmons Work Phone: [facility] Work Phone: Start: 06-16-2023 End: 06-16-2023 ambulatory MD Rose Mary Timmons Work Phone: [facility] Work Phone: Start: 06-13-2023 End: 06-13-2023 Office outpatient new 45 minutes Jonathan Shipman DO Work Phone: [facility] Comment on above: Left inguinal hernia (Primary Dx); Left lower quadrant pain Start: 06-13-2023 End: 06-13-2023 ambulatory JONATHAN SHIPMAN Not Available Start: 06-13-2023 Telephone encounter Jonathan smith DO Work Phone: [facility] Start: 06-12-2023 End: 06-12-2023 ambulatory Rose Mary Timmons Other [facility] Other Start: 06-12-2023 Telephone encounter Rose Mary Timmons [facility] Start: 06-07-2023 End: 06-07-2023 ambulatory Rose Mary Timmons Other [facility] Other Start: 06-07-2023 Office outpatient vi sit 15 minutes Rose Mary Timmons [facility] Start: 01-30-2023 End: 01-30-2023 ambulatory Woodrow Rashid Other [facility] Other Start: 01-30-2023 Postop follow up vis it related to original px Woodrow Rashid [facility] Start: 01-17-2023 End: 01-17-2023 ambulatory Guanaco Wolf Other [facility] Other Start: 01-17-2023 Office outpatient vi sit 15 minutes Guanaco Wolf [facility] Start: 01-03-2023 Encounter for genera l adult medical examination without abnormal findings Rose Mary Timmons [facility] Start: 01-03-2023 Periodic preventive med est patient 40-64yrs Rose Mary Timmons [facility] Start: 01-03-2023 End: 01-03-2023 ambulatory MD Rose Mary Timmons Work Phone: [facility] Other Start: 01-03-2023 End: 01-03-2023 Patient encounter procedure MD Rose Mary Timmons Work Phone: [facility] [place] Work Phone: Start: 10-24-2022 End: 10-24-2022 ambulatory Guanaco Wolf Other [facility] Other Start: 10-24-2022 Office outpatient vi sit 25 minutes Guanacoaida Wolf [facility] Start: 09-27-2022 End: 09-27-2022 ambulatory Rose Mary Timmons Other [employer] Other Start: 09-27-2022 Telephone encounter Rose Mary Timmons [facility] Start: 09-14-2022 End: 09-15-2022 ambulatory MAGNO INIGUEZCKER Facility:[facility] Start: 09-02-2022 End: 09-03-2022 ambulatory [facility] Facility:[facility] Start: 09-01-2022 End: 09-01-2022 ambulatory MD Rose Mary Timmons Work Phone: [facility] Work Phone: Start: 09-01-2022 End: 09-01-2022 Patient encounter procedure MD Rose Mary Timmons Work Phone: [facility] Start: 08-26-2022 (Varithena1) Jordan Mcdaniel er [facility] Start: 08-26-2022 End: 08-26-2022 ambulatory Woodrow Rashid Other [facility] Other Start: 07-15-2022 End: 07-15-2022 ambulatory Rose Mary Timmons Other [place] Other Start: 07-15-2022 Office outpatient vi sit 15 minutes Guanaco Maryann [facility] Start: 07-15-2022 Telephone encounter Rose Mary Timmons [facility] Start: 07-01-2022 End: 07-01-2022 ambulatory MD Rose Mary Timmons Work Phone: [facility] Work Phone: Start: 07-01-2022 End: 07-01-2022 Patient encounter procedure MD Rose Mary Timmons Work Phone: [facility] [place] Work Phone: Start: 06-24-2022 End: 06-24-2022 ambulatory Guanacoaida Wolf Other [facility] Other Start: 06-24-2022 Office outpatient vi sit 25 minutes Guanaco Maryann [facility] Start: 06-23-2022 End: 06-23-2022 ambulatory Rose Mary Timmons Other [facility] Other Start: 06-23-2022 Office outpatient vi sit 15 minutes Rose Mary Timmons [facility] Start: 05-12-2022 End: 05-12-2022 ambulatory Rose Mary Timmons Other [facility] Other Start: 05-12-2022 Office outpatient vi sit 15 minutes Rose Mary Timmons [facility] Start: 05-10-2022 End: 05-10-2022 ambulatory Woodrow Rashid Other [facility] Other Start: 05-10-2022 Telephone encounter Woodrow Rashid [facility] Start: 03-07-2022 End: 03-07-2022 ambulatory Woodrow Rashid Other [facility] Other Start: 03-07-2022 Telephone encounter Woodrow Rashid [facility] Start: 01-31-2022 End: 01-31-2022 ambulatory Leyla Bolanos Other [facility] Other Start: 01-31-2022 Follow-up encounter Leyla Cici [facility] Start: 01-15-2022 Encounter for genera l adult medical examination without abnormal findings DR ROSE MARY TIMMONS [facility] Start: 01-12-2022 End: 01-12-2022 Admission to same day surgery center MD Rose Mary Timmons Work Phone: [facility] [place] Start: 01-10-2022 End: 01-11-[address] ROSE MARY TIMMONS Facility:[facility] Start: 01-10-2022 End: 01-11-2022 Encounter for general adult medical examination without abnormal findings DR ROSE MARY TIMMONS Facility:[facility] Start: 01-10-2022 End: 01-10-2022 Patient encounter procedure MD Rose Mary Timmons Work Phone: [facility] Start: 12-21-2021 End: 12-21-2021 ambulatory Leyal Bournemary carmen Other [facility] Other Start: 12-21-2021 Encounter for other preprocedural examination Leyla Cici [facility] Surgery Start: 12-21-2021 Follow-up encounter Leyla Cici [facility] Start: 12-21-2021 End: 12-21-2021 Patient encounter procedure MD Rose Mary Timmons Work Phone: [facility] Start: 09-23-2021 ambulatory MAGNO OLIVEIRA Facility :[facility] Start: 09-21-2021 End: 09-21-2021 ambulatory Woodrow Rashid Other [facility] Other Start: 09-21-2021 Office outpatient vi sit 15 minutes Woodrow Rashid [facility] V[facility] Surgery Start: 09-06-2021 End: 09-06-2021 ambulatory Lanie Robledo Other [facility] Other Start: 09-06-2021 Office outpatient vi sit 15 minutes Lanie Meena [facility] Start: 08-27-2021 End: 08-27-2021 ambulatory Guanaco Maryann Other [facility] Other Start: 08-27-2021 Telephone encounter Guanaco Wolf [facility] Start: 07-12-2021 End: 07-12-2021 ambulatory Guanaco Gironky Other [place] Other Start: 07-12-2021 Office outpatient vi sit 15 minutes Guanaco Wolf [facility] Start: 07-01-2021 (Procedure) Short Guanaco Wolf [facility] Start: 07-01-2021 End: 07-01-2021 ambulatory Mando Olexa Other [facility] Other Start: 07-01-2021 Office outpatient vi sit 15 minutes Mando Olexa [facility] Start: 06-10-2021 End: 06-10-2021 ambulatory Mando Olexa Other [facility] Other Start: 06-10-2021 Office outpatient vi sit 25 minutes Mando Olexa [facility] Start: 06-01-2021 End: 06-01-2021 ambulatory Guanaco Wolf Other [facility] Other Start: 06-01-2021 Office outpatient ne w 45 minutes Mando Olexa [facility] Start: 06-01-2021 Office outpatient vi sit 25 minutes Guanaco Wolf [facility] Start: 04-20-2021 End: 04-20-2021 ambulatory Guanaco Wolf Other [facility] Other Start: 04-20-2021 Telephone encounter Guanacoaida Wolf [facility] Start: 04-19-2021 End: 04-19-2021 ambulatory Guanaco Wolf Other [place] Other Start: 04-19-2021 Office outpatient vi sit 25 minutes Guanaco Wolf [facility] Start: 10-22-2020 End: 10-23-2020 ambulatory ROSE MARYCHENTE TIMMONS Facility:[facility] Start: 05-17-2020 End: 05-18-2020 Evaluation and management of inpatient ROSE MARY TIMMONS [facility] Start: 05-17-2020 End: 05-18-2020 Evaluation and management of inpatient Tamika Matthews Work Phone: [facility] Comment on above: Herniation of interv ertebral disc between L4 and L5 (Primary Dx); Postoperative pain Procedures Date Procedure Procedure Detail Performing Clinician Start: 05-13-2024 Plain X-ray of left shoulder Rose Mary Timmons MD Work Phone: Start: 06-26-2023 Laparoscopic repair of inguinal hernia [...] Work Phone: Start: 05-17-2020 COVID-19 Tamika Quiñonez [employer] Work Phone: Start: 05-17-2020 Radiologic exam ches [...] Phone: Start: 05-17-2020 C-reactive protein Ryan rivera Jensen [employer] Work Phone: Start: 05-17-2020 Comprehensive metabo lic panel Tamika Matthews Work Phone: Start: 05-17-2020 Urinalysis microscopic only Tamika [employer] Work Phone: Start: 05-17-2020 Urnls dip stick/tabl et rgnt auto w/o microscopy Tamika Crawley Work Phone: Plan of Treatment Date Care Activity Detail Author Start: 05-13-2024 Plain X-ray of left shoulder XR shoulder LT min 2V* [facility] Start: 05-13-2024 XR Shoulder - left Views [facility] Start: 12-31-2023 Influenza vaccination Influenza Vacc ine (#1) [facility] Start: 08-02-2023 Patient referral [facility] Work Phone: Start: 07-04-2023 End: 07-04-2023 Patient encounter procedure 07/04/2023 11:15 AM EST Office Visit [facility] [address] [id number] Jonathan Shipman DO [address] [place] [address] [facility] [address] [facility] Start: 06-26-2023 End: 06-26-2023 [facility] Start: 06-26-2023 End: 06-26-2023 Patient encounter procedure 06/26/2023 1:30 PM EST Procedure Visit [facility] Jonathan Shipman DO [address] [facility] [address] [place] [address] [facility] Start: 09-01-2022 Duplex scan of lower limb veins US venous duplex LE LT [facility] Start: 09-01-2022 US Lower extremity v ein - left [facility] Start: 01-12-2022 [facility] Work Phone: Start: 01-12-2022 [facility] Work Phone: Start: 05-17-2021 Creatinine measurement Creatinine mo nitoring [place], [place] Start: 05-17-2021 Potassium monitoring Potassium monit oring [place], [place] Start: 06-12-2020 End: 06-12-2020 Office Visit 06/12/2020 Office Visit Neurosurgery Pelon Tim MD [address] [place] [address] [employer] Start: 12-31-2019 Influenza vaccination Flu vaccine (# 1) [place], [place] Start: 2000 DTaP/Tdap/Td vaccine (1 - Tdap) DTaP/Tdap/Td vaccine (1 - Tdap) [place], [place] Start: 1996 HIV screening HIV screen [place], [place] Start: 1982 Varicella vaccine (1 of 2 - 2-dose childhood series) Varicella vaccine (1 of 2 - 2-dose childhood series) [place], [place] Start: 1980 Hepatitis C screening Hepatitis C sc reen [place] Comprehensive metabo lic 1999 panel - Serum or Plasma [facility] End: 05-18-2020 Fluoroscopy during operation FLUORO FOR SURGICAL PROCEDURES Imaging Routine Once for 1 Occurrences starting 05/18/2020 until 05/18/2020 [place] Comment on above: Once for 1 Occurrenc es starting 05/18/2020 until 05/18/2020 Fluoroscopy during operation FLUORO FOR SURGICAL PROCEDURES Imaging Routine 05/18/2020 12:44 PM EST [place] Patient Education Varicose Veins (DC) [facility] Work Phone: Patient referral [facility] Work Phone: Surgical Pathology Surgical Path ology Lab Routine Release Upon Ordering for 1 Occurrences starting 05/18/2020 [place] Comment on above: Release Upon Orderin g for 1 Occurrences starting 05/18/2020 [facility] Immunizations Immunization Date Immunization Notes Care Provider Fa cility 04-03-2024 influenza, seasonal, injectable, preservative free Rose Mary Timmons MD Work Phone: [facility] 03-01-2023 influenza, injectabl e, quadrivalent, preservative free Jonathan Laffay DO Work Phone: [facility] 03-01-2023 influenza virus vaccine, unspecified formulation Jonathan Laffay DO Work Phone: [facility] 02-08-2022 Seasonal, quadrivalent, recombinant, injectable influenza vaccine, preservative free Jonathan Laffay DO Work Phone: [facility] 02-10-2021 influenza, injectabl e, quadrivalent, preservative free Jonathan Laffay DO Work Phone: [facility] 08-07-2020 COVID-19 mRNA Comirnaty (Pfizer) MD Rose Mary Timmons Work Phone: [facility] 07-19-2020 COVID-19 mRNA Comirnaty (Pfizer) MD Rose Mary Timmons Work Phone: [facility] 01-14-2020 influenza virus vaccine, split virus (incl. purified surface antigen) Rose Mary Timmons Other [facility] Other 01-14-2020 influenza virus vaccine, unspecified formulation MD Rose Mary Timmons Work Phone: [facility] 01-14-2020 influenza, injectabl e, quadrivalent, preservative free Jonathan Laffay DO Work Phone: [facility] 12-31-2019 influenza, seasonal, injectable Jonathan Shipman DO Work Phone: [facility] 02-12-2019 influenza, injectabl e, quadrivalent, preservative free Jonathan Shipman DO Work Phone: [facility] 12-12-2018 tetanus and diphther ia toxoids, adsorbed, preservative free, for adult use (2 Lf of tetanus toxoid and 2 Lf of diphtheria toxoid) Jonathan Shipman DO Work Phone: [facility] 12-12-2018 tetanus and diphther ia toxoids, adsorbed, preservative free, for adult use (5 Lf of tetanus toxoid and 2 Lf of diphtheria toxoid) MD Rose Mary Timmons Work Phone: [facility] 12-12-2018 tetanus toxoid, reduced diphtheria toxoid, and acellular pertussis vaccine, adsorbed Rose Mary Timmons Other [facility] Other Payers Date Payer Category Payer Self-pay [id number] 2021 [facility] [id number] 2021 Unknown BCBS BCBS [id number] [id number] 2021-Present [phone] [address] [place] [address] [id number] 2009 Unknown [id number] 1980 Unknown [id number] 2.16.840.1.002867.3.579.2 .182 1981 Unknown [id number] 2.16.840.1.958800.3.579.2 .647 1981 Unknown [id number] 2.16.840.1.688339.3.579.2 .593 1981 Unknown [id number] 2.16.840.1.587552.3.579.2 .593 1981 Unknown [id number] 2.16.840.1.439126.3.579.2 .593 1981 Unknown [id number] 2.16.840.1.689534.3.579.2 .593 1981 Unknown [id number] 2.16.840.1.521657.3.579.2 .1259 1981 Unknown [id number] 2.16.840.1.237165.3.579.2 .1259 1981 Unknown [id number] 2.16.840.1.266284.3.579.2 .1259 1981 Unknown [id number] 2.16.840.1.608597.3.579.2 .1259 1981 Unknown [id number] 2.16.840.1.322054.3.579.2 .1259 1981 Unknown [id number] 2.16.840.1.517447.3.579.2 .1259 1959 Blue Cross Blue Shield M9PAN [id number] 2.16.840.1.425301.19 1959 Self-pay [id number] Unknown [id number] 2.16.840.1.743768.3.579.2 .531 Unknown [id number] 2.16.840.1.143213.3.579.2 .531 Unknown [id number] 2.16.840.1.976964.3.579.2 .531 Social History Date Type Detail Facility Start: 05-18-2020 Tobacco smoking stat us NHIS Unknown if ever smoked [facility] Start: 05-18-2020 Tobacco use and exposure Never used [facility] Start: 1980 [facility] Assigned At [facility] file [facility] Exposure to SARS-CoV -2 (event) Not sure [facility] Start: 06-13-2023 End: 03-01-2024 Sex Assigned At [facility] Start: 1980 Sex Assigned At Male F [facility] Start: 06-13-2023 End: 06-26-2023 Tobacco smoking status NHIS Never smoked tobacco [facility] Start: 06-13-2023 Tobacco use and exposure Former smokeless tobacco user [facility] End: 05-01-2011 History of tobacco use Snuff User [facility] Start: 06-13-2023 Alcohol intake Ex-drinker (finding) [facility] Start: 06-13-2023 End: 03-01-2024 History of Social function [facility] Start: 03-01-2024 Alcoholic beverage intake Current [...] caffeine: 3-4 cups per day [facility] Start: 05-13-2024 End: 05-14-2024 Sex Male (finding) [facility] Medical Equipment Procedure Code Equipment Code Equipment Origin al Text Equipment Identifier Dates Repair, hernia, inguinal, laparoscopic Abdominal hernia surgical mesh, synthetic polymer, non-bioabsorbable ([id number] [facility] Start: 06-26-2023 Goals Date Patient Goal Desired Activity /State Clinical Notes 06-27-2020 to 05-13-2024 Note Date & Type Note Facility 05-13-2024 Evaluation note Diagnosis Onset Date Resolution Left rotator cuff tear acute Curt carroll 2024 9:06am Pain in left shoulder acute Mahendra tracy 2024 9:06am Subacromial impingement of left shoulder acute May 13 025 9:06am [facility] Work Phone: [phone]) 428-363011-01-2024 History of Present illness Narrative* Jonathan Shipman, - 03/01/2024 12:00 PM EDT Images from the original note were not [...] bit more pronounced the last couple months. Hewas dragging a 200 lb deer out of [...] about but once relaxed can be thoroughly examinedand there is no hernia whatsoever. Same on the left side, once patient gets over the touching is ofadvancing finger to the inguinal canal thorough exam [...] Thankfully does not appear to need any surgicalintervention. Unfortunately As we had discussed prior to surgery tugging and pulling may be a chronic symptom. I discussed with him ibuprofen or other anti-inflammatories. Avoidance of things that seem to bother that. If he is having change in symptoms or bulging or sharp pain lower in the groin orwith coughing or sneezing could re-evaluate. Would not expect imaging to be useful with these current symptoms. He understands. I am happy to see him again on an as-needed basis otherwise he is discharged from my care. No follow-ups on file. documented in this encounterSSM Health [facility] Children's [id number] NoteUT Cardiology - [facility] Subjective ANSHUL Spencer is a [...] testing: EKG 05/29/2020: No (more content not included)...[facility]02-13-2024 Telephone encounter Note* Telephone Encounter - Sarah Allred - 06/13/2023 3:26 PM EST excuse [facility] [id number] Miscellaneous Notes* Telephone Encounter - Sarah Allred - 06/13/2023 3:26 PM EST excuse documented in this encounterNONorth [facility] City [id number] History of Present illness Narrative* Jonathan Shipman, DO - 06/13/2023 3:00 PM EST Images from the original note were not [...] a feeling in his groin and in hisabdomen as if he was kicked in the [...] is okay. 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 documented in this encounterSSM Health Cardinal Glennon Children's [id number] Evaluation note* Encounter Date Diagnosis Assessment Notes Treatment Notes Treatment Clinical Notes Jun, Left inguinal pain (ICD-10 - R10.32) Pt agrees to gen surgery referral. continue motrin in the meantime. [facility] Other 10-02-2023 Evaluation note* Encounter Date Diagnosis [...] see him back on an as-needed basis. [facility] Other 09-19-2023 Evaluation note* Encounter Date Diagnosis [...] call the office if his symptoms return [facility] Other 09-05-2023 Evaluation note* Encounter Date Diagnosis [...] patient is sent home pleased, without concerns. [facility] Other 06-26-2023 Evaluation note* Encounter Date Diagnosis [...] (ICD-10 - G89.29) Follow up after imaging [facility] Other 03-17-2023 Evaluation note* Encounter Date Diagnosis [...] Stable. Patient denies low back pain today [facility] Other 02-24-2023 Evaluation note* Encounter Date Diagnosis [...] - M51.36) Stable, proceed with treatment plan. [facility] Other 02-23-2023 Evaluation note* Encounter Date Diagnosis Assessment Notes Treatment Notes Treatment Clinical Notes Jun, Other insomnia (ICD-10 - G47.09) Increase dose - if not helpful, may need referral to Sleep Clinic. [facility] Other 01-12-2023 Evaluation note* Encounter Date Diagnosis Assessment Notes Treatment Notes Treatment Clinical Notes May, Other insomnia (ICD-10 - G47.09) Patient is advised to have a set bedtime routine. Do a quiet non stressful activity before bed. Patient to start with the above medication and we will continue to monitor. [facility] Other 10-03-2022 Evaluation note* Encounter Date Diagnosis [...] agrees with this plan, denies any questions. [facility] Other 08-23-2022 Evaluation note* Encounter Date Diagnosis [...] I83.893) left worse than the right, pain [facility] Other 05-24-2022 Evaluation note* Encounter Date Diagnosis [...] those options when we see his ultrasound. [facility] Other 05-09-2022 Evaluation note* Encounter Date Diagnosis Assessment Notes Treatment Notes Treatment Clinical Notes August, Sore throat (ICD-10 - J02.9) August, Viral pharyngitis (ICD-10 - J02.9) Drink plenty fluids, get plenty of rest. Take Tylenol Motrin for aches pains or fevers. Continue your home medications as prescribed. Follow-up with your family physician if no improvement in 2 to 3 days. [facility] Other 04-29-2022 Evaluation note* Encounter Date Diagnosis Assessment Notes Treatment Notes Treatment Clinical Notes Jul, Lumbar degenerative disc disease (ICD-10 - M51.36) [facility] Other 03-14-2022 Evaluation note* Encounter Date Diagnosis [...] (ICD-10 - G89.29) Continue medications as prescribed [facility] Other 03-03-2022 Evaluation note* Encounter Date Diagnosis [...] tear can worsen and enlarge with time [facility] Other 02-10-2022 Evaluation note* Encounter Date Diagnosis [...] pain of left shoulder (ICD-10 - M25.512) [facility] Other 02-01-2022 Evaluation note* Encounter Date Diagnosis [...] derangement of left shoulder (ICD-10 - M24.812) [facility] Other 02-01-2022 Evaluation note* Encounter Date Diagnosis [...] Status post spinal surgery (ICD-10 - Z98.890) [facility] Other 12-20-2021 Evaluation note* Encounter Date Diagnosis [...] negative findings were considered in medical decision-making. [facility] Other 02-27-2021 NotePatient Outreach (COVAMN) JENNA SPENCER ([id number]) 1980 M Date Time Provider Department 06/27/20 ROBERT NICOLAS During your visit today, we recorded the following information about you: Allergies As of Date: 06/27/2020 (No Known Allergies) Date Reviewed: 05/21/2018 Reviewed by: Jonna Lee) Gio - Fully Assessed Order(s):SARS-COVID VACCINE 1ST DOSE APPT [[id number]] Order #: [id number] FUTURE Prescriptions as of 06/27/2020 Sig: LISINOPRIL [...] (None) Encounter Status:Closed by JOSEPH, PRODUSER on 06/30/20[facility] Chief complaint+Reason for visit Narrative* Chief Complaint Hernia Hernia REFERRAL FOR ENT Reason for Visit Bilateral tinnitus [facility] Work Phone: Evaluation noteNo InformationNortLehigh [facility] [employer] Other Evaluation noteNo assessment information available [facility] Work Phone: Evaluation note* Diagnosis Left inguinal hernia- Primary Inguinal hernia without mention of obstruction or gangrene, unilateral or unspecified, (not specified as recurrent) Left lower quadrant pain Abdominal pain, left lower quadrant documented in this encounter [facility] HealthcareEvaluation note* Diagnosis Onset Date Resolution Status Bilateral tinnitus acute [facility] Work Phone: Evaluation note* Diagnosis Onset Date Resolution Status Fatigue acute Wellness examination acute [facility] Work Phone: Evaluation note* Diagnosis Left groin pain- Primary Abdominal pain, left lower quadrant documented in this encounter [facility] Healthcare[facility]* Diagnosis Onset Date Resolution Status Admit Date Left rotator cuff tear acute Ja nuary 2024 9:06am Pain in left shoulder acute Mahendra uashahnaz 2024 9:06am Subacromial impingement of l eft shoulder acute May 13 9:06am Traumatic rupture of supraspinatus tendon of left shoulder acute May 13 9:06am [facility] Work Phone: History general Narrative - Reported* [...] Hospitalization History see above surgical histo ry [facility] [employer] Other Hospital Discharge instructionsAmbulatory Orders* Referral to [...] Agents on File Name Relationship Healthcare Agent Relationshi p Communication Florence Spencer Spouse Primary Decision [...] your physician 11) Call your doctor at [phone] for an appointment (or follow up as [...] call OFFICE. The 24- hour phone is [phone] 13) If you are unable to contact [...] WELLNESS Reason for Visit Fatigue Wellness examination Chief Complaint Admit Date flu shot April 03, 2024 2 :36pm M25.512 - Pain in left shoulder May 13, 2024 7:57am OP/SP LEFT SHOULDER PAIN May 13, 2 025 9:06am Reason for Visit Admit Date Left rotator cuff tear May 13 9:06am Pain in left shoulder May 13, 2024 9:06am Subacromial impingement of left shoulder May 13, 2024 9:06am Traumatic rupture of supraspinatus tendo n of left shoulder May 13, 2024 9:06am Reason for Visit Admit Date Left rotator cuff tear May 13 9:06am Pain in left shoulder May 13, 2024 9:06am Subacromial impingement of left shoulder May 13, 2024 9:06am Reason for Referral Reason *FU 06/14 [place] [facility] - likely inguinal hernia (L) Diagnosis 1 Left inguinal pain ( R10.32) Referral Organization [facility] Brayden ansari Referring Provider First Name Rose Mary Referring Provider Last Name Shanelle Referring Provider Specialty [facility] Referred Organization [facility] Referred Provider Jonathan Shipman Referred Address ,[place], [place],[address] Referred Provider Specialty Surgery Referral Priority Routine [...] and content) DATE CREATED AUTHOR 03/03/2020 [facility] DATE CREATED AUTHOR AUTHOR'S ORGANIZ ATION 05/22/2020 [facility] DATE CREATED AUTHOR AUTHOR'S ORGANIZ ATION 12/18/2020 [facility] DATE CREATED AUTHOR AUTHOR'S ORGANIZ ATION 06/08/2021 [facility] DATE CREATED AUTHOR AUTHOR'S ORGANIZ ATION 09/15/2022 [facility] DATE CREATED AUTHOR AUTHOR'S ORGANIZ ATION 12/24/2023 [facility] DATE CREATED AUTHOR AUTHOR'S ORGANIZ ATION 03/03/2024 [facility] EPIC DATE CREATED AUTHOR AUTHOR'S ORGANIZ ATION 05/16/2024 [facility] Reason for Visit (unrecogniz ed section and content) Reason Comments Back Pain Seen by Dr Tim 05/08, told to come to the ER if pain gets worse Status Reason Specialty Diagnoses / Procedures Re ferred By Contact Referred To Contact Diagnoses Herniation of left side of L4-L5 intervertebral disc Pelon Tim MD [address], [address] [place] [address] [facility] Reason Comments Consult Inguinal hernia, Lef t Specialty Diagnoses / Procedures Referred By Contac t Referred To Contact General Surgery Diagnoses Left lower quadrant pain Procedures [facility] OFFICE/OUTPATIENT [facility] 60 MINUTES Rose Mary Timmons MD [address] [place] [address] [facility] [address] [facility] [place] [address] Referral ID Status Reason Start Date Expiration Date V isits Requested Visits Authorized [id number] Closed Specialty Services Required 06/08/2023 12/05/2023 1 [...] Active Guanaco Wolf MD Attending Provider Active 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 Relationship Specialty Start Date End Date Rose Mary Timmons MD [address] [facility] [place] [address] PCP - General Family Medicine 06/12/23 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 Relationship Specialty Start Date End Date Rose Mary Timmons MD [address] [facility] [place] [address] PCP - General Family Medicine 06/12/23 Team [...] February 01, 2024 End: February 01, 2024 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 Relationship Specialty Start Date End Date Rose Mary Timmons MD [address] [place] [address] PCP - General Family Medicine 06/12/23 Team Status: Inactive Member Role Status Dates Rose Mary Timmons MD Primary Care Provider Active Start: April 03, 2024 End: April 03, 2024 Maulik Owen DO Attending Provider Active Sta rt: April 03, 2024 End: April 03, 2024 Team Status: Active Member Role Status Dates Rose Mary Timmons MD Primary Care Provide r, Attending Provider Active Start: April 16, 2024 Team Status: Active Member Role Status Dates Mando Forde MD Attending Provider Active Star t: May 13, 2024 Rose Mary Timmons MD Primary Care Provider Active Start: May 13, 2024 Team Status: Inactive Member Role Status Dates Rose Mary Timmons MD Primary Care Provider Active Start: May 13, 2024 End: May 13, 2024 Mando Forde MD Attending Provider Active Star t: May 13, 2024 End: May 13, 2024 Team Status: Inactive Member Role Status Dates Mando Forde MD Attending Provider Active Star t: May 13, 2024 End: May 13, 2024 Rose Mary Timmons MD Primary Care Provider Active Start: May 13, 2024 End: May 13, 2024 Goals (unrecognized section and content) Goals may [...] BE BASED ON THE PRIMARY CLINICAL RECORDS. [employer] provides no warranty or guarantee of the accuracy or completeness of information in this document.
[2024-08-06 12:04] LABS: Basophils Absolute Auto 0.1 10^3/uL (0.0-0.1); Basophils Percent Auto 0.9 % (0.2-2.0); Eosinophils Absolute Auto 0.1 10^3/uL (0.0-0.7); Eosinophils Percent Auto 0.9 % (0.9-7.0); Hematocrit 41.3 % (42.0-54.0); Immature Granulocytes Abs Auto 0.02 10^3/uL (0.00-0.03); Immature Granulocytes Pct Auto 0.4 % (0.0-0.5); Lymphocytes Absolute Auto 1.5 10^3/uL (1.2-3.8); Lymphocytes Percent Auto 26.6 % (20.5-60.0); Mean Corpuscular HGB Conc 33.9 g/dL (29.9-35.2); Mean Corpuscular Hemoglobin 30.2 pg (25.9-34.0); Mean Platelet Volume 11.2 fL (9.5-13.5); Monocytes Absolute Auto 0.5 10^3/uL (0.3-0.8); Neutrophils Absolute Auto 3.5 10^3/uL (1.4-6.5); Neutrophils Percent Auto 63.2 % (43.0-75.0); Platelet Count 244 10^3/uL (150-450); Red Blood Count 4.64 10^6/uL (4.70-6.10); Red Cell Distribution Width 12.7 % (11.0-15.0); White Blood Count 5.6 10^3/uL (4.0-11.0)
[2024-08-07 02:16] LABS: Vitamin B12 568 pg/mL (232-1245)
== END 2024-08-06 11:18 | disposition home or self-care (01) ==
LOC: LAB 11:18
PROVIDERS: PCP Family Medicine; Visit Provider Family Medicine
DX: D64.9 Anemia, unspecified (principal)
CPT/HCPCS: 36415; 82607; 82728; 82746; 85025

== ENCOUNTER 2024-11-22 08:24 | Outpatient (OUT) | payer BC, SELFPAY ==
--- NOTE | 2024-11-22 08:30 | CA_ITS ---
Patient Name: ALISA SPENCER MR#: [id number] : 1980 Exam Date: 11/22/2024 Ordering Doctor: DR TAVO MCGUIRE M.D. ECHOCARDIOGRAM REPORT PROCEDURE: CA ECHO DOPPLER COMPLETE INDICATIONS: Bicuspid aortic valve, aortic insufficiency, hypertension COMPARISON: None. DESCRIPTION: COMPLETE ECHOCARDIOGRAM Real-time transthoracic echocardiography with 2D, M-mode, spectral and color flow Doppler performed. QUALITY: Technical quality was good. LEFT VENTRICLE: Normal chamber size. Borderline concentric hypertrophy. Systolic function is normal. Estimated LVEF is 55%. LV EF: Normal left ventricular ejection fraction, (55%). DIASTOLIC: Normal diastolic function. ATRIAL SEPTUM: Visually appears intact. LEFT ATRIUM: Mild dilatation. RIGHT ATRIUM: Mild dilatation. RIGHT VENTRICLE: Mild dilatation. Normal right ventricular systolic function. TRICUSPID VALVE: Normal mobility and thickness. No stenosis with trivial regurgitation. No evidence of pulmonary hypertension. RVSP 32 mmHg MITRAL VALVE: Normal mobility and thickness. No evidence of mitral valve stenosis. There is no mitral annular calcification. Mild mitral regurgitation. AORTIC VALVE: No evidence of aortic valve stenosis. Bicuspid aortic valve Eliu type 1 (fusion of right and left cusps). Mild to moderate aortic regurgitation. AORTIC ROOT: Normal diameter and appearance, measuring 3.4 cm. Ascending aorta is normal in size, measuring 3.2 cm. PULMONIC VALVE: Normal thickness and mobility. No stenosis. No regurgitation. PERICARDIUM: No evidence of pericardial effusion. IVC: Collapses with inspiration. IVC is normal in size. PLEURA: CONCLUSION: 1. Normal left ventricular size with borderline hypertrophy. Systolic function is normal. Estimated LVEF is 55%. 2. Mildly dilated right ventricle with normal systolic function. 3. Mild biatrial dilatation. 4. Normal diastolic function. 5. Bicuspid aortic valve [Eliu type I] with mild to moderate regurgitation and no stenosis. 6. Normal right-sided pressures. 7. Ascending aorta and aortic root are normal in size. Adult Echocardiography Procedure Report Left Ventricle LVEDD (3.7 - 5.6 cm): 4.96 cm LVESD (2.2 - 4.0 cm): 3.42 cm LVIVS thickness (0.6 - 1.2 cm): 1.12 cm LVPW thickness (0.5 - 1.0 cm): 1.05 cm e': 0.17 m/s E - e': 4.79 LVOT Max Gradient: 5.27 mm[Hg] LVOT Area (cm2): 1.15 m/s Peak Velocity (LVOT): 1.15 m/s Mean Velocity (LVOT): 0.77 m/s LVOT Diameter 2.48 cm Left Ventricular Ejection Fraction: 55 % Left Atrium LA Volume Index (2D A2C): 41.06 ml/m2 Left Atrium Systolic Dimension: 4.13 cm Mitral Valve MV E to A Ratio: 1.24 Mitral Valve A-Wave Peak Velocity: 0.67 m/s Mitral Valve E-Wave Peak Velocity: 0.83 m/s Right Ventricle Aorta AO Root Diam: 3.43 cm Ascending Ao Diam: 3.23 cm Aortic Valve AoV Area (Peak Lawrence): 3.49 cm2, 3.49 cm2 AoV Area (VTI): 3.70 cm2, 3.70 cm2 Deceleration Dewey: 1.80 m/s2 Pressure Half-Time: 708.22 ms Peak Velocity(Antegrade Flow): 1.59 m/s Peak Gradient(Antegrade Flow): 10.10 mm[Hg] Mean Velocity(Antegrade Flow): 1.12 m/s Mean Gradient(Antegrade Flow): 5.61 mm[Hg] Velocity Time Integral: 37.98 cm Tricuspid Valve Peak Velocity (Regurgitant Flow): 2.70 m/s Pulmonic Valve Peak Gradient: 5.09 mm[Hg], 5.93 mm[Hg] Right Atrium Right Atrium Systolic Pressure: 79.59 ml, 79.59 ml Dictated by: Tavo Mcguire M.D. on 11/25/2024 at 08:46 Approved by: Tavo Mcguire M.D. on 11/25/2024 at 08:54
== END 2024-11-22 08:25 | disposition home or self-care (01) ==
LOC: CARD 08:25
PROVIDERS: PCP Family Medicine; Visit Provider Internal Medicine Interventional Cardiology
DX: I35.1 Nonrheumatic aortic (valve) insufficiency (principal); Q23.1 Congenital insufficiency of aortic valve
CPT/HCPCS: 93306

== ENCOUNTER 2025-01-22 08:25 | Outpatient (OUT) | payer BC, SELFPAY ==
--- OUTSIDE RECORDS SUMMARY | 2025-01-22 08:39 | XMS_ITS | CCD ---
Author Organization [facility] Care Team Providers Care Teletypesetter Monitor Name Role Phone ROSE MARY TIMMONS Primary Care Unavailable GLENROY, PELON HCindi Admitting Unavailable GLENROY, PELON H. Attending Unavailable Rose Mary Timmons Primary Care Provider ROSE MARY TIMMONS Referring Unavailable ROSE MARY TIMMONS Primary Care Unavailable UNKNOWN, PROVIDER Attending Unavailable UNKNOWN, PROVIDER Admitting Unavailable Guanaco Wolf Unavailable Mando Forde Unavailable Lanie Robledo Unavailable Woodrow Rashid Unavailable Leyla Bolanos Unavailable MD Rose Mary Timmons Primary Care Provider [phone] MD Woodrow Rashid Attending Provider Rose Mary Timmons Unavailable MD Rose Mary Timmons Primary Care Provider MD Guanaco Wolf Attending Provider [phone] MD Rose Mary Timmons Primary Care Provider MD Guanaco Wolf Attending Provider [phone] MD Woodrow Rashid Attending Provider MAGNO OLIVEIRA Consulting Unavailable MAGNO OLIVEIRA Attending Unavailable MAGNO OLIVEIRA Admitting Unavailable DR ROSE MARY TIMMONS Primary Care Unavailable MAGNO OLIVEIRA Admitting Unavailable MAGNO OLIVEIRA Consulting Unavailable MAGNO OLIVEIRA Attending Unavailable DR ROSE MARY TIMMONS Primary Care Unavailable SHANELLE, DR ROSE MARY Mooney Attending Unavailable DR ROSE MARY TIMMONS Admitting Unavailable DR ROSE MARY ITMMONS Primary Care Unavailable DR ROSE MARY TIMMONS Consulting Unavailable MAGNO OLIVEIRA Admitting Unavailable MAGNO OLIVEIRA Attending Unavailable DR ROSE MARY TIMMONS Primary Care Unavailable MD Rose Mary Timmons Primary Care Provider MD Guanaco Wolf Attending Provider Rsoe Mary Timmons MD Primary Care Provider MD Rose Mary Timmons Primary Care Provider DO Jonathan Shipman Attending Provider MD Rose Mary Timmons Primary Care Provider DO Jonathan Shipman Attending Provider JONATHAN SHIPMAN Attending Unavailable ROSE MARY TIMMONS Referring Unavailable JONATHAN SHIPMAN Attending Unavailable JONATHAN SHIPMAN Attending Unavailable ZACHARY WILLIAM Attending Unavailable JONATHAN SHIPMAN Attending Unavailable JONATHAN SHIPMAN Attending Unavailable Mando Forde MD Attending Provider Rose Mary Timmons MD Primary Care Provider Mando Forde MD Attending Provider Rose Mary Timmons MD Primary Care Provider Rose Mary Timmons MD Primary Care Provider Mando Forde MD Attending Provider TAVO MENDOZA Attending Unavailable JAMESON BRADY Attending Unavailable TAVO MENDOZA Referring Unavailable Rose Mary Timmons Primary Care Unavailable Mando Forde Admitting Unavailable Mando Forde Attending Unavailable Rose Mary Timmons Primary Care Unavailable Mando Forde Admitting Unavailable Mando Forde Attending Unavailable Rose Mary Timmons MD Attending Provider [phone] Allergies Allergy Classification Reported Allergen(s) Allergy Type Date of Onset Reaction(s) Facility (11 sources) levoFLOXacin; Translations: [LEVOFLOXACIN] Drug Allergy 8 Rash [place], [place] (20 sources) levoFLOXacin Drug Allergy rash [facility] Other (1 source) levoFLOXacin Drug Allergy 5 [facility] Repository Medications Current Medications Medication Drug [...] as directed for 90 days August, Active 24 hr dilTIAZem hydrochloride 240 mg extended release oral capsule (20 sources) Calcium Channel Edie Start: 08-02-2023 take 240 mg by mouth once daily Diltiazem Hcl Active 240 MG PO Daily August 02, 2023 12:00am Start: 01-04-2023 End: 08-01-2023 take 1 capsule by mouth once daily Diltiazem Hcl 240 mg capsule,ext.rel 24h degradable Active 240 MG PO Daily August 02, 2023 12:00am Complies with drug therapy take [address] [facility] every twenty-four hours in the morning dilTIAZem ER (Tiazac) 240 MG 24 hr capsule Take 240 mg by mouth in the morning. Active Diltiazem Hcl 240 mg capsule,ext.rel 24h degradable (3 sources) Start: 08-02-2023 take 1 capsule by mouth once daily Diltiazem Hcl 240 mg capsule,ext.rel 24h degradable Active 240 MG PO Daily August 02, 2023 12:00am Start: 08-02-2023 take [address] [facility] once daily Diltiazem Hcl 240 mg capsule,ext.rel 24h degradable Active 240 MG PO Daily August 01, 2023 11:00pm [id number] 0.3 ml EPINEPHrine 1 mg/ml auto-injector (10 sources) alpha-Adrenergic Agonist, beta-Adrenergic Agonist, Catecholamine Start: 02-01-2024 EPINEPHrine (Epipen) 0.3 MG/0.3ML injection syringe Once 02/01/2024 Active Start: 02-01-2024 Epinephrine 0. 3 mg/0.3 mL auto-injector Active 0.3 ML IM Once February 01, 2024 12:00am Complies with drug therapy famotidine 20 mg oral tablet (5 sources) Histamine-2 Receptor Antagonist Start: 08-06-2024 take 1 tablet by mouth twice daily Famotidine (Pepcid) 20 mg tablet Active 20 MG PO Twice daily 60 August 06, 2024 12:00am Complies with drug therapy gabapentin 300 mg oral capsule (1 source) [...] tablet Active 25 MG PO Daily August 02, 2023 12:00am Complies with drug therapy HYDROmorphone (DILAUDID) injection 0.25 mg (1 source) Start: 05-17-2020 HYDROmorphone (DILAUDID) injection 0.25 mg lisinopril 20 mg oral tablet (20 sources) Angiotensin Converting Enzyme Inhibitor Start: 01-04-2023 End: 08-01-2023 take 1 tablet by mouth once daily Lisinopril 20 mg tablet Active 20 MG PO Daily August 02, 2023 12:00am Complies with drug therapy lisinopril (PRIN IVIL;ZESTRIL) 20 MG tablet Take 30 mg by mouth daily 0 Active 24 hr metoprolol succinate 50 mg extended release oral tablet (1 source) beta-Adrenergic Edie Start: 06-19-2017 take 50 mg by mouth once daily Metoprolol Succinate Active 50 MG PO Daily June 19, 2017 1:00am Multivitamin (Daily Multi-Vitamin) tablet (10 sources) Start: 06-16-2023 take 1 tablet by mouth once daily in the morning Start: 06-16-2023 take 1 tablet by frances th once daily in the morning Multivitamin (Daily Multi-Vitamin) tablet Active 1 TAB PO Every morning June 16, 2023 1:00am Complies with drug therapy Start: 06-16-2023 take 1 tablet by frances [...] 20 mg by mouth daily 0 Active sennosides, longterm 8.6 mg oral tablet (1 source) Start: 05-18-2020 End: 06-01-2020 take 2 tablets by mouth twice daily senna (SENOKOT) 8.6 MG tablet Take 2 tablets by mouth 2 times daily for 14 days 56 tablet 0 05/18/2020 06/01/2020 Active 3 ml sodium chloride 9 mg/ml injection (3 sources) Start: 05-17-2020 10 mL, Intravenous, EVERY 12 HOURS SCHEDULED (2 times per [...] needed for Erectile Dysfunction January 18, 2024 1:28pm Complies with drug therapy Completed/Discontinued Medications Medication Drug Class(es) Dates Sig (Normalized) Sig (Original) acetaminophen 325 mg / HYDROcodone bitartrate 5 mg oral tablet (15 sources) Opioid Agonist Start: 01-12-2022 End: 01-04-2023 take 1 tablet by mouth every eight hours as needed for pain Hydrocodone-Acetami nophen 5-325 mg tablet Discontinued 1 TAB PO Q8H as needed for pain 11 09January 12, 2022 January 04, 2023 6:34am Start: 06-19-2017 take 1 tablet by frances th every six hours Hydrocodone-Acetaminophen ([place]) 5-325 mg tablet Active 1 TAB PO Q6H June 19, 2017 amoxicillin 500 mg oral tablet (8 sources) Penicillin-class Antibacterial Start: 01-16-2024 End: 02-01-2024 [...] a day for 30 day(s) Mar, Not-Taking doxycycline hyclate 100 mg oral tablet (4 sources) Tetracycline-class Drug Start: 09-13-2024 End: 11-21-2024 take 1 tablet by mouth once daily Doxycycline Hyclate 100 mg tablet Discontinued 100 MG PO Daily September 13, 2024 12:00am November 21, 2024 8:18am gadoteridol (PROHANCE) injection 15 mL (1 source) [...] End: 05-18-2020 meperidine (DEMEROL) injection 12.5 mg methylPREDNISolone 4 mg oral tablet (20 sources) Corticosteroid Start: 08-06-2024 End: 11-21-2024 take 1 tablet by mouth once Methylprednisolone (Medrol (Mauricio)) 4 mg tablets,dose pack Discontinued 0 PO per package directions August 06, 2024 12:00am November 21, 2024 8:18am PO PER PKG DIR for 6 days Start: 05-15-2020 End: 05-21-2020 methylPREDNISolone (MEDROL D OSEPACK) 4 MG tablet Take by mouth. 1 kit 0 05/15/2020 05/21/2020 Active Start: 04-12-2020 Depo-Medrol 40 mg Mar, 40 mg omeprazole 20 mg delayed release oral capsule (20 sources) Proton Pump Inhibitor Start: 07-03-2023 End: 11-21-2024 take 1 capsule by mouth once daily Omeprazole 20 mg capsule,delayed release(DR/EC) Discontinued 0 .ROUTE .COMPLEX 90 June 25, 2024 3:12pm November 21, 2024 8:18am TAKE 1 CAPSULE BY MOUTH ONCE DAILY Start: 01-04-2023 End: 07-03-2023 take 1 capsule by mouth once daily in the morning Omeprazole 20 mg capsule,delayed release(DR/EC) Discontinued 20 MG PO Every morning January 04, 2023 12:00am July 03, 2023 1:13pm take [address] [facility] once daily Omeprazole 10 MG 1 capsule 30 minutes before morning meal Orally Once a day Active 2 ml ondansetron 2 mg/ml injection (1 source) Serotonin-3 Receptor Antagonist Start: 05-17-2020 End: 05-17-2020 ondansetron (ZOFRAN) injection 4 mg predniSONE 10 mg oral tablet (20 sources) Start: 12-13-2023 End: 02-01-2024 Prednisone 10 mg tablet Discontinued 10 MG PO As Directed December 13, 2023 12:00am February 01, 2024 2:41pm see taper instructions: 4 x 3 days, 2 x 3 days, 1 x 3 days. Start: 09-27-2022 take [address] [facility] every twenty-four hours predniSONE 20 MG 2 tablets Orally Once a day for 5 days August, Active Start: 03-23-2021 predniSONE 10 MG 3 tablets a day for 3 days, 2 tablets a day for 3 days, 1 tablets a day for 3 days Orally Once a day for 9 day(s) Mar, Not-Taking traMADol hydrochloride 50 mg oral tablet (9 sources) Opioid Agonist Start: 06-26-2023 End: 08-02-2023 take 1 tablet by mouth every six hours as needed for pain Tramadol 50 mg tablet Discontinued 50 MG PO Q6H as needed for pain 27 11June 26, 2023 1:00am August 02, 2023 11:08am triamcinolone acetonide 5 mg/ml topical cream (8 sources) Corticosteroid Start: 02-01-2024 End: 11-21-2024 Triamcinolone Acetonide 0.5 % cream Discontinued 1 APPLIC TOPICAL Twice daily February 01, 2024 12:00am November 21, 2024 8:18am zolpidem tartrate 12.5 mg extended release oral tablet (14 sources) gamma-Aminobutyric Acid-ergic Agonist Start: 03-08-2023 take 1 tablet [...] Date Documented Da te Episodic/Chronic Abdominal hernia (13 sources) Left inguinal hernia ; Translations: [Unilateral inguinal hernia, without obstruction or gangrene, not specified as recurrent] Onset: 06-13-2023 06-13-2023 Episodic Abdominal pain (7 sources) Left lower quadrant pain; Translations: [Left lower quadrant pain] Onset: 06-13-2023 Episodic Allergic reactions (4 sources) Contact dermatitis; Translations: [Unspecified contact dermatitis, unspecified cause] 08-06-2024 Episodic Anxiety disorders (5 sources) Anxiety disorder; Translations: [Other specified anxiety disorders] Chronic Cardiac and circulatory congenital anomalies (4 sources) Bicuspid aortic valve; Translations: [Congenital insufficiency of aortic valve] Onset: 09-14-2022 Chronic Deficiency and other anemia (7 sources) Anemia; Translations: [Anemia, unspecified] 04-15-2024 Episodic Deficiency and other anemia (1 source) Anemia, unspecified; Translations: [Anemia, unspecified] 08-06-2024 Episodic Esophageal disorders (7 sources) Gastro-esophageal reflux disease with esophagitis; Translations: [Gastro-esophageal reflux disease with esophagitis, without bleeding] 08-06-2024 Chronic Esophageal disorders (2 sources) Esophageal disorders; Translations: [Gastro-esophageal reflux disease with esophagitis, without bleeding] Essential hypertension (20 sources) Essential hypertension; Translations: [Essential (primary) hypertension] Onset: 09-14-2022 08-01-2023 Chronic Heart valve disorders (6 sources) Nonrheumatic aortic (valve) insufficiency; Translations: [NONRHEUMATIC AORTIC INSUFFICIENCY] Onset: 08-22-2022 Chronic Malaise and fatigue (9 sources) Fatigue; Translations: [Other fatigue] 02-01-2024 Episodic Other bone disease and musculoskeletal deformities (5 sources) Other specified disorders of bone, shoulder; Translations: [Other specified disorders of bone, shoulder] Episodic Other connective tissue disease (20 sources) Supraspinatus syndrome; Translations: [Unspecified rotator cuff tear or rupture of left shoulder, not specified as traumatic] Episodic Other connective tissue disease (4 sources) Unspecified rotator cuff tear or rupture of left shoulder, not specified as traumatic; Translations: [Rotator cuff (capsule) sprain] Onset: 07-01-2021 Resolved: 07-01-2021 Episodic Other connective tissue disease (13 sources) Tear of left rotator cuff; Translations: [Unspecified rotator cuff tear or rupture of left shoulder, not specified as traumatic] 05-13-2024 Episodic Other connective tissue disease (13 sources) Subacromial impingement; Translations: [Impingement syndrome of left shoulder] 05-13-2024 Episodic Other connective tissue disease (3 sources) Impingement syndrome of left shoulder; Translations: [Other specified disorders of bursae and tendons in shoulder region] 05-13-2024 Episodic Other diseases of veins and lymphatics (20 sources) Peripheral venous insufficiency; Translations: [Venous insufficiency (chronic) (peripheral)] 08-01-2023 Episodic Other diseases of veins and lymphatics (17 sources) Vascular insufficiency; Translations: [Venous insufficiency (chronic) (peripheral)] 08-01-2023 Episodic Other ear and sense organ disorders (9 sources) Bilateral tinnitus; Translations: [Tinnitus, bilateral] 08-02-2023 Episodic Other ear and sense organ disorders (1 source) Tinnitus, bilateral; Translations: [Tinnitus, unspecified] 08-02-2023 Episodic Other male genital disorders (2 sources) Impotence of organic origin; Translations: [Male erectile dysfunction, unspecified] Chronic Other male genital disorders (12 sources) Male erectile dysfunction, unspecified; Translations: [Erectile [...] derangements of left shoulder, not elsewhere classified] 11-21-2024 Chronic Other non-traumatic joint disorders (2 sources) Other specific joint derangements of left shoulder, not elsewhere classified; Translations: [Other specific joint derangements of left shoulder, not elsewhere classified] Onset: 06-01-2021 Resolved: 06-01-2021 Chronic Other non-traumatic joint disorders (20 sources) Pain in left shoulder; Translations: [Left [...] sources) Other insomnia Chronic Residual codes; unclassified (14 sources) Patient encounter status; Translations: [Encounter for [...] specified as traumatic] Episodic Sprains and strains (10 sources) Strain of other muscles, fascia and tendons at shoulder and upper arm level, left arm, initial encounter; Translations: [Traumatic rupture of supraspinatus tendon of left shoulder] Onset: 06-10-2021 Resolved: 06-10-2021 Episodic Varicose veins of lower extremity (20 sources) Varicose veins of lower extremity; Translations: [Varicose veins of bilateral lower extremities with other complications] Onset: 09-21-2021 Resolved: 12-21-2021 Episodic Comment on above: Problem List clean-u p per request of Phys. EHR Cmte Past or Other Problems Problem Classification Problem Date Documented Date Episodic/Chronic Cardiac dysrhythmias (7 sources) Tachycardia; Translations: [Tachycardia, unspecified] Onset: 11-21-2017 Episodic Other diseases of veins and lymphatics [...] Test Name Value Interpretation Reference Range Facility MR shoulder LT wo sandraon - MR shoulder LT wo con [place] [address] MRI Report Signed Patient: Anshul Spencer MR#: [id number] : 1980 Acct:[id number] Age/Sex: 44 / M ADM Date: 12/12/24 Loc: [facility] Room: Type: [facility] Attending Dr: Mnado Forde MD Copies to: Mando Forde MD Ordering Provider: Mando Forde MD Date of Service: 12/12/24 MR/MR shoulder LT wo con: assess rotator cuff EXAMINATION: MRI OF THE LEFT SHOULDER CLINICAL HISTORY: Injury 2 years ago. Pain left shoulder ever since. COMPARISON: Left shoulder 05/13/2024 TECHNIQUE: Multiecho, multiplanar imaging was performed with use of an extremity coil. No contrast was administered. FINDINGS: Bones/Joints: No joint effusion. Subacromial/subdelt oid bursitis. Minimal degenerative changes involving the AC and glenohumeral joints. No bone edema or fracture is seen. Labrum: Normal Biceps tendon: Small amount of fluid seen within the bicipital groove. Tendon appears normal. Supraspinatus: Tendinosis with partial-thickness tear joint side approximately 9 mm from the greater tubercle. Infraspinatus: Normal Teres Minor: Normal Subscapularis: Normal MR/MR shoulder LT wo con IMPRESSION: TENDINOSIS WITH PARTIAL-THICKNESS TEARING JOINT SIDE OF THE SUPRASPINATUS APPROXIMATELY 9 MILLIMETERS FROM THE GREATER TUBERCLE. NO FULL-THICKNESS TEAR IS SEEN. THERE IS ASSOCIATED SUBACROMIAL/SUBDELT OID BURSITIS. Impression dictated by: Cj Marshall Jr., D.OCindi 12/12/2024 11:05 AM Dictation Location: [place] [address] Transcribed By: [facility] 12/12/24 1105 Dictated By: Cj Marshall Jr, DO 12/12/24 1102 Signed By: 12/12/24 1105 Normal [facility] Magnetic resonance imaging r eportOrdered By: Cj Marshall on 12-12-2024 Study report [facility] [place] [address] [place] [address] MRI Report Signed Patient: Anshul Spencer MR#: [id number] : 1980 Acct:[id number] Age/Sex: 44 / M ADM Date: 5 Loc: [facility] Room: Type: [facility] Attending Dr: Mando Forde MD Copies to: Mando Forde MD~ Ordering Provider: Mando Forde MD Date of Service: 12/12/24 MR/MR shoulder LT wo con: assess rotator cuff EXAMINATION: MRI OF THE LEFT SHOULDER CLINICAL HISTORY: Injury 2 years ago. Pain left shoulder ever since. COMPARISON: Left shoulder 05/13/2024 TECHNIQUE: Multiecho, multiplanar imaging was performed with use of an extremity coil. No contrast was administered. FINDINGS: Bones/Joints: No joint effusion. Subacromial/subdelt oid bursitis. Minimal degenerative changes involving the AC and glenohumeral joints. No bone edema orfracture is seen. Labrum: Normal Biceps tendon: Small amount of fluid seen within the bicipital groove. Tendon appears normal. Supraspinatus: Tendinosis with partial-thickness tear joint side approximately 9mm from the greater tubercle. Infraspinatus: Normal Teres Minor: Normal Subscapularis: Normal MR/MR shoulder LT wo con IMPRESSION: TENDINOSIS WITH PARTIAL-THICKNESS TEARING JOINT SIDE OF THE SUPRASPINATUS APPROXIMATELY 9 MILLIMETERS FROM THE GREATER TUBERCLE. NO FULL-THICKNESS TEAR IS SEEN. THERE IS ASSOCIATED SUBACROMIAL/SUBDELT OID BURSITIS. Impression dictated by: Cj Marshall Jr., DCindiOCindi 12/12/2024 11:05 AM Dictation Location: [place] [address] Transcribed By: [facility] 12/12/24 1105 Dictated By: Cj Marshall Jr, DO 12/12/24 1102 Signed By: 12/12/24 1105 [facility] Office Visiton 11-29-2024 Follow-up visit [id number] Anshul Spencer 1980 M Date Provider Department Center 11/29/2024 [id number], ADAM EVAN Reddy Family History Problem Relation Age of Onset Hypertension Father Hypertension Maternal Grandfather Family Status - Relation Status Age at Father Maternal Grandfather Level of Service:88710 [place] OFFICE/OUTPATIENT ESTABLISHED MOD MDM 30 MIN Reason for Visit and Comments: Follow-up [842113] Normal [facility] Orders Onlyon 11-25-2024 Orders Only [id number] Anshul Spencer 1980 M Date Provider Department Center 11/25/2024 [id number], HISTORICAL EVAN Reddy Family History Problem Relation Age of Onset Hypertension Father Hypertension Maternal Grandfather Family Status - Relation Status Age at Father Maternal Grandfather Normal [facility] X-ray reportOrdered By: Logan Marshall on 05-13-2024 Study report [facility] [address] [place] [address] XRay Report Signed Patient: Anshul Spencer MR#: [id number] : 1980 Acct:[id number] Age/Sex: 44 / M ADM Date: 5 Loc: [facility] Room: Type: [facility] CLI Attending Dr: Mando Forde MD Copies to: [...] PROCESS. Impression dictated by: Cj Marshall Jr., D.OCindi05/13/2024 2:58 PM Dictation Location: [place] [address] Transcribed By: [facility] 05/13/24 1458 Dictated By: Cj Marshall Jr, DO 05/13/24 1458 Signed By: 05/13/24 1458 [facility] XR shoulder LT min 2V*on XR shoulder LT min 2V* [facility] [address] [place] [address] XRay Report Signed Patient: Anshul Spencer MR#: [id number] : 1980 Acct:[id number] Age/Sex: 44 / M ADM Date: 05/13/24 Loc: [facility] Room: Type: [facility] CLI Attending Dr: Mando Forde MD Copies to: [...] PROCESS. Impression dictated by: Cj Marshall Jr., DCindiOCindi05/13/2024 2:58 PM Dictation Location: [place] [address] Transcribed By: [facility] 05/13/241457 Dictated By: Cj Marshall Jr, DO 05/13/241457 Signed By: 05/13/241457 Normal [facility] Basophils Auto (Bld) [#/Vol] on 04-16-2024 Basophils (Bld) [#/Vol] Automated basoph il count 0.0-0.1 [facility] Basophils/100 WBC Auto (Bld) on 04-16-2024 Basophils/100 WBC (Bld) Automated basoph il % 0.2-2.0 [facility] Eosinophils/100 WBC Auto (Bl d)on 04-16-2024 Eosinophils/100 WBC (Bld) Automated eosinophil % 0.9-7.0 [facility] Erythrocyte distribution wid th Auto (RBC) [Ratio]on 04-16-2024 Erythrocyte distribution width (RBC) [Ratio] Erythrocyte distribution width [Ratio] by Automated count 11.0-15.0 [facility] Hematocrit Auto (Bld) [Volum e fraction]on 04-16-2024 Hematocrit (Bld) [Volume fraction] Hematocrit [Volume Fraction] of Blood by Automated count Low 42.0-54.0 [facility] Hemoglobin [Mass/volume] in Bloodon 04-16-2024 Hemoglobin (Bld) [Mass/Vol] Hemoglobin [Mass/volume] in Blood Low 14.0-18.0 [facility] Laboratory - Chemistry and C hemistry - challengeon 04-16-2024 Cobalamin (Vitamin B12) [Mass/Vol] 599 pg/mL [phone] [facility] Comment on above: Performed at: [address] [id number] Director: Abiel Fleming PhD, Phone: [phone] Ferritin [Mass/Vol] 256.0 ng/mL 26.0-388.0 [facility] Laboratory - Hematology and Cell countson 04-16-2024 Immature granulocytes/100 WBC (Bld) 0.3 % 0.0-0.5 [facility] Leukocytes [#/volume] correc julio for nucleated erythrocytes in Blood by Automated counon 04-16-2024 WBC corrected for nucl RBC Auto (Bld) [#/Vol] Leukocytes [#/volume] corrected for nucleated erythrocytes in Blood by Automated coun 4.0-11.0 [facility] Lymphocytes Auto (Bld) [#/Vo l]on 04-16-2024 Lymphocytes (Bld) [#/Vol] Lymphocytes [#/volume] in Blood by Automated count 1.2-3.8 [facility] Lymphocytes/100 WBC Auto (Bl d)on 04-16-2024 Lymphocytes/100 WBC (Bld) Lymphocytes/100 leukocytes in Blood by Automated count 20.5-60.0 [facility] MCH Auto (RBC) [Entitic mass ]on 04-16-2024 MCH (RBC) [Entitic mass] MCH [Entitic mass] by Automated count 25.9-34.0 [facility] MCHC Auto (RBC) [Mass/Vol]on 04-16-2024 MCHC (RBC) [Mass/Vol] MCHC [Mass/volume] by Automated count 29.9-35.2 [facility] MCV Auto (RBC) [Entitic vol] on 04-16-2024 MCV (RBC) [Entitic vol] MCV [Entitic volume] by Automated count 80.0-94.0 [facility] Monocytes Auto (Bld) [#/Vol] on 04-16-2024 Monocytes (Bld) [#/Vol] Automated blood monocyte count 0.3-0.8 [facility] Monocytes/100 WBC Auto (Bld) on 04-16-2024 Monocytes/100 WBC (Bld) Automated monocy te % 1.7-12.0 [facility] Neutrophils Auto (Bld) [#/Vo l]on 04-16-2024 Neutrophils (Bld) [#/Vol] Neutrophils [#/volume] in Blood by Automated count 1.4-6.5 [facility] Neutrophils/100 WBC Auto (Bl d)on 04-16-2024 Neutrophils/100 WBC (Bld) Automated neutrophil % Low 43.0-75.0 [facility] No Panel Informationon 04-16 Eosinophils # (Auto) 0.2 10 3/uL 0.0-0.7 [facility] Immature Granulocyte # (Auto) 0.02 10 3/uL 0.00-0.03 [facility] Platelet mean volume Auto (B ld) [Entitic vol]on 04-16-2024 Platelet mean volume (Bld) [Entitic vol] Platelet mean volume [Entitic volume] in Blood by Automated count 9.5-13.5 [facility] Platelets Auto (Bld) [#/Vol] on 04-16-2024 Platelets (Bld) [#/Vol] Platelets [#/volume] in Blood by Automated count 150-450 [facility] RBC Auto (Bld) [#/Vol]on RBC (Bld) [#/Vol] Erythrocytes [#/volume] in Blood by Automated count Low 4.70-6.10 [facility] Office Visiton 12-22-2023 Follow-up visit [id number] ANSHUL Spencer 1980 M Date Provider Department Center 12/22/2023 TAVO TERRY EVAN [facility] Family History Problem Relation Age of Onset Hypertension Father Hypertension Maternal Grandfather Family Status - Relation Status Age at Father Maternal Grandfather Level of Service:76852 [place] OFFICE/OUTPATIENT ESTABLISHED MOD MDM 30 MIN Normal [facility] Amphetamine Screen Ql (U)Ord ered By: Sai Conway on 06-26-2023 Amphetamines Ql (U) Negative Negative [facility] Barbiturates [Presence] in U rine by Screen methodOrdered By: Sai Conway on 06-26-2023 Barbiturates Screen Ql (U) Negative Negative [facility] Benzodiazepines Screen Ql (U )Ordered By: Sai Conway on 06-26-2023 Benzodiazepines Ql (U) Negative Negative [facility] Benzoylecgonine [Presence] i n Urine by Screen methodOrdered By: Sai Conway on 06-26-2023 Benzoylecgonine Screen Ql (U) Negative Negative [facility] Cannabinoids [Presence] in U rine by Screen methodOrdered By: Sai Conway on 06-26-2023 Cannabinoids Screen Ql (U) Positive Negative [facility] Comment on above: These are unconfirme d results and should not be used for legal purposes. Drug Cut-Off Concentration: AMPH 1000 ng/mL MEE 200 ng/mL ROC 200 ng/mL COCM 300 ng/mL OP 300 ng/mL PCP 25 ng/mL THC 20 ng/mL Opiates [Presence] in Urine by Screen methodOrdered By: Sai Conway on 06-26-2023 Opiates Screen Ql (U) Negative Negative [facility] Phencyclidine Screen Ql (U)O rdered By: Sai Conway on 06-26-2023 Phencyclidine Ql (U) Negative Negative [facility] Basophils Auto (Bld) [#/Vol] Ordered By: Jonathan Shipman on 06-16-2023 Basophils (Bld) [#/Vol] 0.0 10*3/uL 0.0-0.2 [facility] Basophils/100 WBC Auto (Bld) Ordered By: Jonathan Shipman on 06-16-2023 Basophils/100 WBC (Bld) 0.9 % . [facility] Calcium [Mass/volume] in Ser um or PlasmaOrdered By: Jonathan Shipman on 06-16-2023 Calcium [Mass/Vol] 9.3 mg/dL 8.6-10.[address] [facility] Carbon dioxide, total [Moles /volume] in Serum or PlasmaOrdered By: Jonathan Shipman on 06-16-2023 CO2 [Moles/Vol] 29.7 mmol/L 21.0-31.0 [facility] Chloride [Moles/volume] in S annemarie or PlasmaOrdered By: Jonathan Shipman on 06-16-2023 Chloride [Moles/Vol] 102 mmol/L 98-107 [facility] Creatinine [Mass/volume] in Serum or PlasmaOrdered By: Jonathan Shipman on 06-16-2023 Creatinine [Mass/Vol] 0.87 mg/dL 0.70-1.30 [facility] Eosinophils Auto (Bld) [#/Vo l]Ordered By: Jonathan Shipman on 06-16-2023 Eosinophils (Bld) [#/Vol] 0.1 10*3/uL 0.0-0.45 [facility] Eosinophils/100 WBC Auto (Bl d)Ordered By: Jonathan Shipman on 06-16-2023 Eosinophils/100 WBC (Bld) 2.8 % . [facility] Erythrocyte distribution wid th Auto (RBC) [Ratio]Ordered By: Jonathan Shipman on 06-16-2023 Erythrocyte distribution width (RBC) [Ratio] 13.0 % 12.0-14.8 [facility] Glucose [Mass/volume] in Ser um or PlasmaOrdered By: Jonathan Shipman on 06-16-2023 Glucose [Mass/Vol] 81 mg/dL 70-[address] [facility] Comment on above: ADA recommended refe rence rangeRandom Glucose Reference Range is dependent on time and content of last meal. Glucose of more than 200 mg/dL in a nonstressed, ambulatory subject supports the diagnosis of Diabetes Mellitus. Hematocrit Auto (Bld) [Volum e fraction]Ordered By: Jonathan Shipman on 06-16-2023 Hematocrit (Bld) [Volume fraction] 41.5 % 38.8-50.0 [facility] Hemoglobin [Mass/volume] in BloodOrdered By: Jonathan Shipman on 06-16-2023 Hemoglobin (Bld) [Mass/Vol] 14.2 g/dL 13.0-17.0 [facility] Leukocytes [#/volume] correc julio for nucleated erythrocytes in Blood by Automated counOrdered By: Jonathan Shipman on 06-16-2023 WBC corrected for nucl RBC Auto (Bld) [#/Vol] 4.3 10*3/uL 4.1-10.5 [facility] Lymphocytes Auto (Bld) [#/Vo l]Ordered By: Jonathan Shipman on 06-16-2023 Lymphocytes (Bld) [#/Vol] 1.4 10*3/uL 1.00-4.8 [facility] Lymphocytes/100 WBC Auto (Bl d)Ordered By: Jonathan Shipman on 06-16-2023 Lymphocytes/100 WBC (Bld) 33.7 % . [facility] MCH Auto (RBC) [Entitic mass ]Ordered By: Jonathan Shipman on 06-16-2023 MCH (RBC) [Entitic mass] 30.6 pg 27.5-35.2 [facility] MCHC Auto (RBC) [Mass/Vol]Or dered By: Jonathan Shipman on 06-16-2023 MCHC (RBC) [Mass/Vol] 34.2 g/dL 32.5-35.6 [facility] MCV Auto (RBC) [Entitic vol] Ordered By: Jonathan Shipman on 06-16-2023 MCV (RBC) [Entitic vol] 89.4 fL 83.5-101 [facility] Monocytes Auto (Bld) [#/Vol] Ordered By: Jonathan Shipman on 06-16-2023 Monocytes (Bld) [#/Vol] 0.5 10*3/uL 0.0-0.8 [facility] Monocytes/100 WBC Auto (Bld) Ordered By: Jonathan Shipman on 06-16-2023 Monocytes/100 WBC (Bld) 10.6 % . [facility] Neutrophils Auto (Bld) [#/Vo l]Ordered By: Jonathan Shipman on 06-16-2023 Neutrophils (Bld) [#/Vol] 2.2 10*3/uL 1.8-7.7 [facility] Neutrophils/100 WBC Auto (Bl d)Ordered By: Jonathan Shipman on 06-16-2023 Neutrophils/100 WBC (Bld) 52.0 % . [facility] No Panel InformationOrdered By: Jonathan Shipman on 06-16-2023 Estimated GFR (CKD-EPI) > 60.0 mL/Min [facility] Creatinine Clearance (Chem N/A [facility] Nucleated erythrocytes [Pres ence] in Blood by Automated countOrdered By: Jonathan Shipman on 06-16-2023 Nucleated RBC Auto Ql (Bld) 0.0 /100{WBC} 0-0.5 [facility] Platelet mean volume Auto (B ld) [Entitic vol]Ordered By: Jonathan Shipman on 06-16-2023 Platelet mean volume (Bld) [Entitic vol] 9.1 fL 6.6-10.1 [facility] Platelets Auto (Bld) [#/Vol] Ordered By: Jonathan Shipman on 06-16-2023 Platelets (Bld) [#/Vol] 232 10*3/uL 150-450 [facility] Potassium [Moles/volume] in Serum or PlasmaOrdered By: Jonathan Shipman on 06-16-2023 Potassium [Moles/Vol] 4.3 mmol/L 3.5-5.1 [facility] RBC Auto (Bld) [#/Vol]Ordere d By: Jonathan Shipman on 06-16-2023 RBC (Bld) [#/Vol] 4.64 10*6/uL 3.90-5.[address] [facility] Serum or plasma anion gap de terminationOrdered By: Jonathan Shipman on 06-16-2023 Anion gap [Moles/Vol] 10.6 mmol/L 6.0-15.0 [facility] Sodium [Moles/volume] in Ser um or PlasmaOrdered By: Jonathan Shipman on 06-16-2023 Sodium [Moles/Vol] 138 mmol/L 136-[address] [facility] Urea nitrogen [Mass/volume] in Serum or PlasmaOrdered By: Jonathan Shipman on 06-16-2023 Urea nitrogen [Mass/Vol] 12 mg/dL 7-25 [facility] WBC Auto (Bld) [#/Vol]Ordere d By: Jonathan Shipman on 06-16-2023 WBC (Bld) [#/Vol] 4.3 10*3/uL 4.1-10.[address] [facility] LIPID PROFILEon 09-14-2022 CHOL-HDL RATIO NORM SEE BELOW Normal [facility] Comment on above: Result Comment: 3.3 - 4.4 LOW RISK 4.4 - 7.1 AVERAGE RISK 7.1 - 11.0 MODERATE RISK >11.0 HIGH RISK Performed By: #### L NED, CMP #### [facility] [address] [address] [address] Owen Mckeon Cholesterol [Mass/Vol] 192 mg/dL Normal <=200 [facility] Comment on above: Performed By: #### L NED, CMP #### [facility] [address] [address] [address] Owen Mckeon Cholesterol in HDL [Mass/Vol] 47 mg/dL Normal 40-60 [facility] Comment on above: Performed By: #### L IPID, CMP #### [facility] [address] [address] [address] Owen Mckeon Cholesterol in LDL [Mass/Vol] 120.4 mg/dL Normal [facility] Comment on above: Performed By: #### L IPID, CMP #### [facility] [address] [address] [address] Owen Mckeon Cholesterol.total/Courtney sterol in HDL [Mass ratio] 4.1 {ratio} Normal [facility] Comment on above: Performed By: #### L IPID, CMP #### [facility] [address] [place] [address] Dr. Owen Mckeon HDL NORMAL > or = 60 mg/dl - LOW CARDIOVASCULAR RISK <40 mg/dl - HIGH CARDIOVASCULAR RISK Normal [facility] Comment on above: Performed By: #### L IPID, CMP #### [facility] [address] [address] [address] Owen Mckeon LDL CALC NORMAL SEE BELOW Normal [facility] Comment on above: Result Comment: <100 mg/dl OPTIMAL 100 - 129 mg/dl NEAR OR ABOVE OPTIMAL 130 - 159 mg/dl BORDERLINE HIGH 160 - 189 mg/dl HIGH >190 mg/dl VERY HIGH Performed By: #### L IPID, CMP #### [facility] [address] [address] [address] Owen Mckeon Triglyceride [Mass/Vol] 123 mg/dL Normal <=150 [facility] Comment on above: Performed By: #### L IPID, CMP #### [facility] [address] [place] [address] Dr. Owen Mckeon VLDL CALC 24.6 mg/dL Normal [facility] Comment on above: Performed By: #### L IPID, CMP #### [facility] [address] [address] [address] Owen Mckeon PROF 14(COMP METB)on 023 Albumin [Mass/Vol] 4.2 g/dL Normal 3.4-5.0 [facility] Comment on above: Performed By: #### L IPID, CMP #### [facility] [address] [address] [address] Owen Mckeon Albumin/Globulin [Mass ratio] 1.0 {ratio} Normal [facility] Comment on above: Performed By: #### L IPID, CMP #### [facility] [address] [address] [address] Owen Mckeon ALP [Catalytic activity/Vol] 59 U/L Normal 46-116 [facility] Comment on above: Performed By: #### L IPID, CMP #### [facility] [address] [address] [address] Owen Mckeon ALT [Catalytic activity/Vol] 36 U/L Normal 16-63 [facility] Comment on above: Performed By: #### L IPID, CMP #### [facility] [address] [address] [address] Owen Mckeon Anion gap [Moles/Vol] 12.0 mmol/L Normal [facility] Comment on above: Performed By: #### L IPID, CMP #### [facility] [address] [address] [address] Owen Mckeon AST [Catalytic activity/Vol] 12 U/L Critically low 15-37 [facility] Comment on above: Performed By: #### L IPID, CMP #### [facility] [address] [address] [address] Owen Mckeon Bilirubin [Mass/Vol] 0.6 mg/dL Normal 0.2-1.0 [facility] Comment on above: Performed By: #### L IPID, CMP #### [facility] [address] [address] [address] Owen Mckeon Calcium [Mass/Vol] 9.2 mg/dL Normal 8.5-10.1 [facility] Comment on above: Performed By: #### L IPID, CMP #### [facility] [address] [address] [address] Owen Mckeon Chloride [Moles/Vol] 102 mmol/L Normal 98-107 [facility] Comment on above: Performed By: #### L IPID, CMP #### [facility] [address] [place] [address] Dr. Owen Mckeon CO2 [Moles/Vol] 30.0 mmol/L Normal 21.0-32.0 [facility] Comment on above: Performed By: #### L IPID, CMP #### [facility] [address] [place] [address] Dr. Owen Mckeon Creatinine [Mass/Vol] 0.97 mg/dL Normal 0.70-1.30 [facility] Comment on above: Performed By: #### L IPID, CMP #### [facility] [address] [place] [address] Dr. Owen Mckeon EGFR-AF PANAMANIAN >60 Normal >=60 [facility] Comment on above: Performed By: #### L IPID, CMP #### [facility] [address] [place] [address] Dr. Owen Mckeon EGFR-NON AF PANAMANIAN >60 Normal >=60 [facility] Comment on above: Performed By: #### L IPID, CMP #### [facility] [address] [place] [address] Dr. Owen Mckeon Globulin (S) [Mass/Vol] 4.0 g/dL Normal [facility] Comment on above: Performed By: #### L IPID, CMP #### [facility] [address] [place] [address] Dr. Owen Mckeon Glucose [Mass/Vol] 102 mg/dL Normal 74-106 [facility] Comment on above: Performed By: #### L IPID, CMP #### [facility] [address] [place] [address] Dr. Owen Mckeon Potassium [Moles/Vol] 4.0 mmol/L Normal 3.5-5.1 [facility] Comment on above: Performed By: #### L IPID, CMP #### [facility] [address] [address] [address] Owen Mckeon Protein [Mass/Vol] 8.2 g/dL Normal 6.4-8.2 [facility] Comment on above: Performed By: #### L IPID, CMP #### [facility] [address] [address] [address] Owen Mckeon Sodium [Moles/Vol] 140 mmol/L Normal 136-145 [facility] Comment on above: Performed By: #### L IPID, CMP #### [facility] [address] [place] [address] Dr. Owen Mckeon Urea nitrogen [Mass/Vol] 6.0 mg/dL Critically low 7.0-18.0 [facility] Comment on above: Performed By: #### L IPID, CMP #### [facility] [address] [place] [address] Dr. Owen Mckeon Urea nitrogen/Creatinine [Mass ratio] 6.2 mg/mg Normal [facility] Comment on above: Performed By: #### L IPID, CMP #### [facility] [address] [place] [address] Dr. Owen Mckeon ECHOCARDIO M/2D COMPLETEon 0 09-02-2022 ECHOCARDIO M/2D COMPLETE Patient: ANSHUL SPENCER Exam Date: 09/02/2022 : 1980 Gender:M Ordering : MAG[facility] Admission #: [id number] Family : DR ROSE MARY TIMMONS M.D. Order #: [id number] CLICK HERE TO VIEW EXAM ECHOCARDIOGRAM REPORT [...] Romo M.D. on 09/02/2022 at 09:47 Normal [facility] Creatinine and Glomerular fi ltration rate.predicted panel (S/P/Bld)Ordered By: John Padron on 01-12-2022 Creatinine [Mass/Vol] 0.92 mg/dL 0.64-1.27 [facility] Estimated glomerular filtrat ion rate (GFR) non- AmericanOrdered By: John Padron on 01-12-2022 GFR/1.73 sq M.predicted among non-blacks MDRD (S/P/Bld) [Vol rate/Area] > 60 mL/Min [facility] No Panel InformationOrdered By: John Padron on 01-12-2022 Estimated GFR () > 60 mL/Min [facility] Comment on above: GFR estimated refere nce range: According to KDOQI guidelines, <60 ml/min/1.73m2 is sufficient to diagnose a patient with chronic kidney disease. Pharmacy Creatinine Clearance (Chem 136.09 [facility] Serum or plasma anion gap de terminationOrdered By: John Padron on 01-12-2022 Anion gap [Moles/Vol] 14.1 mmol/L 6.0-15.0 [facility] Serum or plasma calcium ben urement (mass/volume)Ordered By: John Padron on 01-12-2022 Calcium [Mass/Vol] 9.3 mg/dL 8.2-10.[address] [facility] Serum or plasma chloride emi surement (moles/volume)Ordered By: John Padron on 01-12-2022 Chloride [Moles/Vol] 98 mmol/L 95-114 [facility] Serum or plasma glucose ben urement (mass/volume)Ordered By: John Padron on 01-12-2022 Glucose [Mass/Vol] 100 mg/dL 70-[address] [facility] Comment on above: ADA recommended refe rence range Random Glucose Reference Range is dependent on time and content of last meal. Glucose of more than 200 mg/dL in a nonstressed, ambulatory subject supports the diagnosis of Diabetes Mellitus. Serum or plasma potassium me asurement (moles/volume)Ordered By: John Padron on 01-12-2022 Potassium [Moles/Vol] 3.9 mmol/L 3.5-5.1 [facility] Serum or plasma sodium measu rement (moles/volume)Ordered By: John Padron on 01-12-2022 Sodium [Moles/Vol] 136 mmol/L 136-[address] [facility] Serum or plasma total carbon dioxide measurement (moles/volume)Ordered By: John Padron on 01-12-2022 CO2 [Moles/Vol] 27.8 mmol/L 22.0-30.0 [facility] Serum or plasma urea nitroge n measurement (mass/volume)Ordered By: John Padron on 01-12-2022 Urea nitrogen [Mass/Vol] 10 mg/dL 9-23 [facility] COVID-19 Positive/NegativeOr dered By: Woodrow Rashid on 01-10-2022 SARS-CoV-2 (COVID-19) N gene GAYE+probe Ql (Resp) Negative Negative [facility] Comment on above: Testing for SARS-CoV -2 by RT-PCR This test was developed and its performance characteristics determined by [employer] (scroll kit) and validated at the [facility]. This test has not been FDA [...] 01-10-2022 CHOL-HDL RATIO NORM SEE BELOW Normal [facility] Comment on above: Result Comment: 3.3 - 4.4 LOW RISK 4.4 - 7.1 AVERAGE RISK 7.1 - 11.0 MODERATE RISK >11.0 HIGH RISK Performed By: #### L IPID, BMP #### [facility] [address] [address] [address] Owen Mckeon Cholesterol [Mass/Vol] 202 mg/dL Critically high <=200 [facility] Comment on above: Performed By: #### L IPID, BMP #### [facility] [address] [address] [address] Owen Mckeon Cholesterol in HDL [Mass/Vol] 41 mg/dL Normal 40-60 [facility] Comment on above: Performed By: #### L IPID, BMP #### [facility] [address] [address] [address] Owen Mckeon Cholesterol in LDL [Mass/Vol] 136.8 mg/dL Normal [facility] Comment on above: Performed By: #### L IPID, BMP #### [facility] [address] [address] [address] Owen Mckeon Cholesterol.total/Courtney sterol in HDL [Mass ratio] 4.9 {ratio} Normal [facility] Comment on above: Performed By: #### L IPID, BMP #### [facility] [address] [address] [address] Owen Mckeon HDL NORMAL > or = 60 mg/dl - LOW CARDIOVASCULAR RISK <40 mg/dl - HIGH CARDIOVASCULAR RISK Normal [facility] Comment on above: Performed By: #### L IPID, BMP #### [facility] [address] [address] [address] Owen Mckeon LDL CALC NORMAL SEE BELOW Normal [facility] Comment on above: Result Comment: <100 mg/dl OPTIMAL 100 - 129 mg/dl NEAR OR ABOVE OPTIMAL 130 - 159 mg/dl BORDERLINE HIGH 160 - 189 mg/dl HIGH >190 mg/dl VERY HIGH Performed By: #### L IPID, BMP #### [facility] [address] [place] [address] Dr. Owen Mckeon Triglyceride [Mass/Vol] 121 mg/dL Normal <=150 [facility] Comment on above: Performed By: #### L IPID, BMP #### [facility] [address] [place] [address] Dr. Owen Mckeon VLDL CALC 24.2 mg/dL Normal [facility] Comment on above: Performed By: #### L IPID, BMP #### [facility] [address] [place] [address] Dr. Owen Mckeon PROF CHEM 8 (BAS METB)on Anion gap [Moles/Vol] 14.5 mmol/L Normal [facility] Comment on above: Performed By: #### L IPID, BMP #### [facility] [address] [place] [address] Dr. Owen Mckeon Calcium [Mass/Vol] 8.8 mg/dL Normal 8.5-10.1 [facility] Comment on above: Performed By: #### L IPID, BMP #### [facility] [address] [place] [address] Dr. Owen Mckeon Chloride [Moles/Vol] 99 mmol/L Normal 98-107 [facility] Comment on above: Performed By: #### L IPID, BMP #### [facility] [address] [place] [address] Dr. Owen Mckeon CO2 [Moles/Vol] 28.9 mmol/L Normal 21.0-32.0 [facility] Comment on above: Performed By: #### L IPID, BMP #### [facility] [address] [place] [address] Dr. Owen Mckeon Creatinine [Mass/Vol] 0.85 mg/dL Normal 0.70-1.30 [facility] Comment on above: Performed By: #### L IPID, BMP #### [facility] [address] [address] [address] Owen Mckeon EGFR-AF PANAMANIAN >60 Normal >=60 [facility] Comment on above: Performed By: #### L IPID, BMP #### [facility] [address] [place] [address] Dr. Owen Mckeon EGFR-NON AF PANAMANIAN >60 Normal >=60 [facility] Comment on above: Performed By: #### L IPID, BMP #### [facility] [address] [address] [address] Owen Mckeon Glucose [Mass/Vol] 87 mg/dL Normal 74-106 [facility] Comment on above: Performed By: #### L IPID, BMP #### [facility] [address] [place] [address] Dr. Owen Mckeon Potassium [Moles/Vol] 3.4 mmol/L Critically low 3.5-5.1 [facility] Comment on above: Performed By: #### L IPID, BMP #### [facility] [address] [place] [address] Dr. Owen Mckeon Sodium [Moles/Vol] 139 mmol/L Normal 136-145 [facility] Comment on above: Performed By: #### L IPID, BMP #### [facility] [address] [place] [address] Dr. Owen Mckeon Urea nitrogen [Mass/Vol] 10.0 mg/dL Normal 7.0-18.0 [facility] Comment on above: Performed By: #### L IPID, BMP #### [facility] [address] [place] [address] Dr. Owen Mckeon Urea nitrogen/Creatinine [Mass ratio] 11.8 mg/mg Normal [facility] Comment on above: Performed By: #### L IPID, BMP #### [facility] [address] [place] [address] Dr. Owen Mckeon Quick Strepon 09-06-2021 S. pyogenes Org specific cx Ql (Throat) Negative [facility] Other [employer] Other CREATININE BLOODon Creatinine [Mass/Vol] 0.91 mg/dL Normal 0.70-1.30 [facility] Comment on above: Performed By: #### 2 [id number] #### [facility] [address] [place] [address], [facility] GFR/1.73 sq M.predicted among blacks MDRD (S/P/Bld) [Vol rate/Area] mL/min/{1.73_m2} Normal >60 [facility] Comment on above: Performed By: #### 2 5656 #### [facility] [address] [facility] [place] [address], [facility] GFR/1.73 sq M.predicted among non-blacks MDRD (S/P/Bld) [Vol rate/Area] mL/min/{1.73_m2} Normal >60 [facility] Comment on above: Performed By: #### 2 5656 #### [facility] [address] [place] [address], [facility] CTA CHESTon 10-22-2020 CTA CHEST [facility] Department of Radiology [address] [place] [id number] Patient Name: JENNA SPENCER : 1980 Sex: M Age: Race: White Pt. Location: 30 Patient Status: D Ordered Date: 09/21/2020 4:55:00 PM Completed Date: 10/22/2020 05:49 PM Requesting Provider: TAVO MENDOZA V Attending Provider: TAVO MENDOZA V Report Copy To: ROSE MARY TIMMONS Signs & Symptoms: I35.1 Nonrheumatic aortic (valve) insufficiency I10 History: Kaycee patient will need labs [place] [id number] valid 09/23/2020-10/22/2020 per aim [id number] *kw med nec passed Comments: with contrast [...] achievable Electronically signed: Bo Damico. Transcribed by: [email or web address], User Resident: Electronically Signed by: BO DAMICO @ 10/23/2020 12:41 PM Normal [facility] Comment on above: Order Comment: wit h contrast , (NOT a tavr per office) EKG 12 [place] 05-18-2020 Atrial Rate 79 BPM [facility] [place], [place] P [place] 44 degrees [facility] [place] P-R Interval 146 ms [facility] [place] Q-T Interval 380 ms [facility] [place] QRS Duration 94 ms [facility] [place] QTc Calculation (Bazett) 435 ms [facility], [place] R [place] -19 degrees [facility] T [place] 4 degrees [facility] Ventricular Rate 79 BPM [facility] Wiliam, Chpo Incoming Results From [place] - 05/18/2020 9:08 AM EST Normal sinus rhythm Minimal voltage criteria for LVH, may be normal variant Borderline ECG No previous ECGs available Confirmed by Salty Reyes ([id number]) on 05/18/2020 9:08:09 AM [facility], [place] Normal sinus rhythm Minimal voltage criteria for LVH, may be normal variant Borderline ECG No previous ECGs available Confirmed by Salty Reyes ([id number]) on 05/18/2020 9:08:09 AM [facility], [place] FLUORO FOR SURGICAL PROCEDUR ESon 05-18-2020 FLUORO [...] Rom Cunningham MD 05/19/20 Final result Normal [facility] MRI LUMBAR SPINE W WO CONTRA STon 05-18-2020 Wiliam, Chpo Incoming Radiant Results From [facility] - 05/18/2020 8:48 AM EST Examination: MRI [...] spinal canal stenosis at the L4-5 level. [place], [place] Examination: MRI LUMBAR SPINE W WO [...] Visualized paravertebral soft tissues are grossly unremarkable. [place] Left paracentral disc protrusion results in compression of the left L5 nerve against the anterior aspect of the left facet joint and posterior displacement of the left S1 nerve within the spinal canal. Moderate spinal canal stenosis at the L4-5 level. [place], [place] Surgical Specimenon 05-18-19 Surgical Specimen [facility] [address], [place] [id number] FINAL SURGICAL PATHOLOGY REPORT Patient Name: ANSHUL SPENCER Accession No: [id number] Age Sex: 1980 Location: [id number] Account No: [id number] Collected: 05/18/2020 Med Rec No: [id number] Received: 05/19/2020 Attend Phys: PELON TIM Completed: [...] in toto in one cassette following decalcification. ELGINMO/JACMO CPT: 72333 X1 75038 X1 CORTEZ VENEGAS M.D. 05/21/2020 Electronically signed out by Page 1 of 1 [facility] Comment on above: Performed By: #### S UR #### [place] [id number] TYPE AND SCREENon 05-18-2020 ABO/Rh Positive [place], [place] Type and Screen Capture 3 sc rn cellon 05-18-2020 Type and Screen Capture 3 scrn cell PATIENT: JOHANNA Sanchez LOC: [id number] BILL# : [id number] : 1980 SEX: M ORDERED BY: GLENROY SANDHU ORDERED : 05/17/2020 23:05 COLLECTED: 05/17/2020 23:23 ORDER : [id number] RECEIVED : 05/17/2020 23:26 -- TEST NAME RESULT UNITS RANGES ABN FL ST ABORH Capture A POS F Antibody 3 Cell Scrn Captu NEG F - Normal [facility] Comment on above: Performed By: #### T S3C #### [facility] [address] [place] [address] XR CHEST (SINGLE VIEW FRONTA L)on 05-18-2020 INR Coag (Bld) [Relative time] GANESH [place] EXAMINATION: Portable Chest INDICATIONS: Preop back surgery. Dyspnea COMPARISONS: None available. FINDINGS: Heart and mediastinum within normal limits. Pulmonary vasculature unremarkable. Lung villareal clear. Bones and soft tissues intact. [place] Wiliam, Chpo Incoming Radiant Results From [facility] - 05/18/2020 8:01 AM EST EXAMINATION: Portable Chest INDICATIONS: Preop back surgery. Dyspnea COMPARISONS: None available. FINDINGS: Heart and mediastinum within normal limits. Pulmonary vasculature unremarkable. Lung villareal clear. Bones and soft tissues intact. IMPRESSION: NAD [place] C-Reactive Proteinon 021 CRP [Mass/Vol] 4.0 mg/L Normal 0.0-5.0 [facility] Comment on above: Performed By: #### C RP #### [facility] [address] [place] [address] CRP [Mass/Vol] 4 mg/L 0 - 5 mg/L [place], [place] CBC Auto Differentialon 05-01 Basophils (Bld) [#/Vol] 0.1 10*3/uL 0 - 0.2 K/u L [place], [place] Basophils/100 WBC (Bld) 0.7 % [place], [place] Eosinophils (Bld) [#/Vol] 0.1 10*3/uL 0 - 0.7 K/uL [place] Eosinophils/100 WBC (Bld) 1.8 % [place] Erythrocyte distribution width (RBC) [Ratio] 13.7 % 11.5 - 14.5 % [place] Hematocrit (Bld) [Volume fraction] 44.8 % 42 - 52 % [place] Hemoglobin (Bld) [Mass/Vol] 15.0 g/dL 14 - 18 g/dL [place] Lymphocytes (Bld) [#/Vol] 2.3 10*3/uL 1 - 4.8 K/uL [place] Lymphocytes/100 WBC (Bld) 34.1 % [place] MCH (RBC) [Entitic mass] 30.2 pg 27 - 31.3 pg [place] MCHC (RBC) [Mass/Vol] 33.6 % 33 - 37 % [place], [place] MCV (RBC) [Entitic vol] 90.1 fL 80 - 100 fL [place] Monocytes (Bld) [#/Vol] 0.5 10*3/uL 0.2 - 0.8 K/uL [place] Monocytes/100 WBC (Bld) 7.8 % [place], [place] Neutrophils Absolute 3.8 K/uL 1.4 - 6 .5 K/uL [place] Neutrophils/100 WBC (Bld) 55.6 % [place] Platelets (Bld) [#/Vol] 243 10*3/uL 130 - 400 K/uL [place] RBC (Bld) [#/Vol] 4.97 10*6/uL [place] WBC (Bld) [#/Vol] 6.8 10*3/uL 4.8 - 10.8 K/uL [place] CBC With Platelet and Differ entialon 05-17-2020 Basophils (Bld) [#/Vol] 0.1 10*3/uL Normal 0.0-0.2 [facility] Comment on above: Performed By: #### C BCWD #### [facility] [address] [place] [address] Basophils/100 WBC (Bld) 0.7 % Normal [facility] Comment on above: Performed By: #### C BCWD #### [facility] [address] [place] [address] Eosinophils (Bld) [#/Vol] 0.1 10*3/uL Normal 0.0-0.7 [facility] Comment on above: Performed By: #### C BCWD #### [facility] [address] [place] [address] Eosinophils/100 WBC (Bld) 1.8 % Normal [facility] Comment on above: Performed By: #### C BCWD #### [facility] [address] [place] [address] Erythrocyte distribution width (RBC) [Ratio] 13.7 % Normal 11.5-14.5 [facility] Comment on above: Performed By: #### C BCWD #### [facility] [address] [place] [address] Hematocrit (Bld) [Volume fraction] 44.8 % Normal 42.0-52.0 [facility] Comment on above: Performed By: #### C BCWD #### [facility] [address] [place] [address] Hemoglobin (Bld) [Mass/Vol] 15.0 g/dL Normal 14.0-18.0 [facility] Comment on above: Performed By: #### C BCWD #### [facility] [address] [place] [address] Lymphocytes (Bld) [#/Vol] 2.3 10*3/uL Normal 1.0-4.8 [facility] Comment on above: Performed By: #### C BCWD #### [facility] [address] [place] [address] Lymphocytes/100 WBC (Bld) 34.1 % Normal [facility] Comment on above: Performed By: #### C BCWD #### [facility] [address] [place] [address] MCH (RBC) [Entitic mass] 30.2 pg Normal 27.0-31.3 [facility] Comment on above: Performed By: #### C BCWD #### [facility] [address] [place] [address] MCHC (RBC) [Mass/Vol] 33.6 % Normal 33.0-37.0 [facility] Comment on above: Performed By: #### C BCWD #### [facility] [address] [place] [address] MCV (RBC) [Entitic vol] 90.1 fL Normal 80.0-100.0 [facility] Comment on above: Performed By: #### C BCWD #### [facility] [address] [place] [address] Monocytes (Bld) [#/Vol] 0.5 10*3/uL Normal 0.2-0.8 [facility] Comment on above: Performed By: #### C BCWD #### [facility] [address] [place] [address] Monocytes/100 WBC (Bld) 7.8 % Normal [facility] Comment on above: Performed By: #### C BCWD #### [facility] [address] [place] [address] Neutrophils (Bld) [#/Vol] 3.8 10*3/uL Normal 1.4-6.5 [facility] Comment on above: Performed By: #### C BCWD #### [facility] [address] [place] [address] Neutrophils/100 WBC (Bld) 55.6 % Normal [facility] Comment on above: Performed By: #### C BCWD #### [facility] [address] [place] [address] Platelets (Bld) [#/Vol] 243 10*3/uL Normal 130-400 [facility] Comment on above: Performed By: #### C BCWD #### [facility] [address] [place] [address] RBC (Bld) [#/Vol] 4.97 10*6/uL Normal 4.70-6.10 [facility] Comment on above: Performed By: #### C BCWD #### [facility] [address] [place] [address] WBC (Bld) [#/Vol] 6.8 10*3/uL Normal 4.8-10.8 [facility] Comment on above: Performed By: #### C BCWD #### [facility] [address] [place] [address] COVID-19on 05-17-2020 COVID-19, NAAT Not Detected Normal Not Detect [facility] Comment on above: Result Comment: Rapi d [...] authorized laboratories. Fact sheet for Healthcare Providers: https://www.fda.gov/media/085240/download Fact sheet for Patients: https://www.fda.gov/media/131573/download METHODOLOGY: Isothermal Nucleic Acid Amplification Performed By: #### C OVPC #### [facility] [address] [place] [address] SARS-CoV-2, NAAT Not Detected Not Detected [place], [place] Comment on above: Rapid NAAT: [...] authorized laboratories. Fact sheet for Healthcare Providers: https://www.fda.gov/media/502506/download Fact sheet for Patients: https://www.fda.gov/media/500057/download METHODOLOGY: Isothermal Nucleic Acid Amplification Comprehensive Metabolic Pane max 05-17-2020 Albumin [Mass/Vol] 4.7 g/dL Critically high 3.5-4.6 M [facility] Comment on above: Performed By: #### C MP #### [facility] [address] [place] [address] ALP [Catalytic activity/Vol] 60 U/L Normal 35-104 [facility] Comment on above: Performed By: #### C MP #### [facility] [address] [place] [address] ALT [Catalytic activity/Vol] 32 U/L Normal 0-41 [facility] Comment on above: Performed By: #### C MP #### [facility] [address] [place] [address] Anion gap [Moles/Vol] 12 mmol/L Normal 9-15 [facility] Comment on above: Performed By: #### C MP #### [facility] [address] [place] [address] AST [Catalytic activity/Vol] 21 U/L Normal 0-40 [facility] Comment on above: Performed By: #### C MP #### [facility] [address] [place] [address] Bilirubin [Mass/Vol] mg/dL Normal 0.2-0.7 [facility] Comment on above: Performed By: #### C MP #### [facility] [address] [place] [address] Calcium [Mass/Vol] 9.3 mg/dL Normal 8.5-9.9 [facility] Comment on above: Performed By: #### C MP #### [facility] [address] [place] [address] Chloride [Moles/Vol] 99 mmol/L Normal 95-107 [facility] Comment on above: Performed By: #### C MP #### [facility] [address] [place] [address] CO2 [Moles/Vol] 26 mmol/L Normal 20-31 [facility] Comment on above: Performed By: #### C MP #### [facility] [address] [place] [address] Creatinine [Mass/Vol] 0.80 mg/dL Normal 0.70-1.20 [facility] Comment on above: Performed By: #### C MP #### [facility] [address] [place] [address] GFR/1.73 sq M predicted among blacks MDRD (S/P/Bld) [Vol rate/Area] mL/min/{1.73_m2} Normal >60 [facility] Comment on above: Result Comment: >60 mL/min/1.73m2 EGFR, calc. for ages 18 and older using the MDRD formula (not corrected for weight), is valid for stable renal function. Performed By: #### C MP #### [facility] [address] [place] [address] GFR/1.73 sq M.predicted MDRD (S/P/Bld) [Vol rate/Area] mL/min/{1.73_m2} Normal >60 [facility] Comment on above: Result Comment: >60 mL/min/1.73m2 EGFR, calc. for ages 18 and older using the MDRD formula (not corrected for weight), is valid for stable renal function. Performed By: #### C MP #### [facility] [address] [place] [address] Globulin (S) [Mass/Vol] 2.9 g/dL Normal 2.3-3.5 M [facility] Comment on above: Performed By: #### C MP #### [facility] [address] [place] [address] Glucose [Mass/Vol] 96 mg/dL Normal 70-99 [facility] Comment on above: Performed By: #### C MP #### [facility] [address] [place] [address] Potassium [Moles/Vol] 4.0 mmol/L Normal 3.4-4.9 [facility] Comment on above: Performed By: #### C MP #### [facility] [address] [place] [address] Protein [Mass/Vol] 7.6 g/dL Normal 6.3-8.0 [facility] Comment on above: Performed By: #### C MP #### [facility] [address] [place] [address] Sodium [Moles/Vol] 137 mmol/L Normal 135-144 [facility] Comment on above: Performed By: #### C MP #### [facility] [address] [place] [address] Urea nitrogen [Mass/Vol] 11 mg/dL Normal 6-20 [facility] Comment on above: Performed By: #### C MP #### [facility] [address] [place] [address] Albumin [Mass/Vol] 4.7 g/dL High 3.5 - 4.6 g/dL [facility], [place] ALP [Catalytic activity/Vol] 60 U/L 35 - 104 U/L [facility], [place] ALT [Catalytic activity/Vol] 32 U/L 0 - 41 U/L [place] Anion gap [Moles/Vol] 12 mmol/L [place], [place] AST [Catalytic activity/Vol] 21 U/L 0 - 40 U/L [place] Bilirubin Ql (U) <0.2 0.2 - 0.7 mg/dL [place] Calcium [Mass/Vol] 9.3 mg/dL 8.5 - 9.9 mg/dL [place] Chloride [Moles/Vol] 99 mmol/L [place] CO2 [Moles/Vol] 26 mmol/L [facility] [place] [place] Creatinine [Mass/Vol] 0.8 mg/dL 0.7 - 1.2 mg/dL [place] GFR >60.0 >60 [place] Comment on above: >60 mL/min/1.73m2 EG FR, calc. for ages 18 and older using the MDRD formula (not corrected for weight), is valid for stable renal function. GFR Non- >60.0 >60 [place] Comment on above: >60 mL/min/1.73m2 EG FR, calc. for ages 18 and older using the MDRD formula (not corrected for weight), is valid for stable renal function. Globulin (S) [Mass/Vol] 2.9 g/dL 2.3 - 3.5 g/dL [place] Glucose [Mass/Vol] 96 mg/dL 70 - 99 mg/dL [place] Interpretation and review of laboratory results Abnormal [place] Potassium [Moles/Vol] 4.0 mmol/L [place], [place] Protein [Mass/Vol] 7.6 g/dL 6.3 - 8 g/dL [place] Sodium [Moles/Vol] 137 mmol/L [place] Urea nitrogen [Mass/Vol] 11 mg/dL 6 - 20 mg/dL [place] MRI LUMBAR SPINE W WO CONTRA [...] Bo Kendrick DO 05/18/20 Final result Normal [facility] Microscopic Urinalysison Bacteria, UA MANY Abnormal Negative /HPF [place] Epithelial Cells, UA 20-50 [place] Hyaline Casts, UA 5-10 [place], [place] Interpretation and review of laboratory results Abnormal [place] RBC (U) [#/Vol] 0-2 [place] WBC, UA >100 High [place] Sedimentation Rateon 021 Sedimentation Rate 9 mm Normal 0-10 [facility] Comment on above: Performed By: #### E SR #### [facility] [address] [place] [address] Sed Rate 9 mm 0 - 10 mm [place] Urinalysison 05-17-2020 Bilirubin Urine Negative Negative [place] Blood, Urine LARGE Abnormal Negative [place], [place] Clarity, UA TURBID Abnormal Clear [place] Color, UA Yellow Straw/Yellow [place], [place] Glucose, Ur Negative Negative mg/dL [place] Interpretation and review of laboratory results Abnormal [place] Ketones Ql (U) TRACE Abnormal Negative mg/dL [place] Leukocyte esterase Test strip Ql (U) LARGE Abnormal Negative [place] Nitrite, Urine Positive Abnormal Negative [place], [place] pH, UA 5.5 [place] Protein (U) [Mass/Vol] 100 mg/dL Abnormal Negative [place], [place] Specific [place], UA 1.023 [place] Urobilinogen, Urine 0.2 <2.0 E.U./dL [place] Urinalysis, reflex to micros copicon 05-17-2020 Bilirubin Ql (U) Negative Normal Negative [facility] Comment on above: Performed By: #### T S3C #### [facility] [address] [place] [address] Clarity (U) TURBID Abnormal Clear [facility] Comment on above: Performed By: #### T S3C #### [facility] [address] [place] [address] Color (U) Yellow Normal Straw/Lamb [facility] Comment on above: Performed By: #### T S3C #### [facility] [address] [place] [address] Glucose Ql (U) Negative Normal Negative [facility] Comment on above: Performed By: #### T S3C #### [facility] [address] [place] [address] Hemoglobin Ql (U) LARGE Abnormal Negative [facility] Comment on above: Performed By: #### T S3C #### [facility] [address] [place] [address] Ketones Ql (U) TRACE Abnormal Negative [facility] Comment on above: Performed By: #### T S3C #### [facility] [address] [place] [address] Leukocyte esterase Test strip Ql (U) LARGE Abnormal Negative [facility] Comment on above: Performed By: #### T S3C #### [facility] [address] [place] [address] Nitrite Ql (U) Positive Abnormal Negative [facility] Comment on above: Performed By: #### T S3C #### [facility] [address] [place] [address] pH (U) 5.5 [pH] Normal 5.0-9.0 [facility] Comment on above: Performed By: #### T S3C #### [facility] [address] [place] [address] Protein Ql (U) 100 mg/dL Abnormal Negative [facility] Comment on above: Performed By: #### T S3C #### [facility] [address] [place] [address] Specific gravity (U) [Rel density] 1.023 Normal 1.005-1.03 [facility] Comment on above: Performed By: #### T S3C #### [facility] [address] [place] [address] Urobilinogen Qn (U) 0.2 {Justine'U}/dL Normal < 2.0 [facility] Comment on above: Performed By: #### T S3C #### [facility] [address] [place] [address] Urine Microscopicon 05-17-19 21 RBC (U) [#/Vol] 0-2 Normal 0-2 [facility] Comment on above: Performed By: #### U DEVANG #### [facility] [address] [place] [address] Bacteria LM.HPF (Urine sed) [#/Area] MANY Abnormal Negative [facility] Comment on above: Performed By: #### U DEVANG #### [facility] [address] [place] [address] Urine Epithelial Cells Auto 20-50 Normal 0-5 [facility] Comment on above: Performed By: #### U DEVANG #### [facility] [address] [place] [address] Urine Hyaline Casts Auto 5-10 Normal 0-5 [facility] Comment on above: Performed By: #### U DEVANG #### [facility] [address] [place] [address] Urine WBC Auto >100 Critically high 0-5 [facility] Comment on above: Performed By: #### U DEVANG #### [facility] [address] [place] [address] XR CHEST (SINGLE VIEW FRONTA L)on 05-17-2020 XR CHEST (SINGLE VIEW FRONTAL) EXAMINATION: Portable Chest INDICATIONS: Preop back surgery. Dyspnea COMPARISONS: None available. FINDINGS: Heart and mediastinum within normal limits. Pulmonary vasculature unremarkable. Lung villareal clear. Bones and soft tissues intact. IMPRESSION: NAD Interpreted by: Levar Melvin MD Signed by: Levar Melvin MD 05/18/20 Final result Normal [facility] Dermatopathologyon Dermatopathology [facility] [address] [place] [id number] DERMATOPATHOLOGY REPORT Name:ANSHUL SPENCER [facility]. Rec #. [id number] Location: [facility] Date of Procedure: 02/27/2020 Race: Date Received: [...] M.D. Electronically Signed Out By JASMIN BROUSSARD MD/[facility] By the signature on this report, the individual or group listed as making the Final Interpretation/Diag nosis certifies that they have reviewed this case. Clinical History: Atopic dermatitis vs. drug eruption / HCTZ. Biopsy. Specimens Submitted As: A: SKIN, L FOREARM Gross Description: Received in formalin is a chapa, cylindrical piece of skin measuring [id number]. The specimen is inked and embedded in toto. ink/03/02/2020 Normal [facility] Comment on above: Performed By: #### D #### Dermatopathology Vital Signs Date Time Vital Sign Value Performing Clinician Facility 01-02-2025 11:28040 Body height 187.96 cm Rose Mary Timmons MD Work Phone: [facility] 01-02-2025 11:28040 Body mass index (BMI) [Ratio] 27.8 kg/m2 Rose Mary Timmons MD Work Phone: [facility] 01-02-2025 11:28040 Body weight 98.42 kg Rose Mary Timmons MD Work Phone: [facility] 01-02-2025 11:28-040 Diastolic blood pressure 74 mm[Hg] Rose Mary Timmons MD Work Phone: [facility] 01-02-2025 11:28-040 Heart rate 76 /min Rose Mary Timmons MD Work Phone: [facility] 01-02-2025 11:28-040 Systolic blood pressure 108 mm[Hg] Rose Mary Timmons MD Work Phone: [facility] 11-21-2024 08:19-0400 Body height 187.96 cm Rose Mary Timmons MD Work Phone: [facility] 11-21-2024 08:19-0400 Body mass index (BMI) [Ratio] 26.9 kg/m2 Rose Mary Timmons MD Work Phone: [facility] 11-21-2024 08:19-0400 Body weight 95.25 kg Rose Mary Timmons MD Work Phone: [facility] 08-06-2024 10:48-0400 Body height 187.96 cm Rose Mary Timmons MD Work Phone: [facility] 08-06-2024 10:48-0400 Body mass index (BMI) [Ratio] 28.3 kg/m2 Rose Mary Timmons MD Work Phone: [facility] 08-06-2024 10:48-0400 Body weight 100.24 kg Rose Mary Timmons MD Work Phone: [facility] 08-06-2024 10:48-0400 Diastolic blood pressure 72 mm[Hg] Rose Mary Timmons MD Work Phone: [facility] 08-06-2024 10:48-0400 Heart rate 76 /min Rose Mary Timmons MD Work Phone: [facility] 08-06-2024 10:48-0400 Systolic blood pressure 113 mm[Hg] Rose Mary Timmons MD Work Phone: [facility] 03-01-2024 11:55-0400 Body height 188 cm Jonathan Shipman DO Work Phone: [facility] 03-01-2024 11:55-0400 Body mass index (BMI) [Ratio] 28.89 kg/m2 Jonathan Shipman DO Work Phone: [facility] 03-01-2024 11:55-0400 Body weight 102.06 kg Jonathan Shipman DO Work Phone: [facility] 02-01-2024 14:44-0400 Body height 187.96 cm [facility] 02-01-2024 14:44-0400 Body mass index (BMI) [Ratio] 29.9 kg/m2 [facility] 02-01-2024 14:44-0400 Body weight 105.91 kg [facility] 02-01-2024 14:44-0400 Diastolic blood pressure 82 mm[Hg] [facility] 02-01-2024 14:44-0400 Heart rate 86 /min [facility] 02-01-2024 14:44-0400 Respiratory rate 18 /min [facility] 02-01-2024 14:44-0400 SaO2% (BldA) [Mass fraction] 98 % [facility] 02-01-2024 14:44-0400 Systolic blood pressure 122 mm[Hg] [facility] 08-02-2023 11:01-0400 Body height 187.96 cm MD Rose Mary Timmons Work Phone: [facility] 08-02-2023 11:01-0400 Body mass index (BMI) [Ratio] 30.2 kg/m2 MD Rose Mary Timmons Work Phone: [facility] 08-02-2023 11:01-0400 Body weight 106.65 kg MD Rose Mary Timmons Work Phone: [facility] 08-02-2023 11:01-0400 Diastolic blood pressure 80 mm[Hg] MD Rose Mary Timmons Work Phone: [facility] 08-02-2023 11:01-0400 Heart rate 93 /min MD Rose Mary Timmons Work Phone: [facility] 08-02-2023 11:01-0400 Systolic blood pressure 120 mm[Hg] MD Rose Mary Timmons Work Phone: [facility] 06-26-2023 16:37-0500 Diastolic blood pressure 80 mm[Hg] MD Rose Mary Timmons Work Phone: [facility] 06-26-2023 16:37-0500 Heart rate 71 /min MD Rose Mary Timmons Work Phone: [facility] 06-26-2023 16:37-0500 Respiratory rate 16 /min MD Rose Mary Timmons Work Phone: [facility] 06-26-2023 16:37-0500 SaO2% (BldA) [Mass fraction] 96 % MD Rose Mary Timmons Work Phone: [facility] 06-26-2023 16:37-0500 Systolic blood pressure 125 mm[Hg] MD Rose Mary Timmons Work Phone: [facility] 06-26-2023 15:28-0500 Body temperature 98.4 [degF] MD Rose Mary Timmons Work Phone: [facility] 06-26-2023 14:12-0500 Body mass index (BMI) [Ratio] 28.8 kg/m2 MD Rose Mary Timmons Work Phone: [facility] 06-26-2023 13:49-0500 Body height 187.96 cm MD Rose Mary Timmons Work Phone: [facility] 06-26-2023 13:49-0500 Body weight 102.05 kg MD Rose Mary Timmons Work Phone: [facility] 06-13-2023 14:51-0500 Body height 188 cm Jonathan Shipman DO Work Phone: [facility] 06-13-2023 14:51-0500 Body mass index (BMI) [Ratio] 30.56 kg/m2 Jonathan Shipman DO Work Phone: [facility] 06-13-2023 14:51-0500 Body weight 107.96 kg Jonathan Shipman DO Work Phone: [facility] 06-07-2023 09:00-0500 Body height 185.42 cm Rose Mary Timmons Other [facility] [employer] Other 06-07-2023 09:00-0500 Body mass index (BMI) [Ratio] 30.72 kg/m2 Rose Mary Timmons Other [facility] [employer] Other 06-07-2023 09:00-0500 Body weight 105.64 kg Rose Mary Timmons Other [employer] Other 06-07-2023 09:00-0500 Diastolic blood pressure 76 mm[Hg] Rose Mary Timmons Other [employer] Other 06-07-2023 09:00-0500 Systolic blood pressure 110 mm[Hg] Rose Mary Timmons Other [employer] Other 01-30-2023 09:45-0400 Body height 185.42 cm Woodrow Rashid Other [employer] Other 01-30-2023 09:45-0400 Body mass index (BMI) [Ratio] 29.68 kg/m2 Woodrow Melgarrer Other [employer] Other 01-30-2023 09:45-0400 Body temperature 97.8 [degF] Woodrow Rashid Other [employer] Other 01-30-2023 09:45-0400 Body weight 102.06 kg Woodrow Rachid Other [employer] Other 01-30-2023 09:45-0400 Diastolic blood pressure 62 mm[Hg] Woodrow Melgarrelinda Other [employer] Other 01-30-2023 09:45-0400 SaO2% (BldA) [Mass fraction] 98 % Woodrow eMlgarrelinda Other [employer] Other 01-30-2023 09:45-0400 Systolic blood pressure 114 mm[Hg] Woodrow Buehrer Other [employer] Other 01-17-2023 08:45-0400 Body height 185.42 cm Guanaco Wolf Other [employer] Other 01-17-2023 08:45-0400 Body mass index (BMI) [Ratio] 30.9 kg/m2 Guanaco Wolf Other [employer] Other 01-17-2023 08:45-0400 Body weight 106.23 kg Guanaco Wolf Other [employer] Other 01-17-2023 08:45-0400 Diastolic blood pressure 72 mm[Hg] Guanaco Wolf Other [employer] Other 01-17-2023 08:45-0400 SaO2% (BldA) [Mass fraction] 98 % Guanaco Wolf Other [employer] Other 01-17-2023 08:45-0400 Systolic blood pressure 118 mm[Hg] Guanaco Wolf Other [employer] Other 01-03-2023 08:30-0400 Body height 185.42 cm Rose Mary Timmons Other [employer] Other 01-03-2023 08:30-0400 Body mass index (BMI) [Ratio] 30.76 kg/m2 RoseM ary Timmons Other [employer] Other 01-03-2023 08:30-0400 Body weight 105.78 kg Rose Mary Timmons Other [employer] Other 01-03-2023 08:30-0400 Diastolic blood pressure 74 mm[Hg] Rose Mary Timmons Other [employer] Other 01-03-2023 08:30-0400 Systolic blood pressure 113 mm[Hg] Rose Mary Timmons Other [employer] Other 01-03-2023 06:57-0400 Body height 187.96 cm MD Rose Mary Timmons Work Phone: [facility] 01-03-2023 06:57-0400 Body weight 102.05 kg MD Rose Mary Timmons Work Phone: [facility] 10-24-2022 09:15-0400 Body height 185.42 cm Guanaco Wolf Other [employer] Other 10-24-2022 09:15-0400 Diastolic blood pressure 70 mm[Hg] Guanaco Wolf Other [employer] Other 10-24-2022 09:15-0400 SaO2% (BldA) [Mass fraction] 98 % Guanacoaida Wolf Other [employer] Other 10-24-2022 09:15-0400 Systolic blood pressure 110 mm[Hg] Guanaco Wolf Other [employer] Other 07-15-2022 10:45-0400 Body height 185.42 cm Guanaco Wolf Other [employer] Other 07-15-2022 10:45-0400 Body mass index (BMI) [Ratio] 30.61 kg/m2 Guanaco Wolf Other [employer] Other 07-15-2022 10:45-0400 Body weight 105.24 kg Guanaco Wolf Other [employer] Other 07-15-2022 10:45-0400 Diastolic blood pressure 78 mm[Hg] Guanaco Wolf Other [employer] Other 07-15-2022 10:45-0400 SaO2% (BldA) [Mass fraction] 97 % Guanaco Wolf Other [employer] Other 07-15-2022 10:45-0400 Systolic blood pressure 120 mm[Hg] Guanaco Wolf Other [employer] Other 06-24-2022 09:30-0500 Body height 185.42 cm Guanaco Wolf Other [employer] Other 06-24-2022 09:30-0500 Body mass index (BMI) [Ratio] 30.84 kg/m2 Guanaco Wolf Other [employer] Other 06-24-2022 09:30-0500 Body weight 106.05 kg Guanaco Wolf Other [employer] Other 06-24-2022 09:30-0500 Diastolic blood pressure 86 mm[Hg] Guanaco Wolf Other [employer] Other 06-24-2022 09:30-0500 SaO2% (BldA) [Mass fraction] 97 % Guanaco Wolf Other [employer] Other 06-24-2022 09:30-0500 Systolic blood pressure 124 mm[Hg] Guanaco Wolf Other [employer] Other 06-23-2022 08:30-0500 Body height 185.42 cm Rose Mary Timmons Other [employer] Other 06-23-2022 08:30-0500 Body mass index (BMI) [Ratio] 31 kg/m2 Rose Mary Timmons Other [employer] Other 06-23-2022 08:30-0500 Body weight 106.6 kg Rose Mary Timmons Other [employer] Other 06-23-2022 08:30-0500 Diastolic blood pressure 74 mm[Hg] Rose Mary Timmons Other [employer] Other 06-23-2022 08:30-0500 SaO2% (BldA) [Mass fraction] 97 % Rose Mary Timmons Other [employer] Other 06-23-2022 08:30-0500 Systolic blood pressure 112 mm[Hg] Rose Mary Timmons Other [employer] Other 05-12-2022 09:30-0500 Body height 185.42 cm Rose Mary Timmons Other [employer] Other 05-12-2022 09:30-0500 Body mass index (BMI) [Ratio] 30.74 kg/m2 Rose Mary Timmons Other [employer] Other 05-12-2022 09:30-0500 Body weight 105.69 kg Rose Mary Timmons Other [employer] Other 05-12-2022 09:30-0500 Diastolic blood pressure 80 mm[Hg] Rose Mary Timmons Other [employer] Other 05-12-2022 09:30-0500 SaO2% (BldA) [Mass fraction] 97 % Rose Mary Timmons Other [employer] Other 05-12-2022 09:30-0500 Systolic blood pressure 110 mm[Hg] Rose Mary Timmons Other [employer] Other 01-31-2022 10:30-0400 Body height 187.96 cm Leyla Bolanos Other [employer] Other 01-31-2022 10:30-0400 Body mass index (BMI) [Ratio] 28.89 kg/m2 Leyla Bolanos Other [employer] Other 01-31-2022 10:30-0400 Body temperature 97 [degF] Leyla Bolanos Other [employer] Other 01-31-2022 10:30-0400 Body weight 102.06 kg Leyla Bolanos Other [employer] Other 01-31-2022 10:30-0400 Diastolic blood pressure 78 mm[Hg] Leyla Bolanos Other [employer] Other 01-31-2022 10:30-0400 SaO2% (BldA) [Mass fraction] 98 % Leyla Bolanos Other [employer] Other 01-31-2022 10:30-0400 Systolic blood pressure 118 mm[Hg] Leyla Bolanos Other [employer] Other 01-12-2022 11:01-0400 Diastolic blood pressure 79 mm[Hg] MD Rose Mary Timmons Work Phone: [facility] 01-12-2022 11:01-0400 Heart rate 80 /min MD Rose Mary Timmons Work Phone: [facility] 01-12-2022 11:01-0400 Respiratory rate 16 /min MD Rose Mary Timmons Work Phone: [facility] 01-12-2022 11:01-0400 SaO2% (BldA) [Mass fraction] 96 % MD Rose Mary Timmons Work Phone: [facility] 01-12-2022 11:01-0400 Systolic blood pressure 125 mm[Hg] MD Rose Mary Timmons Work Phone: [facility] 01-12-2022 07:41-0400 Body height 187.96 cm MD Rose Mary Timmons Work Phone: [facility] 01-12-2022 07:41-0400 Body mass index (BMI) [Ratio] 28.8 kg/m2 MD Rose Mary Timmons Work Phone: [facility] 01-12-2022 07:41-0400 Body weight 102.05 kg MD Rose Mary Timmons Work Phone: [facility] 01-12-2022 07:22-0400 Body temperature 97.9 [degF] MD Rose Mary Timmons Work Phone: [facility] 12-21-2021 11:00-0400 Body height 187.96 cm Leyla Bolanos Other [employer] Other 12-21-2021 11:00-0400 Body mass index (BMI) [Ratio] 28.89 kg/m2 Leyla Bolanos Other [employer] Other 12-21-2021 11:00-0400 Body temperature 98.3 [degF] Leyla Bolanos Other [employer] Other 12-21-2021 11:00-0400 Body weight 102.06 kg Leyla Bolanos Other [employer] Other 12-21-2021 11:00-0400 Diastolic blood pressure 68 mm[Hg] Leyla Bolanos Other [employer] Other 12-21-2021 11:00-0400 SaO2% (BldA) [Mass fraction] 97 % Leyla Bolanos Other [employer] Other 12-21-2021 11:00-0400 Systolic blood pressure 110 mm[Hg] Leyla Bolanos Other [employer] Other 09-21-2021 11:15-0400 Body height 187.96 cm Woodrow Aliyaehrer Other [employer] Other 09-21-2021 11:15-0400 Body mass index (BMI) [Ratio] 28.89 kg/m2 Woodrow Pisanoehrer Other [employer] Other 09-21-2021 11:15-0400 Body temperature 97.9 [degF] Woodrow Pisanoehrer Other [employer] Other 09-21-2021 11:15-0400 Body weight 102.06 kg Woodrow Buehrer Other [employer] Other 09-21-2021 11:15-0400 Diastolic blood pressure 74 mm[Hg] Woodrow Pisanoehrer Other [employer] Other 09-21-2021 11:15-0400 SaO2% (BldA) [Mass fraction] 98 % Woodrow Buehrer Other [employer] Other 09-21-2021 11:15-0400 Systolic blood pressure 116 mm[Hg] Woodrow Buehrer Other [employer] Other 09-06-2021 17:00-0400 Body height 187.96 cm Lanie Robledo Other [employer] Other 09-06-2021 17:00-0400 Body mass index (BMI) [Ratio] 28.89 kg/m2 Lanie Robledo Other [employer] Other 09-06-2021 17:00-0400 Body temperature 97.7 [degF] Lanie Robledo Other [employer] Other 09-06-2021 17:00-0400 Body weight 102.06 kg Lanie Robledo Other [employer] Other 09-06-2021 17:00-0400 SaO2% (BldA) [Mass fraction] 95 % Lanie Robledo Other [employer] Other 07-12-2021 10:30-0400 Body height 187.96 cm Guanaco Wolf Other [employer] Other 07-12-2021 10:30-0400 Body mass index (BMI) [Ratio] 29.71 kg/m2 Guanaco Wolf Other [employer] Other 07-12-2021 10:30-0400 Body weight 104.96 kg Guanaco Wolf Other [employer] Other 07-12-2021 10:30-0400 Diastolic blood pressure 70 mm[Hg] Guanaco Maryann Other [employer] Other 07-12-2021 10:30-0400 SaO2% (BldA) [Mass fraction] 98 % Guanaco Gironky Other [employer] Other 07-12-2021 10:30-0400 Systolic blood pressure 110 mm[Hg] Guanaco Maryann Other [employer] Other 06-10-2021 10:45-0500 Body height 187.96 cm Mando Olexa Other [employer] Other 06-10-2021 10:45-0500 Body mass index (BMI) [Ratio] 29.4 kg/m2 Mando Olexa Other [employer] Other 06-10-2021 10:45-0500 Body weight 103.87 kg Mando Olexa Other [employer] Other 06-01-2021 14:45-0500 Body height 187.96 cm Mando Olexa Other [employer] Other 06-01-2021 14:45-0500 Body mass index (BMI) [Ratio] 29.48 kg/m2 Mando Olexa Other [employer] Other 06-01-2021 14:45-0500 Body weight 104.15 kg Mando Olexa Other [employer] Other 06-01-2021 09:30-0500 Body height 187.96 cm Guanaco Maryann Other [employer] Other 06-01-2021 09:30-0500 Body mass index (BMI) [Ratio] 29.42 kg/m2 Guanaco Wolf Other [employer] Other 06-01-2021 09:30-0500 Body weight 103.97 kg Guanaco Wolf Other [employer] Other 06-01-2021 09:30-0500 Diastolic blood pressure 66 mm[Hg] Guanaco Wolf Other [employer] Other 06-01-2021 09:30-0500 Respiratory rate 18 /min Guanaco Wolf Other [employer] Other 06-01-2021 09:30-0500 SaO2% (BldA) [Mass fraction] 96 % Guanaco Wolf Other [employer] Other 06-01-2021 09:30-0500 Systolic blood pressure 118 mm[Hg] Guanaco Wolf Other [employer] Other 04-19-2021 10:00-0500 Body height 187.96 cm Guanaco Wolf Other [employer] Other 04-19-2021 10:00-0500 Body mass index (BMI) [Ratio] 28.91 kg/m2 Guanaco Wolf Other [employer] Other 04-19-2021 10:00-0500 Body weight 102.15 kg Guanaco Wolf Other [employer] Other 04-19-2021 10:00-0500 Diastolic blood pressure 76 mm[Hg] Guanaco Wolf Other [employer] Other 04-19-2021 10:00-0500 SaO2% (BldA) [Mass fraction] 95 % Guanaco Wolf Other [employer] Other 04-19-2021 10:00-0500 Systolic blood pressure 122 mm[Hg] Guanaco Wolf Other [employer] Other 05-18-2020 14:00-0500 BP Diastolic 73 mm[facility]Hg] [facility] [place] 05-18-2020 14:00-0500 BP Systolic 122 mm[Hg] [facility] [place] 05-18-2020 14:00-0500 Pulse (Heart Rate) 89 /min [facility] [place], [place] 05-18-2020 14:00-0500 Pulse Oximetry 92 % [facility] , [place] 05-18-2020 14:00-0500 Respiratory Rate 17 /min [facility], [place] 05-18-2020 13:25-0500 Body Temperature 99 [degF] Tamika [facility], [place] 05-17-2020 15:01-0500 BMI (Body Mass Index) 30.17 kg/m2 [facility], [place] 05-17-2020 15:01-0500 Body weight 106.59 kg [facility] [place] 05-17-2020 15:01-0500 Height 188 cm [place], [place] Encounters Encounter Date Encounter Type Care Provider Facility Start: 01-02-2025 End: 01-02-2025 ambulatory Rose Mary Timmons MD Work Phone: [facility] Work Phone: Start: 01-02-2025 End: 01-02-2025 Patient encounter procedure Rose Mary Timmons MD -[facility] Work Phone: Start: 12-31-2024 End: 12-31-2024 ambulatory Rose Mary Timmons MD Work Phone: [facility] Work Phone: Start: 12-31-2024 End: 12-31-2024 Patient encounter procedure Mando Forde MD -[facility] Work Phone: Start: 12-12-2024 End: 12-12-2024 Patient encounter procedure Mando Forde MD -[facility] [address] [facility] Work Phone: Start: 12-12-2024 End: 12-12-2024 ambulatory Rose Mary Timmons MD Work Phone: [facility] Work Phone: Start: 11-29-2024 End: 11-29-2024 ambulatory JAMESON BRADY [facility] Start: 11-21-2024 End: 11-21-2024 ambulatory Rose Mary Timmons MD Work Phone: [facility] Work Phone: Start: 11-21-2024 End: 11-21-2024 Patient encounter procedure Mando Forde MD -[facility] Work Phone: Start: 08-06-2024 End: 08-06-2024 ambulatory Rose Mary Timmons MD Work Phone: [facility] Work Phone: Start: 08-06-2024 End: 08-06-2024 Patient encounter procedure Rose Mary Timmons MD Work Phone: [facility] Work Phone: Start: 05-13-2024 End: 05-13-2024 ambulatory Rose Mary Timmons MD Work Phone: [facility] Work Phone: Start: 05-13-2024 End: 05-13-2024 Patient encounter procedure Rose Mary Timmons MD Work Phone: [facility] Work Phone: Start: 05-13-2024 End: 05-13-2024 Patient encounter procedure Rose Mary Timmons MD Work Phone: [facility] Start: 05-13-2024 End: 05-13-2024 ambulatory Rose Mary Timmons MD Work Phone: [facility] Work Phone: Start: 04-16-2024 Non-patient / Non-visit Rose Mary Timmons MD Work Phone: [facility] Work Phone: Start: 04-03-2024 End: 04-03-2024 Patient encounter procedure Rose Mary Timmons MD Work Phone: [facility] Work Phone: Start: 03-01-2024 End: 03-01-2024 Office outpatient visit 10 minutes Jonathan Shipman DO Work Phone: [facility] Comment on above: Left groin pain (Lanie javier Dx) Start: 03-01-2024 End: 03-01-2024 ambulatory JONATHAN SHIPMAN Not Available Start: 02-01-2024 Patient encounter status [facility] Start: 02-01-2024 End: 02-01-2024 ambulatory [facility] Work Phone: Start: 02-01-2024 End: 02-01-2024 Encounter for general adult medical examination without abnormal findings [facility] Start: 02-01-2024 End: 02-01-2024 Patient encounter procedure [facility] Work Phone: Start: 12-22-2023 End: 12-22-2023 ambulatory [facility] Start: 08-08-2023 End: 08-08-2023 ambulatory JONATHAN SHIPMAN Not Available Start: 08-02-2023 End: 08-02-2023 ambulatory ZACHARY WILLIAM Not Available Start: 08-02-2023 End: 08-02-2023 ambulatory MD Rose Mary Timmons Work Phone: [facility] Work Phone: Start: 08-02-2023 End: 08-02-2023 Patient encounter procedure MD Rose Mary Timmons Work Phone: [facility] Work Phone: Start: 07-27-2023 End: 07-27-2023 ambulatory JONATHAN SHIPMAN Not Available Start: 07-04-2023 End: 07-04-2023 ambulatory JONATHAN SHIPMAN Not Available Start: 06-26-2023 End: 06-26-2023 Admission to same day surgery center MD Rose Mary Timmons Work Phone: [facility] [address] [place] Start: 06-16-2023 End: 06-16-2023 ambulatory MD Rose Mary Timmons Work Phone: [facility] Work Phone: Start: 06-16-2023 End: 06-16-2023 Patient encounter procedure MD Rose Mary Timmons Work Phone: [facility] Work Phone: Start: 06-13-2023 End: 06-13-2023 Office outpatient new 45 minutes Jonathan Shipman DO Work Phone: [facility] Comment on above: Left inguinal hernia (Primary Dx); Left lower quadrant pain Start: 06-13-2023 End: 06-13-2023 ambulatory JONATHAN SHIPMAN Not Available Start: 06-13-2023 Telephone encounter Jonathan smith DO Work Phone: [facility] Start: 06-12-2023 End: 06-12-2023 ambulatory Rose Mary Timmons Other [employer] Other Start: 06-12-2023 Telephone encounter Rose Mary Timmons [facility] Start: 06-07-2023 End: 06-07-2023 ambulatory Rose Mary Timmons Other [employer] Other Start: 06-07-2023 Office outpatient vi sit 15 minutes Rose Mary Timmons [facility] Start: 01-30-2023 End: 01-30-2023 ambulatory Woodrow Rashid Other [employer] Other Start: 01-30-2023 Postop follow up vis it related to original px Woodrow Rashid [facility] Start: 01-17-2023 End: 01-17-2023 ambulatory Guanacoaida Wolf Other [employer] Other Start: 01-17-2023 Office outpatient vi sit 15 minutes Guanaco Maryann [facility] Start: 01-03-2023 Encounter for genera l adult medical examination without abnormal findings Rose Mary Timmons [facility] Start: 01-03-2023 Periodic preventive med est patient 40-64yrs Rose Mary Timmons [facility] Start: 01-03-2023 End: 01-03-2023 ambulatory MD Rose Mary Timmons Work Phone: [employer] Other Start: 01-03-2023 End: 01-03-2023 Patient encounter procedure MD Rose Mary Timmons Work Phone: [facility] [address] [place] Work Phone: Start: 10-24-2022 End: 10-24-2022 ambulatory Guanaco Wolf Other [employer] Other Start: 10-24-2022 Office outpatient vi sit 25 minutes Guanacoaida Wolf [facility] Start: 09-27-2022 End: 09-27-2022 ambulatory Rose Mary Timmons Other [employer] Other Start: 09-27-2022 Telephone encounter Rose Mary Timmons [facility] Start: 09-14-2022 End: 09-15-2022 ambulatory MAGNO INIGUEZCKER Facility:[facility] Start: 09-02-2022 End: 09-03-2022 ambulatory MAGNOESTUARDO METZER Facility:[facility] Start: 09-01-2022 End: 09-01-2022 ambulatory MD Rose Mary Timmons Work Phone: [facility] Work Phone: Start: 09-01-2022 End: 09-01-2022 Patient encounter procedure MD Rose Mary Timmons Work Phone: [facility] Start: 08-26-2022 (Varithena1) Jordan Mcdaniel [facility] Start: 08-26-2022 End: 08-26-2022 ambulatory Woodrow Rashid Other [employer] Other Start: 07-15-2022 End: 07-15-2022 ambulatory Rose Mary Timmons Other [employer] Other Start: 07-15-2022 Office outpatient vi sit 15 minutes Guanaco Maryann [facility] Start: 07-15-2022 Telephone encounter Rose Mary Timmons [facility] Start: 07-01-2022 End: 07-01-2022 ambulatory MD Rose Mary Timmons Work Phone: [facility] Work Phone: Start: 07-01-2022 End: 07-01-2022 Patient encounter procedure MD Rose Mary Timmons Work Phone: [facility]-XRay [facility] Work Phone: Start: 06-24-2022 End: 06-24-2022 ambulatory Guanaco Maryann Other [employer] Other Start: 06-24-2022 Office outpatient vi sit 25 minutes Gunaaco Maryann [facility] Joel Start: 06-23-2022 End: 06-23-2022 ambulatory Rose Mary Timmons Other [employer] Other Start: 06-23-2022 Office outpatient vi sit 15 minutes Rose Mary Timmons [facility] Start: 05-12-2022 End: 05-12-2022 ambulatory Rose Mary Timmons Other [employer] Other Start: 05-12-2022 Office outpatient vi sit 15 minutes Rose Mary Timmons [facility] Start: 05-10-2022 End: 05-10-2022 ambulatory Woodrow Rashid Other [employer] Other Start: 05-10-2022 Telephone encounter Woodrow Rashid [facility] Start: 03-07-2022 End: 03-07-2022 ambulatory Woodrow Rachid Other [employer] [facility] Other Start: 03-07-2022 Telephone encounter Woodrow Rachid [facility] Start: 01-31-2022 End: 01-31-2022 ambulatory Leyla Bournemary carmen Other [employer] Other Start: 01-31-2022 Follow-up encounter Leyla Cici [facility] Start: 01-15-2022 Encounter for genera l adult medical examination without abnormal findings DR ROSE MARY TIMMONS [facility] Start: 01-12-2022 End: 01-12-2022 Admission to same day surgery center MD Rose Mary Timmons Work Phone: [facility] [place] Start: 01-10-2022 End: 01-11-[address] ROSE MARY TIMMONS Facility:[facility] Start: 01-10-2022 End: 01-11-2022 Encounter for general adult medical examination without abnormal findings DR ROSE MARY TIMMONS Facility:[facility] Start: 01-10-2022 End: 01-10-2022 Patient encounter procedure MD Rose Mary Timmons Work Phone: [facility]-Pre-Surgical Testing Start: 12-21-2021 End: 12-21-2021 ambulatory Leyla Cici Other [facility] [facility] Other Start: 12-21-2021 Encounter for other preprocedural examination Leyla Cici [facility] Start: 12-21-2021 Follow-up encounter Leyla Carcamo [facility] Start: 12-21-2021 End: 12-21-2021 Patient encounter procedure MD Rose Mary Timmons Work Phone: [facility]-Ultrasound [facility] Start: 09-23-2021 ambulatory MAGNO OLIVEIRA Facility :[facility] Start: 09-21-2021 End: 09-21-2021 ambulatory Woodrow Rashid Other [employer] [facility] Other Start: 09-21-2021 Office outpatient vi sit 15 minutes Woodrow Rashid [facility] Start: 09-06-2021 End: 09-06-2021 ambulatory Lanie Robledo Other [facility] [facility] Other Start: 09-06-2021 Office outpatient vi sit 15 minutes Lanie Meena [facility] Start: 08-27-2021 End: 08-27-2021 ambulatory Guanaco Wolf Other [facility] [facility] Other Start: 08-27-2021 Telephone encounter Guanaco Wolf [facility] Start: 07-12-2021 End: 07-12-2021 ambulatory Guanaco Wolf Other [facility] [facility] Other Start: 07-12-2021 Office outpatient vi sit 15 minutes Guanaco Maryann [facility] Start: 07-01-2021 (Procedure) Short Guanaco Wolf [facility] Start: 07-01-2021 End: 07-01-2021 ambulatory Mando Olexa Other [employer] Other Start: 07-01-2021 Office outpatient vi sit 15 minutes Mando Olexa [facility] Start: 06-10-2021 End: 06-10-2021 ambulatory Mando Olexa Other [facility] [facility] Other Start: 06-10-2021 Office outpatient vi sit 25 minutes Mando Olexa [facility] Start: 06-01-2021 End: 06-01-2021 ambulatory Guanaco Maryann Other [facility] [facility] Other Start: 06-01-2021 Office outpatient ne w 45 minutes Mando Olexa [facility] Start: 06-01-2021 Office outpatient vi sit 25 minutes Guanaco Wolf [facility] Start: 04-20-2021 End: 04-20-2021 ambulatory Guanaco Wolf Other [facility] [employer] Other Start: 04-20-2021 Telephone encounter Guanaco Wolf [facility] Start: 04-19-2021 End: 04-19-2021 ambulatory Guanaco Wolf Other [facility] [employer] Other Start: 04-19-2021 Office outpatient vi sit 25 minutes Guanaco Wolf [facility] Start: 10-22-2020 End: 10-23-2020 ambulatory ROSE MARY TIMMONS Facility:[facility] Start: 05-17-2020 End: 05-18-2020 Evaluation and management of inpatient ROSE MARY TIMMONS [facility] Start: 05-17-2020 End: 05-18-2020 Evaluation and management of inpatient Tamika Matthews Work Phone: [facility] Tele Comment on above: Herniation of interv ertebral disc between L4 and L5 (Primary Dx); Postoperative pain Procedures Date Procedure Procedure Detail Performing Clinician Start: 12-12-2024 MRI of left shoulder Artem Timmons MD Work Phone: Start: 05-13-2024 Plain X-ray of left shoulder [...] Start: 05-18-2020 Antibody screen Tamika Matthews Start: 01-17-2021 Blood typing serologic abo Pelon H. Glenroy Work Phone: Start: 05-17-2020 COVID-19 Tamika Quiñonez obMarkrchloe Work Phone: Start: 05-17-2020 Radiologic exam ches t single view Tamika CanadaMarkrchloe Work Phone: Start: 05-17-2020 Ecg routine ecg w/le ast 12 lds w/i&r Tamika Matthews Work Phone: Start: 05-17-2020 Mri spinal canal lum bar w/o & w/contr matrl Tamika Jensen Asker Work Phone: Start: 05-17-2020 Sedimentation rate r bc automated Tamika Matthews Work Phone: Start: 05-17-2020 Blood count complete auto&auto difrntl wbc Tamika CanadaMarkrchloe Work Phone: Start: 05-17-2020 C-reactive protein Ryan rivera Matthews Work Phone: Start: 05-17-2020 Comprehensive metabo lic panel Tamika Jensen Asker Work Phone: Start: 05-17-2020 Urinalysis microscopic only Tamika Matthews Work Phone: Start: 05-17-2020 Urnls dip stick/tabl et rgnt auto w/o microscopy Tamika Jensen Asker Work Phone: Plan of Treatment Date Care Activity Detail Author Start: 05-13-2024 Plain X-ray of left shoulder XR shoulder LT min 2V* [facility] Start: 05-13-2024 XR Shoulder - left Views [facility] Start: 12-31-2023 Influenza vaccination Influenza Vacc ine (#1) [facility] Start: 08-02-2023 Patient referral [facility] Work Phone: Start: 07-04-2023 End: 07-04-2023 Patient encounter procedure 07/04/2023 11:15 AM EST Office Visit [facility] [address] [facility] [address] [place] [address] Jonathan Shipman, DO [address] [facility] [address] [place] [address] [address] [facility] Start: 06-26-2023 End: 06-26-2023 [facility] Start: 06-26-2023 End: 06-26-2023 Patient encounter procedure 06/26/2023 1:30 PM EST Procedure Visit [facility] Jonathan Shipman, DO [address] [facility] [address] [place] [address] [facility] Start: 09-01-2022 Duplex scan of lower limb veins US venous duplex LE LT [facility] Start: 09-01-2022 US Lower extremity v ein - left [facility] Start: 01-12-2022 [facility] Work Phone: Start: 01-12-2022 [facility] Work Phone: Start: 05-17-2021 Creatinine measurement Creatinine mo nitoring [place], [place] Start: 05-17-2021 Potassium monitoring Potassium monit oring [place] Start: 06-12-2020 End: 06-12-2020 Office Visit 06/12/2020 Office Visit Neurosurgery Pelon Tim MD [address] [facility] [place] [address] [facility] Start: 12-31-2019 Influenza vaccination Flu vaccine (# 1) [place], [place] Start: 2000 DTaP/Tdap/Td vaccine (1 - Tdap) DTaP/Tdap/Td vaccine (1 - Tdap) [place], [place] Start: 1996 HIV screening HIV screen [place], [place] Start: 1982 Varicella vaccine (1 of 2 - 2-dose childhood series) Varicella vaccine (1 of 2 - 2-dose childhood series) [place], [place] Start: 1981 Hepatitis C screening Hepatitis C sc reen [place], [place] Comprehensive metabo lic 1999 panel - Serum or Plasma [facility] End: 05-18-2020 Fluoroscopy during operation FLUORO FOR SURGICAL PROCEDURES Imaging Routine Once for 1 Occurrences starting 05/18/2020 until 05/18/2020 [place] Comment on above: Once for 1 Occurrenc es starting 05/18/2020 until 05/18/2020 Fluoroscopy during operation FLUORO FOR SURGICAL PROCEDURES Imaging Routine 05/18/2020 12:44 PM EST [place], [place] MR Shoulder - left W O contrast [facility] Patient Education Varicose Veins (DC) [facility] Work Phone: Patient referral [facility] Work Phone: Surgical Pathology Surgical Path ology Lab Routine Release Upon Ordering for 1 Occurrences starting 05/18/2020 [place], [place] Comment on above: Release Upon Orderin g for 1 Occurrences starting 05/18/2020 [facility] Immunizations Immunization Date Immunization Notes Care Provider [facility] 04-[facility]-2024 influenza, seasonal, injectable, preservative free Rose Mary Timmons MD Work Phone: [facility] 03-01-2023 influenza, injectabl e, quadrivalent, preservative free Jonathan Shipman DO Work Phone: [facility] 03-01-2023 influenza virus vaccine, unspecified formulation Jonathan Laffabriana DO Work Phone: [facility] 02-08-2022 Seasonal, quadrivalent, recombinant, injectable influenza vaccine, preservative free Jonathan Laffabriana DO Work Phone: [facility] 02-10-2021 influenza, injectabl e, quadrivalent, preservative free Jonathan Laffabriana DO Work Phone: [facility] 08-07-2020 COVID-19 Nasir Morales (Pfizer) MD Rose Mary Timmons Work Phone: [facility] 07-19-2020 COVID-19 mRNA, Nasir (Pfizer) MD Rose Mary Timmons Work Phone: [facility] 01-14-2020 influenza virus vaccine, split virus (incl. purified surface antigen) Rose Mary Timmons Other [facility] [employer] Other 01-14-2020 influenza virus vaccine, unspecified formulation MD Rose Mary Timmons Work Phone: [facility] 01-14-2020 influenza, injectabl e, quadrivalent, preservative free Jonathan Shipman DO Work Phone: [facility] 12-31-2019 influenza, seasonal, injectable Jonathan Shipman DO Work Phone: [facility] 02-12-2019 influenza, injectabl e, quadrivalent, preservative free Jonathan Shipman DO Work Phone: [facility] 12-12-2018 tetanus and diphther ia toxoids, adsorbed, preservative free, for adult use (2 Lf of tetanus toxoid and 2 Lf of diphtheria toxoid) Jonathan Angelluis Work Phone: [facility] 12-12-2018 tetanus and diphther ia toxoids, adsorbed, preservative free, for adult use (5 Lf of tetanus toxoid and 2 Lf of diphtheria toxoid) MD Rose Mary Timmons Work Phone: [facility] 12-12-2018 tetanus toxoid, reduced diphtheria toxoid, and acellular pertussis vaccine, adsorbed Rose Mary Timmons Other [facility] [employer] Other Payers Date Payer Category Payer Self-pay [id number] 2021 [facility] er [id number] 2021 Unknown BCBS BCBS [id number] 2021-Present [phone] [address] [place] [address] [id number] 2009 Unknown [id number] 1981 Unknown [id number] [id number] .182 1981 Unknown [id number] 2.16.840.1.506742.3.579.2 .647 1981 Unknown [id number] 2.16.840.1.962420.3.579.2 .593 1981 Unknown [id number] 2.16.840.1.191884.3.579.2 .593 1981 Unknown [id number] 2.16.840.1.692022.3.579.2 .593 1981 Unknown [id number] 2.16.840.1.474926.3.579.2 .593 1981 Unknown [id number] 2.16.840.1.882662.3.579.2 .1259 1981 Unknown [id number] 2.16.840.1.008409.3.579.2 .1259 1981 Unknown [id number] 2.16.840.1.236660.3.579.2 .1259 1981 Unknown [id number] 2.16.840.1.527024.3.579.2 .1259 1981 Unknown [id number] 2.16.840.1.456559.3.579.2 .1259 1981 Unknown [id number] 2.16.840.1.900827.3.579.2 .1259 1958 [facility] M9PAN [id number] 2.16.840.1.837844.19 1958 Self-pay [id number] Unknown [id number] 2.16.840.1.677411.3.579.2 .531 Unknown [id number] 2.16.840.1.534899.3.579.2 .531 Social History Date Type Detail Facility Start: 05-18-2020 Tobacco smoking stat us [facility] Unknown if ever smoked [place] Start: 05-18-2020 Tobacco use and exposure Never used [employer] [place] Start: 1980 Sex Assigned At Not on file [facility] [place] Exposure to SARS-CoV -2 (event) Not sure [facility] [place] Start: 06-13-2023 End: 03-01-2024 Sex Assigned At [facility] Start: 1980 Sex Assigned At Male [facility] Start: 06-13-2023 End: 06-26-2023 Tobacco smoking status MEIS Never smoked tobacco [facility] Start: 06-13-2023 Tobacco use and exposure Former smokeless tobacco user [facility] End: 05-01-2011 History of tobacco [...] per day [facility] Start: 05-13-2024 End: 08-06-2024 Sex Male (finding) [facility] Medical Equipment Procedure Code Equipment Code Equipment Origin al Text Equipment Identifier Dates Repair, hernia, inguinal, laparoscopic Abdominal hernia surgical mesh, synthetic polymer, non-bioabsorbable ([id number] FDA Start: 06-26-2023 Goals Date Patient Goal Desired Activity /State Clinical Notes 06-27-2020 to 11-29-2024 Note Date & Type Note Facility 11-29-2024 Note SUBJECTIVE Reason for Visit: Anshul Spencer is a 44 y.o. year old male patient being seen for 1 year follow up visit. HPI: Anshul Spencer is a 44 y.o. year old male with significant medical history of aortic valve disorder, hypertension, and hyperlipidemia. 11/29/2024 office visit: Patient seen and evaluated for annual follow-up visit. He reports doing well overall. 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 He denies chest pain, shortness of breath, palpitations, lightheadedness or dizziness, or lower extremity edema. He has no concerns for his visit. 12/22/2023 office visit (Dr. Mendoza): ANSHUL Spencer is a 43 y.o. year old male patient being seen for 1 year follow up aortic valve disorder, hypertension, and hyperlipidemia. Had routine echo in August 2023. He was seen in the ED in July for palpitations because he thought he was in afib. Denies chest pain, SOB, and recurrent palpitations. C/o lightheadedness, which he states is not new. Denies syncope. Medical History[1] Surgical History[2] Problem List[3] family history includes Hypertension in his father and maternal grandfather. Social History[4] OBJECTIVE Visit Vitals Smoking Status Never Physical Exam Constitutional: General Appearance: well-developed, appears stated age. Level of Distress: no acute distress. Neck: Jugular Veins: normal jugular venous pressure. Lungs: Auscultation: no rales or rhonchi and normal breath sounds. Cardiovascular: Rate And Rhythm: regular Heart Sounds: normal S1 and s2; Systolic Murmur: not heard. Diastolic Murmur: not heard. Extremities: no edema Peripheral Pulses: Pulses: full and equal in all extremities except if noted. Abdomen: Inspection and Palpation: non distended or tender and soft. Musculoskeletal: Inspection: no joint tenderness or swelling. Neurologic: Gait: normal gait. Psychiatric: Mental Status: alert and normal affect. Skin: Inspection and Palpation: warm and dry. Allergies: Allergies[5] Outpatient Medications: Current Outpatient Medications Medication Instructions dilTIAZem ER (TIAZAC) 240 mg, oral, Once Daily hydroCHLOROthiazide (HYDRODIURIL) 25 mg, oral, Daily lisinopril 20 mg, oral, Once Daily omeprazole (PriLOSEC) [address] capsule Take 1 capsule every day by oral route for 90 days. Recent Labs: No visits with results within 2 Month(s) from this visit. Latest known visit with results is: [facility] Encounter on 10/22/2020 Component Date Value Creatinine 10/22/2020 0.91 eGFR - Non- Ameri* 10/22/2020 >60 eGFR - 10/22/2020 >60 I have personally reviewed and anaylzed the following laboratory results above. These findings have been analyzed in the context of the patient's clinical presentation. Cardiovascular Diagnostic Studies: TTE 11/22/2024: CONCLUSION: 1. Normal left ventricular size with borderline hypertrophy. Systolic function is normal. Estimated LVEF is 55%. 2. Mildly dilated right ventricle with normal systolic function. 3. Mild biatrial dilatation. 4. Normal diastolic function. 5. Bicuspid aortic valve [Eliu type I] with mild to moderate regurgitation and no stenosis. 6. Normal right-sided pressures. 7. Ascending aorta and aortic root are normal in size. TTE 09/26/2023: CONCLUSION: 1. Normal left ventricular size and systolic function. Estimated LVEF is 55 to 60%. 2. Normal diastolic function. 3. Mildly dilated right ventricle with normal systolic function. 4. Mild biatrial dilatation. 5. Bicuspid aortic valve with mild to moderate regurgitation and no stenosis. TTE 08/26/2020: 12 Lead ECG: No results found for this or any previous visit (from the past 4464 hours). Cardiac event monitor 11/2023: I have personally reviewed and analyzed all available cardiac diagnostic tests and imaging reports. Findings have been analyzed in the context of the patient's clinical status. Assessment and Plan #Nonrheumatic aortic valve insufficeincy #Bicuspid aortic valve Stable, asymptomatic denies symptoms Stable echo, preserved EF, and absence of symptoms. Reinforce symptom monitoring. TTE 11/22/2024: EF 55%, Bicuspid aortic valve [Eliu type I] with mild to moderate regurgitation and no stenosis. TTE 09/26/2023: EF 55 to 60%, Bicuspid aortic valve with mild to moderate regurgitation and no stenosis. - Continue routine surveillance - Repeat TTE in 12 months per ACC/AHA guidelines for bicuspid valve with mild to moderate aortic regurgitation and preserved EF - Reinforce symptom monitoring #Hypertension Blood pressure today is 118/70, heart rate 67 Stable - Continue hydrochlorothiazide 25 mg - Continue lisinopril 20 mg daily - Continue diltiazem 240 mg daily #Palpitations Event monitor 12/19/2023: Sinus rhythm with sinus tachycardia 1 episode of possible a flutter lasting less than 1 minute No malignant arrhythmias, no sustained arrhythmias Denies palpitations, denies l (more content not included)... [facility] 11-21-2024 Evaluation note Diagnosis Onset Date Resolution Internal derangement of left shoulder acute November 21, 2024 8:08am Left rotator cuff tear acute 2024 8:08am Pain in left shoulder acute Oct 8:08am Subacromial impingement of left shoulder acute November 21, 2024 8:08am [facility] Work Phone: 1(889) 100-232507-24-2025 Evaluation note* Diagnosis Onset Date Resolution Status Admit Date Internal derangement of left shoulder acute November 21, 2024 8:08am Left rotator cuff tear acute 2024 8:08am Pain in left shoulder acute Oct 8:08am Subacromial impingement of left shoulder acute November 21, 2024 8:08am Internal derangement of left shoulder acute December 31 025 11:28am Left rotator cuff tear acute Se ptember 2024 11:28am Pain in left shoulder acute Sep tember 2024 11:28am Subacromial impingement of left shoulder acute December 31 025 11:28am [facility] Work Phone: 1(997) 876-875801-13-2025 Evaluation note* Diagnosis Onset Date Resolution Status Admit Date Left rotator cuff tear acute Ja nuary 2024 9:06am Pain in left shoulder acute Mahendra uary 2025 9:06am Subacromial impingement of left shoulder acute May 13 9:06am [facility] Work Phone: 1(153) 713-753701-13-2025 Evaluation note* Diagnosis Onset Date Resolution Status Admit Date Left rotator cuff tear acute Curt carroll 2024 9:06am Pain in left shoulder acute May 9:06am Subacromial impingement of left shoulder acute May 13 9:06am Anemia acute August 06 10:45am [facility] Work Phone: 1(658) 284-578411-01-2024 History of Present illness Narrative* Jonathan Shipman, [...] No follow-ups on file. documented in this encounterParkland Health [id number] NoteUT Cardiology - [facility] Subjective ANSHUL Spencer is a [...] testing: EKG 05/29/2020: No (more content not included)...[facility]02-13-2024 Telephone encounter Note* Telephone Encounter - Sarah Allred - 06/13/2023 3:26 PM EST excuse [facility] [id number] Miscellaneous Notes* Telephone Encounter - Sarah Allred - 06/13/2023 3:26 PM EST excuse documented in this encounterParkland Health [id number] History of Present illness Narrative* Jonathan Shipman, - 06/13/2023 3:00 PM EST Images from [...] is okay. 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 documented in this encounterParkland Health [id number] Evaluation note* Encounter Date Diagnosis Assessment Notes Treatment Notes Treatment Clinical Notes Jun, Left inguinal pain (ICD-10 - R10.32) Pt agrees to gen surgery referral. continue motrin in the meantime. [employer] Other 10-02-2023 Evaluation note* Encounter Date Diagnosis [...] see him back on an as-needed basis. [employer] Other 09-19-2023 Evaluation note* Encounter Date Diagnosis [...] call the office if his symptoms return [employer] Other 09-05-2023 Evaluation note* Encounter Date Diagnosis [...] patient is sent home pleased, without concerns. [employer] Other 06-26-2023 Evaluation note* Encounter Date Diagnosis [...] (ICD-10 - G89.29) Follow up after imaging [employer] Other 03-17-2023 Evaluation note* Encounter Date Diagnosis [...] Stable. Patient denies low back pain today [employer] Other 02-24-2023 Evaluation note* Encounter Date Diagnosis [...] - M51.36) Stable, proceed with treatment plan. [employer] Other 02-23-2023 Evaluation note* Encounter Date Diagnosis Assessment Notes Treatment Notes Treatment Clinical Notes Jun, Other insomnia (ICD-10 - G47.09) Increase dose - if not helpful, may need referral to Sleep Clinic. [employer] Other 01-12-2023 Evaluation note* Encounter Date Diagnosis Assessment Notes Treatment Notes Treatment Clinical Notes May, Other insomnia (ICD-10 - G47.09) Patient is advised to have a set bedtime routine. Do a quiet non stressful activity before bed. Patient to start with the above medication and we will continue to monitor. [employer] Other 10-03-2022 Evaluation note* Encounter Date Diagnosis [...] agrees with this plan, denies any questions. [employer] Other 08-23-2022 Evaluation note* Encounter Date Diagnosis [...] I83.893) left worse than the right, pain [employer] Other 05-24-2022 Evaluation note* Encounter Date Diagnosis [...] those options when we see his ultrasound. [employer] Other 05-09-2022 Evaluation note* Encounter Date Diagnosis Assessment Notes Treatment Notes Treatment Clinical Notes August, Sore throat (ICD-10 - J02.9) August, Viral pharyngitis (ICD-10 - J02.9) Drink plenty fluids, get plenty of rest. Take Tylenol Motrin for aches pains or fevers. Continue your home medications as prescribed. Follow-up with your family physician if no improvement in 2 to 3 days. [employer] Other 04-29-2022 Evaluation note* Encounter Date Diagnosis Assessment Notes Treatment Notes Treatment Clinical Notes Jul, Lumbar degenerative disc disease (ICD-10 - M51.36) [employer] Other 03-14-2022 Evaluation note* Encounter Date Diagnosis [...] (ICD-10 - G89.29) Continue medications as prescribed [employer] Other 03-03-2022 Evaluation note* Encounter Date Diagnosis [...] tear can worsen and enlarge with time [employer] Other 02-10-2022 Evaluation note* Encounter Date Diagnosis [...] pain of left shoulder (ICD-10 - M25.512) [employer] Other 02-01-2022 Evaluation note* Encounter Date Diagnosis [...] derangement of left shoulder (ICD-10 - M24.812) [employer] Other 02-01-2022 Evaluation note* Encounter Date Diagnosis [...] Status post spinal surgery (ICD-10 - Z98.890) [employer] Other 12-20-2021 Evaluation note* Encounter Date Diagnosis [...] negative findings were considered in medical decision-making. [employer] Other 02-27-2021 NotePatient Outreach (COVAMN) JENNA SPENCER ([id number]) 1980 M Date Time Provider Department 06/27/20 ROBERT NICOLAS During your visit today, we recorded the following information about you: Allergies As of Date: 06/27/2020 (No Known Allergies) Date Reviewed: 05/21/2018 Reviewed by: Jonna Powers - Fully Assessed Order(s):SARS-COVID VACCINE 1ST DOSE APPT [[id number]] Order #: [id number] FUTURE Prescriptions as of 06/27/2020 Sig: LISINOPRIL [...] Of Date: 06/27/2020 (None) Encounter Status:Closed by EPIC, PRODUSER on 06/30/20[facility] Chief complaint+Reason for visit Narrative* Chief Complaint Hernia Hernia REFERRAL FOR ENT Reason for Visit Bilateral tinnitus [facility] Work Phone: Evaluation noteNo [employer] Other Evalukjyrq noteNo assessment information available [facility] Work Phone: evalutmurw note* Diagnosis Left inguinal hernia- Primary Inguinal hernia without mention of obstruction or gangrene, unilateral or unspecified, (not specified as recurrent) Left lower quadrant pain Abdominal pain, left lower quadrant documented in this encounter [facility]* Diagnosis Onset Date Resolution Status Bilateral tinnitus acute [facility] Work Phone: evaluation note* Diagnosis Onset Date Resolution Status Fatigue acute Wellness examination acute [facility] Work Phone: Evaluation note* Diagnosis Left groin pain- Primary Abdominal pain, left lower quadrant documented in this encounter [facility]* Diagnosis Onset Date Resolution Status Admit Date Left rotator cuff tear acute Curt carroll 2024 9:06am Pain in left shoulder acute May 9:06am Subacromial impingement of l eft shoulder acute May 13 9:06am Traumatic rupture of supraspinatus tendon of left shoulder acute May 13 9:06am [facility] Work Phone: Evaluation note* Diagnosis Onset Date Resolution Status Admit Date Internal derangement of left shoulder acute November 21, 2024 8:08am Left rotator cuff tear acute Ju 2024 8:08am Pain in left shoulder acute Oct 8:08am Subacromial impingement of l eft shoulder acute November 21, 2024 8:08am [facility] Work Phone: History general Narrative [...] Hospitalization History see above surgical histo ry [facility] [employer] Other Hospital Discharge instructionsAmbulatory Orders* Referral to ENT Time Frame: 08/02/23, Location: None Selected [facility] Work Phone: Reason for referral (narrative)No reason for referral information availablePremier Health Work Phone: Summary Purpose Family History Relationship Condition Age at Onset Recorded Date/T fifi father Amyotrophic lateral sclerosis Unknown Relationship Condition Age at Onset Recorded Date/T fifi father Amyotrophic lateral sclerosis Unknown Lyme disease Unknown Unknown Advance Directives Latest Code Status on File Code Status Date Activated Date Inactivated Comments Full Code 05/17/2020 10:51 PM Healthcare Agents on File Name Relationship Healthcare Agent [facility] Florence Spencer Spouse Primary Decision Maker ([place]) Advance Directive Response Recorded Date/ Time Advance [...] your physician 11) Call your doctor at [phone] for an appointment (or follow up as [...] call OFFICE. The 24- hour phone is [phone] 13) If you are unable to contact your surgeon, in an emergency situation, go to the nearest hospital emergency room. 14) shower on Monday 15) no driving documented in this encounter History of Present Illness * Joana Rangel, RN - 05/18/2020 4:23 AM EST Assumed [...] Complaint and Reason for Visit Chief Complaint Admit Date OP SP LT SHOULDER PAIN November 21, 2024 8 :08am S46.012A M24.812 December 12, 2024 6: 59am Reason for Visit Admit Date Internal derangement of left shoulder Ju 2024 8:08am Left rotator cuff tear November 21, 2024 8 :08am Pain in left shoulder November 21, 2024 8: 08am Subacromial impingement of left shoulder November 21, 2024 8:08am Chief Complaint I83.813 Varicose Veins Chief Complaint [...] 2024 7:57am OP/SP LEFT SHOULDER PAIN May 13 9:06am Reason for Visit Admit Date Left [...] of left shoulder May 13, 2024 9:06am Chief Complaint Admit Date M25.512 - Pain in left shoulder May 13, 2024 7:57am OP/SP LEFT SHOULDER PAIN May 13 9:06am rash hand and leg August 06, 2024 10:4 5am Reason for Visit Admit Date Left rotator cuff tear May 13 9:06am Pain in left shoulder May 13, 2024 9:06am Subacromial impingement of left shoulder May 13, 2024 9:06am Anemia August 06, 2024 10:4 5am Chief Complaint Admit Date OP SP LT SHOULDER PAIN November 21, 2024 8 :08am Chief Complaint Admit Date OP SP LT SHOULDER PAIN November 21, 2024 8 :08am S46.012A M24.812 December 12, 2024 6: 59am MRI RESULTS December 31, 2024 11:28am Reason for Visit Admit Date Internal derangement of left shoulder Ju ly 2024 8:08am Left rotator cuff tear November 21, 2024 8 :08am Pain in left shoulder November 21, 2024 8: 08am Subacromial impingement of left shoulder November 21, 2024 8:08am Internal derangement of left shoulder Se pt2024 11:28am Left rotator cuff tear December 31 11:28am Pain in left shoulder December 31 11:28am Subacromial impingement of left shoulder December 31, 2024 11:28am Chief Complaint Admit Date OP SP LT SHOULDER PAIN November 21, 2024 8 :08am S46.012A M24.812 December 12, 2024 6: 59am MRI RESULTS December 31, 2024 11:28am rash in groin area January 02, 2025 11:16am Reason for Referral Reason *FU 06/14 [facility] - likely inguinal hernia (L) Diagnosis 1 Left inguinal pain ( R10.32) Referral Organization [facility] López ansari Referring Provider First Name Rose Mary Referring Provider Last Name Shanelle Referring Provider Specialty Family [facility] Referred Organization [facility] Referred Provider Jonathan Shipman Referred Address ,[place], [place],[address] Referred Provider Specialty Surgery Referral Priority Routine [...] section and content) DATE CREATED AUTHOR 03/03/2020 [facility] DATE CREATED AUTHOR AUTHOR'S ORGANIZ ATION 05/22/2020 [facility] DATE CREATED AUTHOR AUTHOR'S ORGANIZ ATION 12/18/2020 [facility] DATE CREATED AUTHOR AUTHOR'S ORGANIZ ATION 06/08/[address] [facility] DATE CREATED AUTHOR AUTHOR'S ORGANIZ ATION 09/15/2022 [facility] DATE CREATED AUTHOR AUTHOR'S ORGANIZ ATION 03/03/2024 [facility] DATE CREATED AUTHOR AUTHOR'S ORGANIZ ATION 11/30/2024 [facility] DATE CREATED AUTHOR AUTHOR'S ORGANIZ ATION 12/13/2024 [facility] Reason for Visit (unrecogniz ed section and content) Reason Comments Back Pain Seen by Dr iTm 05/08, told to come to the ER if pain gets worse Status Reason Specialty Diagnoses / Procedures Re ferred By Contact Referred To Contact Diagnoses Herniation of left side of L4-L5 intervertebral disc Pelon Tim MD [address] [place] [address] [facility] Reason Comments Consult Inguinal hernia, Lef t Specialty Diagnoses / Procedures Referred By Contac t Referred To Contact General Surgery Diagnoses Left lower quadrant pain Procedures [place] OFFICE/OUTPATIENT [facility] 60 MINUTES Rose Mary Timmons MD [address] [place] [address] [facility] [address] [place] [address] Referral ID Status Reason Start Date Expiration Date V isits Requested Visits Authorized [id number] Closed Specialty Services Required 06/08/2023 12/05/2023 1 [...] Active Guanaco Wolf MD Attending Provider Active Teletypesetter Monitor Relationship Specialty Start Date End Date Rose Mary Timmons MD [address] [place] [id number] PCP - General Family Medicine 06/12/23 Teletypesetter Monitor Relationship Specialty Start Date End Date Rose Mary Timmons MD [address] [place] [address] PCP - General Family Medicine 06/12/23 Team [...] February 01, 2024 End: February 01, 2024 Teletypesetter Monitor Relationship Specialty Start Date End Date Rose Mary Timmons MD [address] [place] [address] PCP - General Family Medicine 06/12/23 Team [...] 2024 Team Status: Inactive Member Role Status Rodo Forde MD Attending Provider Active Star t: May 13, 2024 End: May 13, 2024 Rose Mary Timmons MD Primary Care Provider Active Start: May 13, 2024 End: May 13, 2024 Team Status: Inactive Member Role Status Dates Rose Mary Timmons MD Primary Care Provide r, Attending Provider Active Start: August 06, 2024 End: August 06, 2024 Team Status: Inactive Member Role Status Dates Rose Mary Timmons MD Primary Care Provider Active Start: November 21, 2024 End: November 21, 2024 Mando Forde MD Attending Provider Active Star t: November 21, 2024 End: November 21, 2024 Team Status: Inactive Member Role Status Dates Rose Mary Timmons MD Primary Care Provider Active Start: December 12, 2024 End: December 12, 2024 Mando Forde MD Attending Provider Active Star t: December 12, 2024 End: December 12, 2024 Team Status: Inactive Member Role Status Dates Rose Mary Timmons MD Primary Care Provider Active Start: December 31, 2024 End: December 31, 2024 Mando Forde MD Attending Provider Active Star t: December 31, 2024 End: December 31, 2024 Team Status: Inactive Member Role Status Dates Rose Mary Timmons MD Primary Care Provider Active Start: January 02, 2025 End: January 02, 2025 Rose Mary Timmons MD Attending Provider Active St art: January 02, 2025 End: January 02, 2025 Goals (unrecognized section and content) Goals may [...] BE BASED ON THE PRIMARY CLINICAL RECORDS. [facility]. provides no warranty or guarantee of the accuracy or completeness of information in this document.
[2025-01-22 08:54] LABS: Hematocrit 40.6 % (42.0-54.0); Hemoglobin 13.7 g/dL (14.0-18.0); Immature Granulocytes Abs Auto 0.01 10^3/uL (0.00-0.03); Immature Granulocytes Pct Auto 0.2 % (0.0-0.5); Lymphocytes Absolute Auto 2.1 10^3/uL (1.2-3.8); Mean Corpuscular HGB Conc 33.7 g/dL (29.9-35.2); Mean Corpuscular Hemoglobin 30.3 pg (25.9-34.0); Mean Corpuscular Volume 89.8 fL (80.0-94.0); Platelet Count 196 10^3/uL (150-450); Red Blood Count 4.52 10^6/uL (4.70-6.10); White Blood Count 4.9 10^3/uL (4.0-11.0)
[2025-01-22 09:22] LABS: Alanine Aminotransferase 27 U/L (16-63); Albumin Globulin Ratio 1.1; Albumin Level 3.8 g/dL (3.4-5.0); Alkaline Phosphatase 38 U/L (46-116); Anion Gap 12.1; Aspartate Amino Transferase 12 U/L (15-37); Blood Urea Nitrogen 10.0 mg/dL (7.0-18.0); Calcium 8.7 mg/dL (8.5-10.1); Carbon Dioxide 29.1 mmol/L (21.0-32.0); Chloride 105 mmol/L (98-107); Cholesterol 149 mg/dL (<=200); Estimated GFR (African America >60 (>=60 mL/min/1.73m^2); Estimated GFR (Non-African Ame >60 (>=60 mL/min/1.73m^2); Globulin 3.4 g/dL; Glucose 93 mg/dL (74-106); HDL Cholesterol 51 mg/dL (40-60); Potassium 4.2 mmol/L (3.5-5.1); Sodium 142 mmol/L (136-145); Total Protein 7.2 g/dL (6.4-8.2); Triglycerides 81 mg/dL (<=150); VLDL CHOLESTEROL 16.2 mg/dL
== END 2025-01-22 08:26 | disposition home or self-care (01) ==
LOC: LAB 08:26
PROVIDERS: PCP Family Medicine; Visit Provider Family Medicine
DX: Z00.00 Encounter for general adult medical examination without abnormal findings (principal)
CPT/HCPCS: 36415; 80053; 80061; 85025